=== PATIENT | male | born 1955 | race Caucasian/White ===

== ENCOUNTER 2017-03-28 14:58 | Emergency (ER) | payer MEDICARE, MEDICAID ==
[~2017-03-28] VITALS: Ht 195.6 cm; Wt 106.6 kg
[~2017-03-28 14:58] MED LIST: AMLODIPINE BESYL5 MG ORAL; COGENTIN1 MG ORAL; DEPAKOTE500 MG PO; HALOPERIDOL1 MG ORAL; KLONOPIN0.5 MG ORAL
--- NOTE | 2017-03-28 15:24 | Emergency Room Report ---
History of Present Illness General Chief Complaint: Constipation Source: Patient, Medical Record, EMS Present Illness HPI This patient presents from a snf facility. He states that he is constipated. He states he has been constipated for the past 2 weeks. He states he's only had a few small hard bowel movements. He denies pain. He denies nausea or vomiting. He states that his abdomen does feel distended. He denies dysuria or hematuria. He denies fever or chills. He denies rectal pain. He has no other complaints. Allergies: Coded Allergies: No Known Allergies (Unverified , 10/15/15) Patient History Past Medical History: see triage record, HTN, psych hx Social History: Denies: smoking, alcohol use, drug use Reviewed Nursing Documentation: PMH: Agreed, PSxH: Agreed Review of Systems All Other Systems: negative except mentioned in HPI Physical Exam Vital Signs Date Time Temp Pulse Resp B/P (MAP) Pulse Ox O2 Delivery O2 Flow Rate FiO2 03/28/17 15:05 98.1 71 19 157/89 95 Room Air Sp02 EP Interpretation: reviewed, normal General Appearance: no apparent distress, alert, GCS 15, non-toxic Head: normocephalic, atraumatic Eyes: bilateral eye normal inspection, bilateral eye PERRL ENT: hearing grossly normal, normal pharynx, no angioedema, normal voice Neck: full range of motion, supple/symm/no masses Respiratory: chest non-tender, lungs clear, normal breath sounds, speaking full sentences Cardiovascular #1: regular rate, rhythm, no edema Gastrointestinal: normal bowel sounds, non tender, soft, non-distended, no guarding, no rebound Rectal: deferred Musculoskeletal: back normal, gait/station normal, normal range of motion, non- tender Neurologic: alert, oriented x3, responsive, motor strength/tone normal, sensory intact, speech normal Psychiatric: judgement/insight normal, memory normal, mood/affect normal, no suicidal/homicidal ideation Skin: normal color, no rash, warm/dry, well hydrated Medical Decision Making Diagnostic Impression: Primary Impression: Constipation ER Course This patient presents with constipation. Patient's abdomen exam is benign. The patient has no concerning symptoms such as nausea or vomiting that would make me concerned for a bowel obstruction. He has no urinary symptoms. He has no pain. He was given a Fleet enema with a successful bowel movement. I will place the patient on a bowel regimen and return him to the snf facility. I did not feel this patient needed imaging or laboratory workup. The patient will followup with his primary care physician at the snf facility. Last Vital Signs Date Time Temp Pulse Resp B/P (MAP) Pulse Ox O2 Delivery O2 Flow Rate FiO2 03/28/17 15:05 98.1 71 19 157/89 95 Room Air Status: improved Disposition: HOME, SELF-CARE Condition: Improved Patient Instructions: Constipation, Adult TOMMIE ALMONTE D.O. Mar 28, 2017 15:24
[2017-03-28] MEDS ORDERED: ZYPREXA10 MG ORAL (15:28)
[2017-03-28] MEDS ORDERED: PANTOPRAZOLE SO40 MG ORAL (15:28)
[2017-03-28] MEDS ORDERED: CATAPRES0.1 MG ORAL (15:28)
[2017-03-28] MEDS ORDERED: HYDRALAZINE HCL10 MG ORAL (15:28)
[2017-03-28] MEDS ORDERED: MILK OF MA400 MG/51 ORAL (15:28)
[2017-03-28] MEDS ORDERED: DEPAKOTE250 MG PO (15:28)
[2017-03-28] MEDS ORDERED: Fleet's Enema 133ml RECTAL ONE (15:30)
[2017-03-28 15:50] VITALS: BP 157/89
[2017-03-28] MEDS ORDERED: MIRALAX17 G2 ORAL (16:07)
[2017-03-28] MEDS ORDERED: COLACE100 MG ORAL (16:07)
[2017-03-28 18:59] VITALS: BP 159/91
[2017-03-28 19:02] VITALS: BP 159/91
== END 2017-03-28 19:03 | disposition home or self-care (01) ==
LOC: EDBD 14:58 → EMR 16:00
DX: K59.00 Constipation, unspecified (principal); I10 Essential (primary) hypertension
CPT/HCPCS: 99284

== ENCOUNTER 2019-11-14 15:50 | Inpatient (IN) | payer MEDICARE, MEDICAID ==
[~2019-11-14] VITALS: Ht 193 cm; Wt 81.2 kg
[~2019-11-14 15:50] MED LIST changes: +CATAPRES0.1 MG ORAL; +COLACE100 MG ORAL; +DEPAKOTE250 MG PO; +HYDRALAZINE HCL10 MG ORAL; +MILK OF MA400 MG/51 ORAL; +MIRALAX17 G2 ORAL; +PANTOPRAZOLE SO40 MG ORAL; +ZYPREXA10 MG ORAL
--- NOTE | 2019-11-14 15:59 | Emergency Room Report ---
History of Present Illness General Chief Complaint: Pain Source: Patient, EMS Present Illness HPI 64-year-old male from [facility] presents with right hip pain sharp in nature aggravated with movement alleviated with rest severity is severe, patient reports having a mechanical fall yesterday, patient denies any his head no chest pain or shortness of breath he states he was running too fast patient presents for evaluation no cough no congestion Allergies: Coded Allergies: No Known Allergies (Unverified , 10/15/15) COVID-19 Screening Contact w/high risk pt: No Recent Travel to affected area: No Experienced COVID-19 symptoms?: No Patient History Past Medical History: see triage record Reviewed Nursing Documentation: PMH: Agreed; PSxH: Agreed Nursing Documentation-PMH Hx Hypertension: Yes Hx Diabetes: Yes Review of Systems All Other Systems: negative except mentioned in HPI Physical Exam Sp02 EP Interpretation: reviewed, normal General Appearance: well appearing, no apparent distress, alert Head: normocephalic, atraumatic Eyes: bilateral eye PERRL, bilateral eye EOMI ENT: uvula midline, moist mucus membranes Neck: supple, thyroid normal, supple/symm/no masses Respiratory: lungs clear, no respiratory distress, no retraction, no accessory muscle use Cardiovascular #1: normal peripheral pulses, regular rate, rhythm, no edema, no gallop, no murmur Gastrointestinal: non tender, soft, no guarding, no rebound Musculoskeletal: other - Right hip: Tender to palpation, ecchymosis noted 2+ PT DP Neurologic: alert, oriented x3 Psychiatric: mood/affect normal Skin: no rash, warm/dry Medical Decision Making Diagnostic Impression: Primary Impression: Hip fracture, right Qualified Codes: S72.001A - Fracture of unspecified part of neck of right femur, initial encounter for closed fracture Additional Impression: Fall Qualified Codes: W19.XXXA - Unspecified fall, initial encounter ER Course 64-year-old male presents with mechanical fall, history of CKD. CT scan of the head is negative, patient with a right hip fracture, confirmed by x-ray Preop labs are ordered, pain control with morphine patient admitted to Dr. Coronel Laboratory Tests Test 11/14/19 16:20 White Blood Count 7.5 K/UL (4.8-10.8) Red Blood Count 3.38 M/UL (4.70-6.10) L Hemoglobin 10.6 G/DL (14.2-18.0) L Hematocrit 32.6 % (42.0-52.0) L Mean Corpuscular Volume 97 FL (80-99) Mean Corpuscular Hemoglobin 31.3 PG (27.0-31.0) H Mean Corpuscular Hemoglobin Concent 32.4 G/DL (32.0-36.0) Red Cell Distribution Width 16.7 % (11.6-14.8) H Platelet Count 241 K/UL (150-450) Mean Platelet Volume 5.5 FL (6.5-10.1) L Neutrophils (%) (Auto) 65.7 % (45.0-75.0) Lymphocytes (%) (Auto) 22.0 % (20.0-45.0) Monocytes (%) (Auto) 11.1 % (1.0-10.0) H Eosinophils (%) (Auto) 0.4 % (0.0-3.0) Basophils (%) (Auto) 0.8 % (0.0-2.0) Prothrombin Time 10.0 SEC (9.30-11.50) Prothrombin Time INR 0.9 (0.9-1.1) Activated Partial Thromboplast Time 31 SEC (23-33) Sodium Level 142 MMOL/L (136-145) Potassium Level 4.3 MMOL/L (3.5-5.1) Chloride Level 109 MMOL/L (98-107) H Carbon Dioxide Level 25 MMOL/L (21-32) Anion Gap 8 mmol/L (5-15) Blood Urea Nitrogen 73 mg/dL (7-18) H Creatinine 3.5 MG/DL (0.55-1.30) H Estimated Glomerular Filtration Rate 17.7 mL/min (>60) Glucose Level 102 MG/DL (74-106) Calcium Level 9.1 MG/DL (8.5-10.1) Total Bilirubin 0.4 MG/DL (0.2-1.0) Aspartate Amino Transferase (AST) 24 U/L (15-37) Alanine Aminotransferase (ALT) 11 U/L (12-78) L Alkaline Phosphatase 48 U/L (46-116) Troponin I 0.000 ng/mL (0.000-0.056) Total Protein 7.1 G/DL (6.4-8.2) Albumin 1.9 G/DL (3.4-5.0) L Globulin 5.2 g/dL Albumin/Globulin Ratio 0.4 (1.0-2.7) L Lipase 181 U/L (73-393) EKG Diagnostic Results EKG Time: 16:15 EP Interpretation: NSR, left bundle branch block, rate 67 QTc 502, no acute ST elevations Rhythm Strip Diag. Results Rhythm Strip Time: 16:25 EP Interpretation: yes Rate: 70 Rhythm: NSR, no PVC's, no ectopy Chest X-Ray Diagnostic Results Chest X-Ray Diagnostic Results : Chest X-Ray Ordered: Yes # of Views/Limited/Complete: 1 View Indication: Other - PREOP EP Interpretation: Yes Interpretation: no consolidation, no effusion, no pneumothorax, no acute cardiopulmonary disease Impression: No acute disease Electronically Signed by: Luis A Barreto MD CT/MRI/US Diagnostic Results CT/MRI/US Diagnostic Results : Impression Procedure: CT Pelvis no Contrast Indication: Right hip pain status post traumatic fall Technique: Noncontrast spiral acquisitions obtained through the pelvis. Multiplanar reconstructions generated. Total dose length product 269 mGycm. CTDIvol(s) 6 mGy. Dose reduction achieved using automated exposure control Comparison: none Findings: There is a fracture of the right distal femoral neck bordering on the intertrochanteric region. There is an unusual large bony defect with sclerosis involving the inferior femoral neck, into which protrudes a bony protuberance above the lesser trochanter. There is also a concomitant defect in the superior aspect of the distal fragment into which protrudes the proximal fragment. This is largely a 2 part fracture with only one or 2 additional smaller fragments. There is abnormal soft tissue posterior medial to the femoral shaft which is isoattenuating to the surrounding muscles. Within this are areas of what appear to be heterotopic ossification. There is overall generalized of the muscles on the right as compared to the left. There is some edema of the subcutaneous fat of the proximal thigh and right hip and buttock region. There is a left hip hemiarthroplasty prosthesis. The hardware appears to be intact. No acute fracture demonstrated on the left. No definite pelvic fracture is demonstrated. Included pelvic viscera demonstrate marked distention of the bladder. The appendix is normal. There is considerable retained colonic stool. There is mild distention of the rectum by feces. Rectal diameter 8 cm. There is mild rectal wall thickening. Impression: Unusual right distal femoral neck fracture as described above. Given the extent of remodeling of the fracture fragments, this is presumably old and ununited rather than acute. Asymmetric hypertrophy of the right thigh musculature and subcutaneous soft tissues, as compared to the left. Unusual thickening of the posterior medial thigh musculature with central calcifications. Suspect that this is just a manifestation of the generalized hypertrophy on the right. Central calcifications presumably represent heterotopic ossification likely indicating old injury. However, the possibility of an acute hematoma should also be considered Edema of the subcutaneous fat on the right. Distended stool-filled rectum, could indicate rectal fecal impaction Overall generalized moderate fecal retention Left hip hemiarthroplasty prosthesis noted. The CT scanner at [facility] is accredited by the [employer] and the scans are performed using protocols designed to limit radiation exposure to as low as reasonably achievable to attain images of sufficient resolution adequate for diagnostic evaluation. Dictated By: Mukul Guy MD Electronically Signed By: Mukul Guy MD Signed Date/Time 11/14/19 7672 CC: Luis A Barreto MD; Lisa Coronel MD Procedure: CT Head no Contrast Indications: Head trauma,, status post fall yesterday Technique: Spiral acquisitions obtained through the brain. Angled axial and coronal 5 x 5 mm slices were reconstructed. Total dose length product 1179 mGycm. CTDI vol(s) 53 mGy. Dose reduction achieved using automated exposure control Comparison: None. Findings: There is age-related enlargement of the ventricles and extra axial CSF spaces. No acute intracranial hemorrhage or edema. No mass effect nor midline shift. Normal walker-white differentiation. There is minimal right mastoid opacification Impression: Negative for acute intracranial bleed or mass effect Age-related volume loss Minimal mastoid disease The CT scanner at [facility] is accredited by the [employer] and the scans are performed using protocols designed to limit radiation exposure to as low as reasonably achievable to attain images of sufficient resolution adequate for diagnostic evaluation. Dictated By: Mukul Guy MD Electronically Signed By: Mukul Guy MD Signed Date/Time 11/14/19 1710 CC: Luis A Barreto MD Disposition: ADMITTED INPATIENT Condition: Stable Luis A Barreto MD Nov 14, 2019 15:59
[2019-11-14] MEDS ORDERED: Hydromorphone 0.5mg/0.5ml inj IVP ONE (16:00)
[2019-11-14] MEDS ORDERED: FLOMAX0.4 MG ORAL (16:07)
[2019-11-14] MEDS ORDERED: NORMODYNE100 MG ORAL (16:07)
--- NOTE | 2019-11-14 16:48 | NUR ---
ED Nurse Note: Pt from [facility] brought in by [facility] due to right hip fracture. Per EMS, nursing staff noticed bruising on pt's right hip. Fracture confirmed by X-ray today. PCR and labs sent to lab. Pt taken to CT.
[2019-11-14 16:57] LABS: ANION GAP 8 mmol/L (5-15); BLOOD UREA NITROGEN 73 mg/dL (7-18); CALCIUM 9.1 MG/DL (8.5-10.1); CARBON DIOXIDE 25 MMOL/L (21-32); CHLORIDE 109 MMOL/L (98-107); CREATININE 3.5 MG/DL (0.55-1.30); POTASSIUM 4.3 MMOL/L (3.5-5.1); SODIUM 142 MMOL/L (136-145)
[2019-11-14 16:59] LABS: INR 0.9 (0.9-1.1)
[2019-11-14 17:03] LABS: ALANINE AMINOTRANSFERASE 11 U/L (12-78); ALBUMIN 1.9 G/DL (3.4-5.0); ALBUMIN/GLOBULIN RATIO 0.4 (1.0-2.7); ALKALINE PHOSPHATASE 48 U/L (46-116); ASPARTATE AMINO TRANSFERASE 24 U/L (15-37); BILIRUBIN,TOTAL 0.4 MG/DL (0.2-1.0)
[2019-11-14 17:05] VITALS: BP 113/72
[2019-11-14 17:06] LABS: BASOPHILS % (AUTO) 0.8 % (0.0-2.0); EOSINOPHILS % (AUTO) 0.4 % (0.0-3.0); HEMATOCRIT 32.6 % (42.0-52.0); HEMOGLOBIN 10.6 G/DL (14.2-18.0); MEAN CORPUSCULAR VOLUME 97 FL (80-99); MONOCYTES % (AUTO) 11.1 % (1.0-10.0); NEUTROPHILS % (AUTO) 65.7 % (45.0-75.0); PLATELET COUNT 241 K/UL (150-450); RED BLOOD COUNT 3.38 M/UL (4.70-6.10); RED CELL DISTRIBUTION WIDTH 16.7 % (11.6-14.8); WHITE BLOOD COUNT 7.5 K/UL (4.8-10.8)
--- NOTE | 2019-11-14 17:15 | Diagnostic Imaging Report ---
Indications: Head trauma,, status post fall yesterday Technique: Spiral acquisitions obtained through the brain. Angled axial and coronal 5 x 5 mm slices were reconstructed. Total dose length product 1179 mGycm. CTDI vol(s) 53 mGy. Dose reduction achieved using automated exposure control Comparison: None. Findings: There is age-related enlargement of the ventricles and extra axial CSF spaces. No acute intracranial hemorrhage or edema. No mass effect nor midline shift. Normal walker-white differentiation. There is minimal right mastoid opacification Impression: Negative for acute intracranial bleed or mass effect Age-related volume loss Minimal mastoid disease The CT scanner at [facility] is accredited by the [employer] and the scans are performed using protocols designed to limit radiation exposure to as low as reasonably achievable to attain images of sufficient resolution adequate for diagnostic evaluation.
--- NOTE | 2019-11-14 17:27 | Diagnostic Imaging Report ---
Indication: Right hip pain status post traumatic fall Technique: Noncontrast spiral acquisitions obtained through the pelvis. Multiplanar reconstructions generated. Total dose length product 269 mGycm. CTDIvol(s) 6 mGy. Dose reduction achieved using automated exposure control Comparison: none Findings: There is a fracture of the right distal femoral neck bordering on the intertrochanteric region. There is an unusual large bony defect with sclerosis involving the inferior femoral neck, into which protrudes a bony protuberance above the lesser trochanter. There is also a concomitant defect in the superior aspect of the distal fragment into which protrudes the proximal fragment. This is largely a 2 part fracture with only one or 2 additional smaller fragments. There is abnormal soft tissue posterior medial to the femoral shaft which is isoattenuating to the surrounding muscles. Within this are areas of what appear to be heterotopic ossification. There is overall generalized of the muscles on the right as compared to the left. There is some edema of the subcutaneous fat of the proximal thigh and right hip and buttock region. There is a left hip hemiarthroplasty prosthesis. The hardware appears to be intact. No acute fracture demonstrated on the left. No definite pelvic fracture is demonstrated. Included pelvic viscera demonstrate marked distention of the bladder. The appendix is normal. There is considerable retained colonic stool. There is mild distention of the rectum by feces. Rectal diameter 8 cm. There is mild rectal wall thickening. Impression: Unusual right distal femoral neck fracture as described above. Given the extent of remodeling of the fracture fragments, this is presumably old and ununited rather than acute. Asymmetric hypertrophy of the right thigh musculature and subcutaneous soft tissues, as compared to the left. Unusual thickening of the posterior medial thigh musculature with central calcifications. Suspect that this is just a manifestation of the generalized hypertrophy on the right. Central calcifications presumably represent heterotopic ossification likely indicating old injury. However, the possibility of an acute hematoma should also be considered Edema of the subcutaneous fat on the right. Distended stool-filled rectum, could indicate rectal fecal impaction Overall generalized moderate fecal retention Left hip hemiarthroplasty prosthesis noted. The CT scanner at [facility] is accredited by the [employer] and the scans are performed using protocols designed to limit radiation exposure to as low as reasonably achievable to attain images of sufficient resolution adequate for diagnostic evaluation.
--- NOTE | 2019-11-14 17:40 | NUR ---
ED Nurse Note: Report given to Greg RN at 4E, #[id number].
--- NOTE | 2019-11-14 17:50 | NUR ---
NURSE NOTES: Admitted pt from the ed. pt is alert and awake x2-3, respiration is even and unlabored. pt is admitted due to right hip fracture and to rule out covid-19. verbalized pain 6/10 at this time. awaiting MD to order pain medications. made comfortable in bed. engaged in conversation to distract pain. pt has right hand 20 g IV line. no acute distress noted. bed in lock position. call light is placed within reach, will continue to monitor.
[2019-11-14 18:00] VITALS: BP 117/62
--- NOTE | 2019-11-14 18:00 | NUR ---
ED Nurse Note: Pt transffered to 4E. Report given to ANDRY Garza. Addendum: 11/14/19 at 1802 by [email or web address] ER DISCHARGE NOTE: Pt transffered to 4E. Report given to ANDRY Garza.
--- NOTE | 2019-11-14 18:45 | NUR ---
Per Dr. boudreaux no order for DVT prophylaxis due to pt has hip fracture.
--- NOTE | 2019-11-14 19:44 | NUR ---
HAND-OFF: Report given to
--- NOTE | 2019-11-14 19:45 | NUR ---
NURSE NOTES: Received patient in no apparent distress. A&OX1, confusion. IV site patent and intact. Bruise noted on right hip due to fell from SNF. Bed in lowest position. Call light within reach. Will continue to monitor.
[2019-11-14 20:00] VITALS: BP 124/52
--- NOTE | 2019-11-14 20:29 | Diagnostic Imaging Report ---
Indication: Right hip pain, status post fall Technique: One view the pelvis, 2 views of the right hip Comparison: none Findings: There is a fracture of the distal femoral neck. This appears ununited. There is a projection of the distal fracture superior to the lesser trochanter which projects inside a groove in the femoral head neck junction. This is also appreciated on earlier CT scan. There is left hip hardware noted. There is considerable colonic stool Impression: Right hip fracture, as described. Although margins of the fracture appear sharp, presence of a groove within the femoral head neck junction apparently created by a protuberance off the distal fragment suggests that this is not acute. Correlate with clinical history and findings Other findings as noted
--- NOTE | 2019-11-14 20:30 | Diagnostic Imaging Report ---
Indication: Pain, status post fall Technique: One view of the chest Comparison: none Findings: Patient's chin obscures the upper mediastinum and left lung apex. Lungs and pleural spaces are clear. Density at the left lung base may reflect some pleural calcification. The heart size is normal. Impression: Findings as noted. No acute process
[2019-11-15] VITALS (7 sets, daily range): BP systolic 91–150; BP diastolic 54–95
--- NOTE | 2019-11-15 06:31 | NUR ---
NURSE NOTES: Patient pulled out IV. Patient yelling and singing all night long. Patient strongly refused insert new IV. Notified Dr. Eneida Murcia in person and left message to Dr. Coronel.
--- NOTE | 2019-11-15 07:30 | NUR ---
NURSE NOTES: Received patient in bed,awake, confused no sign of distress ,no IV access noted,. on NPO STATUS Bed in lowest position. Call light within reach. Will continue to monitor Addendum: 11/15/19 at 1524 by MARIZA HANNA RN RN NURSE NOTES: Received patient in bed,awake, confused no sign of distress ,no IV access noted,. on NPO status, on fall , Bed in lowest position. Call light within reach. Will continue to monitor [facility]
--- NOTE | 2019-11-15 07:30 | NUR ---
HAND-OFF: Report given to Mine WILDE.
[2019-11-15 08:49] LABS: BASOPHILS % (AUTO) 0.5 % (0.0-2.0); EOSINOPHILS % (AUTO) 0.6 % (0.0-3.0); HEMATOCRIT 29.7 % (42.0-52.0); HEMOGLOBIN 9.9 G/DL (14.2-18.0); LYMPHOCYTES % (AUTO) 21.2 % (20.0-45.0); MEAN CORPUSCULAR VOLUME 91 FL (80-99); MONOCYTES % (AUTO) 9.1 % (1.0-10.0); NEUTROPHILS % (AUTO) 68.5 % (45.0-75.0); PLATELET COUNT 278 K/UL (150-450); RED BLOOD COUNT 3.25 M/UL (4.70-6.10); RED CELL DISTRIBUTION WIDTH 15.1 % (11.6-14.8); WHITE BLOOD COUNT 6.6 K/UL (4.8-10.8)
--- NOTE | 2019-11-15 09:21 | Consultation ---
Consult Note Consult Note I was asked to evaluate the patient at the request of Dr. Coronel for renal failure Patient seen in room 421 He is somewhat agitated and poor historian Emergency room note: Chief Complaint: Pain 64-year-old male from [facility] presents with right hip pain sharp in nature aggravated with movement alleviated with rest severity is severe, patient reports having a mechanical fall yesterday, patient denies any his head no chest pain or shortness of breath he states he was running too fast patient presents for evaluation no cough no congestion No Known Allergies (Unverified , 10/15/15) COVID-19 Screening Contact w/high risk pt: No Recent Travel to affected area: No Experienced COVID-19 symptoms?: No Past history Hx Hypertension: Yes Hx Diabetes: Yes Patient uncooperative for examination Does not move the right lower extremities because of pain The data in the record reviewed . Assessment/Plan Acute renal failure Possibly underlying chronic kidney failure Dehydration Status post fall and fracture of the right hip History of hypertension History of diabetes mellitus History of psych disease Anemia Suggestions N.p.o. until cleared for surgery Meanwhile IV fluids Anemia work-up Protonix, Colace Pain medication Monitor renal parameters Urine studies Per consultants Armen Levine MD November 15, 2019 09:21
[2019-11-15] MEDS ORDERED: Hydromorphone 0.5mg/0.5ml inj IVP PRN (09:30)
--- NOTE | 2019-11-15 09:40 | NUR ---
NURSE NOTES Inserted a new HL , to resumed IVF , but when i came back, HL was already pulled out, will notify Dr Dickens if ok to place bilateral soft wrist restraint, waiting for new order [facility]
[2019-11-15 09:48] LABS: CHOLESTEROL 98 MG/DL (< 200); CREATINE KINASE 83 U/L (26-308); HDL CHOLESTEROL 23 MG/DL (40-60); TRIGLYCERIDES 123 MG/DL (30-150)
[2019-11-15 09:55] LABS: % IRON SATURATION 20 % (15-50); IRON 34 ug/dL (50-175); TOTAL IRON BINDING CAPACITY 172 ug/dL (250-450)
[2019-11-15 10:15] LABS: FERRITIN 216 NG/ML (8-388)
[2019-11-15 10:44] LABS: ANION GAP 13 mmol/L (5-15); BLOOD UREA NITROGEN 67 mg/dL (7-18); CALCIUM 8.5 MG/DL (8.5-10.1); CARBON DIOXIDE 22 MMOL/L (21-32); CHLORIDE 114 MMOL/L (98-107); CREATININE 3.2 MG/DL (0.55-1.30); POTASSIUM 4.8 MMOL/L (3.5-5.1); SODIUM 149 MMOL/L (136-145)
[2019-11-15] MEDS: D5 1/2NS 1,000 ML IV SCH ×2 (10:47→21:07)
[2019-11-15 10:49] LABS: ALANINE AMINOTRANSFERASE 17 U/L (12-78); ALBUMIN 1.7 G/DL (3.4-5.0); ALBUMIN/GLOBULIN RATIO 0.3 (1.0-2.7); ALKALINE PHOSPHATASE 50 U/L (46-116); ASPARTATE AMINO TRANSFERASE 25 U/L (15-37); BILIRUBIN,TOTAL 0.4 MG/DL (0.2-1.0); PHOSPHORUS 3.7 MG/DL (2.5-4.9)
[2019-11-15] MEDS ORDERED: Albumin Human 5% 500ml IV ONE (11:00)
--- NOTE | 2019-11-15 11:24 | Consultation ---
History of Present Illness General Chief Complaint: Pain Present Illness Allergies: Coded Allergies: No Known Allergies (Unverified , 10/15/15) Medication History Scheduled Amlodipine Besylate* (Amlodipine Besylate*), 10 MG ORAL DAILY, (Reported) Benztropine Mesylate (Cogentin 1mg*), 1 MG ORAL EVERY 12 HOURS, (Reported) Clonazepam* (Klonopin*), 0.5 MG ORAL Q6H, (Reported) Clonidine Hcl* (Catapres*), 0.1 MG ORAL EVERY 8 HOURS, (Reported) Divalproex Sodium (Depakote), 500 MG PO BID, (Reported) Divalproex Sodium* (Depakote*), 500 MG PO Q12HR, (Reported) Docusate Sodium* (Colace*), 100 MG ORAL TWICE A DAY Haloperidol* (Haldol*), 20 MG ORAL BEDTIME, (Reported) Hydralazine Hcl* (Hydralazine Hcl*), 10 MG ORAL EVERY 8 HOURS, (Reported) Labetalol HCl (Labetalol HCl), 100 MG ORAL EVERY 12 HOURS, (Reported) Olanzapine* (Zyprexa*), 10 MG ORAL BID, (Reported) Pantoprazole* (Pantoprazole*), 40 MG ORAL DAILY, (Reported) Polyethylene Glycol 3350* (Miralax*), 17 GM ORAL DAILY Tamsulosin HCl (Flomax), 0.4 MG ORAL DAILY, (Reported) Scheduled PRN Magnesium Hydroxide* (Milk Of Magnesia*), 30 ML ORAL DAILY PRN for Constipation, (Reported) Patient History Healthcare decision maker Resuscitation status Full Code Advanced Directive on File Physical Exam Last 24 Hour Vital Signs Date Time Temp Pulse Resp B/P (MAP) Pulse Ox O2 Delivery O2 Flow Rate FiO2 11/15/19 10:04 97.9 70 19 105/63 (77) 93 11/15/19 09:20 Room Air 11/15/19 08:00 97.2 70 19 108/63 (78) 94 11/15/19 04:00 97.0 74 18 104/58 (73) 93 11/15/19 00:00 97.8 71 20 91/54 (66) 100 11/14/19 21:00 Room Air 11/14/19 21:00 Room Air 11/14/19 20:00 97.6 103 20 124/52 (76) 92 11/14/19 18:00 98.6 117/62 (80) 11/14/19 17:56 97.5 18 113/72 98 Room Air 11/14/19 17:56 Room Air 11/14/19 17:05 97.5 18 113/72 98 Room Air 11/14/19 15:51 71 18 113/72 (86) 98 Room Air Intake and Output 11/14/19 11/15/19 19:00 07:00 Intake Total 150 ml 360 ml Output Total 0 ml Balance 150 ml 360 ml Intake Oral 150 ml Other 360 ml Output Urine Total 0 ml # Voids 2 Laboratory Tests Test 11/14/19 16:20 11/15/19 08:15 White Blood Count 7.5 K/UL (4.8-10.8) 6.6 K/UL (4.8-10.8) Red Blood Count 3.38 M/UL (4.70-6.10) L 3.25 M/UL (4.70-6.10) L Hemoglobin 10.6 G/DL (14.2-18.0) L 9.9 G/DL (14.2-18.0) L Hematocrit 32.6 % (42.0-52.0) L 29.7 % (42.0-52.0) L Mean Corpuscular Volume 97 FL (80-99) 91 FL (80-99) Mean Corpuscular Hemoglobin 31.3 PG (27.0-31.0) H 30.5 PG (27.0-31.0) Mean Corpuscular Hemoglobin Concent 32.4 G/DL (32.0-36.0) 33.4 G/DL (32.0-36.0) Red Cell Distribution Width 16.7 % (11.6-14.8) H 15.1 % (11.6-14.8) H Platelet Count 241 K/UL (150-450) 278 K/UL (150-450) Mean Platelet Volume 5.5 FL (6.5-10.1) L 4.6 FL (6.5-10.1) L Neutrophils (%) (Auto) 65.7 % (45.0-75.0) 68.5 % (45.0-75.0) Lymphocytes (%) (Auto) 22.0 % (20.0-45.0) 21.2 % (20.0-45.0) Monocytes (%) (Auto) 11.1 % (1.0-10.0) H 9.1 % (1.0-10.0) Eosinophils (%) (Auto) 0.4 % (0.0-3.0) 0.6 % (0.0-3.0) Basophils (%) (Auto) 0.8 % (0.0-2.0) 0.5 % (0.0-2.0) Prothrombin Time 10.0 SEC (9.30-11.50) Prothromb Time International Ratio 0.9 (0.9-1.1) Activated Partial Thromboplast Time 31 SEC (23-33) Sodium Level 142 MMOL/L (136-145) 149 MMOL/L (136-145) H Potassium Level 4.3 MMOL/L (3.5-5.1) 4.8 MMOL/L (3.5-5.1) Chloride Level 109 MMOL/L (98-107) H 114 MMOL/L (98-107) H Carbon Dioxide Level 25 MMOL/L (21-32) 22 MMOL/L (21-32) Anion Gap 8 mmol/L (5-15) 13 mmol/L (5-15) Blood Urea Nitrogen 73 mg/dL (7-18) H 67 mg/dL (7-18) H Creatinine 3.5 MG/DL (0.55-1.30) H 3.2 MG/DL (0.55-1.30) H Estimat Glomerular Filtration Rate 17.7 mL/min (>60) 19.7 mL/min (>60) Glucose Level 102 MG/DL (74-106) 67 MG/DL (74-106) L Calcium Level 9.1 MG/DL (8.5-10.1) 8.5 MG/DL (8.5-10.1) Total Bilirubin 0.4 MG/DL (0.2-1.0) 0.4 MG/DL (0.2-1.0) Aspartate Amino Transf (AST/SGOT) 24 U/L (15-37) 25 U/L (15-37) Alanine Aminotransferase (ALT/SGPT) 11 U/L (12-78) L 17 U/L (12-78) Alkaline Phosphatase 48 U/L (46-116) 50 U/L (46-116) Troponin I 0.000 ng/mL (0.000-0.056) 0.000 ng/mL (0.000-0.056) Total Protein 7.1 G/DL (6.4-8.2) 6.6 G/DL (6.4-8.2) Albumin 1.9 G/DL (3.4-5.0) L 1.7 G/DL (3.4-5.0) L Globulin 5.2 g/dL 4.9 g/dL Albumin/Globulin Ratio 0.4 (1.0-2.7) L 0.3 (1.0-2.7) L Lipase 181 U/L (73-393) Hemoglobin A1c 4.9 % (4.3-6.0) Uric Acid 11.9 MG/DL (2.6-7.2) H Phosphorus Level 3.7 MG/DL (2.5-4.9) Magnesium Level 2.0 MG/DL (1.8-2.4) Iron Level 34 ug/dL (50-175) L Total Iron Binding Capacity 172 ug/dL (250-450) L Percent Iron Saturation 20 % (15-50) Unsaturated Iron Binding 138 ug/dL (112-346) Ferritin 216 NG/ML (8-388) Total Creatine Kinase 83 U/L (26-308) C-Reactive Protein, Quantitative 16.7 mg/dL (0.00-0.90) H Triglycerides Level 123 MG/DL (30-150) Cholesterol Level 98 MG/DL (< 200) LDL Cholesterol 46 mg/dL (<100) HDL Cholesterol 23 MG/DL (40-60) L Cholesterol/HDL Ratio 4.3 (3.3-4.4) Vitamin B12 Level 738 PG/ML (193-986) Folate 10.8 NG/ML (8.6-58.9) Height (Feet): 6 Height (Inches): 5.00 Weight (Pounds): 180 Medications Current Medications Medications (Trade) Dose Ordered Sig/Juan Route PRN Reason Start Time Stop Time Status Last Admin Dose Admin Acetaminophen (Tylenol) 650 mg Q4H PRN ORAL Mild Pain (Pain Scale 1-3) 11/14/19 19:15 12/14/19 19:14 Dextrose/Sodium Chloride 1,000 ml @ 100 mls/hr Q10H IV 11/15/19 10:00 12/15/19 09:59 11/15/19 10:47 Docusate Sodium (Colace) 100 mg TID ORAL 11/15/19 13:00 12/15/19 12:59 Hydromorphone HCl (Dilaudid) 0.5 mg Q4H PRN IVP For Pain 11/15/19 09:30 11/22/19 09:29 Lorazepam (Ativan 2mg/ml 1ml) 1 mg Q4H PRN IM For Anxiety 11/15/19 10:15 11/22/19 10:14 Pantoprazole (Protonix) 40 mg BID ORAL 11/15/19 10:00 12/15/19 09:59 11/15/19 10:46 Tamsulosin HCl (Flomax) 0.4 mg QHS ORAL 11/15/19 21:00 12/15/19 20:59 Assessment/Plan Assessment/Plan: Hematology Consultation REQ MD: Lisa Silva RFC: Anemia evaluation DOS: 11/15/2019 HPI 64-year-old male from [facility] presents with right hip pain sharp in nature aggravated with movement alleviated with rest severity is severe, patient reports having a mechanical fall yesterday, patient denies any his head no chest pain or shortness of breath he states he was running too fast patient presents for evaluation no cough no congestion Labs have been reviewed, no bleeding, smear is noted, hemolysis has been reviewed, no major changes, here for a right hip fracture, Dr. Levine consulted, Dr. Maninder fan as well --> he has been yelling all night and extremely aggressive when I evaluated him Allergies: No Known Allergies (Unverified , 10/15/15) COVID-19 Screening Contact w/high risk pt: No Recent Travel to affected area: No Experienced COVID-19 symptoms?: No Patient History Past Medical History: see triage record Reviewed Nursing Documentation: PMH: Agreed; PSxH: Agreed Nursing Documentation-PMH Hx Hypertension: Yes Hx Diabetes: Yes Review of Systems All Other Systems: negative except mentioned in HPI PE: Vitals: reviewed, stable General Appearance: NAD HEENT: normocephalic, atraumatic Neck: non-tender, normal alignment Respiratory/Chest: normal breath sounds bilaterally Cardiovascular/Chest: normal peripheral pulses, normal rate Abdomen: normal bowel sounds, soft, nontender Extremities: normal range of motion Neuro: altered, encephalopathic Labs: reviewed Imaging: noted with fracture hip Assessment and Recs # Anemia of chronic disease due to underlying chronic medical issues, multifactorial v Gi bleed --> Anemia workup has been ordered, rule out gi bleed --> No evidence of hemolysis is noted, peripheral smear has been reviewed. --> Hgb goal >7. Transfuse prn. --> Epogen or iron at this time is not particularly indicated --> Medications have been reviewed --> low threshold for gi evaluation in case has occult + --> hgb trend 9.9 # Hip fracture, right --> Fracture of unspecified part of neck of right femur, initial encounter for closed fracture --> as per ortho eval # Fall may require surger per ortho --> neuro and ortho # JAIDA on CKD --> per Dr. Levine # Psych disorder --> per Dr. Dickens The timing of this note does not necessarily reflect the time of the patient was seen. Greatly appreciate consultation. Juan Luis Monique MD November 15, 2019 11:24
--- NOTE | 2019-11-15 12:05 | Cardiac Electrophysiology PN ---
Subjective Subjective [id number] Objective Last 24 Hour Vital Signs Date Time Temp Pulse Resp B/P (MAP) Pulse Ox O2 Delivery O2 Flow Rate FiO2 11/15/19 10:04 97.9 70 19 105/63 (77) 93 11/15/19 09:20 Room Air 11/15/19 08:00 97.2 70 19 108/63 (78) 94 11/15/19 04:00 97.0 74 18 104/58 (73) 93 11/15/19 00:00 97.8 71 20 91/54 (66) 100 11/14/19 21:00 Room Air 11/14/19 21:00 Room Air 11/14/19 20:00 97.6 103 20 124/52 (76) 92 11/14/19 18:00 98.6 117/62 (80) 11/14/19 17:56 97.5 18 113/72 98 Room Air 11/14/19 17:56 Room Air 11/14/19 17:05 97.5 18 113/72 98 Room Air 11/14/19 15:51 71 18 113/72 (86) 98 Room Air Intake and Output 11/14/19 11/15/19 19:00 07:00 Intake Total 150 ml 360 ml Output Total 0 ml Balance 150 ml 360 ml Intake Oral 150 ml Other 360 ml Output Urine Total 0 ml # Voids 2 Laboratory Tests Test 11/14/19 16:20 11/15/19 08:15 White Blood Count 7.5 K/UL (4.8-10.8) 6.6 K/UL (4.8-10.8) Red Blood Count 3.38 M/UL (4.70-6.10) L 3.25 M/UL (4.70-6.10) L Hemoglobin 10.6 G/DL (14.2-18.0) L 9.9 G/DL (14.2-18.0) L Hematocrit 32.6 % (42.0-52.0) L 29.7 % (42.0-52.0) L Mean Corpuscular Volume 97 FL (80-99) 91 FL (80-99) Mean Corpuscular Hemoglobin 31.3 PG (27.0-31.0) H 30.5 PG (27.0-31.0) Mean Corpuscular Hemoglobin Concent 32.4 G/DL (32.0-36.0) 33.4 G/DL (32.0-36.0) Red Cell Distribution Width 16.7 % (11.6-14.8) H 15.1 % (11.6-14.8) H Platelet Count 241 K/UL (150-450) 278 K/UL (150-450) Mean Platelet Volume 5.5 FL (6.5-10.1) L 4.6 FL (6.5-10.1) L Neutrophils (%) (Auto) 65.7 % (45.0-75.0) 68.5 % (45.0-75.0) Lymphocytes (%) (Auto) 22.0 % (20.0-45.0) 21.2 % (20.0-45.0) Monocytes (%) (Auto) 11.1 % (1.0-10.0) H 9.1 % (1.0-10.0) Eosinophils (%) (Auto) 0.4 % (0.0-3.0) 0.6 % (0.0-3.0) Basophils (%) (Auto) 0.8 % (0.0-2.0) 0.5 % (0.0-2.0) Prothrombin Time 10.0 SEC (9.30-11.50) Prothromb Time International Ratio 0.9 (0.9-1.1) Activated Partial Thromboplast Time 31 SEC (23-33) Sodium Level 142 MMOL/L (136-145) 149 MMOL/L (136-145) H Potassium Level 4.3 MMOL/L (3.5-5.1) 4.8 MMOL/L (3.5-5.1) Chloride Level 109 MMOL/L (98-107) H 114 MMOL/L (98-107) H Carbon Dioxide Level 25 MMOL/L (21-32) 22 MMOL/L (21-32) Anion Gap 8 mmol/L (5-15) 13 mmol/L (5-15) Blood Urea Nitrogen 73 mg/dL (7-18) H 67 mg/dL (7-18) H Creatinine 3.5 MG/DL (0.55-1.30) H 3.2 MG/DL (0.55-1.30) H Estimat Glomerular Filtration Rate 17.7 mL/min (>60) 19.7 mL/min (>60) Glucose Level 102 MG/DL (74-106) 67 MG/DL (74-106) L Calcium Level 9.1 MG/DL (8.5-10.1) 8.5 MG/DL (8.5-10.1) Total Bilirubin 0.4 MG/DL (0.2-1.0) 0.4 MG/DL (0.2-1.0) Aspartate Amino Transf (AST/SGOT) 24 U/L (15-37) 25 U/L (15-37) Alanine Aminotransferase (ALT/SGPT) 11 U/L (12-78) L 17 U/L (12-78) Alkaline Phosphatase 48 U/L (46-116) 50 U/L (46-116) Troponin I 0.000 ng/mL (0.000-0.056) 0.000 ng/mL (0.000-0.056) Total Protein 7.1 G/DL (6.4-8.2) 6.6 G/DL (6.4-8.2) Albumin 1.9 G/DL (3.4-5.0) L 1.7 G/DL (3.4-5.0) L Globulin 5.2 g/dL 4.9 g/dL Albumin/Globulin Ratio 0.4 (1.0-2.7) L 0.3 (1.0-2.7) L Lipase 181 U/L (73-393) Hemoglobin A1c 4.9 % (4.3-6.0) Uric Acid 11.9 MG/DL (2.6-7.2) H Phosphorus Level 3.7 MG/DL (2.5-4.9) Magnesium Level 2.0 MG/DL (1.8-2.4) Iron Level 34 ug/dL (50-175) L Total Iron Binding Capacity 172 ug/dL (250-450) L Percent Iron Saturation 20 % (15-50) Unsaturated Iron Binding 138 ug/dL (112-346) Ferritin 216 NG/ML (8-388) Total Creatine Kinase 83 U/L (26-308) C-Reactive Protein, Quantitative 16.7 mg/dL (0.00-0.90) H Triglycerides Level 123 MG/DL (30-150) Cholesterol Level 98 MG/DL (< 200) LDL Cholesterol 46 mg/dL (<100) HDL Cholesterol 23 MG/DL (40-60) L Cholesterol/HDL Ratio 4.3 (3.3-4.4) Vitamin B12 Level 738 PG/ML (193-986) Folate 10.8 NG/ML (8.6-58.9) Neno Ennis MD November 15, 2019 12:05
[2019-11-15] MEDS: Docusate 100mg cap ORAL SCH ×2 (12:23→17:12)
[2019-11-15] MEDS: LORazepam Inj 2mg/ml 1ml IM PRN (12:24)
--- NOTE | 2019-11-15 16:42 | NUR ---
CASE MANAGEMENT:INITIAL REVIEW 64 YR OLD MALE BIBA FROM [facility] CC;PAIN SI;RIGHT HIP FRACTURE. COVID-19 RULE OUT. 98.6 103 20 104/58 93% ON RA CL 109 BUN 73 CR 3.[address] ~ Unusual right distal femoral neck fracture. Given the extent of remodeling of the fracture fragments, this is presumably old ununited rather than acute. HIP XRAY ~ Right hip fracture HEAD CT ~ Negative for acute intracranial bleed or mass effect CXR ~ Patient's chin obscures the upper mediastinum and left lung apex. IS;ZOFRAN IV ONCE DILAUDID IV ONCE IVF NS BOLUS ADMITTED TO MED SURG MED SURG STATUS DCP;FROM [facility]
--- NOTE | 2019-11-15 16:44 | Consultation ---
DATE OF CONSULTATION: 11/15/2019 INFECTIOUS DISEASES CONSULTATION CONSULTING PHYSICIAN: Todd Paz MD. PRIMARY ATTENDING PHYSICIAN: Lisa Coronel MD. REASON FOR CONSULTATION: Clearance for hip surgery for COVID-19 infection. HISTORY OF PRESENT ILLNESS: The patient is a 64-year-old white male admitted yesterday complaining of right hip pain. The patient had a mechanical fall one day prior to day of admission, has psych history, and is not a source of history. PAST MEDICAL HISTORY: Positive for hypertension, anemia, schizophrenia, BPH. PAST SURGICAL HISTORY: Status left hip hemiarthroplasty. ALLERGIES: No known drug allergies. MEDICATIONS: Flomax, Colace, lorazepam, Protonix, hydromorphone, Tylenol. SOCIAL HISTORY: Single, assisted resident. REVIEW OF SYSTEMS: There was no fever and chills, no coughing mentioned by the nurse. PHYSICAL EXAMINATION: VITAL SIGNS: Temperature 97.9, pulse 70, blood pressure 105/63. GENERAL APPEARANCE: No acute distress, seems to be thin. HEART: Normal rate. LUNGS: Clear. ABDOMEN: Soft and nontender. EXTREMITIES: No edema. Has internal rotation of right leg. NEUROLOGIC: Awake, confused, on restraints. LABORATORY AND DIAGNOSTIC DATA: Sodium 149, potassium 4.8, chloride 114, bicarb 22, BUN 67, creatinine 3.2, glucose 67. WBC 6.6, hemoglobin 9.9, hematocrit 29.7, platelets is 278. Uric acid is 11.9. CT scan of the head, no intracranial bleeding or mass effect. Chest x-ray was negative. Right hip x-ray showed right hip fracture. CT scan of the pelvis showed left hip hemiarthroplasty, fecal filled rectum, unusual right distal femoral neck fracture, likely old and ununited. IMPRESSION: Rule out COVID-19 disease as the patient has risk factor for COVID-19 residents in the assisted. Otherwise have no symptoms, has right hip fracture, schizophrenia, BPH, acute renal failure, anemia, fecal impaction. RECOMMENDATION: Observe off antibiotic. We will follow up COVID-19 tests. At the end of my exam, I thank Dr. Coronel, for involving me in the care of this patient. Todd Paz M.D. DR: Maureen JOB#: [id number] CC: ONUR
--- NOTE | 2019-11-15 19:14 | Consultation ---
DATE OF CONSULTATION: 11/15/2019 CARDIOLOGY CONSULTATION CONSULTING PHYSICIAN: Neno Ennis MD REFERRING PHYSICIAN: Lisa Coronel MD. REASON FOR CONSULTATION: Preoperative clearance prior to hip surgery. HISTORY OF PRESENT ILLNESS: The patient is a 64-year-old gentleman from [facility], was brought to the hospital for right hip pain. The patient apparently had a mechanical fall yesterday. He was found to have a right hip fracture and a Cardiology consultation was obtained for further management. The patient also has history of hypertension and diabetes. At the time of my evaluation, the patient is agitated and the nurses are having hard time restraining. REVIEW OF SYSTEMS: Cannot be obtained as the patient is very agitated and moving and uncooperative. PHYSICAL EXAMINATION: VITAL SIGNS: Blood pressure 105/63, pulse 70, respirations 18, and temperature 97.9. HEAD AND NECK: No JVD. LUNGS: Clear. CARDIOVASCULAR: Regular S1 and S2 with no gallop. ABDOMEN: Soft. EXTREMITIES: Cannot move his right lower extremity because of the pain and fracture. LABORATORY AND DIAGNOSTIC DATA: His labs show white count of 6.0, hemoglobin 9.9, hematocrit 29.7, and platelet count 278. Sodium 149, potassium 4.8, BUN of 67, creatinine 3.2, glucose 65. Troponin negative x2. ASSESSMENT AND PLAN: 1. Hypertension. Blood pressure currently is stable, off any blood pressure medication. 2. Status post fall and right hip fracture. We will get EKG and echocardiogram for further risk assessment prior to surgery. The patient has no history of myocardial infarction or congestive heart failure per records. Actually report of the echocardiogram showed normal left ventricular systolic size and function. 3. COVID-19 screening is also pending. 4. Agitation and psychosis. Further evaluation by Psychiatry. 5. Diabetes. 6. Probably chronic kidney disease with a creatinine of 3.2, BUN of 67, as well as hypernatremia with a sodium of 149. Further evaluation by Dr. Levine. Thank you very much for allowing me to participate in the care of this patient. Please do not hesitate to contact me for any questions regarding my evaluation. Neno Ennis M.D. DR: REENA JOB#: [id number] CC:
--- NOTE | 2019-11-15 19:25 | NUR ---
HAND-OFF: Report given to ANDRY CLEANING Patient resting comfortably in bed, IVF patent and infusing well, on bilateral soft wrist restraint , patient free from injury calm and quiet at this time andry xavier
--- NOTE | 2019-11-15 20:00 | NUR ---
NURSE NOTES: Received patient awake, impulsive, on bilateral soft wrist restraints.
[2019-11-15] MEDS ORDERED: Tamsulosin 0.4mg cap ORAL SCH (21:00)
--- NOTE | 2019-11-15 23:40 | Initial Psychiatric Evaluation ---
Psychiatry Consultation Psychiatry Consultation Chief Complaint: Pain History of Present Illness: 64-year-old man from [facility], was brought to the hospital for right hip pain. the pt gets agitated and is difficult to redirect. the pt has poor memory and is unable to provide hx. No si/hi Allergies: Coded Allergies: No Known Allergies (Unverified , 10/15/15) Medication History Scheduled Amlodipine Besylate* (Amlodipine Besylate*), 10 MG ORAL DAILY, (Reported) Benztropine Mesylate (Cogentin 1mg*), 1 MG ORAL EVERY 12 HOURS, (Reported) Clonazepam* (Klonopin*), 0.5 MG ORAL Q6H, (Reported) Clonidine Hcl* (Catapres*), 0.1 MG ORAL EVERY 8 HOURS, (Reported) Divalproex Sodium (Depakote), 500 MG PO BID, (Reported) Divalproex Sodium* (Depakote*), 500 MG PO Q12HR, (Reported) Docusate Sodium* (Colace*), 100 MG ORAL TWICE A DAY Haloperidol* (Haldol*), 20 MG ORAL BEDTIME, (Reported) Hydralazine Hcl* (Hydralazine Hcl*), 10 MG ORAL EVERY 8 HOURS, (Reported) Labetalol HCl (Labetalol HCl), 100 MG ORAL EVERY 12 HOURS, (Reported) Olanzapine* (Zyprexa*), 10 MG ORAL BID, (Reported) Pantoprazole* (Pantoprazole*), 40 MG ORAL DAILY, (Reported) Polyethylene Glycol 3350* (Miralax*), 17 GM ORAL DAILY Tamsulosin HCl (Flomax), 0.4 MG ORAL DAILY, (Reported) Scheduled PRN Magnesium Hydroxide* (Milk Of Magnesia*), 30 ML ORAL DAILY PRN for Constipation, (Reported) Patient History Limited by: medical condition History Provided By: Patient, Medical Record Objective Data Height (Feet): 6 Height (Inches): 5.00 Weight (Pounds): 180 Appearance: disheveled Behavior Mannerisms: poor eye contact Affect: blunted Mood: agitated Thought Process: illogical, tangential, disorganized Perceptual Disturbances: auditory Suicidal Ideation: not present Assessment/Plan Diagnosis Aston I: Acute encephalopathy dementia - Ativan Im -soft restraints. Sukhwinder Dickens MD November 15, 2019 23:40
[2019-11-16 00:10] VITALS: BP 137/73
--- NOTE | 2019-11-16 02:59 | History and Physical Report ---
DATE OF ADMISSION: 11/14/2019 HISTORY OF PRESENT ILLNESS: The patient is a very poor historian, agitated, cannot get a reliable history, was complaining of hip pain on the right and found to have the right hip fracture, comes from an assisted living. The patient also had a mechanical fall at the facility. The patient denies any chest pain. Denies any shortness of breath. Denies cough or congestion. PAST MEDICAL HISTORY: Significant for dementia, hypertension, diabetes as well as mood disorder, psychosis, hypertension, constipation, GERD, and BPH. PAST SURGICAL HISTORY: Denies. ALLERGIES: No known allergies. MEDICATIONS: Norvasc, Cogentin, clonidine, Depakote, Haldol, labetalol, Protonix, and Flomax. FAMILY HISTORY: Noncontributory. SOCIAL HISTORY: Denies smoking. Denies alcohol or illicit drugs. Comes from assisted living. REVIEW OF SYSTEMS: HEENT: Denies headaches. RESPIRATORY: Denies shortness of breath. Denies cough. CARDIOVASCULAR: Denies chest pain. GASTROINTESTINAL: Denies nausea, vomiting or diarrhea. EXTREMITIES: Reports right hip pain. CENTRAL NERVOUS SYSTEM: No change in speech pattern. Poor historian however. PHYSICAL EXAMINATION: VITAL SIGNS: Temperature is 97.9, pulse is 70, blood pressure 105/63. HEENT: PERRLA. NECK: Supple. No lymphadenopathy. CHEST: Clear to auscultation. CARDIOVASCULAR: Regular rate and rhythm. No murmurs or extra sounds. GASTROINTESTINAL: Soft, nontender, nondistended. No organomegaly. EXTREMITIES: No edema. Decreased range of motion bilaterally due to pain. Oriented to times, which is his baseline. LABORATORY DATA: WBC of 7.5, hemoglobin 10.6, platelets of 241. Sodium 149, potassium 4.8, BUN of 67, creatinine 3.2, glucose of 67. Troponin 0. ASSESSMENT AND PLAN: Right hip fracture, elevated, acute renal failure, rule out COVID. Dr. Todd Paz and Dr. Ennis are in charge of clearing this patient for ORIF of the hip, so will be up to Dr. Paz and Dr. Ennis to clear the patient for surgery. Antibiotics if any per Dr. Todd Paz. We will monitor the patient closely. Ali Oscar Coronel DR: Chris JOB#: [id number] CC:
[2019-11-16 04:00] VITALS: BP 140/75
[2019-11-16] MEDS: D5 1/2NS 1,000 ML IV SCH ×2 (07:21→16:00)
--- NOTE | 2019-11-16 07:24 | NUR ---
HAND-OFF: Report given to Qing Nova RN.
--- NOTE | 2019-11-16 07:42 | NUR ---
NURSE NOTES: Patient awake and alert to name, confused.reoriented patient,respirations unlabored.IV fluids infusing as ordered.noted bilateral wrist restraints on,will provide skin care and ROM.Bed alarm is on,call light within reach.
[2019-11-16 08:00] VITALS: BP 138/75
[2019-11-16 09:18] LABS: BASOPHILS % (AUTO) 0.6 % (0.0-2.0); EOSINOPHILS % (AUTO) 0.5 % (0.0-3.0); HEMOGLOBIN 9.8 G/DL (14.2-18.0); LYMPHOCYTES % (AUTO) 20.9 % (20.0-45.0); MEAN CORPUSCULAR VOLUME 93 FL (80-99); MONOCYTES % (AUTO) 11.1 % (1.0-10.0); PLATELET COUNT 272 K/UL (150-450); RED BLOOD COUNT 3.24 M/UL (4.70-6.10); RED CELL DISTRIBUTION WIDTH 15.3 % (11.6-14.8); WHITE BLOOD COUNT 5.5 K/UL (4.8-10.8)
[2019-11-16] MEDS: Docusate 100mg cap ORAL SCH ×3 (10:14→18:58)
[2019-11-16 12:00] VITALS: BP 140/52
--- NOTE | 2019-11-16 13:54 | Nephrology Progress Note ---
Assessment/Plan Problem List: (1) JAIDA (acute kidney injury) (2) Anemia (3) Dehydration Assessment Acute renal failure Possibly underlying chronic kidney failure Dehydration Status post fall and fracture of the right hip History of hypertension History of diabetes mellitus History of psych disease Anemia Plan On soft diet now Adjust blood pressure medications IV fluids Anemia work-up Protonix, Colace Pain medication Monitor renal parameters Urine studies Per consultants Subjective ROS Limited/Unobtainable: No Constitutional: Reports: other - Awake easily agitated Objective Objective Last 24 Hour Vital Signs Date Time Temp Pulse Resp B/P (MAP) Pulse Ox O2 Delivery O2 Flow Rate FiO2 11/16/19 12:00 98.0 92 22 140/52 (81) 98 11/16/19 10:42 Room Air 11/16/19 08:00 97.6 94 23 138/75 (96) 97 11/16/19 04:00 97.2 96 24 140/75 (96) 98 11/16/19 00:10 97.7 91 22 137/73 (94) 98 11/15/19 21:52 Room Air 11/15/19 20:00 96.9 94 20 110/70 (83) 96 11/15/19 16:10 97.7 84 20 142/90 (107) 95 Intake and Output 11/15/19 11/16/19 19:00 07:00 Intake Total 1100 ml 1200 ml Balance 1100 ml 1200 ml Intake Oral 300 ml IV Total 800 ml 1200 ml # Voids 3 2 Laboratory Tests 11/16/19 06:25: White Blood Count 5.5, Red Blood Count 3.24L, Hemoglobin 9.8L, Hematocrit 30.0L , Mean Corpuscular Volume 93, Mean Corpuscular Hemoglobin 30.4, Mean Corpuscular Hemoglobin Concent 32.8, Red Cell Distribution Width 15.3H, Platelet Count 272, Mean Platelet Volume 4.5L, Neutrophils (%) (Auto) 67.0, Lymphocytes (%) (Auto) 20.9, Monocytes (%) (Auto) 11.1H, Eosinophils (%) (Auto) 0.5, Basophils (%) (Auto) 0.6 No chemistry panel drawn today Height (Feet): 6 Height (Inches): 5.00 Weight (Pounds): 180 Armen Levine MD November 16, 2019 13:54
--- NOTE | 2019-11-16 14:36 | Cardiac Electrophysiology PN ---
Assessment/Plan Assessment/Plan 1. Hypertension. On Norvasc 2.5 daily 2. Status post fall and right hip fracture. EKG showed NSR with LBBB and echocardiogram showed Nl EF. The patient has no history of myocardial infarction or congestive heart failure per records. No further cardiac testing needed prior to hip surgery 3. COVID-19 screening is pending. 4. Agitation and psychosis. Further evaluation by Psychiatry. 5. Diabetes. 6. Probably chronic kidney disease with a creatinine of 3.2, BUN of 67, as well as hypernatremia with a sodium of 149. Further evaluation by Dr. Levine. Subjective Subjective Calmer today. RN at bedside.Echo Nl EF. ECG SR with LBBB Objective Last 24 Hour Vital Signs Date Time Temp Pulse Resp B/P (MAP) Pulse Ox O2 Delivery O2 Flow Rate FiO2 11/16/19 12:00 98.0 92 22 140/52 (81) 98 11/16/19 10:42 Room Air 11/16/19 08:00 97.6 94 23 138/75 (96) 97 11/16/19 04:00 97.2 96 24 140/75 (96) 98 11/16/19 00:10 97.7 91 22 137/73 (94) 98 11/15/19 21:52 Room Air 11/15/19 20:00 96.9 94 20 110/70 (83) 96 11/15/19 16:10 97.7 84 20 142/90 (107) 95 Intake and Output 11/15/19 11/16/19 19:00 07:00 Intake Total 1100 ml 1200 ml Balance 1100 ml 1200 ml Intake Oral 300 ml IV Total 800 ml 1200 ml # Voids 3 2 Laboratory Tests Test 11/16/19 06:25 White Blood Count 5.5 K/UL (4.8-10.8) Red Blood Count 3.24 M/UL (4.70-6.10) L Hemoglobin 9.8 G/DL (14.2-18.0) L Hematocrit 30.0 % (42.0-52.0) L Mean Corpuscular Volume 93 FL (80-99) Mean Corpuscular Hemoglobin 30.4 PG (27.0-31.0) Mean Corpuscular Hemoglobin Concent 32.8 G/DL (32.0-36.0) Red Cell Distribution Width 15.3 % (11.6-14.8) H Platelet Count 272 K/UL (150-450) Mean Platelet Volume 4.5 FL (6.5-10.1) L Neutrophils (%) (Auto) 67.0 % (45.0-75.0) Lymphocytes (%) (Auto) 20.9 % (20.0-45.0) Monocytes (%) (Auto) 11.1 % (1.0-10.0) H Eosinophils (%) (Auto) 0.5 % (0.0-3.0) Basophils (%) (Auto) 0.6 % (0.0-2.0) Objective HEAD AND NECK: No JVD. LUNGS: Clear. CARDIOVASCULAR: Regular S1 and S2 with no gallop. ABDOMEN: Soft. EXTREMITIES: Cannot move his right lower extremity because of the pain and fracture. Neno Ennis MD November 16, 2019 14:36
[2019-11-16 16:00] VITALS: BP 125/76
[2019-11-16] MEDS: Tamsulosin 0.4mg cap ORAL SCH (18:58)
--- NOTE | 2019-11-16 19:00 | NUR ---
NURSE NOTES: Assist with meals,skin are given.Bed alarm on,call light within reach.
--- NOTE | 2019-11-16 19:10 | NUR ---
NURSE NOTES: Spoke to regarding patient. Per : consent for right hip hemiarthroplasty and NPO after breakfast on Monday. Order noted and carried out.
--- NOTE | 2019-11-16 19:35 | NUR ---
HAND-OFF: Report given to Eladiou RN.
--- NOTE | 2019-11-16 19:35 | NUR ---
NURSE NOTES: On coming Nurse aware of fall risk.
--- NOTE | 2019-11-16 19:40 | NUR ---
NURSE NOTES: Patient awake and verbally responsive with hard of hearing. Confused but able to verbalize his needs. Breathing unlabored on room air without distress. Expresses pain when turning due to right hip injury. Also, expresses pain on the contracted right elbow when moving. Applied fracture precaution when turning. Otherwise, denies pain or discomfort at rest. Condom cath placed to prevent skin breakdown from incontinence. IV noted on left hand intact and patent. Patient on bilateral soft wrist restraint due to removal of medical devices and patient safety. Pulses present on bilateral wrist, warm to touch, and skin intact. Bed placed at the lowest with HOB elevated, alarm on, brake on, and siderails up for patient safety. Call light placed within reach. Will continue to monitor and provide care as ordered.
[2019-11-16 20:00] VITALS: BP 118/72
--- NOTE | 2019-11-16 20:22 | General Progress Note ---
Assessment/Plan Problem List: (1) Hip fracture, right ICD Codes: S72.001A - Fracture of unspecified part of neck of right femur, initial encounter for closed fracture SNOMED: 080427623 Qualifiers: Qualified Codes: S72.001A - Fracture of unspecified part of neck of right femur, initial encounter for closed fracture (2) Fall ICD Codes: W19.XXXA - Unspecified fall, initial encounter SNOMED: 1155922, 523608695 Qualifiers: Qualified Codes: W19.XXXA - Unspecified fall, initial encounter (3) Dehydration ICD Codes: E86.0 - Dehydration SNOMED: 75210876 (4) Anemia ICD Codes: D64.9 - Anemia, unspecified SNOMED: 773175040 (5) JAIDA (acute kidney injury) ICD Codes: N17.9 - Acute kidney failure, unspecified SNOMED: 0979353, 85535749 Status: progressing Assessment/Plan: afebrile arf dehydration right hip fracture needs clearance from cardiology and id before doing orif Subjective ROS Limited/Unobtainable: Yes Allergies: Coded Allergies: No Known Allergies (Unverified , 10/15/15) Objective Last 24 Hour Vital Signs Date Time Temp Pulse Resp B/P (MAP) Pulse Ox O2 Delivery O2 Flow Rate FiO2 11/16/19 12:00 98.0 92 22 140/52 (81) 98 11/16/19 10:42 Room Air 11/16/19 08:00 97.6 94 23 138/75 (96) 97 11/16/19 04:00 97.2 96 24 140/75 (96) 98 11/16/19 00:10 97.7 91 22 137/73 (94) 98 11/15/19 21:52 Room Air Intake and Output 11/15/19 11/16/19 19:00 07:00 Intake Total 1100 ml 1200 ml Balance 1100 ml 1200 ml Intake Oral 300 ml IV Total 800 ml 1200 ml # Voids 3 2 Laboratory Tests 11/16/19 06:25: White Blood Count 5.5, Red Blood Count 3.24L, Hemoglobin 9.8L, Hematocrit 30.0L , Mean Corpuscular Volume 93, Mean Corpuscular Hemoglobin 30.4, Mean Corpuscular Hemoglobin Concent 32.8, Red Cell Distribution Width 15.3H, Platelet Count 272, Mean Platelet Volume 4.5L, Neutrophils (%) (Auto) 67.0, Lymphocytes (%) (Auto) 20.9, Monocytes (%) (Auto) 11.1H, Eosinophils (%) (Auto) 0.5, Basophils (%) (Auto) 0.6 Height (Feet): 6 Height (Inches): 5.00 Weight (Pounds): 180 Lisa Coronel MD November 16, 2019 20:22
--- NOTE | 2019-11-16 21:40 | NUR ---
NURSE NOTES: Patient removed IV. Placed new 24g IV site on left hand intact and patent. Secured and covered with kerlix to prevent removal of medical devices. Attempted to reorientate and education the patient regarding the need of the IV access. Patient tolerated the procedure well. Will continue to monitor frequently.
--- NOTE | 2019-11-16 21:55 | NUR ---
NURSE NOTES: Patient unable to sign own consent at this time. Called next of kin, Nneka Vázquez to receive verbal consent for right hip hemiarthroplasty. Was not able to reach at this time, left a message with contact number to reach back.
[2019-11-17] VITALS: BP 107/83
--- NOTE | 2019-11-17 03:26 | NUR ---
NURSE NOTES: No return calls received from the next of kin to sign the consent. Will endorse it to dayshift. Patient currently asleep in stable condition.
[2019-11-17 04:00] VITALS: BP 127/81
[2019-11-17 07:05] LABS: BASOPHILS % (AUTO) 0.4 % (0.0-2.0); EOSINOPHILS % (AUTO) 0.6 % (0.0-3.0); HEMATOCRIT 27.9 % (42.0-52.0); HEMOGLOBIN 9.3 G/DL (14.2-18.0); LYMPHOCYTES % (AUTO) 30.1 % (20.0-45.0); MEAN CORPUSCULAR VOLUME 91 FL (80-99); MONOCYTES % (AUTO) 13.1 % (1.0-10.0); NEUTROPHILS % (AUTO) 55.9 % (45.0-75.0); PLATELET COUNT 287 K/UL (150-450); RED BLOOD COUNT 3.06 M/UL (4.70-6.10); RED CELL DISTRIBUTION WIDTH 14.7 % (11.6-14.8); WHITE BLOOD COUNT 6.6 K/UL (4.8-10.8)
--- NOTE | 2019-11-17 07:41 | NUR ---
HAND-OFF: Report given to ANDRY Gudino. Plan of care endorsed.
--- NOTE | 2019-11-17 07:43 | NUR ---
NURSE NOTES: Received report from Chinyere, ANDRY. Patient in bed, sleeping. On room air, no signs of distress or labored breathing. IV intact, patent, and infusing IV fluids. Bilateral soft wrist restraints on. Condom catheter dry, intact, and draining urine. Side rails up x3. Bed in lowest position with HOB at least 30 degrees. Will continue with plan of care.
[2019-11-17 08:00] VITALS: BP 110/75
[2019-11-17 08:00] LABS: ALANINE AMINOTRANSFERASE 18 U/L (12-78); ALBUMIN 1.8 G/DL (3.4-5.0); ALBUMIN/GLOBULIN RATIO 0.4 (1.0-2.7); ALKALINE PHOSPHATASE 48 U/L (46-116); ANION GAP 11 mmol/L (5-15); ASPARTATE AMINO TRANSFERASE 21 U/L (15-37); BILIRUBIN,TOTAL 0.3 MG/DL (0.2-1.0); BLOOD UREA NITROGEN 50 mg/dL (7-18); CALCIUM 8.2 MG/DL (8.5-10.1); CARBON DIOXIDE 23 MMOL/L (21-32); CHLORIDE 114 MMOL/L (98-107); CREATININE 2.8 MG/DL (0.55-1.30); SODIUM 148 MMOL/L (136-145)
[2019-11-17] MEDS: Docusate 100mg cap ORAL SCH ×3 (09:15→18:33)
[2019-11-17] MEDS: Tamsulosin 0.4mg cap ORAL SCH ×2 (09:15→18:33)
--- NOTE | 2019-11-17 11:10 | Nephrology Progress Note ---
Assessment/Plan Problem List: (1) JAIDA (acute kidney injury) Assessment: Serum creatinine lower (2) Anemia (3) Dehydration (4) Hip fracture, right (5) Fall Assessment Acute renal failure Possibly underlying chronic kidney failure Dehydration Status post fall and fracture of the right hip History of hypertension History of diabetes mellitus History of psych disease Anemia Plan Today's labs reviewed Serum creatinine lower On soft diet now Adjust blood pressure medications IV fluids Anemia work-up Protonix, Colace Pain medication Monitor renal parameters Urine studies Per consultants Subjective ROS Limited/Unobtainable: No Constitutional: Reports: other - Less agitated today Objective Objective Last 24 Hour Vital Signs Date Time Temp Pulse Resp B/P (MAP) Pulse Ox O2 Delivery O2 Flow Rate FiO2 11/17/19 09:16 113 110/75 11/17/19 08:00 98.8 113 21 110/75 (87) 97 11/17/19 04:00 97.5 99 20 127/81 (96) 97 11/17/19 00:00 96.9 108 22 107/83 (91) 93 11/16/19 21:00 Room Air 11/16/19 20:00 97.3 92 20 118/72 (87) 98 11/16/19 16:00 97.2 82 19 125/76 (92) 97 11/16/19 12:00 98.0 92 22 140/52 (81) 98 Intake and Output 11/16/19 11/17/19 19:00 07:00 Intake Total 1900 ml 1160 ml Output Total 800 ml Balance 1100 ml 1160 ml Intake Oral 1000 ml IV Total 900 ml 800 ml Other 360 ml Output Urine Total 800 ml Laboratory Tests 11/17/19 05:45: White Blood Count 6.6, Red Blood Count 3.06L, Hemoglobin 9.3L, Hematocrit 27.9L , Mean Corpuscular Volume 91, Mean Corpuscular Hemoglobin 30.3, Mean Corpuscular Hemoglobin Concent 33.3, Red Cell Distribution Width 14.7, Platelet Count 287, Mean Platelet Volume 4.3L, Neutrophils (%) (Auto) 55.9, Lymphocytes ( %) (Auto) 30.1, Monocytes (%) (Auto) 13.1H, Eosinophils (%) (Auto) 0.6, Basophils (%) (Auto) 0.4, Sodium Level 148H, Potassium Level 4.0, Chloride Level 114H, Carbon Dioxide Level 23, Anion Gap 11, Blood Urea Nitrogen 50H, Creatinine 2.8H, Estimat Glomerular Filtration Rate 22.9, Glucose Level 117H, Uric Acid 11.6H, Calcium Level 8.2L, Phosphorus Level 3.0, Magnesium Level 1.7L , Total Bilirubin 0.3, Aspartate Amino Transf (AST/SGOT) 21, Alanine Aminotransferase (ALT/SGPT) 18, Alkaline Phosphatase 48, Troponin I 0.000, C- Reactive Protein, Quantitative 12.6H, Pro-B-Type Natriuretic Peptide 6265H, Total Protein 6.2L, Albumin 1.8L, Globulin 4.4, Albumin/Globulin Ratio 0.4L Height (Feet): 6 Height (Inches): 5.00 Weight (Pounds): 180 General Appearance: no apparent distress Cardiovascular: tachycardia Respiratory/Chest: decreased breath sounds Abdomen: soft Armen Levine MD November 17, 2019 11:10
[2019-11-17 12:00] VITALS: BP 123/82
[2019-11-17] MEDS: D5 1/2NS 1,000 ML IV SCH ×3 (12:04→21:53)
--- NOTE | 2019-11-17 14:31 | Infectious Diseases Prog Note ---
Assessment/Plan Assessment/Plan IMPRESSION: Rule out of COVID-19 disease Right hip fracture, schizophrenia, BPH, aAute renal failure, Anemia, Fecal impaction. RECOMMENDATION: Observe off antibiotic. We will follow up COVID-19 test. Subjective ROS Limited/Unobtainable: Yes Constitutional: Denies: fever Neurologic: Reports: confusion, other - on restraint Allergies: Coded Allergies: No Known Allergies (Unverified , 10/15/15) Objective Vital Signs Last 24 Hour Vital Signs Date Time Temp Pulse Resp B/P (MAP) Pulse Ox O2 Delivery O2 Flow Rate FiO2 11/17/19 12:00 98.8 93 18 123/82 (96) 98 11/17/19 09:16 113 110/75 11/17/19 09:00 Room Air 11/17/19 08:00 98.8 113 21 110/75 (87) 97 11/17/19 04:00 97.5 99 20 127/81 (96) 97 11/17/19 00:00 96.9 108 22 107/83 (91) 93 11/16/19 21:00 Room Air 11/16/19 20:00 97.3 92 20 118/72 (87) 98 11/16/19 16:00 97.2 82 19 125/76 (92) 97 Height (Feet): 6 Height (Inches): 5.00 Weight (Pounds): 180 General Appearance: no acute distress HEENT: mucous membranes moist Cardiovascular: normal rate Abdomen: soft, non tender Extremities: no edema Neurologic/Psychiatric: disoriented Laboratory Tests Test 11/17/19 05:45 White Blood Count 6.6 K/UL (4.8-10.8) Red Blood Count 3.06 M/UL (4.70-6.10) L Hemoglobin 9.3 G/DL (14.2-18.0) L Hematocrit 27.9 % (42.0-52.0) L Mean Corpuscular Volume 91 FL (80-99) Mean Corpuscular Hemoglobin 30.3 PG (27.0-31.0) Mean Corpuscular Hemoglobin Concent 33.3 G/DL (32.0-36.0) Red Cell Distribution Width 14.7 % (11.6-14.8) Platelet Count 287 K/UL (150-450) Mean Platelet Volume 4.3 FL (6.5-10.1) L Neutrophils (%) (Auto) 55.9 % (45.0-75.0) Lymphocytes (%) (Auto) 30.1 % (20.0-45.0) Monocytes (%) (Auto) 13.1 % (1.0-10.0) H Eosinophils (%) (Auto) 0.6 % (0.0-3.0) Basophils (%) (Auto) 0.4 % (0.0-2.0) Sodium Level 148 MMOL/L (136-145) H Potassium Level 4.0 MMOL/L (3.5-5.1) Chloride Level 114 MMOL/L (98-107) H Carbon Dioxide Level 23 MMOL/L (21-32) Anion Gap 11 mmol/L (5-15) Blood Urea Nitrogen 50 mg/dL (7-18) H Creatinine 2.8 MG/DL (0.55-1.30) H Estimat Glomerular Filtration Rate 22.9 mL/min (>60) Glucose Level 117 MG/DL (74-106) H Uric Acid 11.6 MG/DL (2.6-7.2) H Calcium Level 8.2 MG/DL (8.5-10.1) L Phosphorus Level 3.0 MG/DL (2.5-4.9) Magnesium Level 1.7 MG/DL (1.8-2.4) L Total Bilirubin 0.3 MG/DL (0.2-1.0) Aspartate Amino Transf (AST/SGOT) 21 U/L (15-37) Alanine Aminotransferase (ALT/SGPT) 18 U/L (12-78) Alkaline Phosphatase 48 U/L (46-116) Troponin I 0.000 ng/mL (0.000-0.056) C-Reactive Protein, Quantitative 12.6 mg/dL (0.00-0.90) H Pro-B-Type Natriuretic Peptide 6265 pg/mL (0-125) H Total Protein 6.2 G/DL (6.4-8.2) L Albumin 1.8 G/DL (3.4-5.0) L Globulin 4.4 g/dL Albumin/Globulin Ratio 0.4 (1.0-2.7) L Current Medications Medications (Trade) Dose Ordered Sig/Juan Route PRN Reason Start Time Stop Time Status Last Admin Dose Admin Acetaminophen (Tylenol) 650 mg Q4H PRN ORAL Mild Pain (Pain Scale 1-3) 11/14/19 19:15 12/14/19 19:14 Amlodipine Besylate (Norvasc) 2.5 mg DAILY ORAL 11/17/19 09:00 12/17/19 08:59 11/17/19 09:16 Dextrose/Sodium Chloride 1,000 ml @ 100 mls/hr Q10H IV 11/15/19 10:00 12/15/19 09:59 11/17/19 12:04 Docusate Sodium (Colace) 100 mg TID ORAL 11/15/19 13:00 12/15/19 12:59 11/17/19 12:04 Hydromorphone HCl (Dilaudid) 0.5 mg Q4H PRN IVP For Pain 11/15/19 09:30 11/22/19 09:29 11/15/19 17:19 Lorazepam (Ativan 2mg/ml 1ml) 1 mg Q4H PRN IM For Anxiety 11/15/19 10:15 11/22/19 10:14 11/15/19 12:24 Pantoprazole (Protonix) 40 mg BID ORAL 11/15/19 10:00 12/15/19 09:59 11/17/19 09:16 Tamsulosin HCl (Flomax) 0.4 mg BID ORAL 11/16/19 18:00 12/15/19 20:59 11/17/19 09:15 Todd Paz MD November 17, 2019 14:31
[2019-11-17 16:00] VITALS: BP 118/79
--- NOTE | 2019-11-17 16:47 | NUR ---
NURSE NOTES: Contacted Caitlin Vázquez, patient's sister, to obtain consent. Patient's sister can be reached at . Contact info updated in paper chart. Charge nurse aware.
--- NOTE | 2019-11-17 18:05 | Hematology/Onc Progress Note ---
Assessment/Plan Assessment/Plan Assessment and Recs # Anemia of chronic disease due to underlying chronic medical issues, multifactorial v Gi bleed --> Anemia workup has been ordered, rule out gi bleed --> No evidence of hemolysis is noted, peripheral smear has been reviewed. --> Hgb goal >7. Transfuse prn. --> Epogen or iron at this time is not particularly indicated --> Medications have been reviewed --> low threshold for gi evaluation in case has occult + --> hgb trend 9.9-->9.3 # Hip fracture, right --> Fracture of unspecified part of neck of right femur, initial encounter for closed fracture --> as per ortho eval --> pending consent for right hip hemiarthroplasty # Fall may require surger per ortho --> neuro and ortho # JAIDA on CKD --> per Dr. Levine # Psych disorder --> per Dr. Dickens The timing of this note does not necessarily reflect the time of the patient was seen. Greatly appreciate consultation. Subjective Allergies: Coded Allergies: No Known Allergies (Unverified , 10/15/15) Subjective / confused, pending right hip hemiarthroplasty, bilat restraints Objective Objective Current Medications Medications (Trade) Dose Ordered Sig/Juan Route PRN Reason Start Time Stop Time Status Last Admin Dose Admin Acetaminophen (Tylenol) 650 mg Q4H PRN ORAL Mild Pain (Pain Scale 1-3) 11/14/19 19:15 12/14/19 19:14 Amlodipine Besylate (Norvasc) 2.5 mg DAILY ORAL 11/17/19 09:00 12/17/19 08:59 11/17/19 09:16 Dextrose/Sodium Chloride 1,000 ml @ 100 mls/hr Q10H IV 11/15/19 10:00 12/15/19 09:59 11/17/19 12:04 Docusate Sodium (Colace) 100 mg TID ORAL 11/15/19 13:00 12/15/19 12:59 11/17/19 12:04 Hydromorphone HCl (Dilaudid) 0.5 mg Q4H PRN IVP For Pain 11/15/19 09:30 11/22/19 09:29 11/15/19 17:19 Lorazepam (Ativan 2mg/ml 1ml) 1 mg Q4H PRN IM For Anxiety 11/15/19 10:15 11/22/19 10:14 11/15/19 12:24 Pantoprazole (Protonix) 40 mg BID ORAL 11/15/19 10:00 12/15/19 09:59 11/17/19 09:16 Tamsulosin HCl (Flomax) 0.4 mg BID ORAL 11/16/19 18:00 12/15/19 20:59 11/17/19 09:15 Last 24 Hour Vital Signs Date Time Temp Pulse Resp B/P (MAP) Pulse Ox O2 Delivery O2 Flow Rate FiO2 11/17/19 16:00 97.9 87 19 118/79 (92) 98 11/17/19 12:00 98.8 93 18 123/82 (96) 98 11/17/19 09:16 113 110/75 11/17/19 09:00 Room Air 11/17/19 08:00 98.8 113 21 110/75 (87) 97 11/17/19 04:00 97.5 99 20 127/81 (96) 97 11/17/19 00:00 96.9 108 22 107/83 (91) 93 11/16/19 21:00 Room Air 11/16/19 20:00 97.3 92 20 118/72 (87) 98 11/16/19 16:00 97.2 82 19 125/76 (92) 97 11/16/19 12:00 98.0 92 22 140/52 (81) 98 11/16/19 10:42 Room Air 11/16/19 08:00 97.6 94 23 138/75 (96) 97 11/16/19 04:00 97.2 96 24 140/75 (96) 98 11/16/19 00:10 97.7 91 22 137/73 (94) 98 11/15/19 21:52 Room Air 11/15/19 20:00 96.9 94 20 110/70 (83) 96 Intake and Output 11/16/19 11/17/19 19:00 07:00 Intake Total 1900 ml 1160 ml Output Total 800 ml Balance 1100 ml 1160 ml Intake Oral 1000 ml IV Total 900 ml 800 ml Other 360 ml Output Urine Total 800 ml Labs Test 11/15/19 08:15 11/16/19 06:11/17/19 05:45 White Blood Count 6.6 K/UL (4.8-10.8) 5.5 K/UL (4.8-10.8) 6.6 K/UL (4.8-10.8) Red Blood Count 3.25 M/UL (4.70-6.10) 3.24 M/UL (4.70-6.10) 3.06 M/UL (4.70-6.10) Hemoglobin 9.9 G/DL (14.2-18.0) 9.8 G/DL (14.2-18.0) 9.3 G/DL (14.2-18.0) Hematocrit 29.7 % (42.0-52.0) 30.0 % (42.0-52.0) 27.9 % (42.0-52.0) Mean Corpuscular Volume 91 FL (80-99) 93 FL (80-99) 91 FL (80-99) Mean Corpuscular Hemoglobin 30.5 PG (27.0-31.0) 30.4 PG (27.0-31.0) 30.3 PG (27.0-31.0) Mean Corpuscular Hemoglobin Concent 33.4 G/DL (32.0-36.0) 32.8 G/DL (32.0-36.0) 33.3 G/DL (32.0-36.0) Red Cell Distribution Width 15.1 % (11.6-14.8) 15.3 % (11.6-14.8) 14.7 % (11.6-14.8) Platelet Count 278 K/UL (150-450) 272 K/UL (150-450) 287 K/UL (150-450) Mean Platelet Volume 4.6 FL (6.5-10.1) 4.5 FL (6.5-10.1) 4.3 FL (6.5-10.1) Neutrophils (%) (Auto) 68.5 % (45.0-75.0) 67.0 % (45.0-75.0) 55.9 % (45.0-75.0) Lymphocytes (%) (Auto) 21.2 % (20.0-45.0) 20.9 % (20.0-45.0) 30.1 % (20.0-45.0) Monocytes (%) (Auto) 9.1 % (1.0-10.0) 11.1 % (1.0-10.0) 13.1 % (1.0-10.0) Eosinophils (%) (Auto) 0.6 % (0.0-3.0) 0.5 % (0.0-3.0) 0.6 % (0.0-3.0) Basophils (%) (Auto) 0.5 % (0.0-2.0) 0.6 % (0.0-2.0) 0.4 % (0.0-2.0) Sodium Level 149 MMOL/L (136-145) 148 MMOL/L (136-145) Potassium Level 4.8 MMOL/L (3.5-5.1) 4.0 MMOL/L (3.5-5.1) Chloride Level 114 MMOL/L (98-107) 114 MMOL/L (98-107) Carbon Dioxide Level 22 MMOL/L (21-32) 23 MMOL/L (21-32) Anion Gap 13 mmol/L (5-15) 11 mmol/L (5-15) Blood Urea Nitrogen 67 mg/dL (7-18) 50 mg/dL (7-18) Creatinine 3.2 MG/DL (0.55-1.30) 2.8 MG/DL (0.55-1.30) Estimat Glomerular Filtration Rate 19.7 mL/min (>60) 22.9 mL/min (>60) Glucose Level 67 MG/DL (74-106) 117 MG/DL (74-106) Hemoglobin A1c 4.9 % (4.3-6.0) Uric Acid 11.9 MG/DL (2.6-7.2) 11.6 MG/DL (2.6-7.2) Calcium Level 8.5 MG/DL (8.5-10.1) 8.2 MG/DL (8.5-10.1) Phosphorus Level 3.7 MG/DL (2.5-4.9) 3.0 MG/DL (2.5-4.9) Magnesium Level 2.0 MG/DL (1.8-2.4) 1.7 MG/DL (1.8-2.4) Iron Level 34 ug/dL (50-175) Total Iron Binding Capacity 172 ug/dL (250-450) Percent Iron Saturation 20 % (15-50) Unsaturated Iron Binding 138 ug/dL (112-346) Ferritin 216 NG/ML (8-388) Total Bilirubin 0.4 MG/DL (0.2-1.0) 0.3 MG/DL (0.2-1.0) Aspartate Amino Transf (AST/SGOT) 25 U/L (15-37) 21 U/L (15-37) Alanine Aminotransferase (ALT/SGPT) 17 U/L (12-78) 18 U/L (12-78) Alkaline Phosphatase 50 U/L (46-116) 48 U/L (46-116) Total Creatine Kinase 83 U/L (26-308) Troponin I 0.000 ng/mL (0.000-0.056) 0.000 ng/mL (0.000-0.056) C-Reactive Protein, Quantitative 16.7 mg/dL (0.00-0.90) 12.6 mg/dL (0.00-0.90) Total Protein 6.6 G/DL (6.4-8.2) 6.2 G/DL (6.4-8.2) Albumin 1.7 G/DL (3.4-5.0) 1.8 G/DL (3.4-5.0) Globulin 4.9 g/dL 4.4 g/dL Albumin/Globulin Ratio 0.3 (1.0-2.7) 0.4 (1.0-2.7) Triglycerides Level 123 MG/DL (30-150) Cholesterol Level 98 MG/DL (< 200) LDL Cholesterol 46 mg/dL (<100) HDL Cholesterol 23 MG/DL (40-60) Cholesterol/HDL Ratio 4.3 (3.3-4.4) Vitamin B12 Level 738 PG/ML (193-986) Folate 10.8 NG/ML (8.6-58.9) Pro-B-Type Natriuretic Peptide 6265 pg/mL (0-125) Height (Feet): 6 Height (Inches): 5.00 Weight (Pounds): 180 Objective PE: Vitals: reviewed, stable General Appearance: NAD HEENT: normocephalic, atraumatic Neck: non-tender, normal alignment Respiratory/Chest: normal breath sounds bilaterally Cardiovascular/Chest: normal peripheral pulses, normal rate Abdomen: normal bowel sounds, soft, nontender Extremities: normal range of motion Neuro: altered, encephalopathic Juan Luis Monique MD November 17, 2019 18:05
--- NOTE | 2019-11-17 19:52 | NUR ---
HAND-OFF: Report given to ANDRY Ponce.
--- NOTE | 2019-11-17 19:55 | NUR ---
NURSE NOTES: Pt. received from ANDRY Gudino. PT. AAO x2, on room air, no complaints of pain, breathing is even and unlabored. IV access left hand 24g, intact and patent; running D5 1/2 NS at 100cc/hr. Bilateral wrist restraints noted, movement and sensation intact, pulses palpable. Condom catheter intact, draining yellow urine well. Right hip externally rotated, sensation right foot intact, pedal pulses palpable, and patient denying pain. Bed is low and locked, side rails x3 up, bed alarm active, and call light is in reach. Will continue to monitor.
[2019-11-17 20:00] VITALS: BP 131/79
--- NOTE | 2019-11-17 22:22 | General Progress Note ---
Assessment/Plan Problem List: (1) Hip fracture, right ICD Codes: S72.001A - Fracture of unspecified part of neck of right femur, initial encounter for closed fracture SNOMED: 612938223 Qualifiers: Qualified Codes: S72.001A - Fracture of unspecified part of neck of right femur, initial encounter for closed fracture (2) Fall ICD Codes: W19.XXXA - Unspecified fall, initial encounter SNOMED: 5367133, 036212559 Qualifiers: Qualified Codes: W19.XXXA - Unspecified fall, initial encounter (3) Dehydration ICD Codes: E86.0 - Dehydration SNOMED: 80284484 (4) Anemia ICD Codes: D64.9 - Anemia, unspecified SNOMED: 960384142 (5) JAIDA (acute kidney injury) ICD Codes: N17.9 - Acute kidney failure, unspecified SNOMED: 1092202, 45447348 Status: progressing Assessment/Plan: hip pain not hypoxic arf is improving dehydration right hip fracture needs clearance from cardiology and id before doing orif Subjective ROS Limited/Unobtainable: Yes Allergies: Coded Allergies: No Known Allergies (Unverified , 10/15/15) Objective Last 24 Hour Vital Signs Date Time Temp Pulse Resp B/P (MAP) Pulse Ox O2 Delivery O2 Flow Rate FiO2 11/17/19 16:00 97.9 87 19 118/79 (92) 98 11/17/19 12:00 98.8 93 18 123/82 (96) 98 11/17/19 09:16 113 110/75 11/17/19 09:00 Room Air 11/17/19 08:00 98.8 113 21 110/75 (87) 97 11/17/19 04:00 97.5 99 20 127/81 (96) 97 11/17/19 00:00 96.9 108 22 107/83 (91) 93 Intake and Output 11/16/19 11/17/19 19:00 07:00 Intake Total 1900 ml 1160 ml Output Total 800 ml Balance 1100 ml 1160 ml Intake Oral 1000 ml IV Total 900 ml 800 ml Other 360 ml Output Urine Total 800 ml Laboratory Tests 11/17/19 05:45: White Blood Count 6.6, Red Blood Count 3.06L, Hemoglobin 9.3L, Hematocrit 27.9L , Mean Corpuscular Volume 91, Mean Corpuscular Hemoglobin 30.3, Mean Corpuscular Hemoglobin Concent 33.3, Red Cell Distribution Width 14.7, Platelet Count 287, Mean Platelet Volume 4.3L, Neutrophils (%) (Auto) 55.9, Lymphocytes ( %) (Auto) 30.1, Monocytes (%) (Auto) 13.1H, Eosinophils (%) (Auto) 0.6, Basophils (%) (Auto) 0.4, Sodium Level 148H, Potassium Level 4.0, Chloride Level 114H, Carbon Dioxide Level 23, Anion Gap 11, Blood Urea Nitrogen 50H, Creatinine 2.8H, Estimat Glomerular Filtration Rate 22.9, Glucose Level 117H, Uric Acid 11.6H, Calcium Level 8.2L, Phosphorus Level 3.0, Magnesium Level 1.7L , Total Bilirubin 0.3, Aspartate Amino Transf (AST/SGOT) 21, Alanine Aminotransferase (ALT/SGPT) 18, Alkaline Phosphatase 48, Troponin I 0.000, C- Reactive Protein, Quantitative 12.6H, Pro-B-Type Natriuretic Peptide 6265H, Total Protein 6.2L, Albumin 1.8L, Globulin 4.4, Albumin/Globulin Ratio 0.4L Height (Feet): 6 Height (Inches): 5.00 Weight (Pounds): 180 Lisa Coronel MD November 17, 2019 22:22
[2019-11-18] VITALS (12 sets, daily range): BP systolic 64–143; BP diastolic 47–128
--- NOTE | 2019-11-18 02:30 | Progress Note ---
DATE: 11/17/2019 SUBJECTIVE: The patient is on bilateral self restrain. Episodes of agitation, more manageable. Still requires psychotropic medication. MENTAL STATUS EXAMINATION: Oriented to time, self, place. Mood is agitated. Affect is flat. Thought process, there is a paucity of thought content. Thought content, no suicidal or homicidal ideation. Cognition is impaired. Insight and judgment is impaired. ASSESSMENT: Dementia with behavioral disturbance. PLAN: 1. Ativan IM as needed as he is refusing by mouth medications. 2. Self restraints. Sukhwinder Dickens M.D. DR: ZEESHAN JOB#: [id number] CC:
[2019-11-18 07:29] LABS: BASOPHILS % (AUTO) 0.8 % (0.0-2.0); EOSINOPHILS % (AUTO) 0.5 % (0.0-3.0); HEMATOCRIT 28.1 % (42.0-52.0); HEMOGLOBIN 9.5 G/DL (14.2-18.0); LYMPHOCYTES % (AUTO) 22.3 % (20.0-45.0); MEAN CORPUSCULAR VOLUME 91 FL (80-99); MONOCYTES % (AUTO) 13.8 % (1.0-10.0); NEUTROPHILS % (AUTO) 62.6 % (45.0-75.0); PLATELET COUNT 300 K/UL (150-450); RED BLOOD COUNT 3.08 M/UL (4.70-6.10); RED CELL DISTRIBUTION WIDTH 14.8 % (11.6-14.8); WHITE BLOOD COUNT 8.1 K/UL (4.8-10.8)
--- NOTE | 2019-11-18 07:30 | NUR ---
NURSE NOTES: Message left for Dr. Paz to notify that patient is COVID negative. Awaiting return call. Endorsed to next shift.
--- NOTE | 2019-11-18 08:01 | NUR ---
HAND-OFF: Report given to ANDRY Chavarria.
[2019-11-18 08:20] LABS: ALANINE AMINOTRANSFERASE 9 U/L (12-78); ALBUMIN 1.7 G/DL (3.4-5.0); ALBUMIN/GLOBULIN RATIO 0.4 (1.0-2.7); ALKALINE PHOSPHATASE 48 U/L (46-116); ANION GAP 8 mmol/L (5-15); ASPARTATE AMINO TRANSFERASE 16 U/L (15-37); BILIRUBIN,TOTAL 0.2 MG/DL (0.2-1.0); BLOOD UREA NITROGEN 42 mg/dL (7-18); CALCIUM 8.6 MG/DL (8.5-10.1); CARBON DIOXIDE 24 MMOL/L (21-32); CHLORIDE 108 MMOL/L (98-107); CREATININE 2.7 MG/DL (0.55-1.30); PHOSPHORUS 3.3 MG/DL (2.5-4.9); SODIUM 140 MMOL/L (136-145)
--- NOTE | 2019-11-18 08:22 | NUR ---
NURSE NOTES: Patient alert x2; on room air, no sing of distress and shortness of breath; IV Left-Hand D51/2NS 100cc running; Bilateral soft wrist-rains in place, good circulation at the site; patient schedule for R-Hip Hemiarthroplasty, Consent on file; side rials up x2, breaks engaged, bed at lowest position, bed alarm on; call light within reach; will keep monitoring.
[2019-11-18] MEDS: Tamsulosin 0.4mg cap ORAL SCH ×2 (09:50→18:22)
[2019-11-18] MEDS: Docusate 100mg cap ORAL SCH ×3 (09:51→18:23)
[2019-11-18] MEDS: D5 1/2NS 1,000 ML IV SCH (09:53)
--- NOTE | 2019-11-18 10:20 | Nephrology Progress Note ---
Assessment/Plan Problem List: (1) JAIDA (acute kidney injury) Assessment: Serum creatinine lower (2) Anemia (3) Dehydration (4) Hip fracture, right (5) Fall Assessment Acute renal failure Possibly underlying chronic kidney failure Dehydration Status post fall and fracture of the right hip History of hypertension History of diabetes mellitus History of psych disease Anemia Plan Today's labs reviewed, serum creatinine down to 2.7 On soft diet now Adjust blood pressure medications IV fluids Anemia work-up Protonix, Colace Pain medication Monitor renal parameters Urine studies Per consultants Subjective ROS Limited/Unobtainable: No Constitutional: Reports: malaise Objective Objective Last 24 Hour Vital Signs Date Time Temp Pulse Resp B/P (MAP) Pulse Ox O2 Delivery O2 Flow Rate FiO2 11/18/19 09:51 114 120/76 11/18/19 08:00 98.2 114 17 120/76 (91) 97 11/18/19 04:00 97.9 82 18 130/73 (92) 98 11/18/19 00:00 97.1 106 18 129/81 (97) 98 11/17/19 21:00 Room Air 11/17/19 20:00 97.7 95 16 131/79 (96) 97 11/17/19 16:00 97.9 87 19 118/79 (92) 98 11/17/19 12:00 98.8 93 18 123/82 (96) 98 Intake and Output 11/17/19 11/18/19 19:00 07:00 Intake Total 1800 ml 1600 ml Output Total 1250 ml 2000 ml Balance 550 ml -400 ml Intake Oral 700 ml IV Total 900 ml Other 1800 ml Output Urine Total 1250 ml 2000 ml # Voids 1 Laboratory Tests 11/18/19 07:15: White Blood Count 8.1, Red Blood Count 3.08L, Hemoglobin 9.5L, Hematocrit 28.1L , Mean Corpuscular Volume 91, Mean Corpuscular Hemoglobin 30.8, Mean Corpuscular Hemoglobin Concent 33.8, Red Cell Distribution Width 14.8, Platelet Count 300, Mean Platelet Volume 4.3L, Neutrophils (%) (Auto) 62.6, Lymphocytes ( %) (Auto) 22.3, Monocytes (%) (Auto) 13.8H, Eosinophils (%) (Auto) 0.5, Basophils (%) (Auto) 0.8, Sodium Level 140, Potassium Level 4.0, Chloride Level 108H, Carbon Dioxide Level 24, Anion Gap 8, Blood Urea Nitrogen 42H, Creatinine 2.7H, Estimat Glomerular Filtration Rate 23.9, Glucose Level 133H, Uric Acid 9.7H, Calcium Level 8.6, Phosphorus Level 3.3, Magnesium Level 1.9, Total Bilirubin 0.2, Aspartate Amino Transf (AST/SGOT) 16, Alanine Aminotransferase ( ALT/SGPT) 9L, Alkaline Phosphatase 48, C-Reactive Protein, Quantitative 8.1H, Pro-B-Type Natriuretic Peptide 3488H, Total Protein 6.4, Albumin 1.7L, Globulin 4.7, Albumin/Globulin Ratio 0.4L Height (Feet): 6 Height (Inches): 5.00 Weight (Pounds): 180 General Appearance: no apparent distress Cardiovascular: tachycardia Respiratory/Chest: decreased breath sounds Abdomen: soft Armen Levine MD November 18, 2019 10:20
--- NOTE | 2019-11-18 11:07 | Hematology/Onc Progress Note ---
Assessment/Plan Assessment/Plan Assessment and Recs # Anemia of chronic disease due to underlying chronic medical issues, multifactorial v Gi bleed --> Anemia workup has been ordered, rule out gi bleed --> No evidence of hemolysis is noted, peripheral smear has been reviewed. --> Hgb goal >7. Transfuse prn. --> Epogen or iron at this time is not particularly indicated --> Medications have been reviewed --> low threshold for gi evaluation in case has occult + --> hgb trend 9.9-->9.3 ->9.5 # Hip fracture, right --> Fracture of unspecified part of neck of right femur, initial encounter for closed fracture --> as per ortho eval --> pending consent for right hip hemiarthroplasty # Fall may require surger per ortho --> neuro and ortho # JAIDA on CKD --> per Dr. Levine # Psych disorder --> per Dr. Dickens The timing of this note does not necessarily reflect the time of the patient was seen. Greatly appreciate consultation. Subjective HEENT: Denies: no symptoms, eye pain, blurred vision, tearing, double vision, ear pain, ear discharge, nose pain, nose congestion, throat pain, throat swelling, mouth pain, mouth swelling, other Cardiovascular: Denies: no symptoms, chest pain, edema, irregular heart rate, lightheadedness, palpitations, syncope, other Respiratory: Denies: no symptoms, cough, shortness of breath, SOB with excertion, SOB at rest, sputum, wheezing, other Gastrointestinal/Abdominal: Denies: no symptoms, abdomen distended, abdominal pain, black stools, tarry stools, blood in stool, constipated, diarrhea, difficulty swallowing, nausea, poor appetite, poor fluid intake, rectal bleeding , vomiting, other Neurologic/Psychiatric: Denies: no symptoms, anxiety, depressed, emotional problems, headache, numbness, paresthesia, pre-existing deficit, seizure, tingling, tremors, weakness, other Hematologic/Lymphatic: Denies: no symptoms, anemia, easy bleeding, easy bruising, adenopathy, other Allergies: Coded Allergies: No Known Allergies (Unverified , 10/15/15) Subjective 5/3 confused, pending right hip hemiarthroplasty, bilat restraints 5/4 confused, hgb 9.5, no bleeding, reviewed renal recs Objective Objective Current Medications Medications (Trade) Dose Ordered Sig/Juan Route PRN Reason Start Time Stop Time Status Last Admin Dose Admin Acetaminophen (Tylenol) 650 mg Q4H PRN ORAL Mild Pain (Pain Scale 1-3) 11/14/19 19:15 12/14/19 19:14 Amlodipine Besylate (Norvasc) 2.5 mg DAILY ORAL 11/17/19 09:00 12/17/19 08:59 11/18/19 09:51 Dextrose/Sodium Chloride 1,000 ml @ 100 mls/hr Q10H IV 11/15/19 10:00 12/15/19 09:59 11/18/19 09:53 Docusate Sodium (Colace) 100 mg TID ORAL 11/15/19 13:00 12/15/19 12:59 11/18/19 09:51 Hydromorphone HCl (Dilaudid) 0.5 mg Q4H PRN IVP For Pain 11/15/19 09:30 11/22/19 09:29 11/15/19 17:19 Lorazepam (Ativan 2mg/ml 1ml) 1 mg Q4H PRN IM For Anxiety 11/15/19 10:15 11/22/19 10:14 11/15/19 12:24 Pantoprazole (Protonix) 40 mg BID ORAL 11/15/19 10:00 12/15/19 09:59 11/18/19 09:51 Tamsulosin HCl (Flomax) 0.4 mg BID ORAL 11/16/19 18:00 12/15/19 20:59 11/18/19 09:50 Last 24 Hour Vital Signs Date Time Temp Pulse Resp B/P (MAP) Pulse Ox O2 Delivery O2 Flow Rate FiO2 11/18/19 09:51 114 120/76 11/18/19 09:00 Room Air 11/18/19 08:00 98.2 114 17 120/76 (91) 97 11/18/19 04:00 97.9 82 18 130/73 (92) 98 11/18/19 00:00 97.1 106 18 129/81 (97) 98 11/17/19 21:00 Room Air 11/17/19 20:00 97.7 95 16 131/79 (96) 97 11/17/19 16:00 97.9 87 19 118/79 (92) 98 11/17/19 12:00 98.8 93 18 123/82 (96) 98 11/17/19 09:16 113 110/75 11/17/19 09:00 Room Air 11/17/19 08:00 98.8 113 21 110/75 (87) 97 11/17/19 04:00 97.5 99 20 127/81 (96) 97 11/17/19 00:00 96.9 108 22 107/83 (91) 93 11/16/19 21:00 Room Air 11/16/19 20:00 97.3 92 20 118/72 (87) 98 11/16/19 16:00 97.2 82 19 125/76 (92) 97 11/16/19 12:00 98.0 92 22 140/52 (81) 98 Intake and Output 11/17/19 11/18/19 19:00 07:00 Intake Total 1800 ml 1600 ml Output Total 1250 ml 2000 ml Balance 550 ml -400 ml Intake Oral 700 ml IV Total 900 ml Other 1800 ml Output Urine Total 1250 ml 2000 ml # Voids 1 Labs Test 11/16/19 06:25 11/17/19 05:45 11/18/19 07:15 White Blood Count 5.5 K/UL (4.8-10.8) 6.6 K/UL (4.8-10.8) 8.1 K/UL (4.8-10.8) Red Blood Count 3.24 M/UL (4.70-6.10) 3.06 M/UL (4.70-6.10) 3.08 M/UL (4.70-6.10) Hemoglobin 9.8 G/DL (14.2-18.0) 9.3 G/DL (14.2-18.0) 9.5 G/DL (14.2-18.0) Hematocrit 30.0 % (42.0-52.0) 27.9 % (42.0-52.0) 28.1 % (42.0-52.0) Mean Corpuscular Volume 93 FL (80-99) 91 FL (80-99) 91 FL (80-99) Mean Corpuscular Hemoglobin 30.4 PG (27.0-31.0) 30.3 PG (27.0-31.0) 30.8 PG (27.0-31.0) Mean Corpuscular Hemoglobin Concent 32.8 G/DL (32.0-36.0) 33.3 G/DL (32.0-36.0) 33.8 G/DL (32.0-36.0) Red Cell Distribution Width 15.3 % (11.6-14.8) 14.7 % (11.6-14.8) 14.8 % (11.6-14.8) Platelet Count 272 K/UL (150-450) 287 K/UL (150-450) 300 K/UL (150-450) Mean Platelet Volume 4.5 FL (6.5-10.1) 4.3 FL (6.5-10.1) 4.3 FL (6.5-10.1) Neutrophils (%) (Auto) 67.0 % (45.0-75.0) 55.9 % (45.0-75.0) 62.6 % (45.0-75.0) Lymphocytes (%) (Auto) 20.9 % (20.0-45.0) 30.1 % (20.0-45.0) 22.3 % (20.0-45.0) Monocytes (%) (Auto) 11.1 % (1.0-10.0) 13.1 % (1.0-10.0) 13.8 % (1.0-10.0) Eosinophils (%) (Auto) 0.5 % (0.0-3.0) 0.6 % (0.0-3.0) 0.5 % (0.0-3.0) Basophils (%) (Auto) 0.6 % (0.0-2.0) 0.4 % (0.0-2.0) 0.8 % (0.0-2.0) Sodium Level 148 MMOL/L (136-145) 140 MMOL/L (136-145) Potassium Level 4.0 MMOL/L (3.5-5.1) 4.0 MMOL/L (3.5-5.1) Chloride Level 114 MMOL/L (98-107) 108 MMOL/L (98-107) Carbon Dioxide Level 23 MMOL/L (21-32) 24 MMOL/L (21-32) Anion Gap 11 mmol/L (5-15) 8 mmol/L (5-15) Blood Urea Nitrogen 50 mg/dL (7-18) 42 mg/dL (7-18) Creatinine 2.8 MG/DL (0.55-1.30) 2.7 MG/DL (0.55-1.30) Estimat Glomerular Filtration Rate 22.9 mL/min (>60) 23.9 mL/min (>60) Glucose Level 117 MG/DL (74-106) 133 MG/DL (74-106) Uric Acid 11.6 MG/DL (2.6-7.2) 9.7 MG/DL (2.6-7.2) Calcium Level 8.2 MG/DL (8.5-10.1) 8.6 MG/DL (8.5-10.1) Phosphorus Level 3.0 MG/DL (2.5-4.9) 3.3 MG/DL (2.5-4.9) Magnesium Level 1.7 MG/DL (1.8-2.4) 1.9 MG/DL (1.8-2.4) Total Bilirubin 0.3 MG/DL (0.2-1.0) 0.2 MG/DL (0.2-1.0) Aspartate Amino Transf (AST/SGOT) 21 U/L (15-37) 16 U/L (15-37) Alanine Aminotransferase (ALT/SGPT) 18 U/L (12-78) 9 U/L (12-78) Alkaline Phosphatase 48 U/L (46-116) 48 U/L (46-116) Troponin I 0.000 ng/mL (0.000-0.056) C-Reactive Protein, Quantitative 12.6 mg/dL (0.00-0.90) 8.1 mg/dL (0.00-0.90) Pro-B-Type Natriuretic Peptide 6265 pg/mL (0-125) 3488 pg/mL (0-125) Total Protein 6.2 G/DL (6.4-8.2) 6.4 G/DL (6.4-8.2) Albumin 1.8 G/DL (3.4-5.0) 1.7 G/DL (3.4-5.0) Globulin 4.4 g/dL 4.7 g/dL Albumin/Globulin Ratio 0.4 (1.0-2.7) 0.4 (1.0-2.7) Height (Feet): 6 Height (Inches): 5.00 Weight (Pounds): 180 Objective PE: Vitals: reviewed, stable General Appearance: NAD HEENT: normocephalic, atraumatic Neck: non-tender, normal alignment Respiratory/Chest: normal breath sounds bilaterally Cardiovascular/Chest: normal peripheral pulses, normal rate Abdomen: normal bowel sounds, soft, nontender Extremities: normal range of motion Neuro: altered, encephalopathic Juan Luis Monique MD November 18, 2019 11:07
--- NOTE | 2019-11-18 12:47 | NUR ---
NURSE NOTES: Patient's swap for COVID-19 result is negative; I called and left a message to MD Beti Paz regarding the swap result; waiting for order.
--- NOTE | 2019-11-18 13:28 | Infectious Diseases Prog Note ---
Assessment/Plan Assessment/Plan IMPRESSION: Right hip fracture, schizophrenia, BPH, Acute renal failure, Anemia, Fecal impaction. RECOMMENDATION: Observe off antibiotic. Negative COVID-19 test. Patient is clear for orthopedic surgery Subjective ROS Limited/Unobtainable: Yes Neurologic: Reports: confusion, other - on restraint Allergies: Coded Allergies: No Known Allergies (Unverified , 10/15/15) Objective Vital Signs Last 24 Hour Vital Signs Date Time Temp Pulse Resp B/P (MAP) Pulse Ox O2 Delivery O2 Flow Rate FiO2 11/18/19 12:00 98.3 112 18 119/80 (93) 98 11/18/19 09:51 114 120/76 11/18/19 09:00 Room Air 11/18/19 08:00 98.2 114 17 120/76 (91) 97 11/18/19 04:00 97.9 82 18 130/73 (92) 98 11/18/19 00:00 97.1 106 18 129/81 (97) 98 11/17/19 21:00 Room Air 11/17/19 20:00 97.7 95 16 131/79 (96) 97 11/17/19 16:00 97.9 87 19 118/79 (92) 98 Height (Feet): 6 Height (Inches): 4.00 Weight (Pounds): 180 General Appearance: no acute distress HEENT: mucous membranes moist Respiratory/Chest: lungs clear Cardiovascular: normal rate Abdomen: soft, non tender Extremities: no edema Laboratory Tests Test 11/18/19 07:15 White Blood Count 8.1 K/UL (4.8-10.8) Red Blood Count 3.08 M/UL (4.70-6.10) L Hemoglobin 9.5 G/DL (14.2-18.0) L Hematocrit 28.1 % (42.0-52.0) L Mean Corpuscular Volume 91 FL (80-99) Mean Corpuscular Hemoglobin 30.8 PG (27.0-31.0) Mean Corpuscular Hemoglobin Concent 33.8 G/DL (32.0-36.0) Red Cell Distribution Width 14.8 % (11.6-14.8) Platelet Count 300 K/UL (150-450) Mean Platelet Volume 4.3 FL (6.5-10.1) L Neutrophils (%) (Auto) 62.6 % (45.0-75.0) Lymphocytes (%) (Auto) 22.3 % (20.0-45.0) Monocytes (%) (Auto) 13.8 % (1.0-10.0) H Eosinophils (%) (Auto) 0.5 % (0.0-3.0) Basophils (%) (Auto) 0.8 % (0.0-2.0) Sodium Level 140 MMOL/L (136-145) Potassium Level 4.0 MMOL/L (3.5-5.1) Chloride Level 108 MMOL/L (98-107) H Carbon Dioxide Level 24 MMOL/L (21-32) Anion Gap 8 mmol/L (5-15) Blood Urea Nitrogen 42 mg/dL (7-18) H Creatinine 2.7 MG/DL (0.55-1.30) H Estimat Glomerular Filtration Rate 23.9 mL/min (>60) Glucose Level 133 MG/DL (74-106) H Uric Acid 9.7 MG/DL (2.6-7.2) H Calcium Level 8.6 MG/DL (8.5-10.1) Phosphorus Level 3.3 MG/DL (2.5-4.9) Magnesium Level 1.9 MG/DL (1.8-2.4) Total Bilirubin 0.2 MG/DL (0.2-1.0) Aspartate Amino Transf (AST/SGOT) 16 U/L (15-37) Alanine Aminotransferase (ALT/SGPT) 9 U/L (12-78) L Alkaline Phosphatase 48 U/L (46-116) C-Reactive Protein, Quantitative 8.1 mg/dL (0.00-0.90) H Pro-B-Type Natriuretic Peptide 3488 pg/mL (0-125) H Total Protein 6.4 G/DL (6.4-8.2) Albumin 1.7 G/DL (3.4-5.0) L Globulin 4.7 g/dL Albumin/Globulin Ratio 0.4 (1.0-2.7) L Current Medications Medications (Trade) Dose Ordered Sig/Juan Route PRN Reason Start Time Stop Time Status Last Admin Dose Admin Acetaminophen (Tylenol) 650 mg Q4H PRN ORAL Mild Pain (Pain Scale 1-3) 11/14/19 19:15 12/14/19 19:14 Amlodipine Besylate (Norvasc) 2.5 mg DAILY ORAL 11/17/19 09:00 12/17/19 08:59 11/18/19 09:51 Dextrose/Sodium Chloride 1,000 ml @ 100 mls/hr Q10H IV 11/15/19 10:00 12/15/19 09:59 11/18/19 09:53 Docusate Sodium (Colace) 100 mg TID ORAL 11/15/19 13:00 12/15/19 12:59 11/18/19 09:51 Hydromorphone HCl (Dilaudid) 0.5 mg Q4H PRN IVP For Pain 11/15/19 09:30 11/22/19 09:29 11/15/19 17:19 Lorazepam (Ativan 2mg/ml 1ml) 1 mg Q4H PRN IM For Anxiety 11/15/19 10:15 11/22/19 10:14 11/15/19 12:24 Pantoprazole (Protonix) 40 mg BID ORAL 11/15/19 10:00 12/15/19 09:59 11/18/19 09:51 Tamsulosin HCl (Flomax) 0.4 mg BID ORAL 11/16/19 18:00 12/15/19 20:59 11/18/19 09:50 Todd Paz MD November 18, 2019 13:28
[2019-11-18] MEDS ORDERED: NeoSporin Gu Irrig 1ml Amp IRRIG ONE (13:48)
[2019-11-18] MEDS ORDERED: Bacitracin 50000 Units Vial ONE (13:48)
--- NOTE | 2019-11-18 13:54 | Cardiac Electrophysiology PN ---
Assessment/Plan Assessment/Plan 1. Hypertension. On Norvasc 2.5 daily 2. Status post fall and right hip fracture. EKG showed NSR with LBBB and echocardiogram showed Nl EF. The patient has no history of myocardial infarction or CHF per records. No further cardiac testing needed prior to hip surgery 3. COVID-19 screening is pending. 4. Agitation and psychosis. Further evaluation by Psychiatry. 5. Diabetes. 6. Probably chronic kidney disease with a creatinine of 3.2, BUN of 67, as well as hypernatremia with a sodium of 149. Fu by Dr. Levine. Subjective Subjective RN at bedside.Echo Nl EF. ECG SR with LBBB Objective Last 24 Hour Vital Signs Date Time Temp Pulse Resp B/P (MAP) Pulse Ox O2 Delivery O2 Flow Rate FiO2 11/18/19 12:00 98.3 112 18 119/80 (93) 98 11/18/19 09:51 114 120/76 11/18/19 09:00 Room Air 11/18/19 08:00 98.2 114 17 120/76 (91) 97 11/18/19 04:00 97.9 82 18 130/73 (92) 98 11/18/19 00:00 97.1 106 18 129/81 (97) 98 11/17/19 21:00 Room Air 11/17/19 20:00 97.7 95 16 131/79 (96) 97 11/17/19 16:00 97.9 87 19 118/79 (92) 98 Intake and Output 11/17/19 11/18/19 19:00 07:00 Intake Total 1800 ml 1700 ml Output Total 1250 ml 2000 ml Balance 550 ml -300 ml Intake Oral 700 ml IV Total 1000 ml Other 1800 ml Output Urine Total 1250 ml 2000 ml # Voids 1 Laboratory Tests Test 11/18/19 07:15 White Blood Count 8.1 K/UL (4.8-10.8) Red Blood Count 3.08 M/UL (4.70-6.10) L Hemoglobin 9.5 G/DL (14.2-18.0) L Hematocrit 28.1 % (42.0-52.0) L Mean Corpuscular Volume 91 FL (80-99) Mean Corpuscular Hemoglobin 30.8 PG (27.0-31.0) Mean Corpuscular Hemoglobin Concent 33.8 G/DL (32.0-36.0) Red Cell Distribution Width 14.8 % (11.6-14.8) Platelet Count 300 K/UL (150-450) Mean Platelet Volume 4.3 FL (6.5-10.1) L Neutrophils (%) (Auto) 62.6 % (45.0-75.0) Lymphocytes (%) (Auto) 22.3 % (20.0-45.0) Monocytes (%) (Auto) 13.8 % (1.0-10.0) H Eosinophils (%) (Auto) 0.5 % (0.0-3.0) Basophils (%) (Auto) 0.8 % (0.0-2.0) Sodium Level 140 MMOL/L (136-145) Potassium Level 4.0 MMOL/L (3.5-5.1) Chloride Level 108 MMOL/L (98-107) H Carbon Dioxide Level 24 MMOL/L (21-32) Anion Gap 8 mmol/L (5-15) Blood Urea Nitrogen 42 mg/dL (7-18) H Creatinine 2.7 MG/DL (0.55-1.30) H Estimat Glomerular Filtration Rate 23.9 mL/min (>60) Glucose Level 133 MG/DL (74-106) H Uric Acid 9.7 MG/DL (2.6-7.2) H Calcium Level 8.6 MG/DL (8.5-10.1) Phosphorus Level 3.3 MG/DL (2.5-4.9) Magnesium Level 1.9 MG/DL (1.8-2.4) Total Bilirubin 0.2 MG/DL (0.2-1.0) Aspartate Amino Transf (AST/SGOT) 16 U/L (15-37) Alanine Aminotransferase (ALT/SGPT) 9 U/L (12-78) L Alkaline Phosphatase 48 U/L (46-116) C-Reactive Protein, Quantitative 8.1 mg/dL (0.00-0.90) H Pro-B-Type Natriuretic Peptide 3488 pg/mL (0-125) H Total Protein 6.4 G/DL (6.4-8.2) Albumin 1.7 G/DL (3.4-5.0) L Globulin 4.7 g/dL Albumin/Globulin Ratio 0.4 (1.0-2.7) L Objective HEAD AND NECK: No JVD. LUNGS: Clear. CARDIOVASCULAR: Regular S1 and S2 with no gallop. ABDOMEN: Soft. EXTREMITIES: Cannot move his right lower extremity because of the pain and fracture. Neno Ennis MD November 18, 2019 13:54
[2019-11-18] MEDS ORDERED: LR 1000ml ONE (14:30)
[2019-11-18] MEDS ORDERED: Sterile Water Irrig 1000ml IRRIG ONE (14:30)
[2019-11-18] MEDS ORDERED: NS Irrig 1000ml ONE (14:30)
[2019-11-18] MEDS ORDERED: NS Irrig 2000ml IRRIG ONE (14:30)
[2019-11-18] MEDS ORDERED: LR 1000ml 1,000 ML IVLG SCH (14:35)
--- NOTE | 2019-11-18 14:37 | Anethesia Preoperative Eval ---
Anesthesia Pre-op PMH/ROS General Date of Evaluation: November 18, 2019 Time of Evaluation: 14:34 Anesthesiologist: Malena ASA Score: ASA 3 Mallampati Score Class I : Soft palate, uvula, fauces, pillars visible Class II: Soft palate, uvula, fauces visible Class III: Soft palate, base of uvula visible Class IV: Only hard plate visible Mallampati Classification: Class II Surgeon: Barrett Diagnosis: R Hip Fx Surgical Procedure: R Hip Hemiartroplasty Anesthesia History: none Family History: no anesthesia problems Allergies: Coded Allergies: No Known Allergies (Unverified , 10/15/15) Medications: see eMAR Patient NPO?: Yes NPO Date: November 18, 2019 NPO Time: 0800 Past Medical History Cardiovascular: Reports: HTN Gastrointestinal/Genitourinary: Reports: CRI Neurologic/Psychiatric: Reports: dementia Endocrine: Reports: DM Anesthesia Pre-op Phys. Exam Physician Exam Last Vital Signs Date Time Temp Pulse Resp B/P (MAP) Pulse Ox O2 Delivery O2 Flow Rate FiO2 11/18/19 12:00 98.3 112 18 119/80 (93) 98 11/18/19 09:00 Room Air Constitutional: NAD Neurologic: CN 2-12 intact Cardiovascular: RRR Respiratory: CTA Gastrointestinal: S/NT/ND Airway Exam Mallampati Score: Class II MO: limited ROM: limited Teeth: missing, intact Anesthesia Pre-op A/P Labs Hematology Test 11/18/19 07:15 White Blood Count 8.1 K/UL (4.8-10.8) Red Blood Count 3.08 M/UL (4.70-6.10) L Hemoglobin 9.5 G/DL (14.2-18.0) L Hematocrit 28.1 % (42.0-52.0) L Mean Corpuscular Volume 91 FL (80-99) Mean Corpuscular Hemoglobin 30.8 PG (27.0-31.0) Mean Corpuscular Hemoglobin Concent 33.8 G/DL (32.0-36.0) Red Cell Distribution Width 14.8 % (11.6-14.8) Platelet Count 300 K/UL (150-450) Mean Platelet Volume 4.3 FL (6.5-10.1) L Neutrophils (%) (Auto) 62.6 % (45.0-75.0) Lymphocytes (%) (Auto) 22.3 % (20.0-45.0) Monocytes (%) (Auto) 13.8 % (1.0-10.0) H Eosinophils (%) (Auto) 0.5 % (0.0-3.0) Basophils (%) (Auto) 0.8 % (0.0-2.0) Chemistry Test 11/18/19 07:15 Sodium Level 140 MMOL/L (136-145) Potassium Level 4.0 MMOL/L (3.5-5.1) Chloride Level 108 MMOL/L (98-107) H Carbon Dioxide Level 24 MMOL/L (21-32) Anion Gap 8 mmol/L (5-15) Blood Urea Nitrogen 42 mg/dL (7-18) H Creatinine 2.7 MG/DL (0.55-1.30) H Estimat Glomerular Filtration Rate 23.9 mL/min (>60) Glucose Level 133 MG/DL (74-106) H Uric Acid 9.7 MG/DL (2.6-7.2) H Calcium Level 8.6 MG/DL (8.5-10.1) Phosphorus Level 3.3 MG/DL (2.5-4.9) Magnesium Level 1.9 MG/DL (1.8-2.4) Total Bilirubin 0.2 MG/DL (0.2-1.0) Aspartate Amino Transf (AST/SGOT) 16 U/L (15-37) Alanine Aminotransferase (ALT/SGPT) 9 U/L (12-78) L Alkaline Phosphatase 48 U/L (46-116) C-Reactive Protein, Quantitative 8.1 mg/dL (0.00-0.90) H Pro-B-Type Natriuretic Peptide 3488 pg/mL (0-125) H Total Protein 6.4 G/DL (6.4-8.2) Albumin 1.7 G/DL (3.4-5.0) L Globulin 4.7 g/dL Albumin/Globulin Ratio 0.4 (1.0-2.7) L Risk Assessment & Plan Assessment: ASA 3 Plan: Spinal with GA Status Change Before Surgery: No Pre-Antibiotics Dru Gram Ancef IV Given Within 1 Hr of Incision: Yes Time Given: 14:52 Randy Guy MD November 18, 2019 14:37
[2019-11-18] MEDS ORDERED: HYDROcodone/Acetamin 5/325 tab ORAL PRN ×2 (14:45→18:00)
[2019-11-18] MEDS ORDERED: Metoclopramide 10mg/2ml Inj IVP PRN ×2 (14:45→18:30)
[2019-11-18] MEDS ORDERED: oxyCODONE HCL/Acetaminophen 5/325mg ORAL PRN (14:45)
[2019-11-18] MEDS ORDERED: Meperidine 25mg/0.5ml Inj (FOR RIGORS ONLY) IV PRN (14:45)
[2019-11-18] MEDS ORDERED: LORazepam Inj 2mg/ml 1ml IV PRN (14:45)
[2019-11-18] MEDS ORDERED: Ketorolac 30mg Inj IV PRN ×2 (14:45)
[2019-11-18] MEDS ORDERED: DiphenhydrAMINE 50mg/ml Inj IVP PRN (14:45)
[2019-11-18] MEDS ORDERED: HYDROcodone/Acetamin 7.5/325 tab ORAL PRN ×2 (14:45→18:00)
[2019-11-18] MEDS ORDERED: Atropine Sulfate 0.4mg/ml inj IVP PRN (14:45)
[2019-11-18] MEDS ORDERED: Hydromorphone 0.5mg/0.5ml inj IVP PRN ×3 (14:45→18:15)
[2019-11-18] MEDS ORDERED: Labetalol 5mg/ml 20ml vial IV PRN (14:45)
[2019-11-18] MEDS ORDERED: Midazolam 2mg/2ml Inj IVP PRN (14:45)
[2019-11-18] MEDS ORDERED: fentaNYL 100 mcg/2 mL IV PRN (14:45)
--- NOTE | 2019-11-18 14:45 | NUR ---
NURSE NOTES: Patient left the floor for surgery;
[2019-11-18] MEDS ORDERED: EPINEPHrine 1mg/1ml Amp ONE ×2 (14:46→15:19)
[2019-11-18] MEDS ORDERED: cloNIDine 1000mcg/10ml inj ONE (14:46)
[2019-11-18] MEDS ORDERED: Bupivacaine 0.5% Inj 30 ml vial INJ ONE ×2 (14:46→15:14)
[2019-11-18] MEDS ORDERED: Lidocaine 1% Plain 30 ml INJ ONE (14:50)
[2019-11-18] MEDS ORDERED: Sodium Chloride 10ml vial INJ ONE (14:51)
--- NOTE | 2019-11-18 14:54 | Pre-Procedure Note/Attestation ---
Pre-Procedure Note/Attestation Complete Prior to Procedure Planned Procedure: right Procedure Narrative: hip hemiarthroplasty Indications for Procedure Pre-Operative Diagnosis: right femral neck fracture Attestation I attest that I discussed the nature of the procedure; its benefits; risks and complications; and alternatives (and the risks and benefits of such alternatives ), prior to the procedure, with the patient (or the patient's legal commissary representative). I attest that, if there was a reasonable possibility of needing a blood transfusion, the patient (or the patient's legal commissary representative) was given the [facility] standardized written summary, pursuant to the [employer] Blood Safety Act ([place] Health and Safety Code # 1645, as amended). I attest that I re-evaluated the patient just prior to the surgery and that there has been no change in the patient's H&P, except as documented below: You Hyde MD November 18, 2019 14:54
--- NOTE | 2019-11-18 14:55 | Operative Note - PDOC ---
Operative Note Operative Note Pre-op Diagnosis: right femral neck fracture Procedure: see op report Post-op Diagnosis: same as pre-op plus Operative Findings: consistent w/pre-op dx studies Anesthesia: regional Specimen: none Complications: none Condition: stable Estimated Blood Loss: none Implant(s) used?: Yes You Hyde MD November 18, 2019 14:55
[2019-11-18] MEDS ORDERED: Ropivacaine 5mg/ml Vial 20ml INJ ONE (15:12)
--- NOTE | 2019-11-18 15:30 | NUR ---
*-*DISCHARGE PLANNING*-* PATIENT HAS BEEN REFERRED TO: ANEESH NGUYEN P: [phone] F: [phone] ~~~~~~~~~~~~~~~~~~CLINICALS FAXED~~~~~~~~~~~~~~~
--- NOTE | 2019-11-18 15:40 | NUR ---
Social Work This SW received a consult for a home safety evaluation (standard order). Patient is from [facility] and had a recent fall there. Currently in surgery due to hip fracture. This SW left a message with family contact: Nneka Vázquez (awaiting call back at this time regarding any concerns). Plans to return to SNF when ready for discharge.
--- NOTE | 2019-11-18 15:41 | NUR ---
CASE MANAGEMENT:REVIEW SI;RIGHT HIP FRACTURE ~ORIF TODAY. 98.3 114 18 130/73 97% ON RA BUN 42 CR 2.7 UR ACID 9.7 CRP 8.1 ALB 1.7 IS;PROTONIX PO QD CEFAZOLIN IV Q8 HRS ASA PO BID TORADOL IV MED SURG STATUS DCP;FROM [facility]
--- NOTE | 2019-11-18 15:48 | Immediate Post-Op Evaluation ---
Immediate Post-Op Evalulation Immediate Post-Op Evalulation Procedure: R Hip Hemiarthroplasty Date of Evaluation: November 18, 2019 Time of Evaluation: 16:59 IV Fluids: 500 LR Blood Products: 0 Estimated Blood Loss: 40 Urinary Output: 600 Blood Pressure Systolic: 128 Blood Pressure Diastolic: 73 Pulse Rate: 103 Respiratory Rate: 16 O2 Sat by Pulse Oximetry: 100 Temperature (Fahrenheit): 100.4 Pain Score (1-10): 1 Nausea: No Vomiting: No Complications 0 Patient Status: awake, reacts, patent, none Hydration Status: adequate Dru Gram Ancef IV Given Within 1 Hr of Incision: Yes Time Given: 14:52 Randy Guy MD November 18, 2019 15:48
--- NOTE | 2019-11-18 15:49 | 48 Hour Post Anesthesia Eval ---
Post Anesthesia Evaluation Procedure: R Hip Hemiarthroplasty Date of Evaluation: November 18, 2019 Time of Evaluation: 19:08 Blood Pressure Systolic: 101 0: 67 Pulse Rate: 102 Respiratory Rate: 18 Temperature (Fahrenheit): 100.4 O2 Sat by Pulse Oximetry: 100 Airway: patent Nausea: No Vomiting: No Pain Intensity: 1 Hydration Status: adequate Cardiopulmonary Status: Stable Mental Status/LOC: patient returned to baseline Follow-up Care/Observations: 0 Post-Anesthesia Complications: 0 Follow-up care needed: N/A Randy Guy MD November 18, 2019 15:49
[2019-11-18] MEDS ORDERED: Tranexamic Acid 100 ML IVPB ONE (16:00)
--- NOTE | 2019-11-18 17:23 | General Progress Note ---
Assessment/Plan Problem List: (1) Hip fracture, right ICD Codes: S72.001A - Fracture of unspecified part of neck of right femur, initial encounter for closed fracture SNOMED: 157207461 Qualifiers: Qualified Codes: S72.001A - Fracture of unspecified part of neck of right femur, initial encounter for closed fracture (2) Fall ICD Codes: W19.XXXA - Unspecified fall, initial encounter SNOMED: 7410275, 612402399 Qualifiers: Qualified Codes: W19.XXXA - Unspecified fall, initial encounter (3) Dehydration ICD Codes: E86.0 - Dehydration SNOMED: 55446286 (4) Anemia ICD Codes: D64.9 - Anemia, unspecified SNOMED: 085139099 (5) JAIDA (acute kidney injury) ICD Codes: N17.9 - Acute kidney failure, unspecified SNOMED: 8369305, 34119993 Status: progressing Assessment/Plan: hip pain not hypoxic arf is improving s/p orif no cp no sob afebrile Subjective ROS Limited/Unobtainable: Yes Allergies: Coded Allergies: No Known Allergies (Unverified , 10/15/15) Objective Last 24 Hour Vital Signs Date Time Temp Pulse Resp B/P (MAP) Pulse Ox O2 Delivery O2 Flow Rate FiO2 11/18/19 17:00 107 15 99/71 100 Simple Mask 6 11/18/19 16:50 104 20 90/64 100 Simple Mask 6 11/18/19 16:45 104 20 64/47 100 Simple Mask 6 11/18/19 16:44 102 18 100 11/18/19 16:42 103 16 100 11/18/19 16:40 100.8 103 24 143/128 100 Simple Mask 6 11/18/19 12:00 98.3 112 18 119/80 (93) 98 11/18/19 09:51 114 120/76 11/18/19 09:00 Room Air 11/18/19 08:00 98.2 114 17 120/76 (91) 97 11/18/19 04:00 97.9 82 18 130/73 (92) 98 11/18/19 00:00 97.1 106 18 129/81 (97) 98 11/17/19 21:00 Room Air 11/17/19 20:00 97.7 95 16 131/79 (96) 97 Intake and Output 11/17/19 11/18/19 19:00 07:00 Intake Total 1800 ml 1700 ml Output Total 1250 ml 2000 ml Balance 550 ml -300 ml Intake Oral 700 ml IV Total 1000 ml Other 1800 ml Output Urine Total 1250 ml 2000 ml # Voids 1 Laboratory Tests 11/18/19 07:15: White Blood Count 8.1, Red Blood Count 3.08L, Hemoglobin 9.5L, Hematocrit 28.1L , Mean Corpuscular Volume 91, Mean Corpuscular Hemoglobin 30.8, Mean Corpuscular Hemoglobin Concent 33.8, Red Cell Distribution Width 14.8, Platelet Count 300, Mean Platelet Volume 4.3L, Neutrophils (%) (Auto) 62.6, Lymphocytes ( %) (Auto) 22.3, Monocytes (%) (Auto) 13.8H, Eosinophils (%) (Auto) 0.5, Basophils (%) (Auto) 0.8, Sodium Level 140, Potassium Level 4.0, Chloride Level 108H, Carbon Dioxide Level 24, Anion Gap 8, Blood Urea Nitrogen 42H, Creatinine 2.7H, Estimat Glomerular Filtration Rate 23.9, Glucose Level 133H, Uric Acid 9.7H, Calcium Level 8.6, Phosphorus Level 3.3, Magnesium Level 1.9, Total Bilirubin 0.2, Aspartate Amino Transf (AST/SGOT) 16, Alanine Aminotransferase ( ALT/SGPT) 9L, Alkaline Phosphatase 48, C-Reactive Protein, Quantitative 8.1H, Pro-B-Type Natriuretic Peptide 3488H, Total Protein 6.4, Albumin 1.7L, Globulin 4.7, Albumin/Globulin Ratio 0.4L Height (Feet): 6 Height (Inches): 4.00 Weight (Pounds): 180 Lisa Coronel MD November 18, 2019 17:23
--- NOTE | 2019-11-18 17:52 | NUR ---
NURSE NOTES: Patient arrived the unit after surgery; patient awake, alert x3; on Nasal cannula 3 liters, no sing of distress and shortness of breath; dressing on the right hip, dry and intact, no bleeding; No abduction pillow, per Kaycee Pineda RN patient doesn't need abduction pillow; [place] in place, drains urine; side rails up x2, breaks engaged, bed at lowest position, call light within reach; will keep monitoring.
--- NOTE | 2019-11-18 17:55 | NUR ---
NURSE NOTES: Patient had good circulation on lower extremities.
[2019-11-18] MEDS ORDERED: Morphine Sulfate 2mg/ml Inj(IV/IM USE ONLY) IVP PRN ×4 (18:00→18:15)
--- NOTE | 2019-11-18 18:36 | NUR ---
NURSE NOTES: Called RT to get Incentive Spirometer. Waiting IS.
--- NOTE | 2019-11-18 19:30 | NUR ---
HAND-OFF: Report given to ANDRY Kern.
--- NOTE | 2019-11-18 19:35 | NUR ---
NURSE NOTES: Patient received from ANDRY Chavarria. Pt. AAOx2, with 3L NC, breathing even and unlabored, no complaints of pain at this time. Right hip dressing clean dry and intact pedal pulses palpable. SCD's in place and active as ordered. Bilateral soft wrist restraints, movement and sensation intact, pulses palpable. [place] intact, draining yellow urine well. IV left hand 24 g, intact and patent, running D5 1/2 NS 100cc/hr. Bed is low and locked, side rails x3 up, bed alarm active and call light in reach. Will continue to monitor.
--- NOTE | 2019-11-18 20:00 | NUR ---
NURSE NOTES: Sensation and circulation assessment performed on pt's right lower extremity. Sensation intact, right pedal pulses palpable. Will continue to monitor.
--- NOTE | 2019-11-18 20:31 | Diagnostic Imaging Report ---
Indication: Pelvic pain, status surgery for right hip fracture Technique: One view of the pelvis Comparison: 11/14/2019 Findings: Interim surgical repair of previously demonstrated right femoral neck fracture with hemiarthroplasty prosthesis. Prosthesis appears well aligned. There is a Cleveland catheter in place. Left hip arthroplasty prosthesis is again demonstrated. Impression: Postoperative right hip. No unusual features
[2019-11-18] MEDS: Aspirin Baby 81mg ORAL SCH (20:58)
[2019-11-18] MEDS: D5 1/2NS w/KCl 20mEq 1,000 ML IV SCH (20:59)
--- NOTE | 2019-11-18 21:15 | Consultation ---
DATE OF CONSULTATION: 11/14/2019 CHIEF COMPLAINT: Right hip pain. HISTORY OF PRESENT ILLNESS: The patient is a pleasant 64-year-old gentleman who has significant pain after mechanical fall. The patient was brought to the emergency room where he was diagnosed with right femoral neck fracture. Orthopedic consultation obtained for further care and recommendation. PAST MEDICAL HISTORY: Hypertension, diabetes. PAST SURGICAL HISTORY: Reviewed from intake chart. ALLERGIES: None. SOCIAL HISTORY: The patient resides in a long term. FAMILY HISTORY: Noncontributory. DIAGNOSTIC DATA: Two-view of the right hip reviewed showed displaced femoral neck fracture. ASSESSMENT: Right displaced femoral neck fracture. DISCUSSION: At this point, the patient is indicated for operative fixation, right hip hemiarthroplasty. At this point, he has to undergo COVID-19 screening process as well as further workup of his renal function given the BUN is somewhat elevated. We are going to admit into the hospital for appropriate pain medication following the course of the weekend to see when he is optimized to undergo surgery. You Hyde M.D. DR: Gurmeet JOB#: [id number] CC:
--- NOTE | 2019-11-18 21:15 | Progress Note ---
DATE: 11/15/2019 SUBJECTIVE: The patient has been diagnosed with right femoral neck fracture. He had some issues overnight with significant agitation. He still has not been medically cleared by the medical specialists include Cardiology. PHYSICAL EXAMINATION: The patient is confused. He is in restraint. Right hip is shortened and internally rotated. ASSESSMENT: Right displaced femoral neck fracture. DISCUSSION: At this point, I still have not obtained clearance to proceed with surgery. We will go ahead and continue the COVID-19 screen, will do the cardiac workup, and we will continue to monitor his BUN. He is instructed on strict bed rest. Because that he pulled out his [place] overnight, I think restraints would be reasonable. We will obtain a psychiatric consult to see if we can improve his agitation as well. You Hyde M.D. DR: Libia JOB#: [id number] CC:
[2019-11-18] MEDS: ceFAZolin 2gm/50ml Premix 50 ML IV SCH (21:54)
--- NOTE | 2019-11-18 22:15 | Progress Note ---
DATE: 11/16/2019 SUBJECTIVE: The patient is diagnosed with right femoral neck fracture as well as some agitation and confusion overnight. PHYSICAL EXAMINATION: The patient is resting comfortably on bed. He is agitated. Right leg is short and internally rotated. ASSESSMENT: Right displaced femoral neck fracture. DISCUSSION: At this point, he was seen by Cardiology. COVID-19 screening is still pending. His BUN and creatinine is still pending. Further workup by for the right displaced femoral neck fracture. At this point, he is not medically stable to proceed with surgery. We will continue to monitor strict bed rest. He is on SCDs for DVT prophylaxis. Hopefully, the anticipation is to proceed with surgery Monday if he is medically optimized. You Hyde M.D. DR: Libia JOB#: [id number] CC:
[2019-11-18] MEDS ORDERED: ceFAZolin sod 2 GM in D5W 110 ML IV SCH (22:30)
[2019-11-19] VITALS: BP 116/65
--- NOTE | 2019-11-19 00:15 | NUR ---
NURSE NOTES: Circulation assessment performed, right pedal pulses palpable, sensation present, cap. refil <3 seconds. Will continue to monitor.
--- NOTE | 2019-11-19 01:00 | Progress Note ---
DATE: 11/18/2019 SUBJECTIVE: The patient is still getting agitated and attempting to come out of the bed. He is going to have surgery today. The patient had little agitation. MENTAL STATUS EXAMINATION: Alert and oriented x3. Mood is agitated. Affect is flat. Thought process is concrete. Thought content, no suicidal or homicidal ideation. Cognition is impaired. Insight and judgment, impaired. ASSESSMENT: 1. Dementia. 2. Anxiety disorder. PLAN: 1. Continue the lorazepam p.r.n. 2. Depakote and Klonopin from outside of the hospital was discontinued. Sukhwinder Dickens M.D. DR: Raul JOB#: [id number] CC:
[2019-11-19 04:00] VITALS: BP 114/59
[2019-11-19] MEDS: ceFAZolin 2gm/50ml Premix 50 ML IV SCH (06:18)
--- NOTE | 2019-11-19 07:13 | Hematology/Onc Progress Note ---
Assessment/Plan Assessment/Plan Assessment and Recs # Anemia of chronic disease due to underlying chronic medical issues, multifactorial v Gi bleed --> Anemia workup has been ordered, rule out gi bleed --> No evidence of hemolysis is noted, peripheral smear has been reviewed. --> Hgb goal >7. Transfuse prn. --> Epogen or iron at this time is not particularly indicated --> Medications have been reviewed --> low threshold for gi evaluation in case has occult + --> hgb trend 9.9-->9.3 ->9.5 # Hip fracture, right --> Fracture of unspecified part of neck of right femur, initial encounter for closed fracture --> as per ortho eval --> pending consent for right hip hemiarthroplasty --> psych clearance # Fall may require surger per ortho --> neuro and ortho # JAIDA on CKD --> per Dr. Levine # Psych disorder --> per Dr. Dickens The timing of this note does not necessarily reflect the time of the patient was seen. Greatly appreciate consultation. Subjective Constitutional: Denies: no symptoms, chills, fever, malaise, weakness, other HEENT: Denies: no symptoms, eye pain, blurred vision, tearing, double vision, ear pain, ear discharge, nose pain, nose congestion, throat pain, throat swelling, mouth pain, mouth swelling, other Cardiovascular: Denies: no symptoms, chest pain, edema, irregular heart rate, lightheadedness, palpitations, syncope, other Gastrointestinal/Abdominal: Denies: no symptoms, abdomen distended, abdominal pain, black stools, tarry stools, blood in stool, constipated, diarrhea, difficulty swallowing, nausea, poor appetite, poor fluid intake, rectal bleeding , vomiting, other Genitourinary: Denies: no symptoms, burning, discharge, frequency, flank pain, hematuria, incontinence, pain, urgency, other Neurologic/Psychiatric: Denies: no symptoms, anxiety, depressed, emotional problems, headache, numbness, paresthesia, pre-existing deficit, seizure, tingling, tremors, weakness, other Endocrine: Denies: no symptoms, excessive sweating, flushing, intolerance to cold, intolerance to heat, increased hunger, increased thirst, increased urine, unexplained weight gain, unexplained weight loss, other Hematologic/Lymphatic: Denies: no symptoms, anemia, easy bleeding, easy bruising, adenopathy, other Allergies: Coded Allergies: No Known Allergies (Unverified , 10/15/15) Subjective 5/3 confused, pending right hip hemiarthroplasty, bilat restraints 5/4 confused, hgb 9.5, no bleeding, reviewed renal recs 11/18 still requiring clearance by psych, cards for clearance to surgery Objective Objective Current Medications Medications (Trade) Dose Ordered Sig/Juan Route PRN Reason Start Time Stop Time Status Last Admin Dose Admin Acetaminophen (Tylenol) 650 mg Q4H PRN ORAL Mild Pain (Pain Scale 1-3) 11/14/19 19:15 12/14/19 19:14 Acetaminophen (Tylenol) 650 mg Q4H PRN ORAL Temp >100.5 11/18/19 15:00 12/18/19 14:59 Acetaminophen/ Hydrocodone Bitart ([place] 5/325) 2 tab Q6H PRN ORAL Severe Pain (Pain Scale 7-10) 11/18/19 18:00 11/25/19 17:59 Acetaminophen/ Hydrocodone Bitart ([place] 7.5/325) 1 tab Q4H PRN ORAL Moderate Pain (Pain Scale 4-6) 11/18/19 18:00 11/25/19 17:59 Amlodipine Besylate (Norvasc) 2.5 mg DAILY ORAL 11/17/19 09:00 12/17/19 08:59 11/18/19 09:51 Aspirin (ASA) 81 mg Q12HR ORAL 11/18/19 21:00 01/02/20 20:59 11/18/19 20:58 Dextrose/ Electrolytes 1,000 ml @ 75 mls/hr [id number] IV 11/18/19 19:00 12/18/19 18:59 11/18/19 20:59 Docusate Sodium (Colace) 100 mg THREE TIMES A DAY ORAL 11/18/19 18:30 12/18/19 18:29 11/18/19 18:23 Hydromorphone HCl (Dilaudid) 0.5 mg Q4H PRN IVP Severe Pain (Pain Scale 7-10) 11/18/19 18:15 11/25/19 18:14 Lorazepam (Ativan 2mg/ml 1ml) 1 mg Q4H PRN IM For Anxiety 11/15/19 10:15 11/22/19 10:14 11/15/19 12:24 Metoclopramide HCl (Reglan) 10 mg Q6H PRN IVP Nausea & Vomiting 11/18/19 18:30 12/18/19 18:29 Morphine Sulfate (Morphine Sulfate) 1 mg Q3H PRN IVP Pain scale 1-3 11/18/19 18:15 11/25/19 17:59 Morphine Sulfate (Morphine Sulfate) 2 mg Q3H PRN IVP Moderate Pain (Pain Scale 4-6) 11/18/19 18:15 11/25/19 17:59 Pantoprazole (Protonix) 40 mg BID ORAL 11/15/19 10:00 12/15/19 09:59 11/18/19 18:22 Tamsulosin HCl (Flomax) 0.4 mg BID ORAL 11/16/19 18:00 12/15/19 20:59 11/18/19 18:22 Temazepam (RestoriL) 7.5 mg HSPRN PRN ORAL Insomnia 11/18/19 21:00 11/25/19 20:59 Last 24 Hour Vital Signs Date Time Temp Pulse Resp B/P (MAP) Pulse Ox O2 Delivery O2 Flow Rate FiO2 11/19/19 04:00 98.4 101 22 114/59 (77) 99 11/19/19 00:00 98.2 102 18 116/65 (82) 99 11/18/19 21:00 Nasal Cannula 3.0 11/18/19 20:00 99.3 121 20 112/77 (89) 99 11/18/19 17:45 99.9 120 19 120/81 (94) 98 11/18/19 17:30 98.6 103 20 118/80 100 Nasal Cannula 3 11/18/19 17:15 101 15 109/77 100 Nasal Cannula 3 11/18/19 17:00 107 15 99/71 100 Simple Mask 6 11/18/19 16:50 104 20 90/64 100 Simple Mask 6 11/18/19 16:45 104 20 64/47 100 Simple Mask 6 11/18/19 16:44 102 18 100 11/18/19 16:42 103 16 100 11/18/19 16:40 100.8 103 24 143/128 100 Simple Mask 6 11/18/19 12:00 98.3 112 18 119/80 (93) 98 11/18/19 09:51 114 120/76 11/18/19 09:00 Room Air 11/18/19 08:00 98.2 114 17 120/76 (91) 97 11/18/19 04:00 97.9 82 18 130/73 (92) 98 11/18/19 00:00 97.1 106 18 129/81 (97) 98 11/17/19 21:00 Room Air 11/17/19 20:00 97.7 95 16 131/79 (96) 97 11/17/19 16:00 97.9 87 19 118/79 (92) 98 11/17/19 12:00 98.8 93 18 123/82 (96) 98 11/17/19 09:16 113 110/75 11/17/19 09:00 Room Air 11/17/19 08:00 98.8 113 21 110/75 (87) 97 Intake and Output 11/18/19 11/19/19 19:00 07:00 Intake Total 1300 ml 822.5 ml Output Total 640 ml 1700 ml Balance 660 ml -877.5 ml IV Total 1300 ml 462.5 ml Other 360 ml Output Urine Total 600 ml 1700 ml Estimated Blood Loss 40 ml Labs Test 11/17/19 05:45 11/18/19 07:15 White Blood Count 6.6 K/UL (4.8-10.8) 8.1 K/UL (4.8-10.8) Red Blood Count 3.06 M/UL (4.70-6.10) 3.08 M/UL (4.70-6.10) Hemoglobin 9.3 G/DL (14.2-18.0) 9.5 G/DL (14.2-18.0) Hematocrit 27.9 % (42.0-52.0) 28.1 % (42.0-52.0) Mean Corpuscular Volume 91 FL (80-99) 91 FL (80-99) Mean Corpuscular Hemoglobin 30.3 PG (27.0-31.0) 30.8 PG (27.0-31.0) Mean Corpuscular Hemoglobin Concent 33.3 G/DL (32.0-36.0) 33.8 G/DL (32.0-36.0) Red Cell Distribution Width 14.7 % (11.6-14.8) 14.8 % (11.6-14.8) Platelet Count 287 K/UL (150-450) 300 K/UL (150-450) Mean Platelet Volume 4.3 FL (6.5-10.1) 4.3 FL (6.5-10.1) Neutrophils (%) (Auto) 55.9 % (45.0-75.0) 62.6 % (45.0-75.0) Lymphocytes (%) (Auto) 30.1 % (20.0-45.0) 22.3 % (20.0-45.0) Monocytes (%) (Auto) 13.1 % (1.0-10.0) 13.8 % (1.0-10.0) Eosinophils (%) (Auto) 0.6 % (0.0-3.0) 0.5 % (0.0-3.0) Basophils (%) (Auto) 0.4 % (0.0-2.0) 0.8 % (0.0-2.0) Sodium Level 148 MMOL/L (136-145) 140 MMOL/L (136-145) Potassium Level 4.0 MMOL/L (3.5-5.1) 4.0 MMOL/L (3.5-5.1) Chloride Level 114 MMOL/L (98-107) 108 MMOL/L (98-107) Carbon Dioxide Level 23 MMOL/L (21-32) 24 MMOL/L (21-32) Anion Gap 11 mmol/L (5-15) 8 mmol/L (5-15) Blood Urea Nitrogen 50 mg/dL (7-18) 42 mg/dL (7-18) Creatinine 2.8 MG/DL (0.55-1.30) 2.7 MG/DL (0.55-1.30) Estimat Glomerular Filtration Rate 22.9 mL/min (>60) 23.9 mL/min (>60) Glucose Level 117 MG/DL (74-106) 133 MG/DL (74-106) Uric Acid 11.6 MG/DL (2.6-7.2) 9.7 MG/DL (2.6-7.2) Calcium Level 8.2 MG/DL (8.5-10.1) 8.6 MG/DL (8.5-10.1) Phosphorus Level 3.0 MG/DL (2.5-4.9) 3.3 MG/DL (2.5-4.9) Magnesium Level 1.7 MG/DL (1.8-2.4) 1.9 MG/DL (1.8-2.4) Total Bilirubin 0.3 MG/DL (0.2-1.0) 0.2 MG/DL (0.2-1.0) Aspartate Amino Transf (AST/SGOT) 21 U/L (15-37) 16 U/L (15-37) Alanine Aminotransferase (ALT/SGPT) 18 U/L (12-78) 9 U/L (12-78) Alkaline Phosphatase 48 U/L (46-116) 48 U/L (46-116) Troponin I 0.000 ng/mL (0.000-0.056) C-Reactive Protein, Quantitative 12.6 mg/dL (0.00-0.90) 8.1 mg/dL (0.00-0.90) Pro-B-Type Natriuretic Peptide 6265 pg/mL (0-125) 3488 pg/mL (0-125) Total Protein 6.2 G/DL (6.4-8.2) 6.4 G/DL (6.4-8.2) Albumin 1.8 G/DL (3.4-5.0) 1.7 G/DL (3.4-5.0) Globulin 4.4 g/dL 4.7 g/dL Albumin/Globulin Ratio 0.4 (1.0-2.7) 0.4 (1.0-2.7) Height (Feet): 6 Height (Inches): 4.00 Weight (Pounds): 180 Objective PE: Vitals: reviewed, stable General Appearance: NAD HEENT: normocephalic, atraumatic Neck: non-tender, normal alignment Respiratory/Chest: normal breath sounds bilaterally Cardiovascular/Chest: normal peripheral pulses, normal rate Abdomen: normal bowel sounds, soft, nontender Extremities: normal range of motion Neuro: altered, encephalopathic Juan Luis Monique MD November 19, 2019 07:13
--- NOTE | 2019-11-19 07:50 | NUR ---
HAND-OFF: Report given to ANDRY Chavarria.
--- NOTE | 2019-11-19 07:54 | NUR ---
NURSE NOTES: Patient awake, confused; Hard of Hearing; on room Nasal cannula 3 Liters, no sing of distress and shortness of breath; [place] in place, drains yellow urine; surgical site on the Right Hip dry and intact; side rails up x2, breaks engaged, bed at lowest position, bed alarm; call light within reach; will keep monitoring.
[2019-11-19 08:00] VITALS: BP_SYST 116; BP_SYST 96; BP_DIAS 72; BP_DIAS 75
--- NOTE | 2019-11-19 08:00 | NUR ---
NURSE NOTES: Circulation assessment done on the Right foot; patient had good circulation; will keep on assessing;
--- NOTE | 2019-11-19 08:00 | Operative Note - Dictated ---
DATE OF OPERATION: 11/18/2019 PREOPERATIVE DIAGNOSIS: Right femoral neck fracture. POSTOPERATIVE DIAGNOSIS: Right femoral neck fracture. PROCEDURE: Right hip hemiarthroplasty. SURGEON: You Hyde MD ANESTHESIA: Spinal. INDICATION FOR PROCEDURE: Patient is a pleasant 64-year-old gentleman who sustained a mechanical fall, diagnosed with right displaced femoral neck fracture, indicative of operative fixation. Risks, limitations, expectations, and complication of the procedure were discussed in detail. All questions addressed. DESCRIPTION OF PROCEDURE: After informed consent was obtained, patient was brought to the operating room. Patient was placed under spinal anesthesia. Right leg was prepped and draped in a sterile manner. Care was taken to pad all the extremities. Of note, patient had decubitus ulcer in the posterior buttock, heel as well as a serous blister on the posterior right thigh. After time-out was performed, Ancef was administered. 1 g of tranexamic acid was administered. Posterolateral skin incision was then made. Fascia sohail was incised. Piriformis and short external rotators were T'd. Capsule was T'd with #2 FiberWire. Suture neck cut below the fracture was performed. Femoral head was removed, measured 58 mm. Sequential reaming up to a size 7 was performed. The 7-0 58 was selected. Soft tissue was somewhat tight. It was felt that the implant was by approximately 2 to 3 mm 01:39 was selected. Implants were impacted into place. Hip was reduced. Hip flexed to 120 degrees, 90 degrees flexion, internal rotation to 60 extension and external rotation was stable. Leg lengths were clinically were equal. At this point, the capsule was reapproximated using two drill holes through greater trochanter. Fascia sohail was approximated with 1 Vicryl suture, 2-0 Vicryl suture, and 3-0 Monocryl suture. Steri-Strips and a sterile dressing were applied. ESTIMATED BLOOD LOSS: Minimal. COMPLICATIONS: None. SPECIMENS: . IMPLANTS: Include a size 7 high-offset Accolade stem, 58 bipolar head with a -4 head and neck combo. You Hyde M.D. DR: ELLYN JOB#: [id number] CC:
--- NOTE | 2019-11-19 08:00 | Progress Note ---
DATE: 11/17/2019 SUBJECTIVE: The patient was diagnosed with right femoral neck fracture. Pending clearance to proceed with a right hip hemiarthroplasty. No issues overnight. The patient still has some underlying agitation. PHYSICAL EXAMINATION: Examination shows right leg is short and internally rotated. Posterior calf is soft. No evidence of decubitus ulcer of the heel or posterior buttock. ASSESSMENT: Right displaced femoral neck fracture. DISCUSSION: At this point, the patient was medically optimized as relates to Cardiology. His BUN and creatinine have improved. At this point, the patient has been medically optimized to proceed with surgery. Therefore, what we will do is make him NPO after midnight in anticipation of surgery tomorrow. His COVID-19 workup I believe is still pending results by tomorrow. Risks, limitations, expectations, complications of procedure were discussed with the family member including . All questions were addressed. We will proceed with surgery which is scheduled tomorrow. You Hyde M.D. DR: Libia JOB#: [id number] CC:
[2019-11-19 09:16] LABS: BASOPHILS % (AUTO) 0.6 % (0.0-2.0); EOSINOPHILS % (AUTO) 0.4 % (0.0-3.0); HEMATOCRIT 26.7 % (42.0-52.0); LYMPHOCYTES % (AUTO) 14.4 % (20.0-45.0); MEAN CORPUSCULAR VOLUME 91 FL (80-99); MONOCYTES % (AUTO) 9.3 % (1.0-10.0); NEUTROPHILS % (AUTO) 75.3 % (45.0-75.0); PLATELET COUNT 293 K/UL (150-450); RED BLOOD COUNT 2.94 M/UL (4.70-6.10); RED CELL DISTRIBUTION WIDTH 13.8 % (11.6-14.8); WHITE BLOOD COUNT 12.9 K/UL (4.8-10.8)
[2019-11-19 09:19] LABS: ANION GAP 10 mmol/L (5-15); BLOOD UREA NITROGEN 37 mg/dL (7-18); CALCIUM 8.5 MG/DL (8.5-10.1); CARBON DIOXIDE 22 MMOL/L (21-32); CHLORIDE 110 MMOL/L (98-107); CREATININE 2.5 MG/DL (0.55-1.30); POTASSIUM 4.1 MMOL/L (3.5-5.1); SODIUM 142 MMOL/L (136-145)
[2019-11-19 09:21] LABS: ALANINE AMINOTRANSFERASE 7 U/L (12-78); ALBUMIN 1.5 G/DL (3.4-5.0); ALBUMIN/GLOBULIN RATIO 0.3 (1.0-2.7); ALKALINE PHOSPHATASE 48 U/L (46-116); ASPARTATE AMINO TRANSFERASE 21 U/L (15-37); BILIRUBIN,TOTAL 0.3 MG/DL (0.2-1.0); PHOSPHORUS 4.3 MG/DL (2.5-4.9)
[2019-11-19] MEDS: Aspirin Baby 81mg ORAL SCH ×2 (09:30→20:44)
[2019-11-19] MEDS: Docusate 100mg cap ORAL SCH ×3 (09:30→17:36)
[2019-11-19] MEDS: Tamsulosin 0.4mg cap ORAL SCH ×2 (09:30→17:36)
[2019-11-19] MEDS: D5 1/2NS w/KCl 20mEq 1,000 ML IV SCH ×2 (09:31→22:10)
--- NOTE | 2019-11-19 10:36 | NUR ---
NURSE NOTES: MD Ennis wants me to communicate MD Coronel regarding the swollen Right hand of the patient, if MD Coronel wanna do X-Ray on the hand incase patient had fracture; waiting MD Coronel for order.
--- NOTE | 2019-11-19 11:31 | Cardiac Electrophysiology PN ---
Assessment/Plan Assessment/Plan 1. Hypertension. On Norvasc 2.5 daily 2. Status post fall and right hip fracture. EKG showed NSR with LBBB and echocardiogram showed Nl EF. The patient has no history of myocardial infarction or CHF per records. Tolerated hip surgery 3. COVID-19 screening is negative 4. Agitation and psychosis. Further evaluation by Psychiatry. 5. Diabetes. 6. Probably chronic kidney disease with a creatinine of 3.2, BUN of 67, as well as hypernatremia with a sodium of 149. Improving Fu by Dr. Levine. Subjective Subjective Tolerated surgery well. Confused in restraints. Echo Nl EF. ECG SR with LBBB Objective Last 24 Hour Vital Signs Date Time Temp Pulse Resp B/P (MAP) Pulse Ox O2 Delivery O2 Flow Rate FiO2 11/19/19 09:30 76 96/72 11/19/19 09:00 Nasal Cannula 3.0 11/19/19 08:00 97.6 76 19 116/75 (89) 97 11/19/19 04:00 98.4 101 22 114/59 (77) 99 11/19/19 00:00 98.2 102 18 116/65 (82) 99 11/18/19 21:00 Nasal Cannula 3.0 11/18/19 20:00 99.3 121 20 112/77 (89) 99 11/18/19 17:45 99.9 120 19 120/81 (94) 98 11/18/19 17:30 98.6 103 20 118/80 100 Nasal Cannula 3 11/18/19 17:15 101 15 109/77 100 Nasal Cannula 3 11/18/19 17:00 107 15 99/71 100 Simple Mask 6 11/18/19 16:50 104 20 90/64 100 Simple Mask 6 11/18/19 16:45 104 20 64/47 100 Simple Mask 6 11/18/19 16:44 102 18 100 11/18/19 16:42 103 16 100 11/18/19 16:40 100.8 103 24 143/128 100 Simple Mask 6 11/18/19 12:00 98.3 112 18 119/80 (93) 98 Intake and Output 11/18/19 11/19/19 19:00 07:00 Intake Total 1300 ml 897.5 ml Output Total 640 ml 1700 ml Balance 660 ml -802.5 ml IV Total 1300 ml 537.5 ml Other 360 ml Output Urine Total 600 ml 1700 ml Estimated Blood Loss 40 ml Laboratory Tests Test 11/19/19 08:05 White Blood Count 12.9 K/UL (4.8-10.8) #H Red Blood Count 2.94 M/UL (4.70-6.10) L Hemoglobin 9.0 G/DL (14.2-18.0) L Hematocrit 26.7 % (42.0-52.0) L Mean Corpuscular Volume 91 FL (80-99) Mean Corpuscular Hemoglobin 30.7 PG (27.0-31.0) Mean Corpuscular Hemoglobin Concent 33.9 G/DL (32.0-36.0) Red Cell Distribution Width 13.8 % (11.6-14.8) Platelet Count 293 K/UL (150-450) Mean Platelet Volume 4.0 FL (6.5-10.1) L Neutrophils (%) (Auto) 75.3 % (45.0-75.0) H Lymphocytes (%) (Auto) 14.4 % (20.0-45.0) L Monocytes (%) (Auto) 9.3 % (1.0-10.0) Eosinophils (%) (Auto) 0.4 % (0.0-3.0) Basophils (%) (Auto) 0.6 % (0.0-2.0) Sodium Level 142 MMOL/L (136-145) Potassium Level 4.1 MMOL/L (3.5-5.1) Chloride Level 110 MMOL/L (98-107) H Carbon Dioxide Level 22 MMOL/L (21-32) Anion Gap 10 mmol/L (5-15) Blood Urea Nitrogen 37 mg/dL (7-18) H Creatinine 2.5 MG/DL (0.55-1.30) H Estimat Glomerular Filtration Rate 26.1 mL/min (>60) Glucose Level 106 MG/DL (74-106) Calcium Level 8.5 MG/DL (8.5-10.1) Phosphorus Level 4.3 MG/DL (2.5-4.9) Magnesium Level 1.6 MG/DL (1.8-2.4) L Total Bilirubin 0.3 MG/DL (0.2-1.0) Aspartate Amino Transf (AST/SGOT) 21 U/L (15-37) Alanine Aminotransferase (ALT/SGPT) 7 U/L (12-78) L Alkaline Phosphatase 48 U/L (46-116) Total Protein 5.9 G/DL (6.4-8.2) L Albumin 1.5 G/DL (3.4-5.0) L Globulin 4.4 g/dL Albumin/Globulin Ratio 0.3 (1.0-2.7) L Objective HEAD AND NECK: No JVD. LUNGS: Clear. CARDIOVASCULAR: Regular S1 and S2 with no gallop. ABDOMEN: Soft. EXTREMITIES: S/P right hip ORIF Neno Ennis MD November 19, 2019 11:31
[2019-11-19 12:00] VITALS: BP 106/56
--- NOTE | 2019-11-19 12:00 | NUR ---
NURSE NOTES: Patient's right foot circulation checked; patient had a good pedal pulse; capillary refill <3 seconds.
--- NOTE | 2019-11-19 13:10 | NUR ---
NURSE NOTES: Wound care provided; patient tolerated well;
--- NOTE | 2019-11-19 13:22 | NUR ---
NURSE NOTES: I received an order from MD Coronel, to DC bilateral soft restrain; stat S-ray for Right Elbow and bilateral UE venous Doppler to rule out DVT; order carried out as order given by MD Coronel.
--- NOTE | 2019-11-19 13:30 | NUR ---
RD ASSESSMENT & RECOMMENDATIONS SEE CARE ACTIVITY FOR COMPLETE ASSESSMENT DAILY ESTIMATED NEEDS: Needs based on Surgical 81.8kg 25-35 kcals/kg 9137-8403 total kcals 1-2 g protein/kg 82-164 g total protein 25-30 mL/kg 1068-4705 total fluid mLs NUTRITION DIAGNOSIS: Altered nutrition related lab values r/t clinical status, h/o CKD as evidenced by elev BUN (37), elev Creat (2.5). CURRENT DIET:Now CLD PO DIET RECOMMENDATIONS: As able, Low Na diet/ texture as tolerated ADDITIONAL RECOMMENDATIONS: 1) Obtain an updated calibrated bed scale wt as able 2) REINIER BID for surgical wound healing 3) Monitor BG, need for ssi
--- NOTE | 2019-11-19 13:37 | Nephrology Progress Note ---
Assessment/Plan Problem List: (1) JAIDA (acute kidney injury) Assessment: Serum creatinine lower (2) Anemia (3) Dehydration (4) Hip fracture, right (5) Fall Assessment Acute renal failure Possibly underlying chronic kidney failure Dehydration Status post fall and fracture of the right hip History of hypertension History of diabetes mellitus History of psych disease Anemia Plan Patient underwent hip surgery November 17 today's labs reviewed, serum creatinine down to 2.5 Since serum creatinine is declining will continue hydration and aim to discontinue [place] tomorrow On soft diet now Adjust blood pressure medications IV fluids Anemia work-up Protonix, Colace Pain medication Monitor renal parameters Urine studies Per consultants Subjective ROS Limited/Unobtainable: No Constitutional: Reports: malaise Objective Objective Last 24 Hour Vital Signs Date Time Temp Pulse Resp B/P (MAP) Pulse Ox O2 Delivery O2 Flow Rate FiO2 11/19/19 09:30 76 96/72 11/19/19 09:00 Nasal Cannula 3.0 11/19/19 08:00 97.6 76 19 116/75 (89) 97 11/19/19 04:00 98.4 101 22 114/59 (77) 99 11/19/19 00:00 98.2 102 18 116/65 (82) 99 11/18/19 21:00 Nasal Cannula 3.0 11/18/19 20:00 99.3 121 20 112/77 (89) 99 11/18/19 17:45 99.9 120 19 120/81 (94) 98 11/18/19 17:30 98.6 103 20 118/80 100 Nasal Cannula 3 11/18/19 17:15 101 15 109/77 100 Nasal Cannula 3 11/18/19 17:00 107 15 99/71 100 Simple Mask 6 11/18/19 16:50 104 20 90/64 100 Simple Mask 6 11/18/19 16:45 104 20 64/47 100 Simple Mask 6 11/18/19 16:44 102 18 100 11/18/19 16:42 103 16 100 11/18/19 16:40 100.8 103 24 143/128 100 Simple Mask 6 Intake and Output 11/18/19 11/19/19 19:00 07:00 Intake Total 1300 ml 897.5 ml Output Total 640 ml 1700 ml Balance 660 ml -802.5 ml IV Total 1300 ml 537.5 ml Other 360 ml Output Urine Total 600 ml 1700 ml Estimated Blood Loss 40 ml Laboratory Tests 11/19/19 08:05: White Blood Count 12.9#H, Red Blood Count 2.94L, Hemoglobin 9.0L, Hematocrit 26.7L, Mean Corpuscular Volume 91, Mean Corpuscular Hemoglobin 30.7, Mean Corpuscular Hemoglobin Concent 33.9, Red Cell Distribution Width 13.8, Platelet Count 293, Mean Platelet Volume 4.0L, Neutrophils (%) (Auto) 75.3H, Lymphocytes (%) (Auto) 14.4L, Monocytes (%) (Auto) 9.3, Eosinophils (%) (Auto) 0.4, Basophils (%) (Auto) 0.6, Sodium Level 142, Potassium Level 4.1, Chloride Level 110H, Carbon Dioxide Level 22, Anion Gap 10, Blood Urea Nitrogen 37H, Creatinine 2.5H, Estimat Glomerular Filtration Rate 26.1, Glucose Level 106, Calcium Level 8.5, Phosphorus Level 4.3, Magnesium Level 1.6L, Total Bilirubin 0.3, Aspartate Amino Transf (AST/SGOT) 21, Alanine Aminotransferase (ALT/SGPT) 7L, Alkaline Phosphatase 48, Total Protein 5.9L, Albumin 1.5L, Globulin 4.4, Albumin/Globulin Ratio 0.3L Height (Feet): 6 Height (Inches): 4.00 Weight (Pounds): 180 General Appearance: no apparent distress Cardiovascular: other - Variable rate Abdomen: soft Genitourinary/Rectal: other - Continues to have Armen Kasper MD November 19, 2019 13:37
--- NOTE | 2019-11-19 14:08 | NUR ---
NURSE NOTES: Patient refusing all attempts at physical therapy. Risks versus benefits explained.
--- NOTE | 2019-11-19 14:44 | Infectious Diseases Prog Note ---
Assessment/Plan Assessment/Plan IMPRESSION: Cellultis of R arm Right hip fracture, s/p ORIF schizophrenia, BPH, Acute renal failure, Anemia, Fecal impaction. RECOMMENDATION: Start on PO Keflex & Doxycycline Will f/u R elbow X-ray & venous duplex Negative COVID-19 test. Subjective ROS Limited/Unobtainable: Yes Musculoskeletal: Reports: pain, other - in R elbow Allergies: Coded Allergies: No Known Allergies (Unverified , 10/15/15) Objective Vital Signs Last 24 Hour Vital Signs Date Time Temp Pulse Resp B/P (MAP) Pulse Ox O2 Delivery O2 Flow Rate FiO2 11/19/19 13:34 97.6 11/19/19 12:00 97.2 102 18 106/56 (73) 97 11/19/19 09:30 76 96/72 11/19/19 09:00 Nasal Cannula 3.0 11/19/19 08:00 97.6 76 19 116/75 (89) 97 11/19/19 04:00 98.4 101 22 114/59 (77) 99 11/19/19 00:00 98.2 102 18 116/65 (82) 99 11/18/19 21:00 Nasal Cannula 3.0 11/18/19 20:00 99.3 121 20 112/77 (89) 99 11/18/19 17:45 99.9 120 19 120/81 (94) 98 11/18/19 17:30 98.6 103 20 118/80 100 Nasal Cannula 3 11/18/19 17:15 101 15 109/77 100 Nasal Cannula 3 11/18/19 17:00 107 15 99/71 100 Simple Mask 6 11/18/19 16:50 104 20 90/64 100 Simple Mask 6 11/18/19 16:45 104 20 64/47 100 Simple Mask 6 11/18/19 16:44 102 18 100 11/18/19 16:42 103 16 100 11/18/19 16:40 100.8 103 24 143/128 100 Simple Mask 6 Height (Feet): 6 Height (Inches): 4.00 Weight (Pounds): 180 General Appearance: no acute distress HEENT: mucous membranes moist Respiratory/Chest: lungs clear Cardiovascular: normal rate Abdomen: soft, non tender Extremities: other - edema of R arm Skin: other - erythema & scab in right elbow Neurologic/Psychiatric: alert, responsive Laboratory Tests Test 11/19/19 08:05 White Blood Count 12.9 K/UL (4.8-10.8) #H Red Blood Count 2.94 M/UL (4.70-6.10) L Hemoglobin 9.0 G/DL (14.2-18.0) L Hematocrit 26.7 % (42.0-52.0) L Mean Corpuscular Volume 91 FL (80-99) Mean Corpuscular Hemoglobin 30.7 PG (27.0-31.0) Mean Corpuscular Hemoglobin Concent 33.9 G/DL (32.0-36.0) Red Cell Distribution Width 13.8 % (11.6-14.8) Platelet Count 293 K/UL (150-450) Mean Platelet Volume 4.0 FL (6.5-10.1) L Neutrophils (%) (Auto) 75.3 % (45.0-75.0) H Lymphocytes (%) (Auto) 14.4 % (20.0-45.0) L Monocytes (%) (Auto) 9.3 % (1.0-10.0) Eosinophils (%) (Auto) 0.4 % (0.0-3.0) Basophils (%) (Auto) 0.6 % (0.0-2.0) Sodium Level 142 MMOL/L (136-145) Potassium Level 4.1 MMOL/L (3.5-5.1) Chloride Level 110 MMOL/L (98-107) H Carbon Dioxide Level 22 MMOL/L (21-32) Anion Gap 10 mmol/L (5-15) Blood Urea Nitrogen 37 mg/dL (7-18) H Creatinine 2.5 MG/DL (0.55-1.30) H Estimat Glomerular Filtration Rate 26.1 mL/min (>60) Glucose Level 106 MG/DL (74-106) Calcium Level 8.5 MG/DL (8.5-10.1) Phosphorus Level 4.3 MG/DL (2.5-4.9) Magnesium Level 1.6 MG/DL (1.8-2.4) L Total Bilirubin 0.3 MG/DL (0.2-1.0) Aspartate Amino Transf (AST/SGOT) 21 U/L (15-37) Alanine Aminotransferase (ALT/SGPT) 7 U/L (12-78) L Alkaline Phosphatase 48 U/L (46-116) Total Protein 5.9 G/DL (6.4-8.2) L Albumin 1.5 G/DL (3.4-5.0) L Globulin 4.4 g/dL Albumin/Globulin Ratio 0.3 (1.0-2.7) L Current Medications Medications (Trade) Dose Ordered Sig/Juan Route PRN Reason Start Time Stop Time Status Last Admin Dose Admin Acetaminophen (Tylenol) 650 mg Q4H PRN ORAL Mild Pain (Pain Scale 1-3) 11/14/19 19:15 12/14/19 19:14 Acetaminophen (Tylenol) 650 mg Q4H PRN ORAL Temp >100.5 11/18/19 15:00 12/18/19 14:59 Acetaminophen/ Hydrocodone Bitart ([place] 5/325) 2 tab Q6H PRN ORAL Severe Pain (Pain Scale 7-10) 11/18/19 18:00 11/25/19 17:59 Acetaminophen/ Hydrocodone Bitart ([place] 7.5/325) 1 tab Q4H PRN ORAL Moderate Pain (Pain Scale 4-6) 11/18/19 18:00 11/25/19 17:59 Amlodipine Besylate (Norvasc) 2.5 mg DAILY ORAL 11/17/19 09:00 12/17/19 08:59 11/19/19 09:30 Aspirin (ASA) 81 mg Q12HR ORAL 11/18/19 21:00 01/02/20 20:59 11/19/19 09:30 Dextrose/ Electrolytes 1,000 ml @ 75 mls/hr [id number] IV 11/18/19 19:00 12/18/19 18:59 11/19/19 09:31 Docusate Sodium (Colace) 100 mg THREE TIMES A DAY ORAL 11/19/19 18:00 12/19/19 17:59 Hydromorphone HCl (Dilaudid) 0.5 mg Q4H PRN IVP Severe Pain (Pain Scale 7-10) 11/18/19 18:15 11/25/19 18:14 11/19/19 13:04 Lorazepam (Ativan 2mg/ml 1ml) 1 mg Q4H PRN IM For Anxiety 11/15/19 10:15 11/22/19 10:14 11/15/19 12:24 Metoclopramide HCl (Reglan) 10 mg Q6H PRN IVP Nausea & Vomiting 11/18/19 18:30 12/18/19 18:29 Morphine Sulfate (Morphine Sulfate) 1 mg Q3H PRN IVP Pain scale 1-3 11/18/19 18:15 11/25/19 17:59 Morphine Sulfate (Morphine Sulfate) 2 mg Q3H PRN IVP Moderate Pain (Pain Scale 4-6) 11/18/19 18:15 11/25/19 17:59 Pantoprazole (Protonix) 40 mg BID ORAL 11/15/19 10:00 12/15/19 09:59 11/19/19 09:30 Tamsulosin HCl (Flomax) 0.4 mg BID ORAL 11/16/19 18:00 12/15/19 20:59 11/19/19 09:30 Temazepam (RestoriL) 7.5 mg HSPRN PRN ORAL Insomnia 11/18/19 21:00 11/25/19 20:59 Todd Paz MD November 19, 2019 14:44
[2019-11-19] MEDS ORDERED: Doxycycline Monohydrate 100mg ORAL SCH (14:45)
[2019-11-19] MEDS ORDERED: Cephalexin 500mg cap ORAL SCH (14:46)
--- NOTE | 2019-11-19 15:14 | Consultation ---
History of Present Illness General Date patient seen: November 19, 2019 Present Illness Allergies: Coded Allergies: No Known Allergies (Unverified , 10/15/15) Medication History Scheduled Amlodipine Besylate* (Amlodipine Besylate*), 10 MG ORAL DAILY, (Reported) Benztropine Mesylate (Cogentin 1mg*), 1 MG ORAL EVERY 12 HOURS, (Reported) Clonazepam* (Klonopin*), 0.5 MG ORAL Q6H, (Reported) Clonidine Hcl* (Catapres*), 0.1 MG ORAL EVERY 8 HOURS, (Reported) Divalproex Sodium (Depakote), 500 MG PO BID, (Reported) Divalproex Sodium* (Depakote*), 500 MG PO Q12HR, (Reported) Docusate Sodium* (Colace*), 100 MG ORAL TWICE A DAY Haloperidol* (Haldol*), 20 MG ORAL BEDTIME, (Reported) Hydralazine Hcl* (Hydralazine Hcl*), 10 MG ORAL EVERY 8 HOURS, (Reported) Labetalol HCl (Labetalol HCl), 100 MG ORAL EVERY 12 HOURS, (Reported) Olanzapine* (Zyprexa*), 10 MG ORAL BID, (Reported) Pantoprazole* (Pantoprazole*), 40 MG ORAL DAILY, (Reported) Polyethylene Glycol 3350* (Miralax*), 17 GM ORAL DAILY Tamsulosin HCl (Flomax), 0.4 MG ORAL DAILY, (Reported) Scheduled PRN Magnesium Hydroxide* (Milk Of Magnesia*), 30 ML ORAL DAILY PRN for Constipation, (Reported) Patient History Healthcare decision maker Resuscitation status Full Code Advanced Directive on File Physical Exam Last 24 Hour Vital Signs Date Time Temp Pulse Resp B/P (MAP) Pulse Ox O2 Delivery O2 Flow Rate FiO2 11/19/19 13:34 97.6 11/19/19 12:00 97.2 102 18 106/56 (73) 97 11/19/19 09:30 76 96/72 11/19/19 09:00 Nasal Cannula 3.0 11/19/19 08:00 97.6 76 19 116/75 (89) 97 11/19/19 04:00 98.4 101 22 114/59 (77) 99 11/19/19 00:00 98.2 102 18 116/65 (82) 99 11/18/19 21:00 Nasal Cannula 3.0 11/18/19 20:00 99.3 121 20 112/77 (89) 99 11/18/19 17:45 99.9 120 19 120/81 (94) 98 11/18/19 17:30 98.6 103 20 118/80 100 Nasal Cannula 3 11/18/19 17:15 101 15 109/77 100 Nasal Cannula 3 11/18/19 17:00 107 15 99/71 100 Simple Mask 6 11/18/19 16:50 104 20 90/64 100 Simple Mask 6 11/18/19 16:45 104 20 64/47 100 Simple Mask 6 11/18/19 16:44 102 18 100 11/18/19 16:42 103 16 100 11/18/19 16:40 100.8 103 24 143/128 100 Simple Mask 6 Intake and Output 11/18/19 11/19/19 19:00 07:00 Intake Total 1300 ml 897.5 ml Output Total 640 ml 1700 ml Balance 660 ml -802.5 ml IV Total 1300 ml 537.5 ml Other 360 ml Output Urine Total 600 ml 1700 ml Estimated Blood Loss 40 ml Laboratory Tests Test 11/19/19 08:05 White Blood Count 12.9 K/UL (4.8-10.8) #H Red Blood Count 2.94 M/UL (4.70-6.10) L Hemoglobin 9.0 G/DL (14.2-18.0) L Hematocrit 26.7 % (42.0-52.0) L Mean Corpuscular Volume 91 FL (80-99) Mean Corpuscular Hemoglobin 30.7 PG (27.0-31.0) Mean Corpuscular Hemoglobin Concent 33.9 G/DL (32.0-36.0) Red Cell Distribution Width 13.8 % (11.6-14.8) Platelet Count 293 K/UL (150-450) Mean Platelet Volume 4.0 FL (6.5-10.1) L Neutrophils (%) (Auto) 75.3 % (45.0-75.0) H Lymphocytes (%) (Auto) 14.4 % (20.0-45.0) L Monocytes (%) (Auto) 9.3 % (1.0-10.0) Eosinophils (%) (Auto) 0.4 % (0.0-3.0) Basophils (%) (Auto) 0.6 % (0.0-2.0) Sodium Level 142 MMOL/L (136-145) Potassium Level 4.1 MMOL/L (3.5-5.1) Chloride Level 110 MMOL/L (98-107) H Carbon Dioxide Level 22 MMOL/L (21-32) Anion Gap 10 mmol/L (5-15) Blood Urea Nitrogen 37 mg/dL (7-18) H Creatinine 2.5 MG/DL (0.55-1.30) H Estimat Glomerular Filtration Rate 26.1 mL/min (>60) Glucose Level 106 MG/DL (74-106) Calcium Level 8.5 MG/DL (8.5-10.1) Phosphorus Level 4.3 MG/DL (2.5-4.9) Magnesium Level 1.6 MG/DL (1.8-2.4) L Total Bilirubin 0.3 MG/DL (0.2-1.0) Aspartate Amino Transf (AST/SGOT) 21 U/L (15-37) Alanine Aminotransferase (ALT/SGPT) 7 U/L (12-78) L Alkaline Phosphatase 48 U/L (46-116) Total Protein 5.9 G/DL (6.4-8.2) L Albumin 1.5 G/DL (3.4-5.0) L Globulin 4.4 g/dL Albumin/Globulin Ratio 0.3 (1.0-2.7) L Height (Feet): 6 Height (Inches): 4.00 Weight (Pounds): 180 Medications Current Medications Medications (Trade) Dose Ordered Sig/Juan Route PRN Reason Start Time Stop Time Status Last Admin Dose Admin Acetaminophen (Tylenol) 650 mg Q4H PRN ORAL Mild Pain (Pain Scale 1-3) 11/14/19 19:15 12/14/19 19:14 Acetaminophen (Tylenol) 650 mg Q4H PRN ORAL Temp >100.5 11/18/19 15:00 12/18/19 14:59 Acetaminophen/ Hydrocodone Bitart ([place] 5/325) 2 tab Q6H PRN ORAL Severe Pain (Pain Scale 7-10) 11/18/19 18:00 11/25/19 17:59 Acetaminophen/ Hydrocodone Bitart ([place] 7.5/325) 1 tab Q4H PRN ORAL Moderate Pain (Pain Scale 4-6) 11/18/19 18:00 11/25/19 17:59 Amlodipine Besylate (Norvasc) 2.5 mg DAILY ORAL 11/17/19 09:00 12/17/19 08:59 11/19/19 09:30 Aspirin (ASA) 81 mg Q12HR ORAL 11/18/19 21:00 01/02/20 20:59 11/19/19 09:30 Cephalexin (Keflex) 500 mg Q6HR ORAL 11/19/19 14:46 11/26/19 14:45 Dextrose/ Electrolytes 1,000 ml @ 75 mls/hr [id number] IV 11/18/19 19:00 12/18/19 18:59 11/19/19 09:31 Docusate Sodium (Colace) 100 mg THREE TIMES A DAY ORAL 11/19/19 18:00 12/19/19 17:59 Doxycycline Monohydrate (Doxycycline Monohydrate) 100 mg EVERY 12 HOURS ORAL 11/19/19 14:45 11/26/19 14:44 Hydromorphone HCl (Dilaudid) 0.5 mg Q4H PRN IVP Severe Pain (Pain Scale 7-10) 11/18/19 18:15 11/25/19 18:14 11/19/19 13:04 Lorazepam (Ativan 2mg/ml 1ml) 1 mg Q4H PRN IM For Anxiety 11/15/19 10:15 11/22/19 10:14 11/15/19 12:24 Metoclopramide HCl (Reglan) 10 mg Q6H PRN IVP Nausea & Vomiting 11/18/19 18:30 12/18/19 18:29 Morphine Sulfate (Morphine Sulfate) 1 mg Q3H PRN IVP Pain scale 1-3 11/18/19 18:15 11/25/19 17:59 Morphine Sulfate (Morphine Sulfate) 2 mg Q3H PRN IVP Moderate Pain (Pain Scale 4-6) 11/18/19 18:15 11/25/19 17:59 Pantoprazole (Protonix) 40 mg BID ORAL 11/15/19 10:00 12/15/19 09:59 11/19/19 09:30 Tamsulosin HCl (Flomax) 0.4 mg BID ORAL 11/16/19 18:00 12/15/19 20:59 11/19/19 09:30 Temazepam (RestoriL) 7.5 mg HSPRN PRN ORAL Insomnia 11/18/19 21:00 11/25/19 20:59 Assessment/Plan Assessment/Plan: (1) Right hip pain (2) Right hip fracture (3) S/P Right hip hemiarthroplasty (4) Right UE pain seen dictated David Hi November 19, 2019 15:14
[2019-11-19] MEDS ORDERED: HYDROcodone/Acetamin 7.5/325 tab ORAL PRN (15:15)
--- NOTE | 2019-11-19 15:54 | NUR ---
NURSE NOTES:WOUND CARE NOTES:Pt presented on admission with Full Thickness pressure injury thoracic Spine. Base of wound has 50% slough ,50% beefy red(L)1cm x (W)1cm x (D)0.2cm. Small amt seropurulent exudate noted. No odor noted.Periwound erythematous and indurated.Non-viable tissue removed with gentle friction,25% slough remains at base of wound. Non-blanching erythema with an area at sacrococcygeal area that is maroon in colour. Pt denied tenderness when palpated. Drsg to R hip surgical site clean,dry and intact Large partial thickness wound posterior/upper R thigh(L)11cm x (W)3.9cm. Base of wound is moist and viable. Edges are macerated. Marginal erythema periwound. R and L heels are firm and easily blanchable.Multiple dry scabbed abrasions noted to dorsal aspects of L 1st -5th metatarsals. Pt R elbow noted to be swollen with several dry scabbed abrasions.Pt expressed pain when R arm minimally touched or moved.Primary nurse and and Charge Nurse made aware. Tx.Plan: Cleanse wound Thoracic Spine with Saline. Apply Therahoney. Appy Cavilon SKin Barrier Periwound. Cover with Optifoam drsg. Change every 3 days and prn. Cleanse wound Posterior R thigh with Saline. Apply Therahoney. Apply Cavilon Skin Barrier periwound. Cover with Optifoam drsg. Change every 3 days and prn. Apply Moisture Barrier Paste to Sacrum. Cover with Optifoam drsg. Change every 3 days and prn. Apply Cavilon Skin Barrier to both heels. Cover each heel with Optifoam drsg. Change every 7 days and prn. Reposition at least every 2 hours or as tolerated. Off-load heels with Pillow. APM/MADELIN Mattress overlay.
--- NOTE | 2019-11-19 15:56 | Diagnostic Imaging Report ---
Indication: Bilateral upper extremity swelling and pain Technique: Grayscale and duplex images of the bilateral upper extremity veins Comparison: none Findings: Bilaterally, grayscale and duplex images demonstrate no evidence of intraluminal thrombus. Normal phasic Doppler waveforms. Normal compressibility. Patent peripheral subclavian and internal jugular veins. Incidentally noted is edema of the subcutaneous fat of the left forearm Impression: Negative for evidence of upper extremity venous thrombosis bilaterally
[2019-11-19 16:00] VITALS: BP 112/56
--- NOTE | 2019-11-19 16:00 | NUR ---
NURSE NOTES: Patient had good circulation on the Right pedal pulse; capillary refill < 3 seconds; will keep monitoring.
--- NOTE | 2019-11-19 16:36 | NUR ---
P.T Note: 1330 Pt refused to participate in P.T evaluation/tx upon multiple attempts in and PM due to c/o not feeling well and pain on the R hip despite receiving pain medication prior to P.T. Pt requested to be seen tomorrow. RN notified/aware.
--- NOTE | 2019-11-19 16:49 | General Progress Note ---
Assessment/Plan Problem List: (1) Hip fracture, right ICD Codes: S72.001A - Fracture of unspecified part of neck of right femur, initial encounter for closed fracture SNOMED: 539541897 Qualifiers: Qualified Codes: S72.001A - Fracture of unspecified part of neck of right femur, initial encounter for closed fracture (2) Fall ICD Codes: W19.XXXA - Unspecified fall, initial encounter SNOMED: 4379128, 890119809 Qualifiers: Qualified Codes: W19.XXXA - Unspecified fall, initial encounter (3) Dehydration ICD Codes: E86.0 - Dehydration SNOMED: 92136824 (4) Anemia ICD Codes: D64.9 - Anemia, unspecified SNOMED: 259182248 (5) JAIDA (acute kidney injury) ICD Codes: N17.9 - Acute kidney failure, unspecified SNOMED: 1029206, 36515544 Status: progressing Assessment/Plan: ue edema and pain ordered xray poor historian r/o celluitis ue arf is improvin s/p orif no cp no sob afebrile Subjective ROS Limited/Unobtainable: Yes Allergies: Coded Allergies: No Known Allergies (Unverified , 10/15/15) Objective Last 24 Hour Vital Signs Date Time Temp Pulse Resp B/P (MAP) Pulse Ox O2 Delivery O2 Flow Rate FiO2 11/19/19 16:00 97.6 86 19 112/56 (74) 97 11/19/19 13:34 97.6 11/19/19 12:00 97.2 102 18 106/56 (73) 97 11/19/19 09:30 76 96/72 11/19/19 09:00 Nasal Cannula 3.0 11/19/19 08:00 97.6 76 19 116/75 (89) 97 11/19/19 04:00 98.4 101 22 114/59 (77) 99 11/19/19 00:00 98.2 102 18 116/65 (82) 99 11/18/19 21:00 Nasal Cannula 3.0 11/18/19 20:00 99.3 121 20 112/77 (89) 99 11/18/19 17:45 99.9 120 19 120/81 (94) 98 11/18/19 17:30 98.6 103 20 118/80 100 Nasal Cannula 3 11/18/19 17:15 101 15 109/77 100 Nasal Cannula 3 11/18/19 17:00 107 15 99/71 100 Simple Mask 6 11/18/19 16:50 104 20 90/64 100 Simple Mask 6 Intake and Output 11/18/19 11/19/19 19:00 07:00 Intake Total 1300 ml 897.5 ml Output Total 640 ml 1700 ml Balance 660 ml -802.5 ml IV Total 1300 ml 537.5 ml Other 360 ml Output Urine Total 600 ml 1700 ml Estimated Blood Loss 40 ml Laboratory Tests 11/19/19 08:05: White Blood Count 12.9#H, Red Blood Count 2.94L, Hemoglobin 9.0L, Hematocrit 26.7L, Mean Corpuscular Volume 91, Mean Corpuscular Hemoglobin 30.7, Mean Corpuscular Hemoglobin Concent 33.9, Red Cell Distribution Width 13.8, Platelet Count 293, Mean Platelet Volume 4.0L, Neutrophils (%) (Auto) 75.3H, Lymphocytes (%) (Auto) 14.4L, Monocytes (%) (Auto) 9.3, Eosinophils (%) (Auto) 0.4, Basophils (%) (Auto) 0.6, Sodium Level 142, Potassium Level 4.1, Chloride Level 110H, Carbon Dioxide Level 22, Anion Gap 10, Blood Urea Nitrogen 37H, Creatinine 2.5H, Estimat Glomerular Filtration Rate 26.1, Glucose Level 106, Calcium Level 8.5, Phosphorus Level 4.3, Magnesium Level 1.6L, Total Bilirubin 0.3, Aspartate Amino Transf (AST/SGOT) 21, Alanine Aminotransferase (ALT/SGPT) 7L, Alkaline Phosphatase 48, Total Protein 5.9L, Albumin 1.5L, Globulin 4.4, Albumin/Globulin Ratio 0.3L Height (Feet): 6 Height (Inches): 4.00 Weight (Pounds): 180 Lisa Coronel MD November 19, 2019 16:49
--- NOTE | 2019-11-19 17:16 | Diagnostic Imaging Report ---
Clinical Indication:Pain and swelling Technique: For views of the right wrist Comparison: None Findings: There is slight widening of the scapholunate distance. There also appears to be slight medial subluxation of the proximal carpal row. There are degenerative changes of the radiocarpal joint as well as considerable degenerative remodeling of the lunate. No definite acute fractures, although the disordered alignment makes this difficult to exclude. There is questionable posterior subluxation of the ulna on the lateral projection. There is ulnar minus variance. Impression: Abnormal alignment. Slight widening of scapholunate distance could indicate scapholunate dissociation. There is possible posterior subluxation of the distal radial ulnar joint. Suspect findings are chronic as there are fairly extensive degenerative changes, although acute ligamentous injury also possible. No definite acute bony trauma
--- NOTE | 2019-11-19 17:17 | Diagnostic Imaging Report ---
Indications:Pain in swallow Technique: Three or 4 views of the right elbow Comparison: None Findings: Exam is somewhat limited, due to suboptimal positioning on the AP and oblique projections. There is marked cortical irregularity of the posterior olecranon with evidence of fairly extensive erosive change. No acute fractures. No dislocations. Impression: Erosive changes of the posterior olecranon. This raises concern for osteomyelitis. Correlate with clinical findings No acute bony trauma. Dr. Silva notified of findings at the time of interpretation
[2019-11-19] MEDS ORDERED: Vancomycin 1.5gm/NS Premix IVPB ONE (19:30)
--- NOTE | 2019-11-19 19:34 | NUR ---
HAND-OFF: Report given to ANDRY Franco.
--- NOTE | 2019-11-19 19:36 | NUR ---
NURSE NOTES: Receive Patient awake in a stable condition. no sing of distress and shortness of breath; [place] in place, drains yellow urine; surgical site on the Right Hip dry and intact. Bed in the lower position, alarm on and locked. call light within reach; will keep monitoring.
[2019-11-19 20:00] VITALS: BP 107/68
--- NOTE | 2019-11-19 22:29 | Consultation ---
DATE OF CONSULTATION: 11/19/2019 CONSULTING PHYSICIAN: Mayte Sanders MD REFERRING PHYSICIAN: Lisa Coronel MD PHYSICIAN TUFTING MACHINE FIXER: PATRICE Flowers CHIEF COMPLAINT: Right-sided body pain. HISTORY OF PRESENT ILLNESS: This is a 64-year-old male, who is seen on the med/surg floor of [facility] for initial pain management consultation. The patient was admitted under the care of Dr. Coronel status post fall at nursing facility where he was found to have right hip fracture and is status post right hip hemiarthroplasty which was performed yesterday by Dr. Hyde. Has also been complaining of right upper extremity pain. The x-ray was done of the right wrist and elbow. Has been started on morphine 2 mg IV every 3 hours as needed for moderate pain, morphine 1 mg IV every 3 hours as needed for mild pain and Dilaudid 0.5 mg IV every 4 hours as needed for severe pain as well as Pride 5/325 mg two tablets every 6 hours as needed for severe pain and Pride 7.5/325 one tablet every 4 hours as needed for moderate pain. Has received 1 dose of Dilaudid this morning, so having issues with getting out of bed. Physical therapy due to severe weakness, caused by neurological deficits and we were consulted so the patient would have adequate pain control while here in the hospital. PAST MEDICAL HISTORY: Dementia, hypertension, diabetes, psychosis, constipation, GERD, and BPH. SOCIAL HISTORY: Denies smoking tobacco, drinking alcohol, and IV drug abuse. ALLERGIES: No known drug allergies. MEDICATIONS: Amlodipine, Cogentin, Klonopin, Catapres, Depakote, Colace, Haldol, hydralazine, labetalol, Zyprexa, pantoprazole, MiraLAX, Flomax, and milk of magnesia. REVIEW OF SYSTEMS: Denies rash, fever, chills, sweating, dizziness, drowsiness, blurred vision, sore throat, shortness of breath or chest pain. No nausea, vomiting, diarrhea, blood in the stool or dysuria. PHYSICAL EXAMINATION: GENERAL: Alert, awake, and oriented. VITAL SIGNS: Blood pressure 106/86, heart rate is 89, oxygen saturation 98%, respiratory rate 18, and temperature 98.2 degrees Fahrenheit. LUNGS: Decreased breath sounds bilaterally. HEART: S1 and S2 regular. ABDOMEN: Soft, nontender. EXTREMITIES: Upper and lower extremity range of motion is decreased due to the patient's condition with tenderness to palpation of the right upper extremity. Surgical bandages applied on the right lower extremity, tenderness to palpation. ASSESSMENT AND PLAN: This is a 64-year-old male with right hip pain and right hip fracture, status post right hip hemiarthroplasty, right upper extremity pain. The patient will be discontinued off the Dilaudid, morphine, and Pride will be continued at 7.5/325 mg tablet every 4 hours as needed for severe pain. The patient was discussed with Dr. Sanders. Dr. Sanders concurred. We will follow the patient. Thank you very much for the courtesy of this consultation. Mayte Sanders M.D. PATRICE Flowers DR: Heath JOB#: [id number] CC: ONUR
--- NOTE | 2019-11-19 22:49 | Psych Consult Progress Note ---
Psychiatry Progress Note Psychiatry Progress Note Subjective episodes of confusion. the pt was groggy today. poor memory Medications Current Medications Medications (Trade) Dose Ordered Sig/Juan Route PRN Reason Start Time Stop Time Status Last Admin Dose Admin Acetaminophen (Tylenol) 650 mg Q4H PRN ORAL Mild Pain (Pain Scale 1-3) 11/14/19 19:15 12/14/19 19:14 Acetaminophen (Tylenol) 650 mg Q4H PRN ORAL Temp >100.5 11/18/19 15:00 12/18/19 14:59 Acetaminophen/ Hydrocodone Bitart ([place] 7.5/325) 1 tab Q4H PRN ORAL severe pain 11/19/19 15:15 11/26/19 15:14 Amlodipine Besylate (Norvasc) 2.5 mg DAILY ORAL 11/17/19 09:00 12/17/19 08:59 11/19/19 09:30 Aspirin (ASA) 81 mg Q12HR ORAL 11/18/19 21:00 01/02/20 20:59 11/19/19 20:44 Dextrose/ Electrolytes 1,000 ml @ 75 mls/hr [id number] IV 11/18/19 19:00 12/18/19 18:59 11/19/19 22:10 Docusate Sodium (Colace) 100 mg THREE TIMES A DAY ORAL 11/19/19 18:00 12/19/19 17:59 11/19/19 17:36 Lorazepam (Ativan 2mg/ml 1ml) 1 mg Q4H PRN IM For Anxiety 11/15/19 10:15 11/22/19 10:14 11/15/19 12:24 Metoclopramide HCl (Reglan) 10 mg Q6H PRN IVP Nausea & Vomiting 11/18/19 18:30 12/18/19 18:29 Pantoprazole (Protonix) 40 mg BID ORAL 11/15/19 10:00 12/15/19 09:59 11/19/19 17:36 Tamsulosin HCl (Flomax) 0.4 mg BID ORAL 11/16/19 18:00 12/15/19 20:59 11/19/19 17:36 Temazepam (RestoriL) 7.5 mg HSPRN PRN ORAL Insomnia 11/18/19 21:00 5/11/20 20:59 Vancomycin HCl (Vanco rx to dose) 1 ea DAILY PRN MISC Per rx protocol 11/19/19 18:15 12/19/19 18:14 Allergies: Coded Allergies: No Known Allergies (Unverified , 10/15/15) Objective Data Height (Feet): 6 Height (Inches): 4.00 Weight (Pounds): 180 Additional Comments: oriented x2 Mood is agitated. Affect is flat. Thought process is concrete. Thought content, no suicidal or homicidal ideation. Cognition is impaired. Insight and judgment, impaired. Assessment/Plan [place]: ASSESSMENT: 1. Dementia. 2. Anxiety disorder. Status: progressing Assessment/Plan: PLAN: 1. Continue the lorazepam p.r.n. 2. Depakote and Klonopin from outside of the hospital was discontinued. Sukhwinder Dickens MD November 19, 2019 22:49
[2019-11-20] VITALS: BP 111/63
[2019-11-20 04:00] VITALS: BP 95/51
--- NOTE | 2019-11-20 07:10 | NUR ---
HAND-OFF: Report given to ANDRY Segura.
--- NOTE | 2019-11-20 07:18 | NUR ---
NURSE NOTES: Patient awake, alert x3; on room air, no sing of distress and shortness of breath; [place] in place, drains yellow urine; IV Left-Hand fluid running; surgical site on the Right-Hip dry and intact; wound dressing dry and intact; upper extremities had ecchymosis; side rails up x2, breaks engaged, bed alarm on, bed at lowest position; call light within reach; will keep monitoring.
[2019-11-20 08:00] VITALS: BP 107/65
[2019-11-20] MEDS: Aspirin Baby 81mg ORAL SCH ×2 (08:22→20:21)
[2019-11-20] MEDS: Docusate 100mg cap ORAL SCH ×3 (08:22→17:18)
[2019-11-20] MEDS: Tamsulosin 0.4mg cap ORAL SCH ×2 (08:22→17:17)
--- NOTE | 2019-11-20 08:28 | Hematology/Onc Progress Note ---
Assessment/Plan Assessment/Plan Assessment and Recs # Anemia of chronic disease due to underlying chronic medical issues, multifactorial v Gi bleed --> Anemia workup has been reviewed --> No evidence of hemolysis is noted, peripheral smear has been reviewed. --> Hgb goal >7. Transfuse prn. --> Epogen or iron at this time is not particularly indicated --> Medications have been reviewed --> low threshold for gi evaluation in case has occult + --> hgb trend 9.9-->9.3 -->9.5 # Hip fracture, right --> Fracture of unspecified part of neck of right femur, initial encounter for closed fracture --> as per ortho eval --> pending consent for right hip hemiarthroplasty --> psych clearance # Fall may require surger per ortho --> neuro and ortho # JAIDA on CKD --> per Dr. Levine # Psych disorder --> per Dr. Dickens The timing of this note does not necessarily reflect the time of the patient was seen. Greatly appreciate consultation. Subjective Allergies: Coded Allergies: No Known Allergies (Unverified , 10/15/15) Subjective 5/3 confused, pending right hip hemiarthroplasty, bilat restraints / confused, hgb 9.5, no bleeding, reviewed renal recs 11/18 still requiring clearance by psych, cards for clearance to surgery 11/19 awake and alert, dressing dry and intact, on room air Objective Objective Current Medications Medications (Trade) Dose Ordered Sig/Juan Route PRN Reason Start Time Stop Time Status Last Admin Dose Admin Acetaminophen (Tylenol) 650 mg Q4H PRN ORAL Mild Pain (Pain Scale 1-3) 11/14/19 19:15 12/14/19 19:14 Acetaminophen (Tylenol) 650 mg Q4H PRN ORAL Temp >100.5 11/18/19 15:00 12/18/19 14:59 Acetaminophen/ Hydrocodone Bitart ([place] 7.5/325) 1 tab Q4H PRN ORAL severe pain 11/19/19 15:15 11/26/19 15:14 Amlodipine Besylate (Norvasc) 2.5 mg DAILY ORAL 11/17/19 09:00 12/17/19 08:59 11/20/19 08:22 Aspirin (ASA) 81 mg Q12HR ORAL 11/18/19 21:00 01/02/20 20:59 11/20/19 08:22 Dextrose/ Electrolytes 1,000 ml @ 75 mls/hr [id number] IV 11/18/19 19:00 12/18/19 18:59 11/19/19 22:10 Docusate Sodium (Colace) 100 mg THREE TIMES A DAY ORAL 11/19/19 18:00 12/19/19 17:59 11/20/19 08:22 Lorazepam (Ativan 2mg/ml 1ml) 1 mg Q4H PRN IM For Anxiety 11/15/19 10:15 11/22/19 10:14 11/15/19 12:24 Metoclopramide HCl (Reglan) 10 mg Q6H PRN IVP Nausea & Vomiting 11/18/19 18:30 12/18/19 18:29 Pantoprazole (Protonix) 40 mg BID ORAL 11/15/19 10:00 12/15/19 09:59 11/20/19 08:22 Tamsulosin HCl (Flomax) 0.4 mg BID ORAL 11/16/19 18:00 12/15/19 20:59 11/20/19 08:22 Temazepam (RestoriL) 7.5 mg HSPRN PRN ORAL Insomnia 11/18/19 21:00 11/25/19 20:59 Vancomycin HCl (Vanco rx to dose) 1 ea DAILY PRN MISC Per rx protocol 11/19/19 18:15 12/19/19 18:14 Last 24 Hour Vital Signs Date Time Temp Pulse Resp B/P (MAP) Pulse Ox O2 Delivery O2 Flow Rate FiO2 11/20/19 08:22 97 107/65 11/20/19 08:00 98.1 97 18 107/65 (79) 98 11/20/19 04:00 97.8 83 18 95/51 (66) 99 11/20/19 00:00 97.9 89 17 111/63 (79) 100 11/19/19 21:00 Nasal Cannula 3.0 11/19/19 20:00 97.7 92 18 107/68 (81) 100 11/19/19 16:00 97.6 86 19 112/56 (74) 97 11/19/19 13:34 97.6 11/19/19 12:00 97.2 102 18 106/56 (73) 97 11/19/19 09:30 76 96/72 11/19/19 09:00 Nasal Cannula 3.0 11/19/19 08:00 97.6 76 19 116/75 (89) 97 11/19/19 04:00 98.4 101 22 114/59 (77) 99 11/19/19 00:00 98.2 102 18 116/65 (82) 99 11/18/19 21:00 Nasal Cannula 3.0 11/18/19 20:00 99.3 121 20 112/77 (89) 99 11/18/19 17:45 99.9 120 19 120/81 (94) 98 11/18/19 17:30 98.6 103 20 118/80 100 Nasal Cannula 3 11/18/19 17:15 101 15 109/77 100 Nasal Cannula 3 11/18/19 17:00 107 15 99/71 100 Simple Mask 6 11/18/19 16:50 104 20 90/64 100 Simple Mask 6 11/18/19 16:45 104 20 64/47 100 Simple Mask 6 11/18/19 16:44 102 18 100 11/18/19 16:42 103 16 100 11/18/19 16:40 100.8 103 24 143/128 100 Simple Mask 6 11/18/19 12:00 98.3 112 18 119/80 (93) 98 11/18/19 09:51 114 120/76 11/18/19 09:00 Room Air Intake and Output 11/19/19 11/20/19 19:00 07:00 Intake Total 1179 ml 825 ml Output Total 1250 ml 1200 ml Balance -71 ml -375 ml Intake Oral 354 ml IV Total 825 ml 825 ml Output Urine Total 1250 ml 1200 ml # Voids 1 Labs Test 11/18/19 07:15 11/19/19 08:05 White Blood Count 8.1 K/UL (4.8-10.8) 12.9 K/UL (4.8-10.8) Red Blood Count 3.08 M/UL (4.70-6.10) 2.94 M/UL (4.70-6.10) Hemoglobin 9.5 G/DL (14.2-18.0) 9.0 G/DL (14.2-18.0) Hematocrit 28.1 % (42.0-52.0) 26.7 % (42.0-52.0) Mean Corpuscular Volume 91 FL (80-99) 91 FL (80-99) Mean Corpuscular Hemoglobin 30.8 PG (27.0-31.0) 30.7 PG (27.0-31.0) Mean Corpuscular Hemoglobin Concent 33.8 G/DL (32.0-36.0) 33.9 G/DL (32.0-36.0) Red Cell Distribution Width 14.8 % (11.6-14.8) 13.8 % (11.6-14.8) Platelet Count 300 K/UL (150-450) 293 K/UL (150-450) Mean Platelet Volume 4.3 FL (6.5-10.1) 4.0 FL (6.5-10.1) Neutrophils (%) (Auto) 62.6 % (45.0-75.0) 75.3 % (45.0-75.0) Lymphocytes (%) (Auto) 22.3 % (20.0-45.0) 14.4 % (20.0-45.0) Monocytes (%) (Auto) 13.8 % (1.0-10.0) 9.3 % (1.0-10.0) Eosinophils (%) (Auto) 0.5 % (0.0-3.0) 0.4 % (0.0-3.0) Basophils (%) (Auto) 0.8 % (0.0-2.0) 0.6 % (0.0-2.0) Sodium Level 140 MMOL/L (136-145) 142 MMOL/L (136-145) Potassium Level 4.0 MMOL/L (3.5-5.1) 4.1 MMOL/L (3.5-5.1) Chloride Level 108 MMOL/L (98-107) 110 MMOL/L (98-107) Carbon Dioxide Level 24 MMOL/L (21-32) 22 MMOL/L (21-32) Anion Gap 8 mmol/L (5-15) 10 mmol/L (5-15) Blood Urea Nitrogen 42 mg/dL (7-18) 37 mg/dL (7-18) Creatinine 2.7 MG/DL (0.55-1.30) 2.5 MG/DL (0.55-1.30) Estimat Glomerular Filtration Rate 23.9 mL/min (>60) 26.1 mL/min (>60) Glucose Level 133 MG/DL (74-106) 106 MG/DL (74-106) Uric Acid 9.7 MG/DL (2.6-7.2) Calcium Level 8.6 MG/DL (8.5-10.1) 8.5 MG/DL (8.5-10.1) Phosphorus Level 3.3 MG/DL (2.5-4.9) 4.3 MG/DL (2.5-4.9) Magnesium Level 1.9 MG/DL (1.8-2.4) 1.6 MG/DL (1.8-2.4) Total Bilirubin 0.2 MG/DL (0.2-1.0) 0.3 MG/DL (0.2-1.0) Aspartate Amino Transf (AST/SGOT) 16 U/L (15-37) 21 U/L (15-37) Alanine Aminotransferase (ALT/SGPT) 9 U/L (12-78) 7 U/L (12-78) Alkaline Phosphatase 48 U/L (46-116) 48 U/L (46-116) C-Reactive Protein, Quantitative 8.1 mg/dL (0.00-0.90) Pro-B-Type Natriuretic Peptide 3488 pg/mL (0-125) Total Protein 6.4 G/DL (6.4-8.2) 5.9 G/DL (6.4-8.2) Albumin 1.7 G/DL (3.4-5.0) 1.5 G/DL (3.4-5.0) Globulin 4.7 g/dL 4.4 g/dL Albumin/Globulin Ratio 0.4 (1.0-2.7) 0.3 (1.0-2.7) Height (Feet): 6 Height (Inches): 4.00 Weight (Pounds): 180 Objective PE: Vitals: reviewed, stable General Appearance: NAD HEENT: normocephalic, atraumatic Neck: non-tender, normal alignment Respiratory/Chest: normal breath sounds bilaterally Cardiovascular/Chest: normal peripheral pulses, normal rate Abdomen: normal bowel sounds, soft, nontender Extremities: normal range of motion Neuro: altered, encephalopathic : bonita+ Juan Luis Monique MD November 20, 2019 08:28
[2019-11-20 09:00] LABS: BASOPHILS % (AUTO) 0.4 % (0.0-2.0); EOSINOPHILS % (AUTO) 2.2 % (0.0-3.0); HEMOGLOBIN 8.3 G/DL (14.2-18.0); LYMPHOCYTES % (AUTO) 19.1 % (20.0-45.0); MEAN CORPUSCULAR VOLUME 92 FL (80-99); MONOCYTES % (AUTO) 7.6 % (1.0-10.0); NEUTROPHILS % (AUTO) 70.7 % (45.0-75.0); PLATELET COUNT 332 K/UL (150-450); RED BLOOD COUNT 2.72 M/UL (4.70-6.10); WHITE BLOOD COUNT 10.8 K/UL (4.8-10.8)
[2019-11-20 09:31] LABS: ALANINE AMINOTRANSFERASE 9 U/L (12-78); ALBUMIN 1.3 G/DL (3.4-5.0); ALBUMIN/GLOBULIN RATIO 0.3 (1.0-2.7); ALKALINE PHOSPHATASE 47 U/L (46-116); ANION GAP 8 mmol/L (5-15); ASPARTATE AMINO TRANSFERASE 18 U/L (15-37); BILIRUBIN,TOTAL 0.3 MG/DL (0.2-1.0); BLOOD UREA NITROGEN 36 mg/dL (7-18); CALCIUM 8.2 MG/DL (8.5-10.1); CARBON DIOXIDE 23 MMOL/L (21-32); CHLORIDE 108 MMOL/L (98-107); CREATININE 2.5 MG/DL (0.55-1.30); PHOSPHORUS 4.3 MG/DL (2.5-4.9); POTASSIUM 4.1 MMOL/L (3.5-5.1); SODIUM 139 MMOL/L (136-145)
--- NOTE | 2019-11-20 11:28 | NUR ---
P.T Note: P.T evaluation completed and tx initiated. Per Nurse, pt refused to take pain medication prior to P.T evaluation however pt was agreeable to participate. Pt is alert, oriented to self/person, place and current situation but not time. Pt has limited participation to ADL/functional mobilities. Pt needed MAX/total A , manual cues for hand placement and sequencing to utilize bed rails to turn and complete supine to/from sitting position. Pt was able to sit at EOB with bilateral UE holding on to bed rails side by side. Pt unable to stand despite multiple attempts as patient is non receptive to instructions and resistive even to movement initiation due to pain and fear of mobility. Will progress with activities as tolerated. Recommend SNF for further rehab intervention at [place].
[2019-11-20 12:00] VITALS: BP 123/63
[2019-11-20] MEDS: D5 1/2NS w/KCl 20mEq 1,000 ML IV SCH (12:11)
--- NOTE | 2019-11-20 12:52 | Infectious Diseases Prog Note ---
Assessment/Plan Assessment/Plan IMPRESSION: Osteomyelitis of right olecranon Cellulitis of R arm Right hip fracture, s/p ORIF schizophrenia, BPH, Acute renal failure, Anemia, Fecal impaction. RECOMMENDATION: Change PO Keflex & Doxycycline to IV Vancomycin CT scan of right arm Negative COVID-19 test. Subjective ROS Limited/Unobtainable: Yes Allergies: Coded Allergies: No Known Allergies (Unverified , 10/15/15) Objective Vital Signs Last 24 Hour Vital Signs Date Time Temp Pulse Resp B/P (MAP) Pulse Ox O2 Delivery O2 Flow Rate FiO2 11/20/19 09:00 Nasal Cannula 3.0 11/20/19 08:22 97 107/65 11/20/19 08:00 98.1 97 18 107/65 (79) 98 11/20/19 04:00 97.8 83 18 95/51 (66) 99 11/20/19 00:00 97.9 89 17 111/63 (79) 100 11/19/19 21:00 Nasal Cannula 3.0 11/19/19 20:00 97.7 92 18 107/68 (81) 100 11/19/19 16:00 97.6 86 19 112/56 (74) 97 11/19/19 13:34 97.6 Height (Feet): 6 Height (Inches): 4.00 Weight (Pounds): 180 General Appearance: no acute distress HEENT: mucous membranes moist Respiratory/Chest: lungs clear Cardiovascular: normal rate Abdomen: soft, non tender Extremities: other - edema of right elbow & hand Skin: other - scab in right elbow Neurologic/Psychiatric: other - awake, not very communicative today Laboratory Tests Test 11/20/19 08:11 White Blood Count 10.8 K/UL (4.8-10.8) Red Blood Count 2.72 M/UL (4.70-6.10) L Hemoglobin 8.3 G/DL (14.2-18.0) L Hematocrit 25.0 % (42.0-52.0) L Mean Corpuscular Volume 92 FL (80-99) Mean Corpuscular Hemoglobin 30.7 PG (27.0-31.0) Mean Corpuscular Hemoglobin Concent 33.4 G/DL (32.0-36.0) Red Cell Distribution Width 14.0 % (11.6-14.8) Platelet Count 332 K/UL (150-450) Mean Platelet Volume 4.5 FL (6.5-10.1) L Neutrophils (%) (Auto) 70.7 % (45.0-75.0) Lymphocytes (%) (Auto) 19.1 % (20.0-45.0) L Monocytes (%) (Auto) 7.6 % (1.0-10.0) Eosinophils (%) (Auto) 2.2 % (0.0-3.0) Basophils (%) (Auto) 0.4 % (0.0-2.0) Sodium Level 139 MMOL/L (136-145) Potassium Level 4.1 MMOL/L (3.5-5.1) Chloride Level 108 MMOL/L (98-107) H Carbon Dioxide Level 23 MMOL/L (21-32) Anion Gap 8 mmol/L (5-15) Blood Urea Nitrogen 36 mg/dL (7-18) H Creatinine 2.5 MG/DL (0.55-1.30) H Estimat Glomerular Filtration Rate 26.1 mL/min (>60) Glucose Level 117 MG/DL (74-106) H Uric Acid 7.8 MG/DL (2.6-7.2) H Calcium Level 8.2 MG/DL (8.5-10.1) L Phosphorus Level 4.3 MG/DL (2.5-4.9) Magnesium Level 1.6 MG/DL (1.8-2.4) L Total Bilirubin 0.3 MG/DL (0.2-1.0) Aspartate Amino Transf (AST/SGOT) 18 U/L (15-37) Alanine Aminotransferase (ALT/SGPT) 9 U/L (12-78) L Alkaline Phosphatase 47 U/L (46-116) C-Reactive Protein, Quantitative 25.5 mg/dL (0.00-0.90) H Pro-B-Type Natriuretic Peptide 1650 pg/mL (0-125) H Total Protein 5.7 G/DL (6.4-8.2) L Albumin 1.3 G/DL (3.4-5.0) L Globulin 4.4 g/dL Albumin/Globulin Ratio 0.3 (1.0-2.7) L Current Medications Medications (Trade) Dose Ordered Sig/Juan Route PRN Reason Start Time Stop Time Status Last Admin Dose Admin Acetaminophen (Tylenol) 650 mg Q4H PRN ORAL Mild Pain (Pain Scale 1-3) 11/14/19 19:15 12/14/19 19:14 Acetaminophen (Tylenol) 650 mg Q4H PRN ORAL Temp >100.5 11/18/19 15:00 12/18/19 14:59 Acetaminophen/ Hydrocodone Bitart ([place] 7.5/325) 1 tab Q4H PRN ORAL severe pain 11/19/19 15:15 11/26/19 15:14 Amlodipine Besylate (Norvasc) 2.5 mg DAILY ORAL 11/17/19 09:00 12/17/19 08:59 11/20/19 08:22 Aspirin (ASA) 81 mg Q12HR ORAL 11/18/19 21:00 01/02/20 20:59 11/20/19 08:22 Dextrose/ Electrolytes 1,000 ml @ 75 mls/hr [id number] IV 11/18/19 19:00 12/18/19 18:59 11/20/19 12:11 Docusate Sodium (Colace) 100 mg THREE TIMES A DAY ORAL 11/19/19 18:00 12/19/19 17:59 11/20/19 12:10 Lorazepam (Ativan 2mg/ml 1ml) 1 mg Q4H PRN IM For Anxiety 11/15/19 10:15 11/22/19 10:14 11/15/19 12:24 Metoclopramide HCl (Reglan) 10 mg Q6H PRN IVP Nausea & Vomiting 11/18/19 18:30 12/18/19 18:29 Pantoprazole (Protonix) 40 mg BID ORAL 11/15/19 10:00 12/15/19 09:59 11/20/19 08:22 Tamsulosin HCl (Flomax) 0.4 mg BID ORAL 11/16/19 18:00 12/15/19 20:59 11/20/19 08:22 Temazepam (RestoriL) 7.5 mg HSPRN PRN ORAL Insomnia 11/18/19 21:00 11/25/19 20:59 Vancomycin HCl (Vanco rx to dose) 1 ea DAILY PRN MISC Per rx protocol 11/19/19 18:15 12/19/19 18:14 Todd Paz MD November 20, 2019 12:52
--- NOTE | 2019-11-20 13:21 | Nephrology Progress Note ---
Assessment/Plan Problem List: (1) JAIDA (acute kidney injury) Assessment: Serum creatinine lower (2) Anemia (3) Dehydration (4) Hip fracture, right (5) Fall Assessment Acute renal failure Possibly underlying chronic kidney failure Dehydration Status post fall and fracture of the right hip History of hypertension History of diabetes mellitus History of psych disease Anemia Plan Patient underwent hip surgery November 17 today's labs reviewed, serum creatinine down to 2.5 Since serum creatinine is declining will continue hydration SHEMAR [place] today November 19 On soft diet now Adjust blood pressure medications IV fluids Anemia work-up Protonix, Colace Pain medication Monitor renal parameters Urine studies Per consultants Subjective ROS Limited/Unobtainable: No Constitutional: Reports: malaise, weakness Objective Objective Last 24 Hour Vital Signs Date Time Temp Pulse Resp B/P (MAP) Pulse Ox O2 Delivery O2 Flow Rate FiO2 11/20/19 12:00 97.9 75 18 123/63 (83) 97 11/20/19 09:00 Nasal Cannula 3.0 11/20/19 08:22 97 107/65 11/20/19 08:00 98.1 97 18 107/65 (79) 98 11/20/19 04:00 97.8 83 18 95/51 (66) 99 11/20/19 00:00 97.9 89 17 111/63 (79) 100 11/19/19 21:00 Nasal Cannula 3.0 11/19/19 20:00 97.7 92 18 107/68 (81) 100 11/19/19 16:00 97.6 86 19 112/56 (74) 97 11/19/19 13:34 97.6 Intake and Output 11/19/19 11/20/19 19:00 07:00 Intake Total 1179 ml 825 ml Output Total 1250 ml 1200 ml Balance -71 ml -375 ml Intake Oral 354 ml IV Total 825 ml 825 ml Output Urine Total 1250 ml 1200 ml # Voids 1 Laboratory Tests 11/20/19 08:11: White Blood Count 10.8, Red Blood Count 2.72L, Hemoglobin 8.3L, Hematocrit 25.0L , Mean Corpuscular Volume 92, Mean Corpuscular Hemoglobin 30.7, Mean Corpuscular Hemoglobin Concent 33.4, Red Cell Distribution Width 14.0, Platelet Count 332, Mean Platelet Volume 4.5L, Neutrophils (%) (Auto) 70.7, Lymphocytes ( %) (Auto) 19.1L, Monocytes (%) (Auto) 7.6, Eosinophils (%) (Auto) 2.2, Basophils (%) (Auto) 0.4, Sodium Level 139, Potassium Level 4.1, Chloride Level 108H, Carbon Dioxide Level 23, Anion Gap 8, Blood Urea Nitrogen 36H, Creatinine 2.5H, Estimat Glomerular Filtration Rate 26.1, Glucose Level 117H, Uric Acid 7.8H, Calcium Level 8.2L, Phosphorus Level 4.3, Magnesium Level 1.6L, Total Bilirubin 0.3, Aspartate Amino Transf (AST/SGOT) 18, Alanine Aminotransferase ( ALT/SGPT) 9L, Alkaline Phosphatase 47, C-Reactive Protein, Quantitative 25.5H, Pro-B-Type Natriuretic Peptide 1650H, Total Protein 5.7L, Albumin 1.3L, Globulin 4.4, Albumin/Globulin Ratio 0.3L Height (Feet): 6 Height (Inches): 4.00 Weight (Pounds): 180 General Appearance: no apparent distress Cardiovascular: tachycardia Respiratory/Chest: decreased breath sounds Abdomen: soft - And Objective No change Armen Levine MD November 20, 2019 13:21
--- NOTE | 2019-11-20 13:43 | Cardiac Electrophysiology PN ---
Assessment/Plan Assessment/Plan 1. Hypertension. On Norvasc 2.5 daily 2. Status post fall and right hip fracture and ORIF. EKG showed NSR with LBBB and echocardiogram showed Nl EF. The patient has no history of myocardial infarction or CHF per records. 3. COVID-19 screening is negative 4. Agitation and psychosis. Further evaluation by Psychiatry. 5. Diabetes. 6. Chronic kidney disease with a creatinine of 3.2 and hypernatremia with a sodium of 149. Improving Fu by Dr. Levine. Subjective Subjective Tolerated surgery well. Echo Nl EF. ECG SR with LBBB. Not compliant with PT Objective Last 24 Hour Vital Signs Date Time Temp Pulse Resp B/P (MAP) Pulse Ox O2 Delivery O2 Flow Rate FiO2 11/20/19 12:00 97.9 75 18 123/63 (83) 97 11/20/19 09:00 Nasal Cannula 3.0 11/20/19 08:22 97 107/65 11/20/19 08:00 98.1 97 18 107/65 (79) 98 11/20/19 04:00 97.8 83 18 95/51 (66) 99 11/20/19 00:00 97.9 89 17 111/63 (79) 100 11/19/19 21:00 Nasal Cannula 3.0 11/19/19 20:00 97.7 92 18 107/68 (81) 100 11/19/19 16:00 97.6 86 19 112/56 (74) 97 Intake and Output 11/19/19 11/20/19 19:00 07:00 Intake Total 1179 ml 825 ml Output Total 1250 ml 1200 ml Balance -71 ml -375 ml Intake Oral 354 ml IV Total 825 ml 825 ml Output Urine Total 1250 ml 1200 ml # Voids 1 Laboratory Tests Test 11/20/19 08:11 White Blood Count 10.8 K/UL (4.8-10.8) Red Blood Count 2.72 M/UL (4.70-6.10) L Hemoglobin 8.3 G/DL (14.2-18.0) L Hematocrit 25.0 % (42.0-52.0) L Mean Corpuscular Volume 92 FL (80-99) Mean Corpuscular Hemoglobin 30.7 PG (27.0-31.0) Mean Corpuscular Hemoglobin Concent 33.4 G/DL (32.0-36.0) Red Cell Distribution Width 14.0 % (11.6-14.8) Platelet Count 332 K/UL (150-450) Mean Platelet Volume 4.5 FL (6.5-10.1) L Neutrophils (%) (Auto) 70.7 % (45.0-75.0) Lymphocytes (%) (Auto) 19.1 % (20.0-45.0) L Monocytes (%) (Auto) 7.6 % (1.0-10.0) Eosinophils (%) (Auto) 2.2 % (0.0-3.0) Basophils (%) (Auto) 0.4 % (0.0-2.0) Sodium Level 139 MMOL/L (136-145) Potassium Level 4.1 MMOL/L (3.5-5.1) Chloride Level 108 MMOL/L (98-107) H Carbon Dioxide Level 23 MMOL/L (21-32) Anion Gap 8 mmol/L (5-15) Blood Urea Nitrogen 36 mg/dL (7-18) H Creatinine 2.5 MG/DL (0.55-1.30) H Estimat Glomerular Filtration Rate 26.1 mL/min (>60) Glucose Level 117 MG/DL (74-106) H Uric Acid 7.8 MG/DL (2.6-7.2) H Calcium Level 8.2 MG/DL (8.5-10.1) L Phosphorus Level 4.3 MG/DL (2.5-4.9) Magnesium Level 1.6 MG/DL (1.8-2.4) L Total Bilirubin 0.3 MG/DL (0.2-1.0) Aspartate Amino Transf (AST/SGOT) 18 U/L (15-37) Alanine Aminotransferase (ALT/SGPT) 9 U/L (12-78) L Alkaline Phosphatase 47 U/L (46-116) C-Reactive Protein, Quantitative 25.5 mg/dL (0.00-0.90) H Pro-B-Type Natriuretic Peptide 1650 pg/mL (0-125) H Total Protein 5.7 G/DL (6.4-8.2) L Albumin 1.3 G/DL (3.4-5.0) L Globulin 4.4 g/dL Albumin/Globulin Ratio 0.3 (1.0-2.7) L Objective HEAD AND NECK: No JVD. LUNGS: Clear. CARDIOVASCULAR: Regular S1 and S2 with no gallop. ABDOMEN: Soft. EXTREMITIES: S/P right hip ORIF Neno Ennis MD November 20, 2019 13:43
--- NOTE | 2019-11-20 15:30 | NUR ---
NURSE NOTES: Per MD Sidhu order, Cristofer DC; patient tolerated well;
--- NOTE | 2019-11-20 15:58 | Diagnostic Imaging Report ---
Indication: Right elbow pain Technique: No IV contrast utilized, reason not stated. Spiral acquisitions obtained through the right elbow Multiplanar reconstructions were generated. Total dose length product 354 mGycm. CTDIvol(s) 11 mGy. Radiation dose was minimized using automated exposure control Comparison: Plain radiograph 11/19/2019 Findings: There is some irregularity of the posterior cortical surface of the olecranon. This is actually somewhat less striking than on the prior plain radiograph, although a defined cortex is not visible. No definite osteolytic lesions. There is a small olecranon spur. There are proliferative changes of the radial head and of the coronoid process. No acute fractures. No dislocations. There is mild narrowing of the radiohumeral and ulnohumeral joint spaces. No definite joint effusion is evident. There is diffuse edema of the subcutaneous fat. Impression: Irregularity of the posterior olecranon, confirming findings reported on recent plain radiograph. Appearance nonspecific, could represent erosive changes secondary to osteomyelitis but no underlying osteolysis is seen to suggest such. Findings could also represent degenerative changes. Note limited sensitivity of CT for osteomyelitis; MRI or bone scan should be considered for further evaluation Degenerative changes, as described Diffuse edema of the subcutaneous fat No acute bony trauma The CT scanner at [facility] is accredited by the [employer] and the scans are performed using protocols designed to limit radiation exposure to as low as reasonably achievable to attain images of sufficient resolution adequate for diagnostic evaluation.
[2019-11-20 16:00] VITALS: BP 106/64
--- NOTE | 2019-11-20 16:22 | NUR ---
CASE MANAGEMENT:REVIEW SI;RIGHT HIP FRACTURE ~ORIF POD# 1 98.1 97 18 95/51 97% 3L NC H/H 8.3/25.0 BUN 36 CR 2.5 UR ACID 7.8 ALB 1.3 IS;NORCO PO Q4 HRS PRN IVF D5 @ 75 ML/HR AMLODIPINE PO QD FLOMAX PO BID PROTONIX PO BID MED SURG STATUS DCP;FROM [facility]
--- NOTE | 2019-11-20 16:47 | NUR ---
MANUFACTURING TECHNOLOGY ANALYST NOTE PATIENT RESIDES AT [facility]. FACILITY WILL BE UNABLE TO ACCOMMODATE IF HE NEEDS REHAB PER BRUCE AT [facility]. DR HULL INFORMED. STATED HE WILL INFORM CM WHERE TO REFER PATIENT FOR POST OP REHAB. WILL AWAIT INFO FROM DR HULL.
--- NOTE | 2019-11-20 17:33 | General Progress Note ---
Assessment/Plan Problem List: (1) Hip fracture, right ICD Codes: S72.001A - Fracture of unspecified part of neck of right femur, initial encounter for closed fracture SNOMED: 745947289 Qualifiers: Qualified Codes: S72.001A - Fracture of unspecified part of neck of right femur, initial encounter for closed fracture (2) Fall ICD Codes: W19.XXXA - Unspecified fall, initial encounter SNOMED: 4907796, 161290173 Qualifiers: Qualified Codes: W19.XXXA - Unspecified fall, initial encounter (3) Dehydration ICD Codes: E86.0 - Dehydration SNOMED: 99894917 (4) Anemia ICD Codes: D64.9 - Anemia, unspecified SNOMED: 212177342 (5) JAIDA (acute kidney injury) ICD Codes: N17.9 - Acute kidney failure, unspecified SNOMED: 4272440, 10831603 Status: progressing Assessment/Plan: r/o osteomylitis of elbow.informed dr raquel cintron of radiologist concern abx per id dr r/o gaby ue arf is improvin s/p orif no Subjective ROS Limited/Unobtainable: Yes Allergies: Coded Allergies: No Known Allergies (Unverified , 10/15/15) Objective Last 24 Hour Vital Signs Date Time Temp Pulse Resp B/P (MAP) Pulse Ox O2 Delivery O2 Flow Rate FiO2 11/20/19 16:00 98.0 63 20 106/64 (78) 97 11/20/19 12:00 97.9 75 18 123/63 (83) 97 11/20/19 09:00 Nasal Cannula 3.0 11/20/19 08:22 97 107/65 11/20/19 08:00 98.1 97 18 107/65 (79) 98 11/20/19 04:00 97.8 83 18 95/51 (66) 99 11/20/19 00:00 97.9 89 17 111/63 (79) 100 11/19/19 21:00 Nasal Cannula 3.0 11/19/19 20:00 97.7 92 18 107/68 (81) 100 Intake and Output 11/19/19 11/20/19 19:00 07:00 Intake Total 1179 ml 825 ml Output Total 1250 ml 1200 ml Balance -71 ml -375 ml Intake Oral 354 ml IV Total 825 ml 825 ml Output Urine Total 1250 ml 1200 ml # Voids 1 Laboratory Tests 11/20/19 08:11: White Blood Count 10.8, Red Blood Count 2.72L, Hemoglobin 8.3L, Hematocrit 25.0L , Mean Corpuscular Volume 92, Mean Corpuscular Hemoglobin 30.7, Mean Corpuscular Hemoglobin Concent 33.4, Red Cell Distribution Width 14.0, Platelet Count 332, Mean Platelet Volume 4.5L, Neutrophils (%) (Auto) 70.7, Lymphocytes ( %) (Auto) 19.1L, Monocytes (%) (Auto) 7.6, Eosinophils (%) (Auto) 2.2, Basophils (%) (Auto) 0.4, Sodium Level 139, Potassium Level 4.1, Chloride Level 108H, Carbon Dioxide Level 23, Anion Gap 8, Blood Urea Nitrogen 36H, Creatinine 2.5H, Estimat Glomerular Filtration Rate 26.1, Glucose Level 117H, Uric Acid 7.8H, Calcium Level 8.2L, Phosphorus Level 4.3, Magnesium Level 1.6L, Total Bilirubin 0.3, Aspartate Amino Transf (AST/SGOT) 18, Alanine Aminotransferase ( ALT/SGPT) 9L, Alkaline Phosphatase 47, C-Reactive Protein, Quantitative 25.5H, Pro-B-Type Natriuretic Peptide 1650H, Total Protein 5.7L, Albumin 1.3L, Globulin 4.4, Albumin/Globulin Ratio 0.3L Height (Feet): 6 Height (Inches): 4.00 Weight (Pounds): 180 Lisa Coronel MD November 20, 2019 17:33
--- NOTE | 2019-11-20 17:49 | General Progress Note ---
Assessment/Plan Assessment/Plan: (1) Right hip pain (2) Right hip fracture (3) S/P Right hip hemiarthroplasty (4) Right UE pain (5) Right UE osteomyelitis Patient to be continued on [place] as needed. D/w Dr. Sanders and he concurred. Subjective Date patient seen: November 20, 2019 Time patient seen: 05:45 - pm Constitutional: Reports: weakness HEENT: Reports: no symptoms Cardiovascular: Reports: no symptoms Respiratory: Reports: no symptoms Gastrointestinal/Abdominal: Reports: no symptoms Genitourinary: Reports: no symptoms Neurologic/Psychiatric: Reports: weakness Endocrine: Reports: no symptoms Hematologic/Lymphatic: Reports: no symptoms Allergies: Coded Allergies: No Known Allergies (Unverified , 10/15/15) Subjective Patient is in bed and xray and CT scan reviewed. Denies pain at this time. Has not received the [place]. ID on case. Objective Last 24 Hour Vital Signs Date Time Temp Pulse Resp B/P (MAP) Pulse Ox O2 Delivery O2 Flow Rate FiO2 11/20/19 16:00 98.0 63 20 106/64 (78) 97 11/20/19 12:00 97.9 75 18 123/63 (83) 97 11/20/19 09:00 Nasal Cannula 3.0 11/20/19 08:22 97 107/65 11/20/19 08:00 98.1 97 18 107/65 (79) 98 11/20/19 04:00 97.8 83 18 95/51 (66) 99 11/20/19 00:00 97.9 89 17 111/63 (79) 100 11/19/19 21:00 Nasal Cannula 3.0 11/19/19 20:00 97.7 92 18 107/68 (81) 100 Intake and Output 11/19/19 11/20/19 19:00 07:00 Intake Total 1179 ml 825 ml Output Total 1250 ml 1200 ml Balance -71 ml -375 ml Intake Oral 354 ml IV Total 825 ml 825 ml Output Urine Total 1250 ml 1200 ml # Voids 1 Laboratory Tests 11/20/19 08:11: White Blood Count 10.8, Red Blood Count 2.72L, Hemoglobin 8.3L, Hematocrit 25.0L , Mean Corpuscular Volume 92, Mean Corpuscular Hemoglobin 30.7, Mean Corpuscular Hemoglobin Concent 33.4, Red Cell Distribution Width 14.0, Platelet Count 332, Mean Platelet Volume 4.5L, Neutrophils (%) (Auto) 70.7, Lymphocytes ( %) (Auto) 19.1L, Monocytes (%) (Auto) 7.6, Eosinophils (%) (Auto) 2.2, Basophils (%) (Auto) 0.4, Sodium Level 139, Potassium Level 4.1, Chloride Level 108H, Carbon Dioxide Level 23, Anion Gap 8, Blood Urea Nitrogen 36H, Creatinine 2.5H, Estimat Glomerular Filtration Rate 26.1, Glucose Level 117H, Uric Acid 7.8H, Calcium Level 8.2L, Phosphorus Level 4.3, Magnesium Level 1.6L, Total Bilirubin 0.3, Aspartate Amino Transf (AST/SGOT) 18, Alanine Aminotransferase ( ALT/SGPT) 9L, Alkaline Phosphatase 47, C-Reactive Protein, Quantitative 25.5H, Pro-B-Type Natriuretic Peptide 1650H, Total Protein 5.7L, Albumin 1.3L, Globulin 4.4, Albumin/Globulin Ratio 0.3L Height (Feet): 6 Height (Inches): 4.00 Weight (Pounds): 180 General Appearance: no apparent distress, alert EENT: PERRL/EOMI, normal ENT inspection Neck: non-tender, normal alignment Cardiovascular: normal rate, regular rhythm Respiratory/Chest: decreased breath sounds Abdomen: non tender, soft Extremities: other - tenderness to palpation of right UE and LE Neurologic: alert, responsive Skin: normal pigmentation Objective Procedure: CT UPPER EXTREMITY WO CONT RT Indication: Right elbow pain Technique: No IV contrast utilized, reason not stated. Spiral acquisitions obtained through the right elbow Multiplanar reconstructions were generated. Total dose length product 354 mGycm. CTDIvol(s) 11 mGy. Radiation dose was minimized using automated exposure control Comparison: Plain radiograph 11/19/2019 Findings: There is some irregularity of the posterior cortical surface of the olecranon. This is actually somewhat less striking than on the prior plain radiograph, although a defined cortex is not visible. No definite osteolytic lesions. There is a small olecranon spur. There are proliferative changes of the radial head and of the coronoid process. No acute fractures. No dislocations. There is mild narrowing of the radiohumeral and ulnohumeral joint spaces. No definite joint effusion is evident. There is diffuse edema of the subcutaneous fat. Impression: Irregularity of the posterior olecranon, confirming findings reported on recent plain radiograph. Appearance nonspecific, could represent erosive changes secondary to osteomyelitis but no underlying osteolysis is seen to suggest such. Findings could also represent degenerative changes. Note limited sensitivity of CT for osteomyelitis; MRI or bone scan should be considered for further evaluation Degenerative changes, as described Diffuse edema of the subcutaneous fat No acute bony trauma David Hi November 20, 2019 17:49
--- NOTE | 2019-11-20 18:01 | NUR ---
NURSE NOTES: The result for CT Upper Extremity is out; I called and left a message to Beti Paz; waiting for order;
--- NOTE | 2019-11-20 19:29 | NUR ---
HAND-OFF: Report given to ANDRY Blackmon.
--- NOTE | 2019-11-20 19:35 | NUR ---
NURSE NOTES: Pt. received from ANDRY Chavarria. Pt. AAOx2, on room air, no complaints of pain, no indications of SOB. IV left hand 24g intact and patent, running D5 1/2 NS 20 mEq KCL at 75cc/hr. Pedal pulses right foot palpable. Bed is low and locked, side rails x3 up, bed alarm active, and call light in reach. Will continue with plan of care.
[2019-11-20 20:00] VITALS: BP 97/58
--- NOTE | 2019-11-20 20:13 | Psych Consult Progress Note ---
Psychiatry Progress Note Psychiatry Progress Note Medications Current Medications Medications (Trade) Dose Ordered Sig/Juan Route PRN Reason Start Time Stop Time Status Last Admin Dose Admin Acetaminophen (Tylenol) 650 mg Q4H PRN ORAL Mild Pain (Pain Scale 1-3) 11/14/19 19:15 12/14/19 19:14 Acetaminophen (Tylenol) 650 mg Q4H PRN ORAL Temp >100.5 11/18/19 15:00 12/18/19 14:59 Acetaminophen/ Hydrocodone Bitart ([place] 7.5/325) 1 tab Q4H PRN ORAL severe pain 11/19/19 15:15 11/26/19 15:14 Amlodipine Besylate (Norvasc) 2.5 mg DAILY ORAL 11/17/19 09:00 12/17/19 08:59 11/20/19 08:22 Aspirin (ASA) 81 mg Q12HR ORAL 11/18/19 21:00 01/02/20 20:59 11/20/19 08:22 Dextrose/ Electrolytes 1,000 ml @ 75 mls/hr [id number] IV 11/18/19 19:00 12/18/19 18:59 11/20/19 12:11 Docusate Sodium (Colace) 100 mg THREE TIMES A DAY ORAL 11/19/19 18:00 12/19/19 17:59 11/20/19 17:18 Lorazepam (Ativan 2mg/ml 1ml) 1 mg Q4H PRN IM For Anxiety 11/15/19 10:15 11/22/19 10:14 11/15/19 12:24 Metoclopramide HCl (Reglan) 10 mg Q6H PRN IVP Nausea & Vomiting 11/18/19 18:30 12/18/19 18:29 Pantoprazole (Protonix) 40 mg BID ORAL 11/15/19 10:00 12/15/19 09:59 11/20/19 17:17 Tamsulosin HCl (Flomax) 0.4 mg BID ORAL 11/16/19 18:00 12/15/19 20:59 11/20/19 17:17 Temazepam (RestoriL) 7.5 mg HSPRN PRN ORAL Insomnia 11/18/19 21:00 11/25/19 20:59 Vancomycin HCl (Vanco rx to dose) 1 ea DAILY PRN MISC Per rx protocol 11/19/19 18:15 12/19/19 18:14 Vancomycin/Sodium Chloride 275 ml @ 137.5 mls/ hr ONCE ONCE IVPB 11/20/19 22:00 11/20/19 23:59 Neurological/Psychiatric: Reports: anxiety, depressed, emotional problems Allergies: Coded Allergies: No Known Allergies (Unverified , 10/15/15) Objective Data Height (Feet): 6 Height (Inches): 4.00 Weight (Pounds): 180 General Appearance: no apparent distress, alert, alert oriented x3 Behavior Mannerisms: good eye contact Mental Status Exam - Affect: blunted Speech: clear Mental Status Exam - Thought P: illogical Mental Status Exam - Suicidal: not present Assessment/Plan Assessment/Plan: PLAN: 1. Continue the lorazepam p.r.n. provided alexsandra/Sukhwinder Avila MD November 20, 2019 20:13
[2019-11-20] MEDS ORDERED: Vancomycin 1.5gm/NS Premix IVPB ONE (22:00)
[2019-11-21] VITALS: BP 90/58
[2019-11-21] MEDS: D5 1/2NS w/KCl 20mEq 1,000 ML IV SCH ×2 (00:27→14:42)
[2019-11-21 04:00] VITALS: BP 95/92
--- NOTE | 2019-11-21 06:41 | NUR ---
NURSE NOTES: Message left for Dr. Coronel regarding lack of bowel movement for the patient. Awaiting return call, will continue to monitor.
[2019-11-21 07:19] LABS: ALANINE AMINOTRANSFERASE 9 U/L (12-78); ALBUMIN 1.2 G/DL (3.4-5.0); ALBUMIN/GLOBULIN RATIO 0.3 (1.0-2.7); ALKALINE PHOSPHATASE 63 U/L (46-116); ANION GAP 8 mmol/L (5-15); ASPARTATE AMINO TRANSFERASE 28 U/L (15-37); BILIRUBIN,TOTAL 0.3 MG/DL (0.2-1.0); BLOOD UREA NITROGEN 39 mg/dL (7-18); CALCIUM 8.1 MG/DL (8.5-10.1); CARBON DIOXIDE 23 MMOL/L (21-32); CHLORIDE 109 MMOL/L (98-107); CREATININE 2.4 MG/DL (0.55-1.30); POTASSIUM 4.1 MMOL/L (3.5-5.1); SODIUM 140 MMOL/L (136-145)
--- NOTE | 2019-11-21 07:47 | NUR ---
HAND-OFF: Report given to ANDRY Jenkins.
[2019-11-21 08:00] VITALS: BP 114/56
--- NOTE | 2019-11-21 08:09 | NUR ---
NURSE NOTES: Received report from Kris RN, pt laying in bed with no signs of distress or other issues at this time. IV on the left CELESTIN gauge #24 running D5 1/2 NS +20mEq @75ml/hr. Labs done this morning. call light within reach, bed in lowest position, side rales up x2. I will f/u as needed.
--- NOTE | 2019-11-21 09:29 | Hematology/Onc Progress Note ---
Assessment/Plan Assessment/Plan Assessment and Recs # Anemia of chronic disease due to underlying chronic medical issues, multifactorial v Gi bleed --> Anemia workup has been reviewed --> No evidence of hemolysis is noted, peripheral smear has been reviewed. --> Hgb goal >7. Transfuse prn. --> Epogen or iron at this time is not particularly indicated --> Medications have been reviewed --> low threshold for gi evaluation in case has occult + --> hgb trend 9.9-->9.3 -->9.5-->8.3 # Hip fracture, right --> Fracture of unspecified part of neck of right femur, initial encounter for closed fracture --> s/p orif # Fall may require surger per ortho --> neuro and ortho # JAIDA on CKD --> per Dr. Levine # Psych disorder --> per Dr. Dickens The timing of this note does not necessarily reflect the time of the patient was seen. Greatly appreciate consultation. Subjective Constitutional: Denies: no symptoms, chills, fever, malaise, weakness, other Cardiovascular: Denies: no symptoms, chest pain, edema, irregular heart rate, lightheadedness, palpitations, syncope, other Respiratory: Denies: no symptoms, cough, shortness of breath, SOB with excertion, SOB at rest, sputum, wheezing, other Genitourinary: Denies: no symptoms, burning, discharge, frequency, flank pain, hematuria, incontinence, pain, urgency, other Neurologic/Psychiatric: Denies: no symptoms, anxiety, depressed, emotional problems, headache, numbness, paresthesia, pre-existing deficit, seizure, tingling, tremors, weakness, other Endocrine: Denies: no symptoms, excessive sweating, flushing, intolerance to cold, intolerance to heat, increased hunger, increased thirst, increased urine, unexplained weight gain, unexplained weight loss, other Allergies: Coded Allergies: No Known Allergies (Unverified , 10/15/15) Subjective / confused, pending right hip hemiarthroplasty, bilat restraints 11/17 confused, hgb 9.5, no bleeding, reviewed renal recs 11/18 still requiring clearance by psych, cards for clearance to surgery 11/19 awake and alert, dressing dry and intact, on room air 11/20 still confused no bleeding, meds noted, no night sweats, dw rn Objective Objective Current Medications Medications (Trade) Dose Ordered Sig/Juan Route PRN Reason Start Time Stop Time Status Last Admin Dose Admin Acetaminophen (Tylenol) 650 mg Q4H PRN ORAL Mild Pain (Pain Scale 1-3) 11/14/19 19:15 12/14/19 19:14 Acetaminophen (Tylenol) 650 mg Q4H PRN ORAL Temp >100.5 11/18/19 15:00 12/18/19 14:59 Acetaminophen/ Hydrocodone Bitart ([place] 7.5/325) 1 tab Q4H PRN ORAL severe pain 11/19/19 15:15 11/26/19 15:14 Amlodipine Besylate (Norvasc) 2.5 mg DAILY ORAL 11/17/19 09:00 12/17/19 08:59 11/20/19 08:22 Aspirin (ASA) 81 mg Q12HR ORAL 11/18/19 21:00 01/02/20 20:59 11/20/19 20:21 Dextrose/ Electrolytes 1,000 ml @ 75 mls/hr [id number] IV 11/18/19 19:00 12/18/19 18:59 11/21/19 00:27 Docusate Sodium (Colace) 100 mg THREE TIMES A DAY ORAL 11/19/19 18:00 12/19/19 17:59 11/20/19 17:18 Lorazepam (Ativan 2mg/ml 1ml) 1 mg Q4H PRN IM For Anxiety 11/15/19 10:15 11/22/19 10:14 11/15/19 12:24 Metoclopramide HCl (Reglan) 10 mg Q6H PRN IVP Nausea & Vomiting 11/18/19 18:30 12/18/19 18:29 Pantoprazole (Protonix) 40 mg BID ORAL 11/15/19 10:00 12/15/19 09:59 11/20/19 17:17 Tamsulosin HCl (Flomax) 0.4 mg BID ORAL 11/16/19 18:00 12/15/19 20:59 11/20/19 17:17 Temazepam (RestoriL) 7.5 mg HSPRN PRN ORAL Insomnia 11/18/19 21:00 11/25/19 20:59 Vancomycin HCl (Vanco rx to dose) 1 ea DAILY PRN MISC Per rx protocol 11/19/19 18:15 12/19/19 18:14 Last 24 Hour Vital Signs Date Time Temp Pulse Resp B/P (MAP) Pulse Ox O2 Delivery O2 Flow Rate FiO2 11/21/19 04:00 98.1 93 17 95/92 (93) 100 11/21/19 00:00 98.0 91 16 90/58 (69) 99 11/20/19 21:00 Room Air 11/20/19 20:00 98.3 96 17 97/58 (71) 97 11/20/19 16:00 98.0 63 20 106/64 (78) 97 11/20/19 12:00 97.9 75 18 123/63 (83) 97 11/20/19 09:00 Nasal Cannula 3.0 11/20/19 08:22 97 107/65 11/20/19 08:00 98.1 97 18 107/65 (79) 98 11/20/19 04:00 97.8 83 18 95/51 (66) 99 11/20/19 00:00 97.9 89 17 111/63 (79) 100 11/19/19 21:00 Nasal Cannula 3.0 11/19/19 20:00 97.7 92 18 107/68 (81) 100 11/19/19 16:00 97.6 86 19 112/56 (74) 97 11/19/19 13:34 97.6 11/19/19 12:00 97.2 102 18 106/56 (73) 97 11/19/19 09:30 76 96/72 Intake and Output 11/20/19 11/21/19 19:00 07:00 Intake Total 1500 ml 360 ml Output Total 1200 ml 800 ml Balance 300 ml -440 ml Intake Oral 600 ml 360 ml IV Total 900 ml Output Urine Total 1200 ml 800 ml # Voids 1 Labs Test 11/19/19 08:05 11/20/19 08:11 11/20/19 18:30 11/21/19 06:05 White Blood Count 12.9 K/UL (4.8-10.8) 10.8 K/UL (4.8-10.8) Red Blood Count 2.94 M/UL (4.70-6.10) 2.72 M/UL (4.70-6.10) Hemoglobin 9.0 G/DL (14.2-18.0) 8.3 G/DL (14.2-18.0) Hematocrit 26.7 % (42.0-52.0) 25.0 % (42.0-52.0) Mean Corpuscular Volume 91 FL (80-99) 92 FL (80-99) Mean Corpuscular Hemoglobin 30.7 PG (27.0-31.0) 30.7 PG (27.0-31.0) Mean Corpuscular Hemoglobin Concent 33.9 G/DL (32.0-36.0) 33.4 G/DL (32.0-36.0) Red Cell Distribution Width 13.8 % (11.6-14.8) 14.0 % (11.6-14.8) Platelet Count 293 K/UL (150-450) 332 K/UL (150-450) Mean Platelet Volume 4.0 FL (6.5-10.1) 4.5 FL (6.5-10.1) Neutrophils (%) (Auto) 75.3 % (45.0-75.0) 70.7 % (45.0-75.0) Lymphocytes (%) (Auto) 14.4 % (20.0-45.0) 19.1 % (20.0-45.0) Monocytes (%) (Auto) 9.3 % (1.0-10.0) 7.6 % (1.0-10.0) Eosinophils (%) (Auto) 0.4 % (0.0-3.0) 2.2 % (0.0-3.0) Basophils (%) (Auto) 0.6 % (0.0-2.0) 0.4 % (0.0-2.0) Sodium Level 142 MMOL/L (136-145) 139 MMOL/L (136-145) 140 MMOL/L (136-145) Potassium Level 4.1 MMOL/L (3.5-5.1) 4.1 MMOL/L (3.5-5.1) 4.1 MMOL/L (3.5-5.1) Chloride Level 110 MMOL/L (98-107) 108 MMOL/L (98-107) 109 MMOL/L (98-107) Carbon Dioxide Level 22 MMOL/L (21-32) 23 MMOL/L (21-32) 23 MMOL/L (21-32) Anion Gap 10 mmol/L (5-15) 8 mmol/L (5-15) 8 mmol/L (5-15) Blood Urea Nitrogen 37 mg/dL (7-18) 36 mg/dL (7-18) 39 mg/dL (7-18) Creatinine 2.5 MG/DL (0.55-1.30) 2.5 MG/DL (0.55-1.30) 2.4 MG/DL (0.55-1.30) Estimat Glomerular Filtration Rate 26.1 mL/min (>60) 26.1 mL/min (>60) 27.4 mL/min (>60) Glucose Level 106 MG/DL (74-106) 117 MG/DL (74-106) 109 MG/DL (74-106) Calcium Level 8.5 MG/DL (8.5-10.1) 8.2 MG/DL (8.5-10.1) 8.1 MG/DL (8.5-10.1) Phosphorus Level 4.3 MG/DL (2.5-4.9) 4.3 MG/DL (2.5-4.9) 4.0 MG/DL (2.5-4.9) Magnesium Level 1.6 MG/DL (1.8-2.4) 1.6 MG/DL (1.8-2.4) 1.7 MG/DL (1.8-2.4) Total Bilirubin 0.3 MG/DL (0.2-1.0) 0.3 MG/DL (0.2-1.0) 0.3 MG/DL (0.2-1.0) Aspartate Amino Transf (AST/SGOT) 21 U/L (15-37) 18 U/L (15-37) 28 U/L (15-37) Alanine Aminotransferase (ALT/SGPT) 7 U/L (12-78) 9 U/L (12-78) 9 U/L (12-78) Alkaline Phosphatase 48 U/L (46-116) 47 U/L (46-116) 63 U/L (46-116) Total Protein 5.9 G/DL (6.4-8.2) 5.7 G/DL (6.4-8.2) 5.5 G/DL (6.4-8.2) Albumin 1.5 G/DL (3.4-5.0) 1.3 G/DL (3.4-5.0) 1.2 G/DL (3.4-5.0) Globulin 4.4 g/dL 4.4 g/dL 4.3 g/dL Albumin/Globulin Ratio 0.3 (1.0-2.7) 0.3 (1.0-2.7) 0.3 (1.0-2.7) Uric Acid 7.8 MG/DL (2.6-7.2) C-Reactive Protein, Quantitative 25.5 mg/dL (0.00-0.90) Pro-B-Type Natriuretic Peptide 1650 pg/mL (0-125) Random Vancomycin Level 12.5 ug/mL Height (Feet): 6 Height (Inches): 4.00 Weight (Pounds): 180 Objective PE: Vitals: reviewed, stable General Appearance: NAD HEENT: normocephalic, atraumatic Neck: non-tender, normal alignment Respiratory/Chest: normal breath sounds bilaterally Cardiovascular/Chest: normal peripheral pulses, normal rate Abdomen: normal bowel sounds, soft, nontender Extremities: normal range of motion Neuro: altered, encephalopathic : bonita+ Juan Luis Monique MD November 21, 2019 09:29
--- NOTE | 2019-11-21 09:36 | General Progress Note ---
Assessment/Plan Assessment/Plan: (1) Right hip pain (2) Right hip fracture (3) S/P Right hip hemiarthroplasty (4) Right UE pain (5) Right UE osteomyelitis Patient to be continued on [place] as needed. D/w Dr. Sanders and he concurred. Subjective Date patient seen: November 21, 2019 Time patient seen: 08:45 - am Constitutional: Reports: weakness HEENT: Reports: no symptoms Cardiovascular: Reports: no symptoms Respiratory: Reports: no symptoms Gastrointestinal/Abdominal: Reports: no symptoms Genitourinary: Reports: no symptoms Neurologic/Psychiatric: Reports: weakness Endocrine: Reports: no symptoms Hematologic/Lymphatic: Reports: no symptoms Allergies: Coded Allergies: No Known Allergies (Unverified , 10/15/15) Subjective Patient shows no signs of pain or distress. Denies any pain at this time. In bed with no new complaints at this time. Has not requested the [place] in the last 24hrs. Objective Last 24 Hour Vital Signs Date Time Temp Pulse Resp B/P (MAP) Pulse Ox O2 Delivery O2 Flow Rate FiO2 11/21/19 04:00 98.1 93 17 95/92 (93) 100 11/21/19 00:00 98.0 91 16 90/58 (69) 99 11/20/19 21:00 Room Air 11/20/19 20:00 98.3 96 17 97/58 (71) 97 11/20/19 16:00 98.0 63 20 106/64 (78) 97 11/20/19 12:00 97.9 75 18 123/63 (83) 97 Intake and Output 11/20/19 11/21/19 19:00 07:00 Intake Total 1500 ml 360 ml Output Total 1200 ml 800 ml Balance 300 ml -440 ml Intake Oral 600 ml 360 ml IV Total 900 ml Output Urine Total 1200 ml 800 ml # Voids 1 Laboratory Tests 11/20/19 18:30: Random Vancomycin Level 12.5 11/21/19 06:05: Sodium Level 140, Potassium Level 4.1, Chloride Level 109H, Carbon Dioxide Level 23, Anion Gap 8, Blood Urea Nitrogen 39H, Creatinine 2.4H, Estimat Glomerular Filtration Rate 27.4, Glucose Level 109H, Calcium Level 8.1L, Phosphorus Level 4.0, Magnesium Level 1.7L, Total Bilirubin 0.3, Aspartate Amino Transf (AST/SGOT) 28, Alanine Aminotransferase (ALT/SGPT) 9L, Alkaline Phosphatase 63, Total Protein 5.5L, Albumin 1.2L, Globulin 4.3, Albumin/ Globulin Ratio 0.3L Height (Feet): 6 Height (Inches): 4.00 Weight (Pounds): 180 Objective General Appearance: no apparent distress, alert EENT: PERRL/EOMI, normal ENT inspection Neck: non-tender, normal alignment Cardiovascular: normal rate, regular rhythm Respiratory/Chest: decreased breath sounds Abdomen: non tender, soft Extremities: other - tenderness to palpation of right UE and LE Neurologic: alert, responsive Skin: normal pigmentation David Hi November 21, 2019 09:36
[2019-11-21] MEDS: Aspirin Baby 81mg ORAL SCH ×2 (10:17→20:08)
[2019-11-21] MEDS: Docusate 100mg cap ORAL SCH ×3 (10:17→17:55)
[2019-11-21] MEDS: Tamsulosin 0.4mg cap ORAL SCH ×2 (10:17→17:55)
[2019-11-21] MEDS: LORazepam Inj 2mg/ml 1ml IM PRN (10:25)
[2019-11-21 12:00] VITALS: BP 109/62
--- NOTE | 2019-11-21 12:34 | Nephrology Progress Note ---
Assessment/Plan Problem List: (1) JAIDA (acute kidney injury) Assessment: Serum creatinine lower (2) Anemia (3) Dehydration (4) Hip fracture, right (5) Fall Assessment Acute renal failure Possibly underlying chronic kidney failure Dehydration Status post fall and fracture of the right hip History of hypertension History of diabetes mellitus History of psych disease Anemia Plan Patient underwent hip surgery November 17 today's labs reviewed, serum creatinine down to 2.5 Since serum creatinine is declining will continue hydration SHEMAR [place] today November 19 On soft diet now Adjust blood pressure medications IV fluids Anemia work-up Protonix, Colace Pain medication Monitor renal parameters Urine studies Per consultants Subjective ROS Limited/Unobtainable: No Constitutional: Reports: malaise Objective Objective Last 24 Hour Vital Signs Date Time Temp Pulse Resp B/P (MAP) Pulse Ox O2 Delivery O2 Flow Rate FiO2 11/21/19 10:17 92 114/56 11/21/19 08:00 98.6 92 17 114/56 (75) 97 11/21/19 04:00 98.1 93 17 95/92 (93) 100 11/21/19 00:00 98.0 91 16 90/58 (69) 99 11/20/19 21:00 Room Air 11/20/19 20:00 98.3 96 17 97/58 (71) 97 11/20/19 16:00 98.0 63 20 106/64 (78) 97 Intake and Output 11/20/19 11/21/19 19:00 07:00 Intake Total 1500 ml 360 ml Output Total 1200 ml 800 ml Balance 300 ml -440 ml Intake Oral 600 ml 360 ml IV Total 900 ml Output Urine Total 1200 ml 800 ml # Voids 1 Laboratory Tests 11/20/19 18:30: Random Vancomycin Level 12.5 11/21/19 06:05: Sodium Level 140, Potassium Level 4.1, Chloride Level 109H, Carbon Dioxide Level 23, Anion Gap 8, Blood Urea Nitrogen 39H, Creatinine 2.4H, Estimat Glomerular Filtration Rate 27.4, Glucose Level 109H, Calcium Level 8.1L, Phosphorus Level 4.0, Magnesium Level 1.7L, Total Bilirubin 0.3, Aspartate Amino Transf (AST/SGOT) 28, Alanine Aminotransferase (ALT/SGPT) 9L, Alkaline Phosphatase 63, Total Protein 5.5L, Albumin 1.2L, Globulin 4.3, Albumin/ Globulin Ratio 0.3L Height (Feet): 6 Height (Inches): 4.00 Weight (Pounds): 180 General Appearance: no apparent distress Cardiovascular: tachycardia Respiratory/Chest: decreased breath sounds Abdomen: soft Objective No change Armen Levine MD November 21, 2019 12:34
--- NOTE | 2019-11-21 12:57 | Infectious Diseases Prog Note ---
Assessment/Plan Assessment/Plan IMPRESSION: ?Osteomyelitis of right olecranon, CT inconclusive Cellulitis of R arm Right hip fracture, s/p ORIF schizophrenia, BPH, Acute renal failure, Anemia, Fecal impaction. RECOMMENDATION: Continue IV Vancomycin MRI of right arm Negative COVID-19 test. Subjective ROS Limited/Unobtainable: Yes Gastrointestinal/Abdominal: Reports: constipation Allergies: Coded Allergies: No Known Allergies (Unverified , 10/15/15) Objective Vital Signs Last 24 Hour Vital Signs Date Time Temp Pulse Resp B/P (MAP) Pulse Ox O2 Delivery O2 Flow Rate FiO2 11/21/19 10:17 92 114/56 11/21/19 08:00 98.6 92 17 114/56 (75) 97 11/21/19 04:00 98.1 93 17 95/92 (93) 100 11/21/19 00:00 98.0 91 16 90/58 (69) 99 11/20/19 21:00 Room Air 11/20/19 20:00 98.3 96 17 97/58 (71) 97 11/20/19 16:00 98.0 63 20 106/64 (78) 97 Height (Feet): 6 Height (Inches): 4.00 Weight (Pounds): 180 General Appearance: no acute distress HEENT: mucous membranes moist Respiratory/Chest: lungs clear Cardiovascular: normal rate Abdomen: soft, non tender Extremities: other - edema Neurologic/Psychiatric: other - sleeping Laboratory Tests Test 11/20/19 18:30 11/21/19 06:05 Random Vancomycin Level 12.5 ug/mL Sodium Level 140 MMOL/L (136-145) Potassium Level 4.1 MMOL/L (3.5-5.1) Chloride Level 109 MMOL/L (98-107) H Carbon Dioxide Level 23 MMOL/L (21-32) Anion Gap 8 mmol/L (5-15) Blood Urea Nitrogen 39 mg/dL (7-18) H Creatinine 2.4 MG/DL (0.55-1.30) H Estimat Glomerular Filtration Rate 27.4 mL/min (>60) Glucose Level 109 MG/DL (74-106) H Calcium Level 8.1 MG/DL (8.5-10.1) L Phosphorus Level 4.0 MG/DL (2.5-4.9) Magnesium Level 1.7 MG/DL (1.8-2.4) L Total Bilirubin 0.3 MG/DL (0.2-1.0) Aspartate Amino Transf (AST/SGOT) 28 U/L (15-37) Alanine Aminotransferase (ALT/SGPT) 9 U/L (12-78) L Alkaline Phosphatase 63 U/L (46-116) Total Protein 5.5 G/DL (6.4-8.2) L Albumin 1.2 G/DL (3.4-5.0) L Globulin 4.3 g/dL Albumin/Globulin Ratio 0.3 (1.0-2.7) L Current Medications Medications (Trade) Dose Ordered Sig/Juan Route PRN Reason Start Time Stop Time Status Last Admin Dose Admin Acetaminophen (Tylenol) 650 mg Q4H PRN ORAL Mild Pain (Pain Scale 1-3) 11/14/19 19:15 12/14/19 19:14 Acetaminophen (Tylenol) 650 mg Q4H PRN ORAL Temp >100.5 11/18/19 15:00 12/18/19 14:59 Acetaminophen/ Hydrocodone Bitart ([place] 7.5/325) 1 tab Q4H PRN ORAL severe pain 11/19/19 15:15 11/26/19 15:14 Amlodipine Besylate (Norvasc) 2.5 mg DAILY ORAL 11/17/19 09:00 12/17/19 08:59 11/21/19 10:17 Aspirin (ASA) 81 mg Q12HR ORAL 11/18/19 21:00 01/02/20 20:59 11/21/19 10:17 Dextrose/ Electrolytes 1,000 ml @ 75 mls/hr [id number] IV 11/18/19 19:00 12/18/19 18:59 11/21/19 00:27 Docusate Sodium (Colace) 100 mg THREE TIMES A DAY ORAL 11/19/19 18:00 12/19/19 17:59 11/21/19 10:17 Lorazepam (Ativan 2mg/ml 1ml) 1 mg Q4H PRN IM For Anxiety 11/15/19 10:15 11/22/19 10:14 11/21/19 10:25 Metoclopramide HCl (Reglan) 10 mg Q6H PRN IVP Nausea & Vomiting 11/18/19 18:30 12/18/19 18:29 Pantoprazole (Protonix) 40 mg BID ORAL 11/15/19 10:00 12/15/19 09:59 11/21/19 10:17 Tamsulosin HCl (Flomax) 0.4 mg BID ORAL 11/16/19 18:00 12/15/19 20:59 11/21/19 10:17 Temazepam (RestoriL) 7.5 mg HSPRN PRN ORAL Insomnia 11/18/19 21:00 11/25/19 20:59 Vancomycin HCl (Vanco rx to dose) 1 ea DAILY PRN MISC Per rx protocol 11/19/19 18:15 12/19/19 18:14 Todd Paz MD November 21, 2019 12:57
[2019-11-21] MEDS ORDERED: Milk of Magnesia 30ml Ud ORAL SCH (13:00)
--- NOTE | 2019-11-21 13:32 | Cardiac Electrophysiology PN ---
Assessment/Plan Assessment/Plan 1. Hypertension. On Norvasc 2.5 daily 2. Status post fall and right hip fracture and ORIF. EKG showed NSR with LBBB and echo Nl EF. No history of myocardial infarction or CHF per records. 3. COVID-19 is negative 4. Agitation and psychosis. Further evaluation by Psychiatry. 5. Diabetes. 6. Chronic kidney disease with a creatinine of 3.2 improved to 2.4 7. Hypernatremia with a sodium of 149. Resolved DW Dr Levine Subjective Subjective Tolerated surgery well. Echo Nl EF. ECG SR with LBBB. Objective Last 24 Hour Vital Signs Date Time Temp Pulse Resp B/P (MAP) Pulse Ox O2 Delivery O2 Flow Rate FiO2 11/21/19 10:17 92 114/56 11/21/19 08:00 98.6 92 17 114/56 (75) 97 11/21/19 04:00 98.1 93 17 95/92 (93) 100 11/21/19 00:00 98.0 91 16 90/58 (69) 99 11/20/19 21:00 Room Air 11/20/19 20:00 98.3 96 17 97/58 (71) 97 11/20/19 16:00 98.0 63 20 106/64 (78) 97 Intake and Output 11/20/19 11/21/19 19:00 07:00 Intake Total 1500 ml 360 ml Output Total 1200 ml 800 ml Balance 300 ml -440 ml Intake Oral 600 ml 360 ml IV Total 900 ml Output Urine Total 1200 ml 800 ml # Voids 1 Laboratory Tests Test 11/20/19 18:30 11/21/19 06:05 Random Vancomycin Level 12.5 ug/mL Sodium Level 140 MMOL/L (136-145) Potassium Level 4.1 MMOL/L (3.5-5.1) Chloride Level 109 MMOL/L (98-107) H Carbon Dioxide Level 23 MMOL/L (21-32) Anion Gap 8 mmol/L (5-15) Blood Urea Nitrogen 39 mg/dL (7-18) H Creatinine 2.4 MG/DL (0.55-1.30) H Estimat Glomerular Filtration Rate 27.4 mL/min (>60) Glucose Level 109 MG/DL (74-106) H Calcium Level 8.1 MG/DL (8.5-10.1) L Phosphorus Level 4.0 MG/DL (2.5-4.9) Magnesium Level 1.7 MG/DL (1.8-2.4) L Total Bilirubin 0.3 MG/DL (0.2-1.0) Aspartate Amino Transf (AST/SGOT) 28 U/L (15-37) Alanine Aminotransferase (ALT/SGPT) 9 U/L (12-78) L Alkaline Phosphatase 63 U/L (46-116) Total Protein 5.5 G/DL (6.4-8.2) L Albumin 1.2 G/DL (3.4-5.0) L Globulin 4.3 g/dL Albumin/Globulin Ratio 0.3 (1.0-2.7) L Objective HEAD AND NECK: No JVD. LUNGS: Clear. CARDIOVASCULAR: Regular S1 and S2 with no gallop. ABDOMEN: Soft. EXTREMITIES: S/P right hip ORIF Neno Ennis MD November 21, 2019 13:32
--- NOTE | 2019-11-21 14:37 | NUR ---
MRI RIGHT ELBOW COMPLETED.
--- NOTE | 2019-11-21 15:29 | Diagnostic Imaging Report ---
Indication: Elbow infection, abnormal recent imaging studies, pain Technique: Sagittal, coronal, and axial T1 and STIR images obtained of the right elbow Comparison: CT scan dated 11/20/2019, radiograph dated 11/19/2019 Findings: There is some image degradation due to motion artifact. There is extensive edema of the subcutaneous fat. There is also some edema of the forearm musculature and the bicipital musculature. There is an irregular collection immediately anterior to the distal ulna. Uncertain as to whether this is within the joint or immediately superficial to it. Suspect that this is within the joint. This collection measures 2.3 x 1.8. Only a normal amount of joint fluid is seen elsewhere within the joint, however. No other discrete fluid collections to suggest abscess are evident. On the axial images, there is some increased STIR and decreased T1 signal in the lateral condyle and epicondyle. This is seen only on the axial images. On the coronal images, the increased STIR signal is visualized, without T1 signal abnormality, and increased STIR signal appears to extend outside the bone. No definite signal abnormality is seen within the olecranon, the remainder of the visualized ulna, or the radius. Impression: No signal abnormality to correspond to the suspected abnormality described on recent abdominal radiograph and therefore no evidence of osteomyelitis within the olecranon. That finding probably reflects degenerative changes. Very questionable signal abnormality of the lateral humeral condyle and epicondyle. Suspect artifactual but could represent early osteomyelitis changes. 2.3 x 1.8 cm somewhat irregular collection anterior to the distal ulna. Probably represents focal effusion within the anterior joint, but the shape is somewhat unusual and extra synovial collection or abscess is also possible Extensive signal abnormality of the subcutaneous fat and musculature, most likely representing cellulitis/myositis given stated clinical history
[2019-11-21 16:00] VITALS: BP 106/55
--- NOTE | 2019-11-21 16:39 | General Progress Note ---
Assessment/Plan Problem List: (1) Hip fracture, right ICD Codes: S72.001A - Fracture of unspecified part of neck of right femur, initial encounter for closed fracture SNOMED: 798735208 Qualifiers: Qualified Codes: S72.001A - Fracture of unspecified part of neck of right femur, initial encounter for closed fracture (2) Fall ICD Codes: W19.XXXA - Unspecified fall, initial encounter SNOMED: 1547129, 244254191 Qualifiers: Qualified Codes: W19.XXXA - Unspecified fall, initial encounter (3) Dehydration ICD Codes: E86.0 - Dehydration SNOMED: 74499660 (4) Anemia ICD Codes: D64.9 - Anemia, unspecified SNOMED: 938003935 (5) JAIDA (acute kidney injury) ICD Codes: N17.9 - Acute kidney failure, unspecified SNOMED: 8219354, 75971292 Status: progressing Assessment/Plan: r/o osteomylitis of elbow. get pt/ot arf is improving s/p orif of hip fx Subjective ROS Limited/Unobtainable: Yes Allergies: Coded Allergies: No Known Allergies (Unverified , 10/15/15) Objective Last 24 Hour Vital Signs Date Time Temp Pulse Resp B/P (MAP) Pulse Ox O2 Delivery O2 Flow Rate FiO2 11/21/19 12:00 99.7 101 18 109/62 (78) 98 11/21/19 10:17 92 114/56 11/21/19 09:00 Room Air 11/21/19 08:00 98.6 92 17 114/56 (75) 97 11/21/19 04:00 98.1 93 17 95/92 (93) 100 11/21/19 00:00 98.0 91 16 90/58 (69) 99 11/20/19 21:00 Room Air 11/20/19 20:00 98.3 96 17 97/58 (71) 97 Intake and Output 11/20/19 11/21/19 19:00 07:00 Intake Total 1500 ml 360 ml Output Total 1200 ml 800 ml Balance 300 ml -440 ml Intake Oral 600 ml 360 ml IV Total 900 ml Output Urine Total 1200 ml 800 ml # Voids 1 Laboratory Tests 11/20/19 18:30: Random Vancomycin Level 12.5 11/21/19 06:05: Sodium Level 140, Potassium Level 4.1, Chloride Level 109H, Carbon Dioxide Level 23, Anion Gap 8, Blood Urea Nitrogen 39H, Creatinine 2.4H, Estimat Glomerular Filtration Rate 27.4, Glucose Level 109H, Calcium Level 8.1L, Phosphorus Level 4.0, Magnesium Level 1.7L, Total Bilirubin 0.3, Aspartate Amino Transf (AST/SGOT) 28, Alanine Aminotransferase (ALT/SGPT) 9L, Alkaline Phosphatase 63, Total Protein 5.5L, Albumin 1.2L, Globulin 4.3, Albumin/ Globulin Ratio 0.3L Height (Feet): 6 Height (Inches): 4.00 Weight (Pounds): 180 Lisa Coronel MD November 21, 2019 16:39
--- NOTE | 2019-11-21 19:26 | NUR ---
HAND-OFF: Report given to Gabriel RN, pt in stable condition. -MRI elbow done during my shift.
[2019-11-21 20:00] VITALS: BP 94/58
--- NOTE | 2019-11-21 21:00 | NUR ---
NURSE NOTES: Patient received in bed, aox3, no signs of acute distress; but warm to touch, noted with 101.4 temperature. Tylenol and cooling measures given. Notified Dr. Lalito Paz, received new orders. Will continue plan of care.
--- NOTE | 2019-11-21 22:14 | Progress Note ---
DATE: 11/21/2019 SUBJECTIVE: The patient is now on fourth floor. He is able to interact appropriately. He is less anxious. Compliant with medication. No behavior issues noted. He stated that he wants to be just alone and has episodes of forgetfulness. MENTAL STATUS EXAMINATION: The patient is alert and oriented to times, self, and place. Mood is neutral. Affect is flat. Thought process is concrete. Thought content, no suicidal or homicidal ideation. Cognition is impaired. Insight and judgment, impaired. ASSESSMENT: 1. Acute encephalopathy. 2. Dementia. PLAN: 1. Continue to monitor the patient's condition. 2. Provide the patient with reality orientation and supportive therapy. Sukhwinder Dickens M.D. DR: Raul JOB#: [id number] CC:
[2019-11-21] MEDS: cefTRIAXone 2 GM in D5W 55 ML IVPB SCH (23:09)
[2019-11-22] VITALS: BP 96/57
[2019-11-22 02:10] LABS: APPEARANCE,URINE CLEAR; BILIRUBIN, URINE NEGATIVE (NEGATIVE); GLUCOSE, URINE (UA) NEGATIVE (NEGATIVE); KETONES,URINE NEGATIVE (NEGATIVE); LEUKOCYTE ESTERASE ,URINE 1+ (NEGATIVE); NITRITE,URINE NEGATIVE (NEGATIVE); PH,URINE 5 (4.5-8.0); PROTEIN,URINE 2+ (NEGATIVE); UROBILINOGEN,URINE NORMAL MG/DL (0.0-1.0)
[2019-11-22 02:20] LABS: COLOR,URINE YELLOW
[2019-11-22 04:00] VITALS: BP 93/60
--- NOTE | 2019-11-22 07:29 | NUR ---
HAND-OFF: Report given to Joselito WILDE. Patient had just recently vomited black emesis. HOB is elevated and patient is still alert and awake. Endorsed to next shift to notify MD.
--- NOTE | 2019-11-22 07:57 | NUR ---
NURSE NOTES: received report from ANDRY Pearl. Patient in bed. alert. confused. verbally responsive. no respiratory distress on room air. no pain at this time. Patient had large amount of black emesis this morning. notified Dr. Coronel and waiting for further order. IV on LH saline lock intact. P200 mattress for skin management. negative covid9. fall risk. s/p right hip ORIF. on 11/18/19. fall risk. bed in the lowest position and locked. call light within reach. will continue to provide plan of care.
[2019-11-22 08:00] VITALS: BP 94/57
--- NOTE | 2019-11-22 08:54 | NUR ---
NURSE NOTES: received order from . GI consult with . Notified Dr. Bains the patient has GI consult. order noted and carried out.
[2019-11-22] MEDS: Aspirin Baby 81mg ORAL SCH ×3 (09:00→20:15)
[2019-11-22] MEDS: Docusate 100mg cap ORAL SCH ×3 (09:21→18:06)
[2019-11-22] MEDS: Tamsulosin 0.4mg cap ORAL SCH ×2 (09:21→18:06)
--- NOTE | 2019-11-22 09:23 | NUR ---
NURSE NOTES: held Aspirin. patient had a black emesis this morning.
--- NOTE | 2019-11-22 09:49 | General Progress Note ---
Assessment/Plan Assessment/Plan: (1) Right hip pain (2) Right hip fracture (3) S/P Right hip hemiarthroplasty (4) Right UE pain (5) Right UE osteomyelitis Patient to be continued on [place] as needed. D/w Dr. Sanders and he concurred. Subjective Date patient seen: November 22, 2019 Time patient seen: 09:15 - am Allergies: Coded Allergies: No Known Allergies (Unverified , 10/15/15) Subjective Constitutional: Reports: weakness HEENT: Reports: no symptoms Cardiovascular: Reports: no symptoms Respiratory: Reports: no symptoms Gastrointestinal/Abdominal: Reports: no symptoms Genitourinary: Reports: no symptoms Neurologic/Psychiatric: Reports: weakness Endocrine: Reports: no symptoms Hematologic/Lymphatic: Reports: no symptoms Subjective Patient denies pain at this time. He has no new complaints at this time MRI of Elbow was performed. Objective Last 24 Hour Vital Signs Date Time Temp Pulse Resp B/P (MAP) Pulse Ox O2 Delivery O2 Flow Rate FiO2 11/22/19 09:00 116 94/57 11/22/19 08:00 98.4 116 20 94/57 (69) 97 11/22/19 04:47 99.7 11/22/19 04:00 101.0 117 28 93/60 (71) 97 11/22/19 00:00 99.7 110 24 96/57 (70) 93 11/21/19 21:00 Room Air 11/21/19 20:00 101.4 108 24 94/58 (70) 96 11/21/19 16:00 99.7 105 18 106/55 (72) 97 11/21/19 12:00 99.7 101 18 109/62 (78) 98 11/21/19 10:17 92 114/56 Intake and Output 11/21/19 11/22/19 19:00 07:00 Intake Total 720 ml 55 ml Output Total 600 ml 500 ml Balance 120 ml -445 ml Intake Oral 720 ml IV Total 55 ml Output Urine Total 600 ml 500 ml # Bowel Movements 1 Laboratory Tests 11/22/19 02:00: Urine Color Yellow, Urine Appearance Clear, Urine pH 5, Urine Specific [place] 1.010, Urine Protein 2+H, Urine Glucose (UA) Negative, Urine Ketones Negative, Urine Blood Negative, Urine Nitrite Negative, Urine Bilirubin Negative, Urine Urobilinogen Normal, Urine Leukocyte Esterase 1+H, Urine RBC 0, Urine WBC 0-2, Urine Squamous Epithelial Cells Few, Urine Bacteria None 11/22/19 09:30: Random Vancomycin Level [Pending] Height (Feet): 6 Height (Inches): 4.00 Weight (Pounds): 180 Objective General Appearance: no apparent distress, alert EENT: PERRL/EOMI, normal ENT inspection Neck: non-tender, normal alignment Cardiovascular: normal rate, regular rhythm Respiratory/Chest: decreased breath sounds Abdomen: non tender, soft Extremities: other - tenderness to palpation of right UE and LE Neurologic: alert, responsive Skin: normal pigmentation Procedure: MRI Elbow no Contrast R Indication: Elbow infection, abnormal recent imaging studies, pain Technique: Sagittal, coronal, and axial T1 and STIR images obtained of the right elbow Comparison: CT scan dated 11/20/2019, radiograph dated 11/19/2019 Findings: There is some image degradation due to motion artifact. There is extensive edema of the subcutaneous fat. There is also some edema of the forearm musculature and the bicipital musculature. There is an irregular collection immediately anterior to the distal ulna. Uncertain as to whether this is within the joint or immediately superficial to it. Suspect that this is within the joint. This collection measures 2.3 x 1.8. Only a normal amount of joint fluid is seen elsewhere within the joint, however. No other discrete fluid collections to suggest abscess are evident. On the axial images, there is some increased STIR and decreased T1 signal in the lateral condyle and epicondyle. This is seen only on the axial images. On the coronal images, the increased STIR signal is visualized, without T1 signal abnormality, and increased STIR signal appears to extend outside the bone. No definite signal abnormality is seen within the olecranon, the remainder of the visualized ulna, or the radius. Impression: No signal abnormality to correspond to the suspected abnormality described on recent abdominal radiograph and therefore no evidence of osteomyelitis within the olecranon. That finding probably reflects degenerative changes. Very questionable signal abnormality of the lateral humeral condyle and epicondyle. Suspect artifactual but could represent early osteomyelitis changes. 2.3 x 1.8 cm somewhat irregular collection anterior to the distal ulna. Probably represents focal effusion within the anterior joint, but the shape is somewhat unusual and extra synovial collection or abscess is also possible Extensive signal abnormality of the subcutaneous fat and musculature, most likely representing cellulitis/myositis given stated clinical history David Hi November 22, 2019 09:49
[2019-11-22] MEDS ORDERED: Miralax 17gm pkt ORAL PRN (11:00)
--- NOTE | 2019-11-22 11:49 | Nephrology Progress Note ---
Assessment/Plan Problem List: (1) JAIDA (acute kidney injury) Assessment: Serum creatinine lower (2) Anemia (3) Dehydration (4) Hip fracture, right (5) Fall Assessment Acute renal failure Possibly underlying chronic kidney failure Dehydration Status post fall and fracture of the right hip History of hypertension History of diabetes mellitus History of psych disease Anemia Plan Stop Norvasc as blood pressure is low Check serum cortisol level in a.m. Continue to monitor renal parameters Continue per consultants Previously: Patient underwent hip surgery November 17 today's labs reviewed, serum creatinine down to 2.5 Since serum creatinine is declining will continue hydration DC [place] today November 19 On soft diet now Adjust blood pressure medications IV fluids Anemia work-up Protonix, Colace Pain medication Monitor renal parameters Urine studies Per consultants Subjective ROS Limited/Unobtainable: No Constitutional: Reports: malaise Objective Objective Last 24 Hour Vital Signs Date Time Temp Pulse Resp B/P (MAP) Pulse Ox O2 Delivery O2 Flow Rate FiO2 11/22/19 09:00 Room Air 11/22/19 09:00 116 94/57 11/22/19 08:00 98.4 116 20 94/57 (69) 97 11/22/19 04:47 99.7 11/22/19 04:00 101.0 117 28 93/60 (71) 97 11/22/19 00:00 99.7 110 24 96/57 (70) 93 11/21/19 21:00 Room Air 11/21/19 20:00 101.4 108 24 94/58 (70) 96 11/21/19 16:00 99.7 105 18 106/55 (72) 97 11/21/19 12:00 99.7 101 18 109/62 (78) 98 Intake and Output 11/21/19 11/22/19 19:00 07:00 Intake Total 720 ml 55 ml Output Total 600 ml 500 ml Balance 120 ml -445 ml Intake Oral 720 ml IV Total 55 ml Output Urine Total 600 ml 500 ml # Bowel Movements 1 Laboratory Tests 11/22/19 02:00: Urine Color Yellow, Urine Appearance Clear, Urine pH 5, Urine Specific [place] 1.010, Urine Protein 2+H, Urine Glucose (UA) Negative, Urine Ketones Negative, Urine Blood Negative, Urine Nitrite Negative, Urine Bilirubin Negative, Urine Urobilinogen Normal, Urine Leukocyte Esterase 1+H, Urine RBC 0, Urine WBC 0-2, Urine Squamous Epithelial Cells Few, Urine Bacteria None 11/22/19 09:30: Random Vancomycin Level 17.4 Height (Feet): 6 Height (Inches): 4.00 Weight (Pounds): 180 General Appearance: no apparent distress Cardiovascular: tachycardia Respiratory/Chest: decreased breath sounds Abdomen: soft Objective No change Armen Levine MD November 22, 2019 11:49
--- NOTE | 2019-11-22 11:56 | Hematology/Onc Progress Note ---
Assessment/Plan Assessment/Plan Assessment and Recs # Anemia of chronic disease due to underlying chronic medical issues, multifactorial v Gi bleed --> Anemia workup has been reviewed --> No evidence of hemolysis is noted, peripheral smear has been reviewed. --> Hgb goal >7. Transfuse prn. --> Epogen or iron at this time is not particularly indicated --> Medications have been reviewed --> low threshold for gi evaluation in case has occult + --> hgb trend 9.9-->9.3 -->9.5-->8.3 # Hip fracture, right --> Fracture of unspecified part of neck of right femur, initial encounter for closed fracture --> s/p orif # Fall may require surger per ortho --> neuro and ortho # JAIDA on CKD --> per Dr. Levine # Psych disorder --> per Dr. Dickens The timing of this note does not necessarily reflect the time of the patient was seen. Greatly appreciate consultation. Subjective Constitutional: Denies: no symptoms, chills, fever, malaise, weakness, other HEENT: Denies: no symptoms, eye pain, blurred vision, tearing, double vision, ear pain, ear discharge, nose pain, nose congestion, throat pain, throat swelling, mouth pain, mouth swelling, other Cardiovascular: Denies: no symptoms, chest pain, edema, irregular heart rate, lightheadedness, palpitations, syncope, other Respiratory: Denies: no symptoms, cough, shortness of breath, SOB with excertion, SOB at rest, sputum, wheezing, other Genitourinary: Denies: no symptoms, burning, discharge, frequency, flank pain, hematuria, incontinence, pain, urgency, other Neurologic/Psychiatric: Denies: no symptoms, anxiety, depressed, emotional problems, headache, numbness, paresthesia, pre-existing deficit, seizure, tingling, tremors, weakness, other Endocrine: Denies: no symptoms, excessive sweating, flushing, intolerance to cold, intolerance to heat, increased hunger, increased thirst, increased urine, unexplained weight gain, unexplained weight loss, other Allergies: Coded Allergies: No Known Allergies (Unverified , 10/15/15) Subjective 5/3 confused, pending right hip hemiarthroplasty, bilat restraints 5/4 confused, hgb 9.5, no bleeding, reviewed renal recs 11/18 still requiring clearance by psych, cards for clearance to surgery 11/19 awake and alert, dressing dry and intact, on room air 11/20 still confused no bleeding, meds noted, no night sweats, dw rn 11/21 asa discontinued, with black emesis, gi care norco prn Objective Objective Current Medications Medications (Trade) Dose Ordered Sig/Juan Route PRN Reason Start Time Stop Time Status Last Admin Dose Admin Acetaminophen (Tylenol) 650 mg Q4H PRN ORAL Mild Pain (Pain Scale 1-3) 11/14/19 19:15 12/14/19 19:14 Acetaminophen (Tylenol) 650 mg Q4H PRN ORAL Temp >100.5 11/18/19 15:00 12/18/19 14:59 11/22/19 04:17 Acetaminophen/ Hydrocodone Bitart ([place] 7.5/325) 1 tab Q4H PRN ORAL severe pain 11/19/19 15:15 11/26/19 15:14 Aspirin (ASA) 81 mg Q12HR ORAL 11/18/19 21:00 01/02/20 20:59 11/21/19 20:08 Ceftriaxone Sodium 2 gm/ Dextrose 55 ml @ 110 mls/hr Q24H IVPB 11/21/19 23:00 11/28/19 22:59 11/21/19 23:09 Docusate Sodium (Colace) 100 mg THREE TIMES A DAY ORAL 11/19/19 18:00 12/19/19 17:59 11/22/19 09:21 Metoclopramide HCl (Reglan) 10 mg Q6H PRN IVP Nausea & Vomiting 11/18/19 18:30 12/18/19 18:29 Pantoprazole (Protonix) 40 mg DAILY ORAL 11/23/19 09:00 12/23/19 08:59 Polyethylene Glycol (Miralax) 17 gm DAILY PRN ORAL Constipation 11/22/19 11:00 12/22/19 10:59 Tamsulosin HCl (Flomax) 0.4 mg BID ORAL 11/16/19 18:00 12/15/19 20:59 11/22/19 09:21 Temazepam (RestoriL) 7.5 mg HSPRN PRN ORAL Insomnia 11/18/19 21:00 11/25/19 20:59 Vancomycin HCl (Vanco rx to dose) 1 ea DAILY PRN MISC Per rx protocol 11/19/19 18:15 12/19/19 18:14 Vancomycin HCl 1 gm/Dextrose 275 ml @ 183.708 mls/hr ONCE IVPB 11/22/19 21:00 11/22/19 23:00 Last 24 Hour Vital Signs Date Time Temp Pulse Resp B/P (MAP) Pulse Ox O2 Delivery O2 Flow Rate FiO2 11/22/19 09:00 Room Air 11/22/19 09:00 116 94/57 11/22/19 08:00 98.4 116 20 94/57 (69) 97 11/22/19 04:47 99.7 11/22/19 04:00 101.0 117 28 93/60 (71) 97 11/22/19 00:00 99.7 110 24 96/57 (70) 93 11/21/19 21:00 Room Air 11/21/19 20:00 101.4 108 24 94/58 (70) 96 11/21/19 16:00 99.7 105 18 106/55 (72) 97 11/21/19 12:00 99.7 101 18 109/62 (78) 98 11/21/19 10:17 92 114/56 11/21/19 09:00 Room Air 11/21/19 08:00 98.6 92 17 114/56 (75) 97 11/21/19 04:00 98.1 93 17 95/92 (93) 100 11/21/19 00:00 98.0 91 16 90/58 (69) 99 11/20/19 21:00 Room Air 11/20/19 20:00 98.3 96 17 97/58 (71) 97 11/20/19 16:00 98.0 63 20 106/64 (78) 97 11/20/19 12:00 97.9 75 18 123/63 (83) 97 Intake and Output 11/21/19 11/22/19 19:00 07:00 Intake Total 720 ml 55 ml Output Total 600 ml 500 ml Balance 120 ml -445 ml Intake Oral 720 ml IV Total 55 ml Output Urine Total 600 ml 500 ml # Bowel Movements 1 Labs Test 11/20/19 08:11 11/20/19 18:30 11/21/19 06:05 11/22/19 02:00 White Blood Count 10.8 K/UL (4.8-10.8) Red Blood Count 2.72 M/UL (4.70-6.10) Hemoglobin 8.3 G/DL (14.2-18.0) Hematocrit 25.0 % (42.0-52.0) Mean Corpuscular Volume 92 FL (80-99) Mean Corpuscular Hemoglobin 30.7 PG (27.0-31.0) Mean Corpuscular Hemoglobin Concent 33.4 G/DL (32.0-36.0) Red Cell Distribution Width 14.0 % (11.6-14.8) Platelet Count 332 K/UL (150-450) Mean Platelet Volume 4.5 FL (6.5-10.1) Neutrophils (%) (Auto) 70.7 % (45.0-75.0) Lymphocytes (%) (Auto) 19.1 % (20.0-45.0) Monocytes (%) (Auto) 7.6 % (1.0-10.0) Eosinophils (%) (Auto) 2.2 % (0.0-3.0) Basophils (%) (Auto) 0.4 % (0.0-2.0) Sodium Level 139 MMOL/L (136-145) 140 MMOL/L (136-145) Potassium Level 4.1 MMOL/L (3.5-5.1) 4.1 MMOL/L (3.5-5.1) Chloride Level 108 MMOL/L (98-107) 109 MMOL/L (98-107) Carbon Dioxide Level 23 MMOL/L (21-32) 23 MMOL/L (21-32) Anion Gap 8 mmol/L (5-15) 8 mmol/L (5-15) Blood Urea Nitrogen 36 mg/dL (7-18) 39 mg/dL (7-18) Creatinine 2.5 MG/DL (0.55-1.30) 2.4 MG/DL (0.55-1.30) Estimat Glomerular Filtration Rate 26.1 mL/min (>60) 27.4 mL/min (>60) Glucose Level 117 MG/DL (74-106) 109 MG/DL (74-106) Uric Acid 7.8 MG/DL (2.6-7.2) Calcium Level 8.2 MG/DL (8.5-10.1) 8.1 MG/DL (8.5-10.1) Phosphorus Level 4.3 MG/DL (2.5-4.9) 4.0 MG/DL (2.5-4.9) Magnesium Level 1.6 MG/DL (1.8-2.4) 1.7 MG/DL (1.8-2.4) Total Bilirubin 0.3 MG/DL (0.2-1.0) 0.3 MG/DL (0.2-1.0) Aspartate Amino Transf (AST/SGOT) 18 U/L (15-37) 28 U/L (15-37) Alanine Aminotransferase (ALT/SGPT) 9 U/L (12-78) 9 U/L (12-78) Alkaline Phosphatase 47 U/L (46-116) 63 U/L (46-116) C-Reactive Protein, Quantitative 25.5 mg/dL (0.00-0.90) Pro-B-Type Natriuretic Peptide 1650 pg/mL (0-125) Total Protein 5.7 G/DL (6.4-8.2) 5.5 G/DL (6.4-8.2) Albumin 1.3 G/DL (3.4-5.0) 1.2 G/DL (3.4-5.0) Globulin 4.4 g/dL 4.3 g/dL Albumin/Globulin Ratio 0.3 (1.0-2.7) 0.3 (1.0-2.7) Random Vancomycin Level 12.5 ug/mL Urine Color Yellow Urine Appearance Clear Urine pH 5 (4.5-8.0) Urine Specific [place] 1.010 (1.005-1.035) Urine Protein 2+ (NEGATIVE) Urine Glucose (UA) Negative (NEGATIVE) Urine Ketones Negative (NEGATIVE) Urine Blood Negative (NEGATIVE) Urine Nitrite Negative (NEGATIVE) Urine Bilirubin Negative (NEGATIVE) Urine Urobilinogen Normal MG/DL (0.0-1.0) Urine Leukocyte Esterase 1+ (NEGATIVE) Urine RBC 0 /HPF (0 - 0) Urine WBC 0-2 /HPF (0 - 0) Urine Squamous Epithelial Cells Few /LPF (NONE/OCC) Urine Bacteria None /HPF (NONE) Test 11/22/19 09:30 Random Vancomycin Level 17.4 ug/mL Height (Feet): 6 Height (Inches): 4.00 Weight (Pounds): 180 Objective PE: Vitals: reviewed, stable General Appearance: NAD HEENT: normocephalic, atraumatic Neck: non-tender, normal alignment Respiratory/Chest: normal breath sounds bilaterally Cardiovascular/Chest: normal peripheral pulses, normal rate Abdomen: normal bowel sounds, soft, nontender Extremities: normal range of motion Neuro: altered, encephalopathic : bonita+ Juan Luis Monique MD November 22, 2019 11:56
[2019-11-22 12:00] VITALS: BP 92/70
[2019-11-22 12:05] LABS: HEMATOCRIT 21.4 % (42.0-52.0); HEMOGLOBIN 7.1 G/DL (14.2-18.0); MEAN CORPUSCULAR VOLUME 91 FL (80-99); PLATELET COUNT 325 K/UL (150-450); RED BLOOD COUNT 2.35 M/UL (4.70-6.10); WHITE BLOOD COUNT 8.6 K/UL (4.8-10.8)
--- NOTE | 2019-11-22 12:37 | NUR ---
RADIOLOGY DEPT., CHEST X-RAY DONE.-P.DYE
--- NOTE | 2019-11-22 13:08 | Diagnostic Imaging Report ---
Indication: Shortness of breath Technique: One view of the chest Comparison: November 14, 2019 Findings: Presumed pleural calcification is seen in the left lung base. There is slight blunting of the right costophrenic sulcus. The lungs and pleural spaces are otherwise clear. The heart size is normal. Impression: Possible small right pleural effusion, versus pleural scarring, unchanged since 11/14/2019
--- NOTE | 2019-11-22 13:34 | Infectious Diseases Prog Note ---
Assessment/Plan Assessment/Plan IMPRESSION: Pos operative fever ? collection of R elbow Cellulitis of R arm Right hip fracture, s/p ORIF schizophrenia, BPH, Acute renal failure, Anemia, Fecal impaction. RECOMMENDATION: Continue IV Vancomycin & Rocephin Will f/u cultures Case was D/W primary MD Negative COVID-19 test. Subjective ROS Limited/Unobtainable: Yes Constitutional: Reports: fever, other - sonce last night Allergies: Coded Allergies: No Known Allergies (Unverified , 10/15/15) Objective Vital Signs Last 24 Hour Vital Signs Date Time Temp Pulse Resp B/P (MAP) Pulse Ox O2 Delivery O2 Flow Rate FiO2 11/22/19 09:00 Room Air 11/22/19 09:00 116 94/57 11/22/19 08:00 98.4 116 20 94/57 (69) 97 11/22/19 04:47 99.7 11/22/19 04:00 101.0 117 28 93/60 (71) 97 11/22/19 00:00 99.7 110 24 96/57 (70) 93 11/21/19 21:00 Room Air 11/21/19 20:00 101.4 108 24 94/58 (70) 96 11/21/19 16:00 99.7 105 18 106/55 (72) 97 Height (Feet): 6 Height (Inches): 4.00 Weight (Pounds): 180 General Appearance: no acute distress HEENT: mucous membranes moist Respiratory/Chest: lungs clear Cardiovascular: normal rate Abdomen: soft, non tender Extremities: other - localized swelling of right elbow Neurologic/Psychiatric: alert, responsive Laboratory Tests Test 11/22/19 02:00 11/22/19 09:30 11/22/19 09:35 11/22/19 11:50 Urine Color Yellow Urine Appearance Clear Urine pH 5 (4.5-8.0) Urine Specific [place] 1.010 (1.005-1.035) Urine Protein 2+ (NEGATIVE) H Urine Glucose (UA) Negative (NEGATIVE) Urine Ketones Negative (NEGATIVE) Urine Blood Negative (NEGATIVE) Urine Nitrite Negative (NEGATIVE) Urine Bilirubin Negative (NEGATIVE) Urine Urobilinogen Normal MG/DL (0.0-1.0) Urine Leukocyte Esterase 1+ (NEGATIVE) H Urine RBC 0 /HPF (0 - 0) Urine WBC 0-2 /HPF (0 - 0) Urine Squamous Epithelial Cells Few /LPF (NONE/OCC) Urine Bacteria None /HPF (NONE) Random Vancomycin Level 17.4 ug/mL White Blood Count 8.6 K/UL (4.8-10.8) Red Blood Count 2.35 M/UL (4.70-6.10) L Hemoglobin 7.1 G/DL (14.2-18.0) L Hematocrit 21.4 % (42.0-52.0) L Mean Corpuscular Volume 91 FL (80-99) Mean Corpuscular Hemoglobin 30.1 PG (27.0-31.0) Mean Corpuscular Hemoglobin Concent 33.1 G/DL (32.0-36.0) Red Cell Distribution Width 14.0 % (11.6-14.8) Platelet Count 325 K/UL (150-450) Mean Platelet Volume 4.0 FL (6.5-10.1) L Neutrophils (%) (Auto) % (45.0-75.0) Lymphocytes (%) (Auto) % (20.0-45.0) Monocytes (%) (Auto) % (1.0-10.0) Eosinophils (%) (Auto) % (0.0-3.0) Basophils (%) (Auto) % (0.0-2.0) Neutrophils % (Manual) Pending Lymphocytes % (Manual) Pending Platelet Estimate Pending Platelet Morphology Pending Stool Occult Blood Pending Current Medications Medications (Trade) Dose Ordered Sig/Juan Route PRN Reason Start Time Stop Time Status Last Admin Dose Admin Acetaminophen (Tylenol) 650 mg Q4H PRN ORAL Mild Pain (Pain Scale 1-3) 11/14/19 19:15 12/14/19 19:14 Acetaminophen (Tylenol) 650 mg Q4H PRN ORAL Temp >100.5 11/18/19 15:00 12/18/19 14:59 11/22/19 04:17 Acetaminophen/ Hydrocodone Bitart ([place] 7.5/325) 1 tab Q4H PRN ORAL severe pain 11/19/19 15:15 11/26/19 15:14 Aspirin (ASA) 81 mg Q12HR ORAL 11/18/19 21:00 01/02/20 20:59 11/21/19 20:08 Ceftriaxone Sodium 2 gm/ Dextrose 55 ml @ 110 mls/hr Q24H IVPB 11/21/19 23:00 11/28/19 22:59 11/21/19 23:09 Docusate Sodium (Colace) 100 mg THREE TIMES A DAY ORAL 11/19/19 18:00 12/19/19 17:59 11/22/19 09:21 Metoclopramide HCl (Reglan) 10 mg Q6H PRN IVP Nausea & Vomiting 11/18/19 18:30 12/18/19 18:29 Pantoprazole (Protonix) 40 mg DAILY ORAL 11/23/19 09:00 12/23/19 08:59 Polyethylene Glycol (Miralax) 17 gm DAILY PRN ORAL Constipation 11/22/19 11:00 12/22/19 10:59 Tamsulosin HCl (Flomax) 0.4 mg BID ORAL 11/16/19 18:00 12/15/19 20:59 11/22/19 09:21 Temazepam (RestoriL) 7.5 mg HSPRN PRN ORAL Insomnia 11/18/19 21:00 11/25/19 20:59 Vancomycin HCl (Vanco rx to dose) 1 ea DAILY PRN MISC Per rx protocol 11/19/19 18:15 12/19/19 18:14 Vancomycin HCl 1 gm/Dextrose 275 ml @ 183.708 mls/hr ONCE IVPB 11/22/19 21:00 11/22/19 23:00 Todd Paz MD November 22, 2019 13:34
--- NOTE | 2019-11-22 14:34 | Cardiac Electrophysiology PN ---
Assessment/Plan Assessment/Plan 1. Hypertension. On Norvasc 2.5 daily and prn Clonidine 2. Status post fall and right hip fracture and ORIF. EKG showed NSR with LBBB and echo Nl EF. No history of myocardial infarction or CHF per records. 3. COVID-19 is negative 4. Agitation and psychosis. Further evaluation by Psychiatry. 5. Diabetes. 6. Chronic kidney disease with a creatinine of 3.2 improved to 2.4 7. Hypernatremia with a sodium of 149. Resolved DW RN Subjective Subjective Tolerated surgery well. Echo Nl EF. ECG SR with LBBB. Objective Last 24 Hour Vital Signs Date Time Temp Pulse Resp B/P (MAP) Pulse Ox O2 Delivery O2 Flow Rate FiO2 11/22/19 12:00 98.1 108 20 92/70 (77) 97 11/22/19 09:00 Room Air 11/22/19 09:00 116 94/57 11/22/19 08:00 98.4 116 20 94/57 (69) 97 11/22/19 04:47 99.7 11/22/19 04:00 101.0 117 28 93/60 (71) 97 11/22/19 00:00 99.7 110 24 96/57 (70) 93 11/21/19 21:00 Room Air 11/21/19 20:00 101.4 108 24 94/58 (70) 96 11/21/19 16:00 99.7 105 18 106/55 (72) 97 Intake and Output 11/21/19 11/22/19 19:00 07:00 Intake Total 720 ml 55 ml Output Total 600 ml 500 ml Balance 120 ml -445 ml Intake Oral 720 ml IV Total 55 ml Output Urine Total 600 ml 500 ml # Bowel Movements 1 Laboratory Tests Test 11/22/19 02:00 11/22/19 09:30 11/22/19 09:35 11/22/19 11:50 Urine Color Yellow Urine Appearance Clear Urine pH 5 (4.5-8.0) Urine Specific [place] 1.010 (1.005-1.035) Urine Protein 2+ (NEGATIVE) H Urine Glucose (UA) Negative (NEGATIVE) Urine Ketones Negative (NEGATIVE) Urine Blood Negative (NEGATIVE) Urine Nitrite Negative (NEGATIVE) Urine Bilirubin Negative (NEGATIVE) Urine Urobilinogen Normal MG/DL (0.0-1.0) Urine Leukocyte Esterase 1+ (NEGATIVE) H Urine RBC 0 /HPF (0 - 0) Urine WBC 0-2 /HPF (0 - 0) Urine Squamous Epithelial Cells Few /LPF (NONE/OCC) Urine Bacteria None /HPF (NONE) Random Vancomycin Level 17.4 ug/mL White Blood Count 8.6 K/UL (4.8-10.8) Red Blood Count 2.35 M/UL (4.70-6.10) L Hemoglobin 7.1 G/DL (14.2-18.0) L Hematocrit 21.4 % (42.0-52.0) L Mean Corpuscular Volume 91 FL (80-99) Mean Corpuscular Hemoglobin 30.1 PG (27.0-31.0) Mean Corpuscular Hemoglobin Concent 33.1 G/DL (32.0-36.0) Red Cell Distribution Width 14.0 % (11.6-14.8) Platelet Count 325 K/UL (150-450) Mean Platelet Volume 4.0 FL (6.5-10.1) L Neutrophils (%) (Auto) % (45.0-75.0) Lymphocytes (%) (Auto) % (20.0-45.0) Monocytes (%) (Auto) % (1.0-10.0) Eosinophils (%) (Auto) % (0.0-3.0) Basophils (%) (Auto) % (0.0-2.0) Differential Total Cells Counted 100 Neutrophils % (Manual) 65 % (45-75) Lymphocytes % (Manual) 18 % (20-45) L Monocytes % (Manual) 12 % (1-10) H Eosinophils % (Manual) 0 % (0-3) Basophils % (Manual) 0 % (0-2) Band Neutrophils 5 % (0-8) Platelet Estimate Adequate Platelet Morphology Normal Hypochromasia 3+ Anisocytosis 1+ Stool Occult Blood Negative (NEGATIVE) Objective HEAD AND NECK: No JVD. LUNGS: Clear. CARDIOVASCULAR: Regular S1 and S2 with no gallop. ABDOMEN: Soft. EXTREMITIES: S/P right hip ORIF Neno Ennis MD November 22, 2019 14:34
--- NOTE | 2019-11-22 15:21 | Consultation ---
History of Present Illness General Date patient seen: November 22, 2019 Reason for Hospitalization: Pain Present Illness HPI 64-year-old male [place] resident multi-medical comorbidities who presents [facility] for pain identified to have a right femoral neck fracture displaced requiring ORIF by orthopedic surgery has been well since recovering but persistent leukocytosis and complaining of some arm pain. CT performed followed by MRI MRI identified abnormal collection around the ulnar and surgery was called to evaluate and assist with care. Considerations for possible abscess. Patient seen, [place], chart reviewed. Case discussed with PCP infectious disease. Patient with prior leukocytosis now resolving. ESR and CRP significantly elevated. Complaining of pain in arm and hip Allergies: Coded Allergies: No Known Allergies (Unverified , 10/15/15) COVID-19 Screening Contact w/high risk pt: No Recent Travel to affected area: No Experienced COVID-19 symptoms?: No Medication History Scheduled Amlodipine Besylate* (Amlodipine Besylate*), 10 MG ORAL DAILY, (Reported) Benztropine Mesylate (Cogentin 1mg*), 1 MG ORAL EVERY 12 HOURS, (Reported) Clonazepam* (Klonopin*), 0.5 MG ORAL Q6H, (Reported) Clonidine Hcl* (Catapres*), 0.1 MG ORAL EVERY 8 HOURS, (Reported) Divalproex Sodium (Depakote), 500 MG PO BID, (Reported) Divalproex Sodium* (Depakote*), 500 MG PO Q12HR, (Reported) Docusate Sodium* (Colace*), 100 MG ORAL TWICE A DAY Haloperidol* (Haldol*), 20 MG ORAL BEDTIME, (Reported) Hydralazine Hcl* (Hydralazine Hcl*), 10 MG ORAL EVERY 8 HOURS, (Reported) Labetalol HCl (Labetalol HCl), 100 MG ORAL EVERY 12 HOURS, (Reported) Olanzapine* (Zyprexa*), 10 MG ORAL BID, (Reported) Pantoprazole* (Pantoprazole*), 40 MG ORAL DAILY, (Reported) Polyethylene Glycol 3350* (Miralax*), 17 GM ORAL DAILY Tamsulosin HCl (Flomax), 0.4 MG ORAL DAILY, (Reported) Scheduled PRN Magnesium Hydroxide* (Milk Of Magnesia*), 30 ML ORAL DAILY PRN for Constipation, (Reported) Patient History Limited by: medical condition History Provided By: Medical Record, PMD Healthcare decision maker Resuscitation status Full Code Advanced Directive on File Past Medical/Surgical History Past Medical/Surgical History: (1) Fluid collection (edema) in the arms, legs, hands and feet (2) Dehydration (3) Anemia (4) JAIDA (acute kidney injury) (5) Fall (6) Hip fracture, right Review of Systems Review of Symptoms General ROS: no weight loss or fever Psychological ROS: no depression or mood changes, no memory loss Ophthalmic ROS: no visual changes or eye irritation ENT ROS: no nasal congestion, hearing loss, dizziness Allergy and Immunology ROS: no allergic symptoms or urticaria Hematological and Lymphatic ROS: no swollen glands, unusual bleeding or bruising Endocrine ROS: no polyuria, polydipsia, weight changes, temperature intolerance Respiratory ROS: no cough, shortness of breath, or wheezing Cardiovascular ROS: no chest pain or dyspnea on exertion Gastrointestinal ROS: denies abdominal pain, bright red blood in stool. Musculoskeletal ROS: no myalgias or arthralgias Neurological ROS: no TIA or stroke symptoms Dermatological ROS: no new or changing skin lesions, rashes or pruritis Physical Exam Physical Exam General appearance: alert, cooperative, no distress, appears stated age Head: Normocephalic, without obvious abnormality, atraumatic Eyes: conjunctivae/corneas clear. PERRL, EOM's intact. Fundi benign Throat: Lips, mucosa, and tongue normal. Teeth and gums normal Neck: supple, symmetrical, trachea midline, no adenopathy, thyroid: not enlarged, symmetric, no tenderness/mass/nodules, no carotid bruit and no JVD Lungs: clear to auscultation bilaterally Heart: regular rate and rhythm, S1, S2 normal, no murmur, click, rub or gallop Abdomen: soft, non-tender. Bowel sounds normal. No masses, no organomegaly Extremities: extremities normal, atraumatic, no cyanosis or edema Pulses: 2+ and symmetric Skin: Skin color, texture, turgor normal. No rashes or lesions Neurologic: Grossly normal Last 24 Hour Vital Signs Date Time Temp Pulse Resp B/P (MAP) Pulse Ox O2 Delivery O2 Flow Rate FiO2 11/22/19 12:00 98.1 108 20 92/70 (77) 97 11/22/19 09:00 Room Air 11/22/19 09:00 116 94/57 11/22/19 08:00 98.4 116 20 94/57 (69) 97 11/22/19 04:47 99.7 11/22/19 04:00 101.0 117 28 93/60 (71) 97 11/22/19 00:00 99.7 110 24 96/57 (70) 93 11/21/19 21:00 Room Air 11/21/19 20:00 101.4 108 24 94/58 (70) 96 11/21/19 16:00 99.7 105 18 106/55 (72) 97 Intake and Output 11/21/19 11/22/19 19:00 07:00 Intake Total 720 ml 55 ml Output Total 600 ml 500 ml Balance 120 ml -445 ml Intake Oral 720 ml IV Total 55 ml Output Urine Total 600 ml 500 ml # Bowel Movements 1 Laboratory Tests Test 11/22/19 02:00 11/22/19 09:30 11/22/19 09:35 11/22/19 11:50 Urine Color Yellow Urine Appearance Clear Urine pH 5 (4.5-8.0) Urine Specific [place] 1.010 (1.005-1.035) Urine Protein 2+ (NEGATIVE) H Urine Glucose (UA) Negative (NEGATIVE) Urine Ketones Negative (NEGATIVE) Urine Blood Negative (NEGATIVE) Urine Nitrite Negative (NEGATIVE) Urine Bilirubin Negative (NEGATIVE) Urine Urobilinogen Normal MG/DL (0.0-1.0) Urine Leukocyte Esterase 1+ (NEGATIVE) H Urine RBC 0 /HPF (0 - 0) Urine WBC 0-2 /HPF (0 - 0) Urine Squamous Epithelial Cells Few /LPF (NONE/OCC) Urine Bacteria None /HPF (NONE) Random Vancomycin Level 17.4 ug/mL White Blood Count 8.6 K/UL (4.8-10.8) Red Blood Count 2.35 M/UL (4.70-6.10) L Hemoglobin 7.1 G/DL (14.2-18.0) L Hematocrit 21.4 % (42.0-52.0) L Mean Corpuscular Volume 91 FL (80-99) Mean Corpuscular Hemoglobin 30.1 PG (27.0-31.0) Mean Corpuscular Hemoglobin Concent 33.1 G/DL (32.0-36.0) Red Cell Distribution Width 14.0 % (11.6-14.8) Platelet Count 325 K/UL (150-450) Mean Platelet Volume 4.0 FL (6.5-10.1) L Neutrophils (%) (Auto) % (45.0-75.0) Lymphocytes (%) (Auto) % (20.0-45.0) Monocytes (%) (Auto) % (1.0-10.0) Eosinophils (%) (Auto) % (0.0-3.0) Basophils (%) (Auto) % (0.0-2.0) Differential Total Cells Counted 100 Neutrophils % (Manual) 65 % (45-75) Lymphocytes % (Manual) 18 % (20-45) L Monocytes % (Manual) 12 % (1-10) H Eosinophils % (Manual) 0 % (0-3) Basophils % (Manual) 0 % (0-2) Band Neutrophils 5 % (0-8) Platelet Estimate Adequate Platelet Morphology Normal Hypochromasia 3+ Anisocytosis 1+ Stool Occult Blood Negative (NEGATIVE) Height (Feet): 6 Height (Inches): 4.00 Weight (Pounds): 180 Medications Current Medications Medications (Trade) Dose Ordered Sig/Juan Route PRN Reason Start Time Stop Time Status Last Admin Dose Admin Acetaminophen (Tylenol) 650 mg Q4H PRN ORAL Mild Pain (Pain Scale 1-3) 11/14/19 19:15 12/14/19 19:14 Acetaminophen (Tylenol) 650 mg Q4H PRN ORAL Temp >100.5 11/18/19 15:00 12/18/19 14:59 11/22/19 04:17 Acetaminophen/ Hydrocodone Bitart ([place] 7.5/325) 1 tab Q4H PRN ORAL severe pain 11/19/19 15:15 11/26/19 15:14 Aspirin (ASA) 81 mg Q12HR ORAL 11/18/19 21:00 01/02/20 20:59 11/21/19 20:08 Ceftriaxone Sodium 2 gm/ Dextrose 55 ml @ 110 mls/hr Q24H IVPB 11/21/19 23:00 11/28/19 22:59 11/21/19 23:09 Docusate Sodium (Colace) 100 mg THREE TIMES A DAY ORAL 11/19/19 18:00 12/19/19 17:59 11/22/19 09:21 Metoclopramide HCl (Reglan) 10 mg Q6H PRN IVP Nausea & Vomiting 11/18/19 18:30 12/18/19 18:29 Pantoprazole (Protonix) 40 mg DAILY ORAL 11/23/19 09:00 12/23/19 08:59 Polyethylene Glycol (Miralax) 17 gm DAILY PRN ORAL Constipation 11/22/19 11:00 12/22/19 10:59 Tamsulosin HCl (Flomax) 0.4 mg BID ORAL 11/16/19 18:00 12/15/19 20:59 11/22/19 09:21 Temazepam (RestoriL) 7.5 mg HSPRN PRN ORAL Insomnia 11/18/19 21:00 11/25/19 20:59 Vancomycin HCl (Vanco rx to dose) 1 ea DAILY PRN MISC Per rx protocol 11/19/19 18:15 12/19/19 18:14 Vancomycin HCl 1 gm/Dextrose 275 ml @ 183.708 mls/hr ONCE IVPB 11/22/19 21:00 11/22/19 23:00 Assessment/Plan Problem List: (1) Dehydration ICD Codes: E86.0 - Dehydration SNOMED: 73004601 (2) Anemia ICD Codes: D64.9 - Anemia, unspecified SNOMED: 368335326 (3) JAIDA (acute kidney injury) ICD Codes: N17.9 - Acute kidney failure, unspecified SNOMED: 5798794, 25318894 (4) Fall ICD Codes: W19.XXXA - Unspecified fall, initial encounter SNOMED: 5100256, 661857152 Qualifiers: Qualified Codes: W19.XXXA - Unspecified fall, initial encounter (5) Hip fracture, right Assessment & Plan: Pt presented on admission with Full Thickness pressure injury thoracic Spine. Base of wound has 50% slough ,50% beefy red(L)1cm x (W) 1cm x (D)0.2cm. Small amt seropurulent exudate noted. No odor noted.Periwound erythematous and indurated.Non-viable tissue removed with gentle friction,25% slough remains at base of wound. Non-blanching erythema with an area at sacrococcygeal area that is maroon in colour. Pt denied tenderness when palpated. Drsg to R hip surgical site clean,dry and intact Large partial thickness wound posterior/upper R thigh(L)11cm x (W)3.9cm. Base of wound is moist and viable. Edges are macerated. Marginal erythema periwound. R and L heels are firm and easily blanchable.Multiple dry scabbed abrasions noted to dorsal aspects of L 1st -5th metatarsals. Pt R elbow noted to be swollen with several dry scabbed abrasions.Pt expressed pain when R arm minimally touched or moved.Primary nurse and and Charge Nurse made aware. Tx.Plan: Cleanse wound Thoracic Spine with Saline. Apply Therahoney. Appy Cavilon SKin Barrier Periwound. Cover with Optifoam drsg. Change every 3 days and prn. Cleanse wound Posterior R thigh with Saline. Apply Therahoney. Apply Cavilon Skin Barrier periwound. Cover with Optifoam drsg. Change every 3 days and prn. Apply Moisture Barrier Paste to Sacrum. Cover with Optifoam drsg. Change every 3 days and prn. Apply Cavilon Skin Barrier to both heels. Cover each heel with Optifoam drsg. Change every 7 days and prn. Reposition at least every 2 hours or as tolerated. Off-load heels with Pillow. APM/MADELIN Mattress overlay. ICD Codes: S72.001A - Fracture of unspecified part of neck of right femur, initial encounter for closed fracture SNOMED: 645318028 Qualifiers: Qualified Codes: S72.001A - Fracture of unspecified part of neck of right femur, initial encounter for closed fracture (6) Fluid collection (edema) in the arms, legs, hands and feet Assessment & Plan: There is some image degradation due to motion artifact. There is extensive edema of the subcutaneous fat. There is also some edema of the forearm musculature and the bicipital musculature. There is an irregular collection immediately anterior to the distal ulna. Uncertain as to whether this is within the joint or immediately superficial to it. Suspect that this is within the joint. This collection measures 2.3 x 1.8. Only a normal amount of joint fluid is seen elsewhere within the joint, however. No other discrete fluid collections to suggest abscess are evident. On the axial images, there is some increased STIR and decreased T1 signal in the lateral condyle and epicondyle. This is seen only on the axial images. On the coronal images, the increased STIR signal is visualized, without T1 signal abnormality, and increased STIR signal appears to extend outside the bone. No definite signal abnormality is seen within the olecranon, the remainder of the visualized ulna, or the radius. Impression: No signal abnormality to correspond to the suspected abnormality described on recent abdominal radiograph and therefore no evidence of osteomyelitis within the olecranon. That finding probably reflects degenerative changes. Very questionable signal abnormality of the lateral humeral condyle and epicondyle. Suspect artifactual but could represent early osteomyelitis changes. 2.3 x 1.8 cm somewhat irregular collection anterior to the distal ulna. Probably represents focal effusion within the anterior joint, but the shape is somewhat unusual and extra synovial collection or abscess is also possible Extensive signal abnormality of the subcutaneous fat and musculature, most likely representing cellulitis/myositis given stated clinical history ICD Codes: R60.0 - Localized edema SNOMED: 699213762, 864369637, 266143601 (7) Cellulitis of arm ICD Codes: L03.119 - Cellulitis of unspecified part of limb SNOMED: 712370946 Antwan Duncan November 22, 2019 15:21
--- NOTE | 2019-11-22 16:44 | General Progress Note ---
Assessment/Plan Problem List: (1) Hip fracture, right ICD Codes: S72.001A - Fracture of unspecified part of neck of right femur, initial encounter for closed fracture SNOMED: 678176489 Qualifiers: Qualified Codes: S72.001A - Fracture of unspecified part of neck of right femur, initial encounter for closed fracture (2) Fall ICD Codes: W19.XXXA - Unspecified fall, initial encounter SNOMED: 0102465, 714756380 Qualifiers: Qualified Codes: W19.XXXA - Unspecified fall, initial encounter (3) Dehydration ICD Codes: E86.0 - Dehydration SNOMED: 29512043 (4) Anemia ICD Codes: D64.9 - Anemia, unspecified SNOMED: 673384792 (5) JAIDA (acute kidney injury) ICD Codes: N17.9 - Acute kidney failure, unspecified SNOMED: 2011307, 29337621 Assessment/Plan: no abscess per dr dsouza worsening anemia.consulted heme/onc weak arf s/p orif of hip fx Subjective ROS Limited/Unobtainable: Yes Allergies: Coded Allergies: No Known Allergies (Unverified , 10/15/15) Objective Last 24 Hour Vital Signs Date Time Temp Pulse Resp B/P (MAP) Pulse Ox O2 Delivery O2 Flow Rate FiO2 11/22/19 12:00 98.1 108 20 92/70 (77) 97 11/22/19 09:00 Room Air 11/22/19 09:00 116 94/57 11/22/19 08:00 98.4 116 20 94/57 (69) 97 11/22/19 04:47 99.7 11/22/19 04:00 101.0 117 28 93/60 (71) 97 11/22/19 00:00 99.7 110 24 96/57 (70) 93 11/21/19 21:00 Room Air 11/21/19 20:00 101.4 108 24 94/58 (70) 96 Intake and Output 11/21/19 11/22/19 19:00 07:00 Intake Total 720 ml 55 ml Output Total 600 ml 500 ml Balance 120 ml -445 ml Intake Oral 720 ml IV Total 55 ml Output Urine Total 600 ml 500 ml # Bowel Movements 1 Laboratory Tests 11/22/19 02:00: Urine Color Yellow, Urine Appearance Clear, Urine pH 5, Urine Specific [place] 1.010, Urine Protein 2+H, Urine Glucose (UA) Negative, Urine Ketones Negative, Urine Blood Negative, Urine Nitrite Negative, Urine Bilirubin Negative, Urine Urobilinogen Normal, Urine Leukocyte Esterase 1+H, Urine RBC 0, Urine WBC 0-2, Urine Squamous Epithelial Cells Few, Urine Bacteria None 11/22/19 09:30: Random Vancomycin Level 17.4 11/22/19 09:35: White Blood Count 8.6, Red Blood Count 2.35L, Hemoglobin 7.1L, Hematocrit 21.4L , Mean Corpuscular Volume 91, Mean Corpuscular Hemoglobin 30.1, Mean Corpuscular Hemoglobin Concent 33.1, Red Cell Distribution Width 14.0, Platelet Count 325, Mean Platelet Volume 4.0L, Neutrophils (%) (Auto) , Lymphocytes (%) ( Auto) , Monocytes (%) (Auto) , Eosinophils (%) (Auto) , Basophils (%) (Auto) , Differential Total Cells Counted 100, Neutrophils % (Manual) 65, Lymphocytes % ( Manual) 18L, Monocytes % (Manual) 12H, Eosinophils % (Manual) 0, Basophils % ( Manual) 0, Band Neutrophils 5, Platelet Estimate Adequate, Platelet Morphology Normal, Hypochromasia 3+, Anisocytosis 1+ 11/22/19 11:50: Stool Occult Blood Negative Height (Feet): 6 Height (Inches): 4.00 Weight (Pounds): 180 Lisa Coronel MD November 22, 2019 16:44
--- NOTE | 2019-11-22 16:52 | NUR ---
CASE MANAGEMENT:REVIEW SI;RIGHT HIP FRACTURE ~ORIF POD# 3 101 117 28 93/60 93% ON RA H/H 7.1/21.4 IS;PROTONIX IV Q12 HRS VANCOMYCIN IN ONCE ROCEPHIN IV Q24 HRS NORCO PO Q4 HRS PRN PO Q12 HRS FLOMAX PO BID MED SURG STATUS DCP;FROM [facility] WILL NEED SNF PLACEMENT FOR POST OP REHAB
--- NOTE | 2019-11-22 16:59 | Consultation ---
DATE OF CONSULTATION: 11/22/2019 CONSULTING PHYSICIAN: Paul Bains M.D. REFERRING PHYSICIAN: Lisa Coronel MD. CHIEF COMPLAINT: Coffee-ground emesis. HISTORY OF PRESENT ILLNESS: This is a 64-year-old male, [place] [facility] patient, who was transferred to the hospital on November 13 for status post fall. The patient had one negative COVID test. There was concern for coffee-ground emesis and GI bleeding, so GI consultation was requested for further evaluation. PAST MEDICAL HISTORY: 1. History of hypertension. 2. Constipation. 3. Psychiatric disorder. 4. GERD. 5. BPH. 6. Diabetes. 7. Chronic kidney disease. 8. Anemia. ALLERGIES: No known drug allergy. MEDICATIONS: Please see medication reconciliation list. SOCIAL HISTORY: Currently lives in a [place] [facility]. No recent history of tobacco, alcohol, or IV drug abuse. FAMILY HISTORY: Noncontributory. REVIEW OF SYSTEMS: Limited. PAST SURGICAL HISTORY: No prior surgeries. PHYSICAL EXAMINATION: VITAL SIGNS: Temperature 98.4, pulse is 116, respirations 20, blood pressure is 94/57. HEENT: Normocephalic and atraumatic. Pale conjunctivae. NECK: Supple. No evidence of obvious lymphadenopathy. CARDIOVASCULAR: Tachycardic. Regular . Plus S1, S2. LUNGS: Decreased breath sounds bilaterally based on supine exam. ABDOMEN: Soft, nontender. No rebound. No guarding. No peritoneal sign. EXTREMITIES: No cyanosis. No clubbing. No edema. LABORATORY DATA: White count is 10, hemoglobin 8.3, hematocrit 25, and platelet count is 332,000; this hemoglobin was from 2 days ago. ASSESSMENT AND PLAN: This is a 64-year-old male with coffee-ground emesis. I discussed with the nurses. Apparently, there is no melena. It was basically 1 episode of coffee-colored material. Plan to change the Protonix from p.o. to IV twice a day. Monitor hemoglobin and hematocrit. Order CBC for today and one for tomorrow. We will do anemia workup. Continue on Reglan. Order a KUB. We will re-evaluate the patient tomorrow and make further recommendation. If there is evidence of significant drop in hemoglobin and hematocrit with GI bleeding, we will consider doing the GI procedures at that time. I want to thank, Dr. Lisa Coronel, for this kind referral. Paul Bains M.D. DR: Laine JOB#: [id number] CC: Lisa Coronel M.D.; Fax#: [phone]
--- NOTE | 2019-11-22 18:35 | NUR ---
NURSE NOTES: inserted IV 20 g. on left hand for transfusion. patient is not able to sign on consent. called sister Caitlin for telephone consent. left message to call back to nursing station.
--- NOTE | 2019-11-22 19:18 | NUR ---
HAND-OFF: Report given to ANDRY Pearl.
--- NOTE | 2019-11-22 19:40 | NUR ---
NURSE NOTES: Spoke with Caitlin (sister of patient) and received informed consent for blood transfusion via telephone, witnessed by swine nutritionist Norma. Called [facility] and stated that blood is still not ready. Will follow up.
[2019-11-22 20:00] VITALS: BP 102/54
--- NOTE | 2019-11-22 20:00 | NUR ---
NURSE NOTES: Patient received in bed, awake, no acute distress noted in room air. IV is intact and patent. Bed is locked in low position. call light in reach. Will continue to monitor.
[2019-11-22] MEDS ORDERED: Pantoprazole Inj IVP SCH (21:00)
[2019-11-22] MEDS ORDERED: Vancomycin 1gm in D5W 275ml IVPB SCH (21:00)
[2019-11-22] MEDS: cefTRIAXone 2 GM in D5W 55 ML IVPB SCH (23:00)
[2019-11-22 23:54] VITALS: BP 100/52
--- NOTE | 2019-11-23 00:45 | NUR ---
NURSE NOTES: First unit of PRBC transfused, no adverse reaction noted. VSS. Will transfuse 2nd unit.
[2019-11-23 04:00] VITALS: BP 94/53
--- NOTE | 2019-11-23 04:00 | Progress Note ---
DATE: 11/22/2019 SUBJECTIVE: Patient is presenting with episodes of anxiety. More alert. Has episodes of confusion. MENTAL STATUS EXAMINATION: Alert, oriented times self, place, disoriented to date and situation. Mood is neutral to irritable. Affect is flat. Thought process, there is a paucity of thought content. Thought content, no suicidal or homicidal ideation. Cognition is impaired. Insight and judgment is impaired. ASSESSMENT: Acute encephalopathy. PLAN: 1. Continue to monitor symptoms. 2. Discussed with the nurse. Sukhwinder Dickens M.D. DR: YURI JOB#: [id number] CC:
--- NOTE | 2019-11-23 04:30 | NUR ---
NURSE NOTES: 2nd unit of PRBC transfused without adverse effects.
[2019-11-23] MEDS: cefTRIAXone 2 GM in D5W 55 ML IVPB SCH (05:14)
[2019-11-23 07:32] LABS: HEMATOCRIT 21.6 % (42.0-52.0); HEMOGLOBIN 7.6 G/DL (14.2-18.0); MEAN CORPUSCULAR VOLUME 88 FL (80-99); PLATELET COUNT 276 K/UL (150-450); RED BLOOD COUNT 2.45 M/UL (4.70-6.10); RED CELL DISTRIBUTION WIDTH 13.1 % (11.6-14.8); WHITE BLOOD COUNT 7.2 K/UL (4.8-10.8)
[2019-11-23 07:35] LABS: ALANINE AMINOTRANSFERASE 8 U/L (12-78); ALBUMIN/GLOBULIN RATIO 0.2 (1.0-2.7); ALKALINE PHOSPHATASE 65 U/L (46-116); AMYLASE 69 U/L (25-115); ANION GAP 11 mmol/L (5-15); ASPARTATE AMINO TRANSFERASE 37 U/L (15-37); BILIRUBIN,TOTAL 0.3 MG/DL (0.2-1.0); BLOOD UREA NITROGEN 67 mg/dL (7-18); CALCIUM 7.9 MG/DL (8.5-10.1); CARBON DIOXIDE 19 MMOL/L (21-32); CHLORIDE 106 MMOL/L (98-107); CREATININE 2.7 MG/DL (0.55-1.30); POTASSIUM 3.6 MMOL/L (3.5-5.1); SODIUM 136 MMOL/L (136-145)
--- NOTE | 2019-11-23 07:38 | NUR ---
HAND-OFF: Report given to Jelena DURAN.
--- NOTE | 2019-11-23 07:48 | NUR ---
NURSE NOTES: TRANSFERRED PATIENT TO ANDRY SCHWARTZ. PERSONAL BELONGINGS NOTED. HAD BREAKFAST. SURGICAL DRSG DRY AND INTACT. NO ACUTE RESP DISTRESS NOTED. WILL CONT TO MONITOR.
[2019-11-23 08:00] VITALS: BP 95/50
[2019-11-23 08:09] LABS: % IRON SATURATION 47 % (15-50); IRON 44 ug/dL (50-175); TOTAL IRON BINDING CAPACITY 93 ug/dL (250-450)
[2019-11-23] MEDS: Tamsulosin 0.4mg cap ORAL SCH ×2 (08:36→18:41)
[2019-11-23] MEDS: Docusate 100mg cap ORAL SCH ×3 (08:37→18:41)
[2019-11-23] MEDS: Aspirin Baby 81mg ORAL SCH ×3 (08:37→21:30)
--- NOTE | 2019-11-23 09:00 | NUR ---
HAND-OFF: Report given to EFREN.
--- NOTE | 2019-11-23 09:30 | NUR ---
NURSE NOTES: Received patient from 421 to 311 via bed, on RA in stable condition at 0855 Patient AOx2, calm. Oriented patient to room and call light for safety, verbalized understanding. LH IV heplock intact, wrapped with kerlix. P200 mattress in place, on. Vitals obtained. Bed in lowest position, will continue to monitor.
[2019-11-23 09:36] VITALS: BP 97/52
[2019-11-23 10:11] LABS: PHOSPHORUS 4.2 MG/DL (2.5-4.9)
[2019-11-23 12:00] VITALS: BP 102/60
--- NOTE | 2019-11-23 12:31 | Nephrology Progress Note ---
Assessment/Plan Problem List: (1) JAIDA (acute kidney injury) Assessment: Serum creatinine lower (2) Anemia (3) Dehydration (4) Hip fracture, right (5) Fall Assessment Acute renal failure Possibly underlying chronic kidney failure Dehydration Status post fall and fracture of the right hip History of hypertension History of diabetes mellitus History of psych disease Anemia Plan Normal saline bolus Kidney ultrasound Check serum cortisol level pending Trial of IV iron and subcu Epogen for anemia Continue to monitor renal parameters Continue per consultants Previously: Patient underwent hip surgery November 17 today's labs reviewed, serum creatinine down to 2.5 Since serum creatinine is declining will continue hydration DC [place] today November 19 On soft diet now Adjust blood pressure medications IV fluids Anemia work-up Protonix, Colace Pain medication Monitor renal parameters Urine studies Per consultants Objective Objective Last 24 Hour Vital Signs Date Time Temp Pulse Resp B/P (MAP) Pulse Ox O2 Delivery O2 Flow Rate FiO2 11/23/19 12:00 97.8 70 19 102/60 (74) 97 70 11/23/19 09:36 97.9 66 18 97/52 (67) 97 11/23/19 08:00 97.7 66 18 95/50 (65) 99 11/23/19 04:00 97.6 65 21 94/53 (67) 96 11/22/19 23:54 98.0 90 21 100/52 (68) 95 11/22/19 21:00 Room Air 11/22/19 20:00 98.2 93 21 102/54 (70) 97 Intake and Output 11/22/19 11/23/19 19:00 07:00 Intake Total 480 ml 1230.000 ml Balance 480 ml 1230.000 ml Intake Oral 480 ml 400 ml IV Total 330.000 ml Blood Product 500 ml # Voids 3 3 # Bowel Movements 4 2 Laboratory Tests 11/23/19 06:05: White Blood Count 7.2, Red Blood Count 2.45L, Hemoglobin 7.6L, Hematocrit 21.6L , Mean Corpuscular Volume 88, Mean Corpuscular Hemoglobin 30.8, Mean Corpuscular Hemoglobin Concent 35.0, Red Cell Distribution Width 13.1, Platelet Count 276, Mean Platelet Volume 4.5L, Neutrophils (%) (Auto) , Lymphocytes (%) ( Auto) , Monocytes (%) (Auto) , Eosinophils (%) (Auto) , Basophils (%) (Auto) , Differential Total Cells Counted 100, Neutrophils % (Manual) 66, Lymphocytes % ( Manual) 24, Monocytes % (Manual) 7, Eosinophils % (Manual) 2, Basophils % ( Manual) 1, Band Neutrophils 0, Platelet Estimate Adequate, Platelet Morphology Normal, Hypochromasia 3+, Anisocytosis 1+, Spherocytes 2+, Sodium Level 136, Potassium Level 3.6, Chloride Level 106, Carbon Dioxide Level 19L, Anion Gap 11 , Blood Urea Nitrogen 67H, Creatinine 2.7H, Estimat Glomerular Filtration Rate 23.9, Glucose Level 88, Uric Acid 9.0H, Calcium Level 7.9L, Phosphorus Level 4.2 , Magnesium Level 1.9, Iron Level 44L, Total Iron Binding Capacity 93L, Percent Iron Saturation 47, Unsaturated Iron Binding 49L, Total Bilirubin 0.3, Aspartate Amino Transf (AST/SGOT) 37, Alanine Aminotransferase (ALT/SGPT) 8L, Alkaline Phosphatase 65, Total Protein 5.1L, Albumin 1.0L, Globulin 4.1, Albumin /Globulin Ratio 0.2L, Amylase Level 69, Lipase 446H, Vitamin B12 Level 314, Folate 7.4L, Cortisol AM Sample [Pending] Height (Feet): 6 Height (Inches): 4.00 Weight (Pounds): 180 Objective No change Armen Levine MD November 23, 2019 12:31
--- NOTE | 2019-11-23 13:06 | Diagnostic Imaging Report ---
ADDENDUM - Added by Tay Rob M.D. on 11/23/2019 1:28 PM (-07:00) Wrong exam report originally. Please see below for correct exam report. EXAM: US Retroperitoneal Complete, Renal CLINICAL HISTORY: None provided. TECHNIQUE: Real-time complete ultrasound of the retroperitoneum with image documentation. COMPARISON: No relevant prior studies available. FINDINGS: Right kidney: Right kidney measures 12.1 cm in length. Increased echogenicity of the right renal parenchyma is suggestive of medical renal disease. No stones. No hydronephrosis. Left kidney: Left kidney measures 12.0 cm in length. Increased echogenicity of the left renal suggestive of medical renal disease. Left renal cysts, the largest measuring up to 3.8 cm. No stones. Bladder: Bladder is distended with questionable mild prominence of the bladder wall. Further evaluation could be performed with urinalysis if there is concern for cystitis. IMPRESSION: 1. No hydronephrosis or stone. 2. Increased echogenicity of the kidneys is suggestive of medical renal disease. Left renal cysts. 3. Bladder is distended with questionable mild prominence of the bladder wall. Further evaluation could be performed with urinalysis if there is concern for cystitis. EXAM: US Abdomen Complete CLINICAL HISTORY: RENAL-A TECHNIQUE: Real-time ultrasound of the abdomen with image documentation. COMPARISON: None FINDINGS: Liver: Unremarkable. No mass. No intrahepatic bile duct dilation. Gallbladder: Unremarkable. No gallstones. Common bile duct: Unremarkable as visualized. No stones. No dilation. Pancreas: Unremarkable as visualized. Kidneys: Right kidney measures 12.1 cm in length. Increased echogenicity of the right renal parenchyma is suggestive of medical renal disease. Left kidney measures 12.0 cm in length. Increased echogenicity of the left renal suggestive of medical renal disease. Left renal cysts, the largest measuring up to 3.8 cm. No stones. Spleen: Unremarkable. No splenomegaly. Aorta: Unremarkable. No aneurysm. Inferior vena cava: Visualized portions of the IVC are unremarkable. Other findings: Bladder is distended with questionable mild prominence of the bladder wall. Further evaluation could be performed with urinalysis if there is concern for cystitis.
--- NOTE | 2019-11-23 15:47 | Cardiac Electrophysiology PN ---
Assessment/Plan Assessment/Plan 1. Hypertension. On Norvasc 2.5 daily and prn Clonidine 2. Status post fall and right hip fracture and ORIF. EKG showed NSR with LBBB and echo Nl EF. 3. COVID-19 is negative 4. Agitation and psychosis. Further evaluation by Psychiatry. 5. Diabetes. 6. Chronic kidney disease with a creatinine of 3.2 improved to 2.4 7. Hypernatremia with a sodium of 149. Resolved DW RN Subjective Subjective Tolerated surgery well. Just transferred to [facility]. Echo Nl EF. ECG SR with LBBB. Objective Last 24 Hour Vital Signs Date Time Temp Pulse Resp B/P (MAP) Pulse Ox O2 Delivery O2 Flow Rate FiO2 11/23/19 12:00 97.8 70 19 102/60 (74) 97 70 11/23/19 09:36 97.9 66 18 97/52 (67) 97 11/23/19 08:00 97.7 66 18 95/50 (65) 99 11/23/19 04:00 97.6 65 21 94/53 (67) 96 11/22/19 23:54 98.0 90 21 100/52 (68) 95 11/22/19 21:00 Room Air 11/22/19 20:00 98.2 93 21 102/54 (70) 97 Intake and Output 11/22/19 11/23/19 19:00 07:00 Intake Total 480 ml 1230.000 ml Balance 480 ml 1230.000 ml Intake Oral 480 ml 400 ml IV Total 330.000 ml Blood Product 500 ml # Voids 3 3 # Bowel Movements 4 2 Laboratory Tests Test 11/23/19 06:05 White Blood Count 7.2 K/UL (4.8-10.8) Red Blood Count 2.45 M/UL (4.70-6.10) L Hemoglobin 7.6 G/DL (14.2-18.0) L Hematocrit 21.6 % (42.0-52.0) L Mean Corpuscular Volume 88 FL (80-99) Mean Corpuscular Hemoglobin 30.8 PG (27.0-31.0) Mean Corpuscular Hemoglobin Concent 35.0 G/DL (32.0-36.0) Red Cell Distribution Width 13.1 % (11.6-14.8) Platelet Count 276 K/UL (150-450) Mean Platelet Volume 4.5 FL (6.5-10.1) L Neutrophils (%) (Auto) % (45.0-75.0) Lymphocytes (%) (Auto) % (20.0-45.0) Monocytes (%) (Auto) % (1.0-10.0) Eosinophils (%) (Auto) % (0.0-3.0) Basophils (%) (Auto) % (0.0-2.0) Differential Total Cells Counted 100 Neutrophils % (Manual) 66 % (45-75) Lymphocytes % (Manual) 24 % (20-45) Monocytes % (Manual) 7 % (1-10) Eosinophils % (Manual) 2 % (0-3) Basophils % (Manual) 1 % (0-2) Band Neutrophils 0 % (0-8) Platelet Estimate Adequate Platelet Morphology Normal Hypochromasia 3+ Anisocytosis 1+ Spherocytes 2+ Sodium Level 136 MMOL/L (136-145) Potassium Level 3.6 MMOL/L (3.5-5.1) Chloride Level 106 MMOL/L (98-107) Carbon Dioxide Level 19 MMOL/L (21-32) L Anion Gap 11 mmol/L (5-15) Blood Urea Nitrogen 67 mg/dL (7-18) H Creatinine 2.7 MG/DL (0.55-1.30) H Estimat Glomerular Filtration Rate 23.9 mL/min (>60) Glucose Level 88 MG/DL (74-106) Uric Acid 9.0 MG/DL (2.6-7.2) H Calcium Level 7.9 MG/DL (8.5-10.1) L Phosphorus Level 4.2 MG/DL (2.5-4.9) Magnesium Level 1.9 MG/DL (1.8-2.4) Iron Level 44 ug/dL (50-175) L Total Iron Binding Capacity 93 ug/dL (250-450) L Percent Iron Saturation 47 % (15-50) Unsaturated Iron Binding 49 ug/dL (112-346) L Total Bilirubin 0.3 MG/DL (0.2-1.0) Aspartate Amino Transf (AST/SGOT) 37 U/L (15-37) Alanine Aminotransferase (ALT/SGPT) 8 U/L (12-78) L Alkaline Phosphatase 65 U/L (46-116) Total Protein 5.1 G/DL (6.4-8.2) L Albumin 1.0 G/DL (3.4-5.0) L Globulin 4.1 g/dL Albumin/Globulin Ratio 0.2 (1.0-2.7) L Amylase Level 69 U/L (25-115) Lipase 446 U/L (73-393) H Vitamin B12 Level 314 PG/ML (193-986) Folate 7.4 NG/ML (8.6-58.9) L Cortisol AM Sample Pending Microbiology Date/Time Source Procedure Growth Status 11/21/19 22:55 Blood Blood Culture - Preliminary NO GROWTH AFTER 24 HOURS Resulted 11/21/19 22:40 Blood Blood Culture - Preliminary NO GROWTH AFTER 24 HOURS Resulted Objective HEAD AND NECK: No JVD. LUNGS: Clear. CARDIOVASCULAR: Regular S1 and S2 with no gallop. ABDOMEN: Soft. EXTREMITIES: S/P right hip ORIF Neno Ennis MD November 23, 2019 15:47
[2019-11-23 16:00] VITALS: BP 99/56
--- NOTE | 2019-11-23 16:40 | GI Progress Note ---
Assessment/Plan Problems: (1) Coffee ground emesis ICD Codes: K92.0 - Hematemesis SNOMED: 12828631 (2) Anemia ICD Codes: D64.9 - Anemia, unspecified SNOMED: 720290688 (3) Dehydration ICD Codes: E86.0 - Dehydration SNOMED: 72521438 Status: unchanged Status Narrative Discussed with Dr. Bains. Assessment/Plan #anemia r/o GI bleed. Patient had one episode of coffee ground emesis with no recurrent. S/P 2 units of pRBCs. First OB stool was negative. - Patient refused endoscopy at this time. - anemia work up reviewed; no noted iron or folate/thiamine deficiency - will increase PPI to BID. - monitor H&H, prn transfusions. - send for additional OB stool to evaluate for any GI bleed The patient was seen and examined at bedside and all new and available data was reviewed in the patients chart. I agree with the above findings, impression and plan. (Patient seen earlier today. Signature stamp does not reflect patient encounter time.). - Paul Bains MD Subjective Subjective had episode of coffee grounds Objective Last 24 Hour Vital Signs Date Time Temp Pulse Resp B/P (MAP) Pulse Ox O2 Delivery O2 Flow Rate FiO2 11/23/19 16:00 97.8 63 18 99/56 (70) 99 11/23/19 12:00 97.8 70 19 102/60 (74) 97 70 11/23/19 09:36 97.9 66 18 97/52 (67) 97 11/23/19 09:00 Room Air 11/23/19 08:00 97.7 66 18 95/50 (65) 99 11/23/19 04:00 97.6 65 21 94/53 (67) 96 11/22/19 23:54 98.0 90 21 100/52 (68) 95 11/22/19 21:00 Room Air 11/22/19 20:00 98.2 93 21 102/54 (70) 97 Intake and Output 11/22/19 11/23/19 19:00 07:00 Intake Total 480 ml 1230.000 ml Balance 480 ml 1230.000 ml Intake Oral 480 ml 400 ml IV Total 330.000 ml Blood Product 500 ml # Voids 3 3 # Bowel Movements 4 2 Laboratory Tests Test 5/9/20 06:05 White Blood Count 7.2 K/UL (4.8-10.8) Red Blood Count 2.45 M/UL (4.70-6.10) L Hemoglobin 7.6 G/DL (14.2-18.0) L Hematocrit 21.6 % (42.0-52.0) L Mean Corpuscular Volume 88 FL (80-99) Mean Corpuscular Hemoglobin 30.8 PG (27.0-31.0) Mean Corpuscular Hemoglobin Concent 35.0 G/DL (32.0-36.0) Red Cell Distribution Width 13.1 % (11.6-14.8) Platelet Count 276 K/UL (150-450) Mean Platelet Volume 4.5 FL (6.5-10.1) L Neutrophils (%) (Auto) % (45.0-75.0) Lymphocytes (%) (Auto) % (20.0-45.0) Monocytes (%) (Auto) % (1.0-10.0) Eosinophils (%) (Auto) % (0.0-3.0) Basophils (%) (Auto) % (0.0-2.0) Differential Total Cells Counted 100 Neutrophils % (Manual) 66 % (45-75) Lymphocytes % (Manual) 24 % (20-45) Monocytes % (Manual) 7 % (1-10) Eosinophils % (Manual) 2 % (0-3) Basophils % (Manual) 1 % (0-2) Band Neutrophils 0 % (0-8) Platelet Estimate Adequate Platelet Morphology Normal Hypochromasia 3+ Anisocytosis 1+ Spherocytes 2+ Sodium Level 136 MMOL/L (136-145) Potassium Level 3.6 MMOL/L (3.5-5.1) Chloride Level 106 MMOL/L (98-107) Carbon Dioxide Level 19 MMOL/L (21-32) L Anion Gap 11 mmol/L (5-15) Blood Urea Nitrogen 67 mg/dL (7-18) H Creatinine 2.7 MG/DL (0.55-1.30) H Estimat Glomerular Filtration Rate 23.9 mL/min (>60) Glucose Level 88 MG/DL (74-106) Uric Acid 9.0 MG/DL (2.6-7.2) H Calcium Level 7.9 MG/DL (8.5-10.1) L Phosphorus Level 4.2 MG/DL (2.5-4.9) Magnesium Level 1.9 MG/DL (1.8-2.4) Iron Level 44 ug/dL (50-175) L Total Iron Binding Capacity 93 ug/dL (250-450) L Percent Iron Saturation 47 % (15-50) Unsaturated Iron Binding 49 ug/dL (112-346) L Total Bilirubin 0.3 MG/DL (0.2-1.0) Aspartate Amino Transf (AST/SGOT) 37 U/L (15-37) Alanine Aminotransferase (ALT/SGPT) 8 U/L (12-78) L Alkaline Phosphatase 65 U/L (46-116) Total Protein 5.1 G/DL (6.4-8.2) L Albumin 1.0 G/DL (3.4-5.0) L Globulin 4.1 g/dL Albumin/Globulin Ratio 0.2 (1.0-2.7) L Amylase Level 69 U/L (25-115) Lipase 446 U/L (73-393) H Vitamin B12 Level 314 PG/ML (193-986) Folate 7.4 NG/ML (8.6-58.9) L Cortisol AM Sample Pending Height (Feet): 6 Height (Inches): 4.00 Weight (Pounds): 180 General Appearance: WD/WN, no apparent distress, alert Cardiovascular: normal rate Respiratory/Chest: normal breath sounds, no respiratory distress Abdominal Exam: normal bowel sounds, non tender, soft Extremities: normal range of motion, non-tender Emir Wyman NP November 23, 2019 16:40
--- NOTE | 2019-11-23 16:42 | General Progress Note ---
Assessment/Plan Problem List: (1) Hip fracture, right ICD Codes: S72.001A - Fracture of unspecified part of neck of right femur, initial encounter for closed fracture SNOMED: 050815749 Qualifiers: Qualified Codes: S72.001A - Fracture of unspecified part of neck of right femur, initial encounter for closed fracture (2) Fall ICD Codes: W19.XXXA - Unspecified fall, initial encounter SNOMED: 9374956, 258929802 Qualifiers: Qualified Codes: W19.XXXA - Unspecified fall, initial encounter (3) Dehydration ICD Codes: E86.0 - Dehydration SNOMED: 86222841 (4) Anemia ICD Codes: D64.9 - Anemia, unspecified SNOMED: 925356062 (5) JAIDA (acute kidney injury) ICD Codes: N17.9 - Acute kidney failure, unspecified SNOMED: 5904538, 87651516 Status: progressing Assessment/Plan: no abscess per dr dsouza anemia.consulted heme/onc worsening azotemia will discuss w renal re plan of rx needs hydration s/p orif of hip fx Subjective ROS Limited/Unobtainable: Yes Allergies: Coded Allergies: No Known Allergies (Unverified , 10/15/15) Objective Last 24 Hour Vital Signs Date Time Temp Pulse Resp B/P (MAP) Pulse Ox O2 Delivery O2 Flow Rate FiO2 11/23/19 16:00 97.8 63 18 99/56 (70) 99 11/23/19 12:00 97.8 70 19 102/60 (74) 97 70 11/23/19 09:36 97.9 66 18 97/52 (67) 97 11/23/19 09:00 Room Air 11/23/19 08:00 97.7 66 18 95/50 (65) 99 11/23/19 04:00 97.6 65 21 94/53 (67) 96 11/22/19 23:54 98.0 90 21 100/52 (68) 95 11/22/19 21:00 Room Air 11/22/19 20:00 98.2 93 21 102/54 (70) 97 Intake and Output 11/22/19 11/23/19 19:00 07:00 Intake Total 480 ml 1230.000 ml Balance 480 ml 1230.000 ml Intake Oral 480 ml 400 ml IV Total 330.000 ml Blood Product 500 ml # Voids 3 3 # Bowel Movements 4 2 Laboratory Tests 11/23/19 06:05: White Blood Count 7.2, Red Blood Count 2.45L, Hemoglobin 7.6L, Hematocrit 21.6L , Mean Corpuscular Volume 88, Mean Corpuscular Hemoglobin 30.8, Mean Corpuscular Hemoglobin Concent 35.0, Red Cell Distribution Width 13.1, Platelet Count 276, Mean Platelet Volume 4.5L, Neutrophils (%) (Auto) , Lymphocytes (%) ( Auto) , Monocytes (%) (Auto) , Eosinophils (%) (Auto) , Basophils (%) (Auto) , Differential Total Cells Counted 100, Neutrophils % (Manual) 66, Lymphocytes % ( Manual) 24, Monocytes % (Manual) 7, Eosinophils % (Manual) 2, Basophils % ( Manual) 1, Band Neutrophils 0, Platelet Estimate Adequate, Platelet Morphology Normal, Hypochromasia 3+, Anisocytosis 1+, Spherocytes 2+, Sodium Level 136, Potassium Level 3.6, Chloride Level 106, Carbon Dioxide Level 19L, Anion Gap 11 , Blood Urea Nitrogen 67H, Creatinine 2.7H, Estimat Glomerular Filtration Rate 23.9, Glucose Level 88, Uric Acid 9.0H, Calcium Level 7.9L, Phosphorus Level 4.2 , Magnesium Level 1.9, Iron Level 44L, Total Iron Binding Capacity 93L, Percent Iron Saturation 47, Unsaturated Iron Binding 49L, Total Bilirubin 0.3, Aspartate Amino Transf (AST/SGOT) 37, Alanine Aminotransferase (ALT/SGPT) 8L, Alkaline Phosphatase 65, Total Protein 5.1L, Albumin 1.0L, Globulin 4.1, Albumin /Globulin Ratio 0.2L, Amylase Level 69, Lipase 446H, Vitamin B12 Level 314, Folate 7.4L, Cortisol AM Sample [Pending] Height (Feet): 6 Height (Inches): 4.00 Weight (Pounds): 180 Lisa Coronel MD November 23, 2019 16:42
--- NOTE | 2019-11-23 18:19 | Surgery Progress Note ---
Surgery Progress Note Subjective Additional Comments no acute events comfortable stable Objective Last 24 Hour Vital Signs Date Time Temp Pulse Resp B/P (MAP) Pulse Ox O2 Delivery O2 Flow Rate FiO2 11/23/19 16:00 97.8 63 18 99/56 (70) 99 11/23/19 12:00 97.8 70 19 102/60 (74) 97 70 11/23/19 09:36 97.9 66 18 97/52 (67) 97 11/23/19 09:00 Room Air 11/23/19 08:00 97.7 66 18 95/50 (65) 99 11/23/19 04:00 97.6 65 21 94/53 (67) 96 11/22/19 23:54 98.0 90 21 100/52 (68) 95 11/22/19 21:00 Room Air 11/22/19 20:00 98.2 93 21 102/54 (70) 97 I&O Intake and Output 11/22/19 11/23/19 19:00 07:00 Intake Total 480 ml 1230.000 ml Balance 480 ml 1230.000 ml Intake Oral 480 ml 400 ml IV Total 330.000 ml Blood Product 500 ml # Voids 3 3 # Bowel Movements 4 2 Dressing: dry Wound: clean Cardiovascular: RSR Respiratory: decreased breath sounds Abdomen: soft, non-tender, present bowel sounds Extremities: edema, tenderness, no cyanosis Laboratory Tests Test 11/23/19 06:05 White Blood Count 7.2 K/UL (4.8-10.8) Red Blood Count 2.45 M/UL (4.70-6.10) L Hemoglobin 7.6 G/DL (14.2-18.0) L Hematocrit 21.6 % (42.0-52.0) L Mean Corpuscular Volume 88 FL (80-99) Mean Corpuscular Hemoglobin 30.8 PG (27.0-31.0) Mean Corpuscular Hemoglobin Concent 35.0 G/DL (32.0-36.0) Red Cell Distribution Width 13.1 % (11.6-14.8) Platelet Count 276 K/UL (150-450) Mean Platelet Volume 4.5 FL (6.5-10.1) L Neutrophils (%) (Auto) % (45.0-75.0) Lymphocytes (%) (Auto) % (20.0-45.0) Monocytes (%) (Auto) % (1.0-10.0) Eosinophils (%) (Auto) % (0.0-3.0) Basophils (%) (Auto) % (0.0-2.0) Differential Total Cells Counted 100 Neutrophils % (Manual) 66 % (45-75) Lymphocytes % (Manual) 24 % (20-45) Monocytes % (Manual) 7 % (1-10) Eosinophils % (Manual) 2 % (0-3) Basophils % (Manual) 1 % (0-2) Band Neutrophils 0 % (0-8) Platelet Estimate Adequate Platelet Morphology Normal Hypochromasia 3+ Anisocytosis 1+ Spherocytes 2+ Sodium Level 136 MMOL/L (136-145) Potassium Level 3.6 MMOL/L (3.5-5.1) Chloride Level 106 MMOL/L (98-107) Carbon Dioxide Level 19 MMOL/L (21-32) L Anion Gap 11 mmol/L (5-15) Blood Urea Nitrogen 67 mg/dL (7-18) H Creatinine 2.7 MG/DL (0.55-1.30) H Estimat Glomerular Filtration Rate 23.9 mL/min (>60) Glucose Level 88 MG/DL (74-106) Uric Acid 9.0 MG/DL (2.6-7.2) H Calcium Level 7.9 MG/DL (8.5-10.1) L Phosphorus Level 4.2 MG/DL (2.5-4.9) Magnesium Level 1.9 MG/DL (1.8-2.4) Iron Level 44 ug/dL (50-175) L Total Iron Binding Capacity 93 ug/dL (250-450) L Percent Iron Saturation 47 % (15-50) Unsaturated Iron Binding 49 ug/dL (112-346) L Total Bilirubin 0.3 MG/DL (0.2-1.0) Aspartate Amino Transf (AST/SGOT) 37 U/L (15-37) Alanine Aminotransferase (ALT/SGPT) 8 U/L (12-78) L Alkaline Phosphatase 65 U/L (46-116) Total Protein 5.1 G/DL (6.4-8.2) L Albumin 1.0 G/DL (3.4-5.0) L Globulin 4.1 g/dL Albumin/Globulin Ratio 0.2 (1.0-2.7) L Amylase Level 69 U/L (25-115) Lipase 446 U/L (73-393) H Vitamin B12 Level 314 PG/ML (193-986) Folate 7.4 NG/ML (8.6-58.9) L Cortisol AM Sample Pending Plan Problems: (1) Dehydration (2) Anemia (3) JAIDA (acute kidney injury) (4) Fall (5) Hip fracture, right Assessment & Plan: Pt presented on admission with Full Thickness pressure injury thoracic Spine. Base of wound has 50% slough ,50% beefy red(L)1cm x (W) 1cm x (D)0.2cm. Small amt seropurulent exudate noted. No odor noted.Periwound erythematous and indurated.Non-viable tissue removed with gentle friction,25% slough remains at base of wound. Non-blanching erythema with an area at sacrococcygeal area that is maroon in colour. Pt denied tenderness when palpated. Drsg to R hip surgical site clean,dry and intact Large partial thickness wound posterior/upper R thigh(L)11cm x (W)3.9cm. Base of wound is moist and viable. Edges are macerated. Marginal erythema periwound. R and L heels are firm and easily blanchable.Multiple dry scabbed abrasions noted to dorsal aspects of L 1st -5th metatarsals. Pt R elbow noted to be swollen with several dry scabbed abrasions.Pt expressed pain when R arm minimally touched or moved.Primary nurse and and Charge Nurse made aware. Tx.Plan: Cleanse wound Thoracic Spine with Saline. Apply Therahoney. Appy Cavilon SKin Barrier Periwound. Cover with Optifoam drsg. Change every 3 days and prn. Cleanse wound Posterior R thigh with Saline. Apply Therahoney. Apply Cavilon Skin Barrier periwound. Cover with Optifoam drsg. Change every 3 days and prn. Apply Moisture Barrier Paste to Sacrum. Cover with Optifoam drsg. Change every 3 days and prn. Apply Cavilon Skin Barrier to both heels. Cover each heel with Optifoam drsg. Change every 7 days and prn. Reposition at least every 2 hours or as tolerated. Off-load heels with Pillow. APM/MADELIN Mattress overlay. (6) Fluid collection (edema) in the arms, legs, hands and feet Assessment & Plan: There is some image degradation due to motion artifact. There is extensive edema of the subcutaneous fat. There is also some edema of the forearm musculature and the bicipital musculature. There is an irregular collection immediately anterior to the distal ulna. Uncertain as to whether this is within the joint or immediately superficial to it. Suspect that this is within the joint. This collection measures 2.3 x 1.8. Only a normal amount of joint fluid is seen elsewhere within the joint, however. No other discrete fluid collections to suggest abscess are evident. On the axial images, there is some increased STIR and decreased T1 signal in the lateral condyle and epicondyle. This is seen only on the axial images. On the coronal images, the increased STIR signal is visualized, without T1 signal abnormality, and increased STIR signal appears to extend outside the bone. No definite signal abnormality is seen within the olecranon, the remainder of the visualized ulna, or the radius. Impression: No signal abnormality to correspond to the suspected abnormality described on recent abdominal radiograph and therefore no evidence of osteomyelitis within the olecranon. That finding probably reflects degenerative changes. Very questionable signal abnormality of the lateral humeral condyle and epicondyle. Suspect artifactual but could represent early osteomyelitis changes. 2.3 x 1.8 cm somewhat irregular collection anterior to the distal ulna. Probably represents focal effusion within the anterior joint, but the shape is somewhat unusual and extra synovial collection or abscess is also possible Extensive signal abnormality of the subcutaneous fat and musculature, most likely representing cellulitis/myositis given stated clinical history (7) Cellulitis of arm Antwan Duncan November 23, 2019 18:19
--- NOTE | 2019-11-23 19:40 | NUR ---
HAND-OFF: Report given to [place] WILDE, rounds made. Patient stable.
[2019-11-23 20:00] VITALS: BP 98/55
--- NOTE | 2019-11-23 20:00 | NUR ---
NURSE NOTES: RECEIVED PATIENT LYING IN BED, AWAKE, ALERT/ORIENTED TO PERSON/PLACE, DENIES PAIN. S/P ORIF, DRESSING DRY AND INTACT, HIP PRECAUTIONS OBSERVED. NO SIGNS AND SYMPTOMS OF ACUTE CARDIO RESPIRATORY DISTRESS/SHORTNESS OF BREATH, NOTED WITH PITTED EDEMA TO RIGHT LOWER EXTREMITY, ELEVATED ON PILLOW LENGTHWISE WITH HEEL FLOATING, TOLERATING WELL. ABDOMEN SOFT/NON DISTENDED, AUDIBLE BOWEL SOUNDS, NO REPORT OF N/V/D. PM CARE PROVIDED. SIDE RAILS UP X3/BED IN LOWEST POSITION FOR SAFETY, FREQUENT ROUNDING FOR SAFETY/NEEDS. CONTINUE WITH CURRENT PLAN OF CARE. NAD.
[2019-11-23] MEDS ORDERED: NS 500ML ONE (21:28)
--- NOTE | 2019-11-23 22:40 | Psych Consult Progress Note ---
Psychiatry Progress Note Psychiatry Progress Note Medications Current Medications Medications (Trade) Dose Ordered Sig/Juan Route PRN Reason Start Time Stop Time Status Last Admin Dose Admin Acetaminophen (Tylenol) 650 mg Q4H PRN ORAL Mild Pain (Pain Scale 1-3) 11/14/19 19:15 12/14/19 19:14 11/22/19 21:37 Acetaminophen (Tylenol) 650 mg Q4H PRN ORAL Temp >100.5 11/18/19 15:00 12/18/19 14:59 11/22/19 04:17 Acetaminophen/ Hydrocodone Bitart ([place] 7.5/325) 1 tab Q4H PRN ORAL severe pain 11/19/19 15:15 11/26/19 15:14 Aspirin (ASA) 81 mg Q12HR ORAL 11/18/19 21:00 01/02/20 20:59 11/23/19 21:29 Ceftriaxone Sodium 2 gm/ Dextrose 55 ml @ 110 mls/hr Q24H IVPB 11/23/19 06:00 11/30/19 05:59 11/23/19 05:14 Docusate Sodium (Colace) 100 mg THREE TIMES A DAY ORAL 11/19/19 18:00 12/19/19 17:59 11/23/19 18:41 Epoetin Shaun (Procrit (for non ESRD use)) 10,000 units MON-MON-MON SUBQ 11/25/19 21:00 02/23/20 20:59 Iron Sucrose 100 mg/Sodium Chloride 55 ml @ 200 mls/hr BEDTIME IV 11/23/19 21:00 11/27/19 21:17 11/23/19 20:43 Metoclopramide HCl (Reglan) 10 mg Q6H PRN IVP Nausea & Vomiting 11/18/19 18:30 12/18/19 18:29 Midodrine (Pro-Amatine) 2.5 mg THREE TIMES A DAY ORAL 11/23/19 13:00 02/21/20 12:59 11/23/19 18:42 Pantoprazole (Protonix) 40 mg BID ORAL 11/23/19 18:00 12/23/19 08:59 11/23/19 18:42 Polyethylene Glycol (Miralax) 17 gm DAILY PRN ORAL Constipation 11/22/19 11:00 12/22/19 10:59 Tamsulosin HCl (Flomax) 0.4 mg BID ORAL 11/16/19 18:00 12/15/19 20:59 11/23/19 18:41 Temazepam (RestoriL) 7.5 mg HSPRN PRN ORAL Insomnia 11/18/19 21:00 11/25/19 20:59 Vancomycin HCl (Vanco rx to dose) 1 ea DAILY PRN MISC Per rx protocol 11/19/19 18:15 12/19/19 18:14 Neurological/Psychiatric: Reports: anxiety, depressed, emotional problems Allergies: Coded Allergies: No Known Allergies (Unverified , 10/15/15) Objective Data Height (Feet): 6 Height (Inches): 4.00 Weight (Pounds): 180 General Appearance: WD/WN, no apparent distress, alert Additional Comments: alert and oriented to times, self. Mood is neutral. Affect is flat. Thought process is concrete. Thought content, no suicidal or homicidal ideation. Cognition is impaired. Insight and judgment, impaired. ASSESSMENT: 1. Acute encephalopathy. 2. Dementia. PLAN: 1. Continue to monitor the patient's condition. 2. Provide the patient with reality orientation and supportive Assessment/Plan Status: progressing Assessment/Plan: PLAN: 1. Continue the lorazepam p.r.n. provided alexsandra/Sukhwinder Avila MD November 23, 2019 22:40
[2019-11-24] VITALS: BP 105/61
--- NOTE | 2019-11-24 | NUR ---
NURSE NOTES: RESTING WELL, REPOSITIONED FOR COMFORT/PRESSURE RELIEF, TOLERATED WELL. NAD.
--- NOTE | 2019-11-24 02:00 | NUR ---
NURSE NOTES: WOUND CARE TO RIGHT THIGH, SACRAL AND THORACIC SPINE, TOLERATED WELL.
[2019-11-24 04:00] VITALS: BP 99/57
[2019-11-24] MEDS: cefTRIAXone 2 GM in D5W 55 ML IVPB SCH (05:14)
--- NOTE | 2019-11-24 06:06 | NUR ---
NURSE NOTES: RESTED WELL, NO SIGNIFICANT CHANGE OF CONDITION NOTED THROUGHOUT THE NIGHT. SAFETY MAINTAINED. NAD.
[2019-11-24 06:45] LABS: BASOPHILS % (AUTO) 1.3 % (0.0-2.0); EOSINOPHILS % (AUTO) 3.9 % (0.0-3.0); HEMATOCRIT 23.5 % (42.0-52.0); HEMOGLOBIN 8.1 G/DL (14.2-18.0); MEAN CORPUSCULAR VOLUME 89 FL (80-99); MONOCYTES % (AUTO) 4.7 % (1.0-10.0); NEUTROPHILS % (AUTO) 65.1 % (45.0-75.0); PLATELET COUNT 314 K/UL (150-450); RED BLOOD COUNT 2.65 M/UL (4.70-6.10); RED CELL DISTRIBUTION WIDTH 13.5 % (11.6-14.8); WHITE BLOOD COUNT 5.5 K/UL (4.8-10.8)
[2019-11-24 06:50] LABS: ALANINE AMINOTRANSFERASE 7 U/L (12-78); ALBUMIN 1.2 G/DL (3.4-5.0); ALBUMIN/GLOBULIN RATIO 0.3 (1.0-2.7); ALKALINE PHOSPHATASE 73 U/L (46-116); ANION GAP 10 mmol/L (5-15); ASPARTATE AMINO TRANSFERASE 27 U/L (15-37); BILIRUBIN,TOTAL 0.2 MG/DL (0.2-1.0); BLOOD UREA NITROGEN 62 mg/dL (7-18); CALCIUM 8.2 MG/DL (8.5-10.1); CARBON DIOXIDE 22 MMOL/L (21-32); CHLORIDE 110 MMOL/L (98-107); CREATININE 2.4 MG/DL (0.55-1.30); POTASSIUM 3.2 MMOL/L (3.5-5.1); SODIUM 142 MMOL/L (136-145)
[2019-11-24 07:00] LABS: PHOSPHORUS 3.9 MG/DL (2.5-4.9)
--- NOTE | 2019-11-24 07:08 | NUR ---
NURSE NOTES: Report received from [facility], rounds made. Patient resting in semi-fowlers position, in bed. AOx4, calm. No distress on RA. Respirations even, unlabored. P200 mattress on. Right thigh/hip dressing CDI (2x2 with tegederm) CMS to RLE, wiggles toes, skin warm, pulses palpable, denies NT. LH IV heplock intact, wrapped with kerlix. Call light in reach, bed in lowest position, will continue to monitor.
[2019-11-24 08:00] VITALS: BP 133/76
--- NOTE | 2019-11-24 08:44 | Diagnostic Imaging Report ---
EXAM: XR Abdomen, 2 Views CLINICAL HISTORY: ABD PAIN TECHNIQUE: Frontal supine views of the abdomen/pelvis. COMPARISON: Abdominal ultrasound dated 11/23/19. FINDINGS: Intraperitoneal space: No free air. Gastrointestinal tract: Diffuse colonic fecal retention, suggesting constipation. Nonspecific diffuse gaseous distention of stomach and moderate gaseous distention of small bowel loops. Small bowel diameter remains within normal limits. Organs: The renal shadows are obscured by overlying bowel gas. No evidence of organomegaly. No suspicious calcifications identified in the abdomen or pelvis. Bones/joints: Status post bilateral hip replacement. Expected alignment. Degenerative changes in the lumbosacral junction. IMPRESSION: 1. Diffuse colonic fecal retention, suggesting constipation. 2. Nonspecific diffuse gaseous distention of stomach and moderate gaseous distention of small bowel loops. Small bowel diameter remains within normal limits.
--- NOTE | 2019-11-24 09:40 | Nephrology Progress Note ---
Assessment/Plan Problem List: (1) JAIDA (acute kidney injury) Assessment: Serum creatinine lower (2) Anemia (3) Dehydration (4) Hip fracture, right (5) Fall Assessment Acute renal failure Possibly underlying chronic kidney failure Dehydration Status post fall and fracture of the right hip History of hypertension History of diabetes mellitus History of psych disease Anemia Plan Normal saline and albumin bolus as needed Check serum cortisol level noted Trial of IV iron and subcu Epogen for anemia Continue to monitor renal parameters Continue per consultants Kidney ultrasound results noted ROBERTO: 1. No hydronephrosis or stone. 2. Increased echogenicity of the kidneys is suggestive of medical renal disease. Left renal cysts. 3. Bladder is distended with questionable mild prominence of the bladder wall. Further evaluation could be performed with urinalysis if there is concern for cystitis. Previously: Patient underwent hip surgery November 17 today's labs reviewed, serum creatinine down to 2.5 Since serum creatinine is declining will continue hydration DC [place] November 19 On soft diet now Adjust blood pressure medications IV fluids Anemia work-up Protonix, Colace Pain medication Monitor renal parameters Urine studies Per consultants Subjective ROS Limited/Unobtainable: No Constitutional: Reports: malaise Objective Objective Last 24 Hour Vital Signs Date Time Temp Pulse Resp B/P (MAP) Pulse Ox O2 Delivery O2 Flow Rate FiO2 11/24/19 08:00 97.6 89 21 133/76 (95) 99 11/24/19 04:00 97.5 64 18 99/57 (71) 99 11/24/19 00:00 97.5 70 18 105/61 (76) 97 11/23/19 20:09 Room Air 11/23/19 20:00 96.9 61 20 98/55 (69) 98 11/23/19 16:00 97.8 63 18 99/56 (70) 99 11/23/19 12:00 97.8 70 19 102/60 (74) 97 70 Intake and Output 11/23/19 11/24/19 19:00 07:00 Intake Total 420 ml 410 ml Balance 420 ml 410 ml Intake Oral 420 ml 300 ml IV Total 110 ml # Voids 3 6 # Bowel Movements 2 Laboratory Tests 11/24/19 05:30: White Blood Count 5.5, Red Blood Count 2.65L, Hemoglobin 8.1L, Hematocrit 23.5L , Mean Corpuscular Volume 89, Mean Corpuscular Hemoglobin 30.5, Mean Corpuscular Hemoglobin Concent 34.4, Red Cell Distribution Width 13.5, Platelet Count 314, Mean Platelet Volume 4.7L, Neutrophils (%) (Auto) 65.1, Lymphocytes ( %) (Auto) 25.0, Monocytes (%) (Auto) 4.7, Eosinophils (%) (Auto) 3.9H, Basophils (%) (Auto) 1.3, Sodium Level 142, Potassium Level 3.2L, Chloride Level 110H, Carbon Dioxide Level 22, Anion Gap 10, Blood Urea Nitrogen 62H, Creatinine 2.4H, Estimat Glomerular Filtration Rate 27.4, Glucose Level 89, Uric Acid 9.6H, Calcium Level 8.2L, Phosphorus Level 3.9, Magnesium Level 1.9, Total Bilirubin 0.2, Aspartate Amino Transf (AST/SGOT) 27, Alanine Aminotransferase (ALT/SGPT) 7L, Alkaline Phosphatase 73, Total Protein 5.4L, Albumin 1.2L, Globulin 4.2, Albumin/Globulin Ratio 0.3L, Random Vancomycin Level 16.5 Height (Feet): 6 Height (Inches): 4.00 Weight (Pounds): 180 General Appearance: no apparent distress Cardiovascular: normal rate Abdomen: soft Objective No change Armen Levine MD November 24, 2019 09:40
[2019-11-24] MEDS: Docusate 100mg cap ORAL SCH ×3 (09:43→18:52)
[2019-11-24] MEDS: Tamsulosin 0.4mg cap ORAL SCH ×2 (09:43→18:53)
[2019-11-24 11:52] VITALS: BP 106/61
--- NOTE | 2019-11-24 12:10 | GI Progress Note ---
Assessment/Plan Problems: (1) Coffee ground emesis ICD Codes: K92.0 - Hematemesis SNOMED: 13623055 (2) Anemia ICD Codes: D64.9 - Anemia, unspecified SNOMED: 420681457 (3) Dehydration ICD Codes: E86.0 - Dehydration SNOMED: 02466091 Status: stable Status Narrative Discussed with Dr. Bains. Assessment/Plan #anemia r/o GI bleed. Patient had one episode of coffee ground emesis with no recurrent. S/P 2 units of pRBCs. First OB stool was negative. - Patient refused endoscopy at this time. - anemia work up reviewed; no noted iron or folate/thiamine deficiency - will increase PPI to BID. - monitor H&H, prn transfusions. - send for additional OB stool to evaluate for any GI bleed #constipation. KUB reviewed. - continue colace TID, add miralax qhs. The patient was seen and examined at bedside and all new and available data was reviewed in the patients chart. I agree with the above findings, impression and plan. (Patient seen earlier today. Signature stamp does not reflect patient encounter time.). - Paul Bains MD Subjective Gastrointestinal/Abdominal: Denies: no symptoms, abdomen distended, abdominal pain, black stools, tarry stools, blood in stool, constipated, diarrhea, difficulty swallowing, nausea, poor appetite, poor fluid intake, rectal bleeding , vomiting, other Subjective had episode of coffee grounds Objective Last 24 Hour Vital Signs Date Time Temp Pulse Resp B/P (MAP) Pulse Ox O2 Delivery O2 Flow Rate FiO2 11/24/19 11:52 97.1 62 20 106/61 (76) 98 11/24/19 08:00 97.6 89 21 133/76 (95) 99 11/24/19 04:00 97.5 64 18 99/57 (71) 99 11/24/19 00:00 97.5 70 18 105/61 (76) 97 11/23/19 20:09 Room Air 11/23/19 20:00 96.9 61 20 98/55 (69) 98 11/23/19 16:00 97.8 63 18 99/56 (70) 99 Intake and Output 11/23/19 11/24/19 19:00 07:00 Intake Total 420 ml 410 ml Balance 420 ml 410 ml Intake Oral 420 ml 300 ml IV Total 110 ml # Voids 3 6 # Bowel Movements 2 Laboratory Tests Test 11/24/19 05:30 White Blood Count 5.5 K/UL (4.8-10.8) Red Blood Count 2.65 M/UL (4.70-6.10) L Hemoglobin 8.1 G/DL (14.2-18.0) L Hematocrit 23.5 % (42.0-52.0) L Mean Corpuscular Volume 89 FL (80-99) Mean Corpuscular Hemoglobin 30.5 PG (27.0-31.0) Mean Corpuscular Hemoglobin Concent 34.4 G/DL (32.0-36.0) Red Cell Distribution Width 13.5 % (11.6-14.8) Platelet Count 314 K/UL (150-450) Mean Platelet Volume 4.7 FL (6.5-10.1) L Neutrophils (%) (Auto) 65.1 % (45.0-75.0) Lymphocytes (%) (Auto) 25.0 % (20.0-45.0) Monocytes (%) (Auto) 4.7 % (1.0-10.0) Eosinophils (%) (Auto) 3.9 % (0.0-3.0) H Basophils (%) (Auto) 1.3 % (0.0-2.0) Sodium Level 142 MMOL/L (136-145) Potassium Level 3.2 MMOL/L (3.5-5.1) L Chloride Level 110 MMOL/L (98-107) H Carbon Dioxide Level 22 MMOL/L (21-32) Anion Gap 10 mmol/L (5-15) Blood Urea Nitrogen 62 mg/dL (7-18) H Creatinine 2.4 MG/DL (0.55-1.30) H Estimat Glomerular Filtration Rate 27.4 mL/min (>60) Glucose Level 89 MG/DL (74-106) Uric Acid 9.6 MG/DL (2.6-7.2) H Calcium Level 8.2 MG/DL (8.5-10.1) L Phosphorus Level 3.9 MG/DL (2.5-4.9) Magnesium Level 1.9 MG/DL (1.8-2.4) Total Bilirubin 0.2 MG/DL (0.2-1.0) Aspartate Amino Transf (AST/SGOT) 27 U/L (15-37) Alanine Aminotransferase (ALT/SGPT) 7 U/L (12-78) L Alkaline Phosphatase 73 U/L (46-116) Total Protein 5.4 G/DL (6.4-8.2) L Albumin 1.2 G/DL (3.4-5.0) L Globulin 4.2 g/dL Albumin/Globulin Ratio 0.3 (1.0-2.7) L Random Vancomycin Level 16.5 ug/mL Height (Feet): 6 Height (Inches): 4.00 Weight (Pounds): 180 General Appearance: WD/WN, no apparent distress, alert Cardiovascular: normal rate Respiratory/Chest: normal breath sounds, no respiratory distress Abdominal Exam: normal bowel sounds, non tender, soft Extremities: normal range of motion, non-tender Emir Wyman NP November 24, 2019 12:10
--- NOTE | 2019-11-24 12:31 | Hematology/Onc Progress Note ---
Assessment/Plan Assessment/Plan Assessment and Recs # Anemia of chronic disease due to underlying chronic medical issues, multifactorial v Gi bleed --> Anemia workup has been reviewed --> No evidence of hemolysis is noted, peripheral smear has been reviewed. --> Hgb goal >7. Transfuse prn. --> Epogen or iron have been started --> Medications have been reviewed --> low threshold for gi evaluation in case has occult + --> hgb trend 9.9-->9.3 -->9.5-->8.3->8.1 # Hip fracture, right --> Fracture of unspecified part of neck of right femur, initial encounter for closed fracture --> s/p orif # Fall may require surger per ortho --> neuro and ortho # JAIDA on CKD --> per Dr. Levine # Psych disorder --> per Dr. Dickens # Dvt ppx scds The timing of this note does not necessarily reflect the time of the patient was seen. Greatly appreciate consultation. Subjective Allergies: Coded Allergies: No Known Allergies (Unverified , 10/15/15) All Systems: reviewed and negative except above Subjective 11/16 confused, pending right hip hemiarthroplasty, bilat restraints 11/17 confused, hgb 9.5, no bleeding, reviewed renal recs 11/18 still requiring clearance by psych, cards for clearance to surgery 11/19 awake and alert, dressing dry and intact, on room air 11/20 still confused no bleeding, meds noted, no night sweats, dw rn 11/21 asa discontinued, with black emesis, gi care norco prn 11/23 has been refusing endoscopy, is on ppi, no beeding, hgb 10 Objective Objective Current Medications Medications (Trade) Dose Ordered Sig/Juan Route PRN Reason Start Time Stop Time Status Last Admin Dose Admin Acetaminophen (Tylenol) 650 mg Q4H PRN ORAL Mild Pain (Pain Scale 1-3) 11/14/19 19:15 12/14/19 19:14 11/22/19 21:37 Acetaminophen (Tylenol) 650 mg Q4H PRN ORAL Temp >100.5 11/18/19 15:00 12/18/19 14:59 11/22/19 04:17 Acetaminophen/ Hydrocodone Bitart ([place] 7.5/325) 1 tab Q4H PRN ORAL severe pain 11/19/19 15:15 11/26/19 15:14 Ceftriaxone Sodium 2 gm/ Dextrose 55 ml @ 110 mls/hr Q24H IVPB 11/23/19 06:00 11/30/19 05:59 11/24/19 05:14 Docusate Sodium (Colace) 100 mg THREE TIMES A DAY ORAL 11/19/19 18:00 12/19/19 17:59 11/24/19 09:43 Epoetin Shaun (Procrit (for non ESRD use)) 10,000 units MON-MON-MON SUBQ 11/25/19 21:00 02/23/20 20:59 Iron Sucrose 100 mg/Sodium Chloride 55 ml @ 200 mls/hr BEDTIME IV 11/23/19 21:00 11/27/19 21:17 11/23/19 20:43 Metoclopramide HCl (Reglan) 10 mg Q6H PRN IVP Nausea & Vomiting 11/18/19 18:30 12/18/19 18:29 Midodrine (Pro-Amatine) 5 mg THREE TIMES A DAY ORAL 11/24/19 13:00 02/21/20 12:59 Pantoprazole (Protonix) 40 mg BID ORAL 11/23/19 18:00 12/23/19 08:59 11/24/19 09:43 Polyethylene Glycol (Miralax) 17 gm BEDTIME ORAL 11/24/19 21:00 12/24/19 20:59 Polyethylene Glycol (Miralax) 17 gm DAILY PRN ORAL Constipation 11/22/19 11:00 12/22/19 10:59 Tamsulosin HCl (Flomax) 0.4 mg BID ORAL 11/16/19 18:00 12/15/19 20:59 11/24/19 09:43 Temazepam (RestoriL) 7.5 mg HSPRN PRN ORAL Insomnia 11/18/19 21:00 11/25/19 20:59 Vancomycin HCl (Vanco rx to dose) 1 ea DAILY PRN MISC Per rx protocol 11/19/19 18:15 12/19/19 18:14 Vancomycin HCl 1 gm/Dextrose 275 ml @ 183.708 mls/hr ONCE IVPB 11/24/19 20:00 11/24/19 22:00 Last 24 Hour Vital Signs Date Time Temp Pulse Resp B/P (MAP) Pulse Ox O2 Delivery O2 Flow Rate FiO2 11/24/19 11:52 97.1 62 20 106/61 (76) 98 11/24/19 08:00 97.6 89 21 133/76 (95) 99 11/24/19 04:00 97.5 64 18 99/57 (71) 99 11/24/19 00:00 97.5 70 18 105/61 (76) 97 11/23/19 20:09 Room Air 11/23/19 20:00 96.9 61 20 98/55 (69) 98 11/23/19 16:00 97.8 63 18 99/56 (70) 99 11/23/19 12:00 97.8 70 19 102/60 (74) 97 70 11/23/19 09:36 97.9 66 18 97/52 (67) 97 11/23/19 09:00 Room Air 11/23/19 08:00 97.7 66 18 95/50 (65) 99 11/23/19 04:00 97.6 65 21 94/53 (67) 96 11/22/19 23:54 98.0 90 21 100/52 (68) 95 11/22/19 21:00 Room Air 11/22/19 20:00 98.2 93 21 102/54 (70) 97 Intake and Output 11/23/19 11/24/19 19:00 07:00 Intake Total 420 ml 410 ml Balance 420 ml 410 ml Intake Oral 420 ml 300 ml IV Total 110 ml # Voids 3 6 # Bowel Movements 2 Labs Test 11/22/19 02:00 11/22/19 09:30 11/22/19 09:35 11/22/19 11:50 Urine Color Yellow Urine Appearance Clear Urine pH 5 (4.5-8.0) Urine Specific [place] 1.010 (1.005-1.035) Urine Protein 2+ (NEGATIVE) Urine Glucose (UA) Negative (NEGATIVE) Urine Ketones Negative (NEGATIVE) Urine Blood Negative (NEGATIVE) Urine Nitrite Negative (NEGATIVE) Urine Bilirubin Negative (NEGATIVE) Urine Urobilinogen Normal MG/DL (0.0-1.0) Urine Leukocyte Esterase 1+ (NEGATIVE) Urine RBC 0 /HPF (0 - 0) Urine WBC 0-2 /HPF (0 - 0) Urine Squamous Epithelial Cells Few /LPF (NONE/OCC) Urine Bacteria None /HPF (NONE) Random Vancomycin Level 17.4 ug/mL White Blood Count 8.6 K/UL (4.8-10.8) Red Blood Count 2.35 M/UL (4.70-6.10) Hemoglobin 7.1 G/DL (14.2-18.0) Hematocrit 21.4 % (42.0-52.0) Mean Corpuscular Volume 91 FL (80-99) Mean Corpuscular Hemoglobin 30.1 PG (27.0-31.0) Mean Corpuscular Hemoglobin Concent 33.1 G/DL (32.0-36.0) Red Cell Distribution Width 14.0 % (11.6-14.8) Platelet Count 325 K/UL (150-450) Mean Platelet Volume 4.0 FL (6.5-10.1) Neutrophils (%) (Auto) % (45.0-75.0) Lymphocytes (%) (Auto) % (20.0-45.0) Monocytes (%) (Auto) % (1.0-10.0) Eosinophils (%) (Auto) % (0.0-3.0) Basophils (%) (Auto) % (0.0-2.0) Differential Total Cells Counted 100 Neutrophils % (Manual) 65 % (45-75) Lymphocytes % (Manual) 18 % (20-45) Monocytes % (Manual) 12 % (1-10) Eosinophils % (Manual) 0 % (0-3) Basophils % (Manual) 0 % (0-2) Band Neutrophils 5 % (0-8) Platelet Estimate Adequate Platelet Morphology Normal Hypochromasia 3+ Anisocytosis 1+ Stool Occult Blood Negative (NEGATIVE) Test 11/23/19 06:05 11/24/19 05:30 White Blood Count 7.2 K/UL (4.8-10.8) 5.5 K/UL (4.8-10.8) Red Blood Count 2.45 M/UL (4.70-6.10) 2.65 M/UL (4.70-6.10) Hemoglobin 7.6 G/DL (14.2-18.0) 8.1 G/DL (14.2-18.0) Hematocrit 21.6 % (42.0-52.0) 23.5 % (42.0-52.0) Mean Corpuscular Volume 88 FL (80-99) 89 FL (80-99) Mean Corpuscular Hemoglobin 30.8 PG (27.0-31.0) 30.5 PG (27.0-31.0) Mean Corpuscular Hemoglobin Concent 35.0 G/DL (32.0-36.0) 34.4 G/DL (32.0-36.0) Red Cell Distribution Width 13.1 % (11.6-14.8) 13.5 % (11.6-14.8) Platelet Count 276 K/UL (150-450) 314 K/UL (150-450) Mean Platelet Volume 4.5 FL (6.5-10.1) 4.7 FL (6.5-10.1) Neutrophils (%) (Auto) % (45.0-75.0) 65.1 % (45.0-75.0) Lymphocytes (%) (Auto) % (20.0-45.0) 25.0 % (20.0-45.0) Monocytes (%) (Auto) % (1.0-10.0) 4.7 % (1.0-10.0) Eosinophils (%) (Auto) % (0.0-3.0) 3.9 % (0.0-3.0) Basophils (%) (Auto) % (0.0-2.0) 1.3 % (0.0-2.0) Differential Total Cells Counted 100 Neutrophils % (Manual) 66 % (45-75) Lymphocytes % (Manual) 24 % (20-45) Monocytes % (Manual) 7 % (1-10) Eosinophils % (Manual) 2 % (0-3) Basophils % (Manual) 1 % (0-2) Band Neutrophils 0 % (0-8) Platelet Estimate Adequate Platelet Morphology Normal Hypochromasia 3+ Anisocytosis 1+ Spherocytes 2+ Sodium Level 136 MMOL/L (136-145) 142 MMOL/L (136-145) Potassium Level 3.6 MMOL/L (3.5-5.1) 3.2 MMOL/L (3.5-5.1) Chloride Level 106 MMOL/L (98-107) 110 MMOL/L (98-107) Carbon Dioxide Level 19 MMOL/L (21-32) 22 MMOL/L (21-32) Anion Gap 11 mmol/L (5-15) 10 mmol/L (5-15) Blood Urea Nitrogen 67 mg/dL (7-18) 62 mg/dL (7-18) Creatinine 2.7 MG/DL (0.55-1.30) 2.4 MG/DL (0.55-1.30) Estimat Glomerular Filtration Rate 23.9 mL/min (>60) 27.4 mL/min (>60) Glucose Level 88 MG/DL (74-106) 89 MG/DL (74-106) Uric Acid 9.0 MG/DL (2.6-7.2) 9.6 MG/DL (2.6-7.2) Calcium Level 7.9 MG/DL (8.5-10.1) 8.2 MG/DL (8.5-10.1) Phosphorus Level 4.2 MG/DL (2.5-4.9) 3.9 MG/DL (2.5-4.9) Magnesium Level 1.9 MG/DL (1.8-2.4) 1.9 MG/DL (1.8-2.4) Iron Level 44 ug/dL (50-175) Total Iron Binding Capacity 93 ug/dL (250-450) Percent Iron Saturation 47 % (15-50) Unsaturated Iron Binding 49 ug/dL (112-346) Total Bilirubin 0.3 MG/DL (0.2-1.0) 0.2 MG/DL (0.2-1.0) Aspartate Amino Transf (AST/SGOT) 37 U/L (15-37) 27 U/L (15-37) Alanine Aminotransferase (ALT/SGPT) 8 U/L (12-78) 7 U/L (12-78) Alkaline Phosphatase 65 U/L (46-116) 73 U/L (46-116) Total Protein 5.1 G/DL (6.4-8.2) 5.4 G/DL (6.4-8.2) Albumin 1.0 G/DL (3.4-5.0) 1.2 G/DL (3.4-5.0) Globulin 4.1 g/dL 4.2 g/dL Albumin/Globulin Ratio 0.2 (1.0-2.7) 0.3 (1.0-2.7) Amylase Level 69 U/L (25-115) Lipase 446 U/L (73-393) Vitamin B12 Level 314 PG/ML (193-986) Folate 7.4 NG/ML (8.6-58.9) Cortisol AM Sample 10.1 UG/DL Random Vancomycin Level 16.5 ug/mL Height (Feet): 6 Height (Inches): 4.00 Weight (Pounds): 180 Objective PE: Vitals: reviewed, stable General Appearance: NAD HEENT: normocephalic, atraumatic Neck: non-tender, normal alignment Respiratory/Chest: normal breath sounds bilaterally Cardiovascular/Chest: normal peripheral pulses, normal rate Abdomen: normal bowel sounds, soft, nontender Extremities: normal range of motion Neuro: altered, encephalopathic : bonita+ Juan Luis Monique MD November 24, 2019 12:31
--- NOTE | 2019-11-24 13:55 | General Progress Note ---
Assessment/Plan Assessment/Plan: (1) Right hip pain (2) Right hip fracture (3) S/P Right hip hemiarthroplasty (4) Right UE pain (5) Right UE osteomyelitis Patient to be continued on Fossil as needed. D/w Dr. Sanders and he concurred. Subjective Date patient seen: November 24, 2019 Time patient seen: 01:30 - pm Allergies: Coded Allergies: No Known Allergies (Unverified , 10/15/15) Subjective Constitutional: Reports: weakness HEENT: Reports: no symptoms Cardiovascular: Reports: no symptoms Respiratory: Reports: no symptoms Gastrointestinal/Abdominal: Reports: no symptoms Genitourinary: Reports: no symptoms Neurologic/Psychiatric: Reports: weakness Endocrine: Reports: no symptoms Hematologic/Lymphatic: Reports: no symptoms Subjective Patient is in bed no signs of pain or distress. Denies rasmussen at this time. Objective Last 24 Hour Vital Signs Date Time Temp Pulse Resp B/P (MAP) Pulse Ox O2 Delivery O2 Flow Rate FiO2 11/24/19 11:52 97.1 62 20 106/61 (76) 98 11/24/19 08:00 97.6 89 21 133/76 (95) 99 11/24/19 04:00 97.5 64 18 99/57 (71) 99 11/24/19 00:00 97.5 70 18 105/61 (76) 97 11/23/19 20:09 Room Air 11/23/19 20:00 96.9 61 20 98/55 (69) 98 11/23/19 16:00 97.8 63 18 99/56 (70) 99 Intake and Output 11/23/19 11/24/19 19:00 07:00 Intake Total 420 ml 410 ml Balance 420 ml 410 ml Intake Oral 420 ml 300 ml IV Total 110 ml # Voids 3 6 # Bowel Movements 2 Laboratory Tests 11/24/19 05:30: White Blood Count 5.5, Red Blood Count 2.65L, Hemoglobin 8.1L, Hematocrit 23.5L , Mean Corpuscular Volume 89, Mean Corpuscular Hemoglobin 30.5, Mean Corpuscular Hemoglobin Concent 34.4, Red Cell Distribution Width 13.5, Platelet Count 314, Mean Platelet Volume 4.7L, Neutrophils (%) (Auto) 65.1, Lymphocytes ( %) (Auto) 25.0, Monocytes (%) (Auto) 4.7, Eosinophils (%) (Auto) 3.9H, Basophils (%) (Auto) 1.3, Sodium Level 142, Potassium Level 3.2L, Chloride Level 110H, Carbon Dioxide Level 22, Anion Gap 10, Blood Urea Nitrogen 62H, Creatinine 2.4H, Estimat Glomerular Filtration Rate 27.4, Glucose Level 89, Uric Acid 9.6H, Calcium Level 8.2L, Phosphorus Level 3.9, Magnesium Level 1.9, Total Bilirubin 0.2, Aspartate Amino Transf (AST/SGOT) 27, Alanine Aminotransferase (ALT/SGPT) 7L, Alkaline Phosphatase 73, Total Protein 5.4L, Albumin 1.2L, Globulin 4.2, Albumin/Globulin Ratio 0.3L, Random Vancomycin Level 16.5 Height (Feet): 6 Height (Inches): 4.00 Weight (Pounds): 180 Objective General Appearance: no apparent distress, alert EENT: PERRL/EOMI, normal ENT inspection Neck: non-tender, normal alignment Cardiovascular: normal rate, regular rhythm Respiratory/Chest: decreased breath sounds Abdomen: non tender, soft Extremities: other - tenderness to palpation of right UE and LE Neurologic: alert, responsive Skin: normal pigmentation David Hi November 24, 2019 13:55
[2019-11-24] MEDS ORDERED: Albumin Human 5% 500ml IV SCH (14:30)
--- NOTE | 2019-11-24 14:41 | Infectious Diseases Prog Note ---
Assessment/Plan Assessment/Plan IMPRESSION: Post operative fever Cellulitis of R arm Right hip fracture, s/p ORIF schizophrenia, BPH, Acute renal failure, Anemia, Fecal impaction. RECOMMENDATION: discontinue IV Vancomycin & Rocephin PO Doxycyclin X 2 days Negative COVID-19 test. Subjective ROS Limited/Unobtainable: Yes Allergies: Coded Allergies: No Known Allergies (Unverified , 10/15/15) Objective Vital Signs Last 24 Hour Vital Signs Date Time Temp Pulse Resp B/P (MAP) Pulse Ox O2 Delivery O2 Flow Rate FiO2 11/24/19 11:52 97.1 62 20 106/61 (76) 98 11/24/19 08:00 97.6 89 21 133/76 (95) 99 11/24/19 04:00 97.5 64 18 99/57 (71) 99 11/24/19 00:00 97.5 70 18 105/61 (76) 97 11/23/19 20:09 Room Air 11/23/19 20:00 96.9 61 20 98/55 (69) 98 11/23/19 16:00 97.8 63 18 99/56 (70) 99 Height (Feet): 6 Height (Inches): 4.00 Weight (Pounds): 180 General Appearance: no acute distress HEENT: mucous membranes moist Respiratory/Chest: lungs clear Cardiovascular: normal rate Abdomen: soft, non tender Extremities: other - reolved edema of right arm Neurologic/Psychiatric: alert, responsive Microbiology Date/Time Source Procedure Growth Status 11/21/19 22:55 Blood Blood Culture - Preliminary NO GROWTH AFTER 48 HOURS Resulted 11/21/19 22:40 Blood Blood Culture - Preliminary NO GROWTH AFTER 48 HOURS Resulted Laboratory Tests Test 11/24/19 05:30 White Blood Count 5.5 K/UL (4.8-10.8) Red Blood Count 2.65 M/UL (4.70-6.10) L Hemoglobin 8.1 G/DL (14.2-18.0) L Hematocrit 23.5 % (42.0-52.0) L Mean Corpuscular Volume 89 FL (80-99) Mean Corpuscular Hemoglobin 30.5 PG (27.0-31.0) Mean Corpuscular Hemoglobin Concent 34.4 G/DL (32.0-36.0) Red Cell Distribution Width 13.5 % (11.6-14.8) Platelet Count 314 K/UL (150-450) Mean Platelet Volume 4.7 FL (6.5-10.1) L Neutrophils (%) (Auto) 65.1 % (45.0-75.0) Lymphocytes (%) (Auto) 25.0 % (20.0-45.0) Monocytes (%) (Auto) 4.7 % (1.0-10.0) Eosinophils (%) (Auto) 3.9 % (0.0-3.0) H Basophils (%) (Auto) 1.3 % (0.0-2.0) Sodium Level 142 MMOL/L (136-145) Potassium Level 3.2 MMOL/L (3.5-5.1) L Chloride Level 110 MMOL/L (98-107) H Carbon Dioxide Level 22 MMOL/L (21-32) Anion Gap 10 mmol/L (5-15) Blood Urea Nitrogen 62 mg/dL (7-18) H Creatinine 2.4 MG/DL (0.55-1.30) H Estimat Glomerular Filtration Rate 27.4 mL/min (>60) Glucose Level 89 MG/DL (74-106) Uric Acid 9.6 MG/DL (2.6-7.2) H Calcium Level 8.2 MG/DL (8.5-10.1) L Phosphorus Level 3.9 MG/DL (2.5-4.9) Magnesium Level 1.9 MG/DL (1.8-2.4) Total Bilirubin 0.2 MG/DL (0.2-1.0) Aspartate Amino Transf (AST/SGOT) 27 U/L (15-37) Alanine Aminotransferase (ALT/SGPT) 7 U/L (12-78) L Alkaline Phosphatase 73 U/L (46-116) Total Protein 5.4 G/DL (6.4-8.2) L Albumin 1.2 G/DL (3.4-5.0) L Globulin 4.2 g/dL Albumin/Globulin Ratio 0.3 (1.0-2.7) L Random Vancomycin Level 16.5 ug/mL Current Medications Medications (Trade) Dose Ordered Sig/Juan Route PRN Reason Start Time Stop Time Status Last Admin Dose Admin Acetaminophen (Tylenol) 650 mg Q4H PRN ORAL Mild Pain (Pain Scale 1-3) 11/14/19 19:15 12/14/19 19:14 11/22/19 21:37 Acetaminophen (Tylenol) 650 mg Q4H PRN ORAL Temp >100.5 11/18/19 15:00 12/18/19 14:59 11/22/19 04:17 Acetaminophen/ Hydrocodone Bitart ([place] 7.5/325) 1 tab Q4H PRN ORAL severe pain 11/19/19 15:15 11/26/19 15:14 Albumin Human (Albuminar-5) 500 ml ONCE IV 11/24/19 14:30 11/24/19 18:00 11/24/19 14:08 Ceftriaxone Sodium 2 gm/ Dextrose 55 ml @ 110 mls/hr Q24H IVPB 11/23/19 06:00 11/30/19 05:59 11/24/19 05:14 Docusate Sodium (Colace) 100 mg THREE TIMES A DAY ORAL 11/19/19 18:00 12/19/19 17:59 11/24/19 13:18 Epoetin Shaun (Procrit (for non ESRD use)) 10,000 units MON-MON-MON SUBQ 11/25/19 21:00 02/23/20 20:59 Iron Sucrose 100 mg/Sodium Chloride 55 ml @ 200 mls/hr BEDTIME IV 11/23/19 21:00 11/27/19 21:17 11/23/19 20:43 Metoclopramide HCl (Reglan) 10 mg Q6H PRN IVP Nausea & Vomiting 11/18/19 18:30 12/18/19 18:29 Midodrine (Pro-Amatine) 5 mg THREE TIMES A DAY ORAL 11/24/19 13:00 02/21/20 12:59 Pantoprazole (Protonix) 40 mg BID ORAL 11/23/19 18:00 12/23/19 08:59 11/24/19 09:43 Polyethylene Glycol (Miralax) 17 gm BEDTIME ORAL 11/24/19 21:00 12/24/19 20:59 Polyethylene Glycol (Miralax) 17 gm DAILY PRN ORAL Constipation 11/22/19 11:00 12/22/19 10:59 Tamsulosin HCl (Flomax) 0.4 mg BID ORAL 11/16/19 18:00 12/15/19 20:59 11/24/19 09:43 Temazepam (RestoriL) 7.5 mg HSPRN PRN ORAL Insomnia 11/18/19 21:00 11/25/19 20:59 Vancomycin HCl (Vanco rx to dose) 1 ea DAILY PRN MISC Per rx protocol 11/19/19 18:15 12/19/19 18:14 Vancomycin HCl 1 gm/Dextrose 275 ml @ 183.708 mls/hr ONCE IVPB 11/24/19 20:00 11/24/19 22:00 Todd Paz MD November 24, 2019 14:41
[2019-11-24] MEDS ORDERED: NS 275ml ONE (14:57)
[2019-11-24] MEDS ORDERED: Tubing IV Secondary IV ONE (14:57)
[2019-11-24 16:00] VITALS: BP 112/50
[2019-11-24] MEDS: Doxycycline Monohydrate 100mg ORAL SCH ×2 (16:16→21:13)
--- NOTE | 2019-11-24 16:39 | Surgery Progress Note ---
Surgery Progress Note Subjective Additional Comments no acute events non compliant with care plan no n/v labs stable Objective Last 24 Hour Vital Signs Date Time Temp Pulse Resp B/P (MAP) Pulse Ox O2 Delivery O2 Flow Rate FiO2 11/24/19 11:52 97.1 62 20 106/61 (76) 98 11/24/19 08:00 97.6 89 21 133/76 (95) 99 11/24/19 04:00 97.5 64 18 99/57 (71) 99 11/24/19 00:00 97.5 70 18 105/61 (76) 97 11/23/19 20:09 Room Air 11/23/19 20:00 96.9 61 20 98/55 (69) 98 I&O Intake and Output 11/23/19 11/24/19 19:00 07:00 Intake Total 420 ml 410 ml Balance 420 ml 410 ml Intake Oral 420 ml 300 ml IV Total 110 ml # Voids 3 6 # Bowel Movements 2 Dressing: dry Wound: clean Cardiovascular: RSR Respiratory: clear Abdomen: soft, non-tender, present bowel sounds Extremities: edema, no tenderness, no cyanosis, pulses, other Laboratory Tests Test 11/24/19 05:30 White Blood Count 5.5 K/UL (4.8-10.8) Red Blood Count 2.65 M/UL (4.70-6.10) L Hemoglobin 8.1 G/DL (14.2-18.0) L Hematocrit 23.5 % (42.0-52.0) L Mean Corpuscular Volume 89 FL (80-99) Mean Corpuscular Hemoglobin 30.5 PG (27.0-31.0) Mean Corpuscular Hemoglobin Concent 34.4 G/DL (32.0-36.0) Red Cell Distribution Width 13.5 % (11.6-14.8) Platelet Count 314 K/UL (150-450) Mean Platelet Volume 4.7 FL (6.5-10.1) L Neutrophils (%) (Auto) 65.1 % (45.0-75.0) Lymphocytes (%) (Auto) 25.0 % (20.0-45.0) Monocytes (%) (Auto) 4.7 % (1.0-10.0) Eosinophils (%) (Auto) 3.9 % (0.0-3.0) H Basophils (%) (Auto) 1.3 % (0.0-2.0) Sodium Level 142 MMOL/L (136-145) Potassium Level 3.2 MMOL/L (3.5-5.1) L Chloride Level 110 MMOL/L (98-107) H Carbon Dioxide Level 22 MMOL/L (21-32) Anion Gap 10 mmol/L (5-15) Blood Urea Nitrogen 62 mg/dL (7-18) H Creatinine 2.4 MG/DL (0.55-1.30) H Estimat Glomerular Filtration Rate 27.4 mL/min (>60) Glucose Level 89 MG/DL (74-106) Uric Acid 9.6 MG/DL (2.6-7.2) H Calcium Level 8.2 MG/DL (8.5-10.1) L Phosphorus Level 3.9 MG/DL (2.5-4.9) Magnesium Level 1.9 MG/DL (1.8-2.4) Total Bilirubin 0.2 MG/DL (0.2-1.0) Aspartate Amino Transf (AST/SGOT) 27 U/L (15-37) Alanine Aminotransferase (ALT/SGPT) 7 U/L (12-78) L Alkaline Phosphatase 73 U/L (46-116) Total Protein 5.4 G/DL (6.4-8.2) L Albumin 1.2 G/DL (3.4-5.0) L Globulin 4.2 g/dL Albumin/Globulin Ratio 0.3 (1.0-2.7) L Random Vancomycin Level 16.5 ug/mL Plan Problems: (1) Dehydration (2) Anemia (3) JAIDA (acute kidney injury) (4) Fall (5) Hip fracture, right Assessment & Plan: Pt presented on admission with Full Thickness pressure injury thoracic Spine. Base of wound has 50% slough ,50% beefy red(L)1cm x (W) 1cm x (D)0.2cm. Small amt seropurulent exudate noted. No odor noted.Periwound erythematous and indurated.Non-viable tissue removed with gentle friction,25% slough remains at base of wound. Non-blanching erythema with an area at sacrococcygeal area that is maroon in colour. Pt denied tenderness when palpated. Drsg to R hip surgical site clean,dry and intact Large partial thickness wound posterior/upper R thigh(L)11cm x (W)3.9cm. Base of wound is moist and viable. Edges are macerated. Marginal erythema periwound. R and L heels are firm and easily blanchable.Multiple dry scabbed abrasions noted to dorsal aspects of L 1st -5th metatarsals. Pt R elbow noted to be swollen with several dry scabbed abrasions.Pt expressed pain when R arm minimally touched or moved.Primary nurse and and Charge Nurse made aware. Tx.Plan: Cleanse wound Thoracic Spine with Saline. Apply Therahoney. Appy Cavilon SKin Barrier Periwound. Cover with Optifoam drsg. Change every 3 days and prn. Cleanse wound Posterior R thigh with Saline. Apply Therahoney. Apply Cavilon Skin Barrier periwound. Cover with Optifoam drsg. Change every 3 days and prn. Apply Moisture Barrier Paste to Sacrum. Cover with Optifoam drsg. Change every 3 days and prn. Apply Cavilon Skin Barrier to both heels. Cover each heel with Optifoam drsg. Change every 7 days and prn. Reposition at least every 2 hours or as tolerated. Off-load heels with Pillow. APM/MADELIN Mattress overlay. (6) Fluid collection (edema) in the arms, legs, hands and feet Assessment & Plan: There is some image degradation due to motion artifact. There is extensive edema of the subcutaneous fat. There is also some edema of the forearm musculature and the bicipital musculature. There is an irregular collection immediately anterior to the distal ulna. Uncertain as to whether this is within the joint or immediately superficial to it. Suspect that this is within the joint. This collection measures 2.3 x 1.8. Only a normal amount of joint fluid is seen elsewhere within the joint, however. No other discrete fluid collections to suggest abscess are evident. On the axial images, there is some increased STIR and decreased T1 signal in the lateral condyle and epicondyle. This is seen only on the axial images. On the coronal images, the increased STIR signal is visualized, without T1 signal abnormality, and increased STIR signal appears to extend outside the bone. No definite signal abnormality is seen within the olecranon, the remainder of the visualized ulna, or the radius. Impression: No signal abnormality to correspond to the suspected abnormality described on recent abdominal radiograph and therefore no evidence of osteomyelitis within the olecranon. That finding probably reflects degenerative changes. Very questionable signal abnormality of the lateral humeral condyle and epicondyle. Suspect artifactual but could represent early osteomyelitis changes. 2.3 x 1.8 cm somewhat irregular collection anterior to the distal ulna. Probably represents focal effusion within the anterior joint, but the shape is somewhat unusual and extra synovial collection or abscess is also possible Extensive signal abnormality of the subcutaneous fat and musculature, most likely representing cellulitis/myositis given stated clinical history (7) Cellulitis of arm Antwan Duncan November 24, 2019 16:39
--- NOTE | 2019-11-24 17:00 | NUR ---
NURSE NOTES: Patient had Abdominal Portable XR done this AM, results constipation/fecal retention. Patient had soft BM 11/22 on Colace. Administered Miralax at this time, tolerated well. Albumin IV x1 administered as ordered.
--- NOTE | 2019-11-24 19:45 | NUR ---
HAND-OFF: Report given to Malinda RN, rounds made. Patient stable.
--- NOTE | 2019-11-24 19:46 | NUR ---
NURSE NOTES: Received report & pt from ANDRY Hoffman. Pt lying in bed, a&ox2-3, confused, in room air. No s/s of acute distress & no c/o pain. IV site intact & S/L'd. Bed in lowest position, call light within reach. Will continue to monitor.
[2019-11-24 20:00] VITALS: BP 102/58
[2019-11-24] MEDS ORDERED: Vancomycin 1gm in D5W 275ml IVPB SCH (20:00)
--- NOTE | 2019-11-24 20:16 | NUR ---
HAND-OFF: Report given to ANDRY REILLY. Addendum: 11/24/19 at 9564 by TENISHA GURROLA LVN CHARTED IN ERROR
--- NOTE | 2019-11-24 20:28 | General Progress Note ---
Assessment/Plan Problem List: (1) Hip fracture, right ICD Codes: S72.001A - Fracture of unspecified part of neck of right femur, initial encounter for closed fracture SNOMED: 752910899 Qualifiers: Qualified Codes: S72.001A - Fracture of unspecified part of neck of right femur, initial encounter for closed fracture (2) Fall ICD Codes: W19.XXXA - Unspecified fall, initial encounter SNOMED: 7549323, 174950240 Qualifiers: Qualified Codes: W19.XXXA - Unspecified fall, initial encounter (3) Dehydration ICD Codes: E86.0 - Dehydration SNOMED: 68968889 (4) Anemia ICD Codes: D64.9 - Anemia, unspecified SNOMED: 460946729 (5) JAIDA (acute kidney injury) ICD Codes: N17.9 - Acute kidney failure, unspecified SNOMED: 4785013, 96076655 Status: stable Assessment/Plan: no abscess per dr dsouza anemia azotemia obs weak malnutrtion afebrile Subjective ROS Limited/Unobtainable: Yes Allergies: Coded Allergies: No Known Allergies (Unverified , 10/15/15) Objective Last 24 Hour Vital Signs Date Time Temp Pulse Resp B/P (MAP) Pulse Ox O2 Delivery O2 Flow Rate FiO2 11/24/19 11:52 97.1 62 20 106/61 (76) 98 11/24/19 08:00 97.6 89 21 133/76 (95) 99 11/24/19 04:00 97.5 64 18 99/57 (71) 99 11/24/19 00:00 97.5 70 18 105/61 (76) 97 Intake and Output 11/23/19 11/24/19 19:00 07:00 Intake Total 420 ml 410 ml Balance 420 ml 410 ml Intake Oral 420 ml 300 ml IV Total 110 ml # Voids 3 6 # Bowel Movements 2 Laboratory Tests 11/24/19 05:30: White Blood Count 5.5, Red Blood Count 2.65L, Hemoglobin 8.1L, Hematocrit 23.5L , Mean Corpuscular Volume 89, Mean Corpuscular Hemoglobin 30.5, Mean Corpuscular Hemoglobin Concent 34.4, Red Cell Distribution Width 13.5, Platelet Count 314, Mean Platelet Volume 4.7L, Neutrophils (%) (Auto) 65.1, Lymphocytes ( %) (Auto) 25.0, Monocytes (%) (Auto) 4.7, Eosinophils (%) (Auto) 3.9H, Basophils (%) (Auto) 1.3, Sodium Level 142, Potassium Level 3.2L, Chloride Level 110H, Carbon Dioxide Level 22, Anion Gap 10, Blood Urea Nitrogen 62H, Creatinine 2.4H, Estimat Glomerular Filtration Rate 27.4, Glucose Level 89, Uric Acid 9.6H, Calcium Level 8.2L, Phosphorus Level 3.9, Magnesium Level 1.9, Total Bilirubin 0.2, Aspartate Amino Transf (AST/SGOT) 27, Alanine Aminotransferase (ALT/SGPT) 7L, Alkaline Phosphatase 73, Total Protein 5.4L, Albumin 1.2L, Globulin 4.2, Albumin/Globulin Ratio 0.3L, Random Vancomycin Level 16.5 Height (Feet): 6 Height (Inches): 4.00 Weight (Pounds): 180 Lisa Coronel MD November 24, 2019 20:28
[2019-11-24] MEDS: Miralax 17gm pkt ORAL SCH (21:13)
--- NOTE | 2019-11-24 23:07 | Cardiac Electrophysiology PN ---
Assessment/Plan Assessment/Plan 1. Hypertension. On Norvasc 2.5 daily and prn Clonidine 2. Status post fall and right hip fracture and ORIF. EKG showed NSR with LBBB and echo Nl EF. 3. COVID-19 is negative 4. Agitation and psychosis. Further evaluation by Psychiatry. 5. Diabetes. 6.CHD with a creatinine of 3.2 improved to 2.4 7. Hypernatremia, Resolved DW RN Subjective Subjective Transferred to [facility]. Echo Nl EF. ECG SR with LBBB. No events Objective Last 24 Hour Vital Signs Date Time Temp Pulse Resp B/P (MAP) Pulse Ox O2 Delivery O2 Flow Rate FiO2 11/24/19 21:00 Room Air 11/24/19 20:00 97.5 62 19 102/58 (73) 99 11/24/19 16:00 97.8 65 18 112/50 (70) 98 11/24/19 11:52 97.1 62 20 106/61 (76) 98 11/24/19 09:00 Room Air 11/24/19 08:00 97.6 89 21 133/76 (95) 99 11/24/19 04:00 97.5 64 18 99/57 (71) 99 11/24/19 00:00 97.5 70 18 105/61 (76) 97 Intake and Output 11/23/19 11/24/19 19:00 07:00 Intake Total 420 ml 410 ml Balance 420 ml 410 ml Intake Oral 420 ml 300 ml IV Total 110 ml # Voids 3 6 # Bowel Movements 2 Laboratory Tests Test 11/24/19 05:30 White Blood Count 5.5 K/UL (4.8-10.8) Red Blood Count 2.65 M/UL (4.70-6.10) L Hemoglobin 8.1 G/DL (14.2-18.0) L Hematocrit 23.5 % (42.0-52.0) L Mean Corpuscular Volume 89 FL (80-99) Mean Corpuscular Hemoglobin 30.5 PG (27.0-31.0) Mean Corpuscular Hemoglobin Concent 34.4 G/DL (32.0-36.0) Red Cell Distribution Width 13.5 % (11.6-14.8) Platelet Count 314 K/UL (150-450) Mean Platelet Volume 4.7 FL (6.5-10.1) L Neutrophils (%) (Auto) 65.1 % (45.0-75.0) Lymphocytes (%) (Auto) 25.0 % (20.0-45.0) Monocytes (%) (Auto) 4.7 % (1.0-10.0) Eosinophils (%) (Auto) 3.9 % (0.0-3.0) H Basophils (%) (Auto) 1.3 % (0.0-2.0) Sodium Level 142 MMOL/L (136-145) Potassium Level 3.2 MMOL/L (3.5-5.1) L Chloride Level 110 MMOL/L (98-107) H Carbon Dioxide Level 22 MMOL/L (21-32) Anion Gap 10 mmol/L (5-15) Blood Urea Nitrogen 62 mg/dL (7-18) H Creatinine 2.4 MG/DL (0.55-1.30) H Estimat Glomerular Filtration Rate 27.4 mL/min (>60) Glucose Level 89 MG/DL (74-106) Uric Acid 9.6 MG/DL (2.6-7.2) H Calcium Level 8.2 MG/DL (8.5-10.1) L Phosphorus Level 3.9 MG/DL (2.5-4.9) Magnesium Level 1.9 MG/DL (1.8-2.4) Total Bilirubin 0.2 MG/DL (0.2-1.0) Aspartate Amino Transf (AST/SGOT) 27 U/L (15-37) Alanine Aminotransferase (ALT/SGPT) 7 U/L (12-78) L Alkaline Phosphatase 73 U/L (46-116) Total Protein 5.4 G/DL (6.4-8.2) L Albumin 1.2 G/DL (3.4-5.0) L Globulin 4.2 g/dL Albumin/Globulin Ratio 0.3 (1.0-2.7) L Random Vancomycin Level 16.5 ug/mL Objective HEAD AND NECK: No JVD. LUNGS: Clear. CARDIOVASCULAR: Regular S1 and S2 with no gallop. ABDOMEN: Soft. EXTREMITIES: S/P right hip ORIF Neno Ennis MD November 24, 2019 23:07
--- NOTE | 2019-11-24 23:14 | NUR ---
HAND-OFF: Report given to ANDRY REILLY.
--- NOTE | 2019-11-24 23:29 | Psych Consult Progress Note ---
Psychiatry Progress Note Psychiatry Progress Note Medications Current Medications Medications (Trade) Dose Ordered Sig/Juan Route PRN Reason Start Time Stop Time Status Last Admin Dose Admin Acetaminophen (Tylenol) 650 mg Q4H PRN ORAL Mild Pain (Pain Scale 1-3) 11/14/19 19:15 12/14/19 19:14 11/22/19 21:37 Acetaminophen (Tylenol) 650 mg Q4H PRN ORAL Temp >100.5 11/18/19 15:00 12/18/19 14:59 11/22/19 04:17 Acetaminophen/ Hydrocodone Bitart ([place] 7.5/325) 1 tab Q4H PRN ORAL severe pain 11/19/19 15:15 11/26/19 15:14 Docusate Sodium (Colace) 100 mg THREE TIMES A DAY ORAL 11/19/19 18:00 12/19/19 17:59 11/24/19 18:52 Doxycycline Monohydrate (Doxycycline Monohydrate) 100 mg EVERY 12 HOURS ORAL 11/24/19 14:45 12/01/19 14:44 11/24/19 21:13 Epoetin Shaun (Procrit (for non ESRD use)) 10,000 units MON-MON-MON SUBQ 11/25/19 21:00 02/23/20 20:59 Iron Sucrose 100 mg/Sodium Chloride 55 ml @ 200 mls/hr BEDTIME IV 11/23/19 21:00 11/27/19 21:17 11/24/19 21:13 Metoclopramide HCl (Reglan) 10 mg Q6H PRN IVP Nausea & Vomiting 11/18/19 18:30 12/18/19 18:29 Midodrine (Pro-Amatine) 5 mg THREE TIMES A DAY ORAL 11/24/19 13:00 02/21/20 12:59 Pantoprazole (Protonix) 40 mg BID ORAL 11/23/19 18:00 12/23/19 08:59 11/24/19 18:53 Polyethylene Glycol (Miralax) 17 gm BEDTIME ORAL 11/24/19 21:00 12/24/19 20:59 11/24/19 21:13 Polyethylene Glycol (Miralax) 17 gm DAILY PRN ORAL Constipation 11/22/19 11:00 12/22/19 10:59 11/24/19 16:56 Tamsulosin HCl (Flomax) 0.4 mg BID ORAL 11/16/19 18:00 12/15/19 20:59 11/24/19 18:53 Temazepam (RestoriL) 7.5 mg HSPRN PRN ORAL Insomnia 11/18/19 21:00 11/25/19 20:59 Neurological/Psychiatric: Reports: anxiety, depressed, emotional problems Allergies: Coded Allergies: No Known Allergies (Unverified , 10/15/15) Objective Data Height (Feet): 6 Height (Inches): 4.00 Weight (Pounds): 180 General Appearance: alert Appearance: disheveled Behavior Mannerisms: good eye contact Mental Status Exam - Affect: blunted Additional Comments: oriented times self, place, disoriented to date and situation. Mood is neutral to irritable. Affect is flat. Thought process, there is a paucity of thought content. Thought content, no suicidal or homicidal ideation. Cognition is impaired. Insight and judgment is impaired. ASSESSMENT: Acute encephalopathy. PLAN: 1. Continue to monitor symptoms. 2. Discussed with the nurse. Assessment/Plan Status: stable Assessment/Plan: PLAN: 1. Continue the lorazepam p.r.n. provided alexsandra/Sukhwinder Avila MD November 24, 2019 23:29
[2019-11-25] VITALS: BP 98/51
[2019-11-25 04:00] VITALS: BP 108/51
[2019-11-25 07:03] LABS: BASOPHILS % (AUTO) 1.1 % (0.0-2.0); EOSINOPHILS % (AUTO) 3.6 % (0.0-3.0); HEMATOCRIT 23.7 % (42.0-52.0); HEMOGLOBIN 8.1 G/DL (14.2-18.0); LYMPHOCYTES % (AUTO) 30.9 % (20.0-45.0); MEAN CORPUSCULAR VOLUME 89 FL (80-99); MONOCYTES % (AUTO) 5.1 % (1.0-10.0); NEUTROPHILS % (AUTO) 59.2 % (45.0-75.0); PLATELET COUNT 359 K/UL (150-450); RED BLOOD COUNT 2.67 M/UL (4.70-6.10); RED CELL DISTRIBUTION WIDTH 13.2 % (11.6-14.8); WHITE BLOOD COUNT 5.4 K/UL (4.8-10.8)
[2019-11-25 07:30] LABS: ALANINE AMINOTRANSFERASE 10 U/L (12-78); ALBUMIN 1.6 G/DL (3.4-5.0); ALBUMIN/GLOBULIN RATIO 0.4 (1.0-2.7); ALKALINE PHOSPHATASE 74 U/L (46-116); ANION GAP 11 mmol/L (5-15); ASPARTATE AMINO TRANSFERASE 25 U/L (15-37); BILIRUBIN,TOTAL 0.2 MG/DL (0.2-1.0); BLOOD UREA NITROGEN 53 mg/dL (7-18); CALCIUM 8.2 MG/DL (8.5-10.1); CARBON DIOXIDE 21 MMOL/L (21-32); CHLORIDE 113 MMOL/L (98-107); CREATININE 2.1 MG/DL (0.55-1.30); PHOSPHORUS 3.7 MG/DL (2.5-4.9); POTASSIUM 4.2 MMOL/L (3.5-5.1); SODIUM 145 MMOL/L (136-145)
--- NOTE | 2019-11-25 07:30 | NUR ---
HAND-OFF: Report given to ANDRY Jenkins. Pt in stable condition. Addendum: 11/25/19 at 0743 by Malinda Mason RN CORRECTION: Report given to RN. Ruben Pt in stable condition.
--- NOTE | 2019-11-25 07:35 | NUR ---
NURSE NOTES: Patient lying in bed awake. No complain of pain or distress at this time. Surgical dressing intact and dry. On low air loss mattress. IV dressing intact and dry. Bed lowest position. Call light within reach. Will continue to monitor.
[2019-11-25 08:00] VITALS: BP 121/66
--- NOTE | 2019-11-25 08:00 | NUR ---
NURSE NOTES: Received report from Ruben WILDE, patient a/a/o laying in bed with no signs of distress or other issues at this time. IV on the left CELESTIN heplock. per report wound dressing were changed yesterday. Call light within reach, bed in lowest position, side rales up x2. I will f/u as needed.
[2019-11-25] MEDS: Doxycycline Monohydrate 100mg ORAL SCH ×2 (09:17→20:41)
[2019-11-25] MEDS: Tamsulosin 0.4mg cap ORAL SCH ×2 (09:17→18:15)
[2019-11-25] MEDS: Docusate 100mg cap ORAL SCH ×3 (09:17→18:15)
--- NOTE | 2019-11-25 09:43 | General Progress Note ---
Assessment/Plan Assessment/Plan: (1) Right hip pain (2) Right hip fracture (3) S/P Right hip hemiarthroplasty (4) Right UE pain (5) Right UE osteomyelitis Patient to be continued on [place] as needed. D/w Dr. Sanders and he concurred. Subjective Date patient seen: November 25, 2019 Time patient seen: 09:15 - am Allergies: Coded Allergies: No Known Allergies (Unverified , 10/15/15) Subjective Constitutional: Reports: weakness HEENT: Reports: no symptoms Cardiovascular: Reports: no symptoms Respiratory: Reports: no symptoms Gastrointestinal/Abdominal: Reports: no symptoms Genitourinary: Reports: no symptoms Neurologic/Psychiatric: Reports: weakness Endocrine: Reports: no symptoms Hematologic/Lymphatic: Reports: no symptoms Subjective Patient is in bed no signs of pain or distress. Objective Last 24 Hour Vital Signs Date Time Temp Pulse Resp B/P (MAP) Pulse Ox O2 Delivery O2 Flow Rate FiO2 11/25/19 08:00 97.2 54 19 121/66 (84) 98 11/25/19 04:00 97.3 51 16 108/51 (70) 99 11/25/19 00:00 97.8 54 17 98/51 (67) 98 11/24/19 21:00 Room Air 11/24/19 20:00 97.5 62 19 102/58 (73) 99 11/24/19 16:00 97.8 65 18 112/50 (70) 98 11/24/19 11:52 97.1 62 20 106/61 (76) 98 Intake and Output 11/24/19 11/25/19 19:00 07:00 Intake Total 1180 ml 360 ml Balance 1180 ml 360 ml Intake Oral 1180 ml 360 ml # Voids 3 3 # Bowel Movements 1 Laboratory Tests 11/25/19 05:30: White Blood Count 5.4, Red Blood Count 2.67L, Hemoglobin 8.1L, Hematocrit 23.7L , Mean Corpuscular Volume 89, Mean Corpuscular Hemoglobin 30.5, Mean Corpuscular Hemoglobin Concent 34.4, Red Cell Distribution Width 13.2, Platelet Count 359, Mean Platelet Volume 4.3L, Neutrophils (%) (Auto) 59.2, Lymphocytes ( %) (Auto) 30.9, Monocytes (%) (Auto) 5.1, Eosinophils (%) (Auto) 3.6H, Basophils (%) (Auto) 1.1, Sodium Level 145, Potassium Level 4.2, Chloride Level 113H, Carbon Dioxide Level 21, Anion Gap 11, Blood Urea Nitrogen 53H, Creatinine 2.1H, Estimat Glomerular Filtration Rate 32.0, Glucose Level 80, Uric Acid 9.6H, Calcium Level 8.2L, Phosphorus Level 3.7, Magnesium Level 1.9, Total Bilirubin 0.2, Aspartate Amino Transf (AST/SGOT) 25, Alanine Aminotransferase (ALT/SGPT) 10L, Alkaline Phosphatase 74, C-Reactive Protein, Quantitative 5.8H, Pro-B-Type Natriuretic Peptide 6206H, Total Protein 5.8L, Albumin 1.6L, Globulin 4.2, Albumin/Globulin Ratio 0.4L Height (Feet): 6 Height (Inches): 4.00 Weight (Pounds): 180 Objective General Appearance: no apparent distress, alert EENT: PERRL/EOMI, normal ENT inspection Neck: non-tender, normal alignment Cardiovascular: normal rate, regular rhythm Respiratory/Chest: decreased breath sounds Abdomen: non tender, soft Extremities: other - tenderness to palpation of right UE and LE Neurologic: alert, responsive Skin: normal pigmentation David Hi November 25, 2019 09:43
--- NOTE | 2019-11-25 10:14 | General Progress Note ---
Assessment/Plan Assessment/Plan: (1) Coffee ground emesis ICD Codes: K92.0 - Hematemesis SNOMED: 15480300 (2) Anemia ICD Codes: D64.9 - Anemia, unspecified SNOMED: 168598921 (3) Dehydration ICD Codes: E86.0 - Dehydration SNOMED: 66407495 Status: stable Assessment/Plan #anemia r/o GI bleed. Patient had one episode of coffee ground emesis with no recurrent. S/P 2 units of pRBCs. First OB stool was negative. - Patient refused endoscopy at this time. - anemia work up reviewed; no noted iron or folate/thiamine deficiency - PPI to BID. - monitor H&H, prn transfusions. - send for additional OB stool to evaluate for any GI bleed #constipation. KUB reviewed. - continue colace TID, add miralax qhs. Subjective ROS Limited/Unobtainable: No Allergies: Coded Allergies: No Known Allergies (Unverified , 10/15/15) Objective Last 24 Hour Vital Signs Date Time Temp Pulse Resp B/P (MAP) Pulse Ox O2 Delivery O2 Flow Rate FiO2 11/25/19 09:00 Room Air 11/25/19 08:00 97.2 54 19 121/66 (84) 98 11/25/19 04:00 97.3 51 16 108/51 (70) 99 11/25/19 00:00 97.8 54 17 98/51 (67) 98 11/24/19 21:00 Room Air 11/24/19 20:00 97.5 62 19 102/58 (73) 99 11/24/19 16:00 97.8 65 18 112/50 (70) 98 11/24/19 11:52 97.1 62 20 106/61 (76) 98 Intake and Output 11/24/19 11/25/19 19:00 07:00 Intake Total 1180 ml 360 ml Balance 1180 ml 360 ml Intake Oral 1180 ml 360 ml # Voids 3 3 # Bowel Movements 1 Laboratory Tests 11/25/19 05:30: White Blood Count 5.4, Red Blood Count 2.67L, Hemoglobin 8.1L, Hematocrit 23.7L , Mean Corpuscular Volume 89, Mean Corpuscular Hemoglobin 30.5, Mean Corpuscular Hemoglobin Concent 34.4, Red Cell Distribution Width 13.2, Platelet Count 359, Mean Platelet Volume 4.3L, Neutrophils (%) (Auto) 59.2, Lymphocytes ( %) (Auto) 30.9, Monocytes (%) (Auto) 5.1, Eosinophils (%) (Auto) 3.6H, Basophils (%) (Auto) 1.1, Sodium Level 145, Potassium Level 4.2, Chloride Level 113H, Carbon Dioxide Level 21, Anion Gap 11, Blood Urea Nitrogen 53H, Creatinine 2.1H, Estimat Glomerular Filtration Rate 32.0, Glucose Level 80, Uric Acid 9.6H, Calcium Level 8.2L, Phosphorus Level 3.7, Magnesium Level 1.9, Total Bilirubin 0.2, Aspartate Amino Transf (AST/SGOT) 25, Alanine Aminotransferase (ALT/SGPT) 10L, Alkaline Phosphatase 74, C-Reactive Protein, Quantitative 5.8H, Pro-B-Type Natriuretic Peptide 6206H, Total Protein 5.8L, Albumin 1.6L, Globulin 4.2, Albumin/Globulin Ratio 0.4L Height (Feet): 6 Height (Inches): 4.00 Weight (Pounds): 180 General Appearance: no apparent distress EENT: normal ENT inspection Neck: supple Cardiovascular: normal rate Respiratory/Chest: decreased breath sounds Abdomen: normal bowel sounds, non tender, soft Extremities: non-tender Paul Bains MD November 25, 2019 10:14
--- NOTE | 2019-11-25 10:33 | Infectious Diseases Prog Note ---
Assessment/Plan Assessment/Plan IMPRESSION: Post operative fever Cellulitis of R arm Right hip fracture, s/p ORIF schizophrenia, BPH, Acute renal failure, Anemia, Fecal impaction. RECOMMENDATION: continue PO Doxycycline X 1 day Negative COVID-19 test. Subjective ROS Limited/Unobtainable: Yes Constitutional: Denies: fever Allergies: Coded Allergies: No Known Allergies (Unverified , 10/15/15) Objective Vital Signs Last 24 Hour Vital Signs Date Time Temp Pulse Resp B/P (MAP) Pulse Ox O2 Delivery O2 Flow Rate FiO2 11/25/19 09:00 Room Air 11/25/19 08:00 97.2 54 19 121/66 (84) 98 11/25/19 04:00 97.3 51 16 108/51 (70) 99 11/25/19 00:00 97.8 54 17 98/51 (67) 98 11/24/19 21:00 Room Air 11/24/19 20:00 97.5 62 19 102/58 (73) 99 11/24/19 16:00 97.8 65 18 112/50 (70) 98 11/24/19 11:52 97.1 62 20 106/61 (76) 98 Height (Feet): 6 Height (Inches): 4.00 Weight (Pounds): 180 General Appearance: no acute distress HEENT: mucous membranes moist Respiratory/Chest: lungs clear Cardiovascular: normal rate Abdomen: soft, non tender Extremities: no edema, other Neurologic/Psychiatric: alert, responsive Laboratory Tests Test 11/25/19 05:30 White Blood Count 5.4 K/UL (4.8-10.8) Red Blood Count 2.67 M/UL (4.70-6.10) L Hemoglobin 8.1 G/DL (14.2-18.0) L Hematocrit 23.7 % (42.0-52.0) L Mean Corpuscular Volume 89 FL (80-99) Mean Corpuscular Hemoglobin 30.5 PG (27.0-31.0) Mean Corpuscular Hemoglobin Concent 34.4 G/DL (32.0-36.0) Red Cell Distribution Width 13.2 % (11.6-14.8) Platelet Count 359 K/UL (150-450) Mean Platelet Volume 4.3 FL (6.5-10.1) L Neutrophils (%) (Auto) 59.2 % (45.0-75.0) Lymphocytes (%) (Auto) 30.9 % (20.0-45.0) Monocytes (%) (Auto) 5.1 % (1.0-10.0) Eosinophils (%) (Auto) 3.6 % (0.0-3.0) H Basophils (%) (Auto) 1.1 % (0.0-2.0) Sodium Level 145 MMOL/L (136-145) Potassium Level 4.2 MMOL/L (3.5-5.1) Chloride Level 113 MMOL/L (98-107) H Carbon Dioxide Level 21 MMOL/L (21-32) Anion Gap 11 mmol/L (5-15) Blood Urea Nitrogen 53 mg/dL (7-18) H Creatinine 2.1 MG/DL (0.55-1.30) H Estimat Glomerular Filtration Rate 32.0 mL/min (>60) Glucose Level 80 MG/DL (74-106) Uric Acid 9.6 MG/DL (2.6-7.2) H Calcium Level 8.2 MG/DL (8.5-10.1) L Phosphorus Level 3.7 MG/DL (2.5-4.9) Magnesium Level 1.9 MG/DL (1.8-2.4) Total Bilirubin 0.2 MG/DL (0.2-1.0) Aspartate Amino Transf (AST/SGOT) 25 U/L (15-37) Alanine Aminotransferase (ALT/SGPT) 10 U/L (12-78) L Alkaline Phosphatase 74 U/L (46-116) C-Reactive Protein, Quantitative 5.8 mg/dL (0.00-0.90) H Pro-B-Type Natriuretic Peptide 6206 pg/mL (0-125) H Total Protein 5.8 G/DL (6.4-8.2) L Albumin 1.6 G/DL (3.4-5.0) L Globulin 4.2 g/dL Albumin/Globulin Ratio 0.4 (1.0-2.7) L Current Medications Medications (Trade) Dose Ordered Sig/Juan Route PRN Reason Start Time Stop Time Status Last Admin Dose Admin Acetaminophen (Tylenol) 650 mg Q4H PRN ORAL Mild Pain (Pain Scale 1-3) 11/14/19 19:15 5/30/20 19:14 11/22/19 21:37 Acetaminophen (Tylenol) 650 mg Q4H PRN ORAL Temp >100.5 11/18/19 15:00 12/18/19 14:59 11/22/19 04:17 Acetaminophen/ Hydrocodone Bitart ([place] 7.5/325) 1 tab Q4H PRN ORAL severe pain 11/19/19 15:15 11/26/19 15:14 Docusate Sodium (Colace) 100 mg THREE TIMES A DAY ORAL 11/19/19 18:00 12/19/19 17:59 11/25/19 09:17 Doxycycline Monohydrate (Doxycycline Monohydrate) 100 mg EVERY 12 HOURS ORAL 11/24/19 14:45 12/01/19 14:44 11/25/19 09:17 Epoetin Shaun (Procrit (for non ESRD use)) 10,000 units MON-MON-MON SUBQ 11/25/19 21:00 02/23/20 20:59 Iron Sucrose 100 mg/Sodium Chloride 55 ml @ 200 mls/hr BEDTIME IV 11/23/19 21:00 11/27/19 21:17 11/24/19 21:13 Metoclopramide HCl (Reglan) 10 mg Q6H PRN IVP Nausea & Vomiting 11/18/19 18:30 12/18/19 18:29 Midodrine (Pro-Amatine) 5 mg THREE TIMES A DAY ORAL 11/24/19 13:00 02/21/20 12:59 Pantoprazole (Protonix) 40 mg BID ORAL 11/23/19 18:00 12/23/19 08:59 11/25/19 09:17 Polyethylene Glycol (Miralax) 17 gm BEDTIME ORAL 11/24/19 21:00 12/24/19 20:59 11/24/19 21:13 Polyethylene Glycol (Miralax) 17 gm DAILY PRN ORAL Constipation 11/22/19 11:00 12/22/19 10:59 11/24/19 16:56 Tamsulosin HCl (Flomax) 0.4 mg BID ORAL 11/16/19 18:00 12/15/19 20:59 11/25/19 09:17 Temazepam (RestoriL) 7.5 mg HSPRN PRN ORAL Insomnia 11/18/19 21:00 11/25/19 20:59 Todd Paz MD November 25, 2019 10:33
--- NOTE | 2019-11-25 10:51 | NUR ---
RD ASSESSMENT & RECOMMENDATIONS SEE CARE ACTIVITY FOR COMPLETE ASSESSMENT DAILY ESTIMATED NEEDS: Needs based on Surgical 81.8kg 25-35 kcals/kg 3423-2627 total kcals 1-2 g protein/kg 82-164 g total protein 25-30 mL/kg 2734-9239 total fluid mLs NUTRITION DIAGNOSIS: Altered nutrition related lab values r/t clinical status, h/o CKD as evidenced by elev BUN (37-> 53), elev Creat (2.1). CURRENT DIET: ms chopped PO DIET RECOMMENDATIONS: As able, Low Na diet/ texture as tolerated ADDITIONAL RECOMMENDATIONS: 1) Obtain an updated calibrated bed scale wt as able 2) REINIER BID for surgical wound healing 3) Monitor BG, need for ssi-> good glycemic control 4) Monitor lytes w/ renal function, need for diet change
--- NOTE | 2019-11-25 11:25 | Hematology/Onc Progress Note ---
Assessment/Plan Assessment/Plan Assessment and Recs # Anemia of chronic disease due to underlying chronic medical issues, multifactorial v Gi bleed --> Anemia workup has been reviewed --> No evidence of hemolysis is noted, peripheral smear has been reviewed. --> Hgb goal >7. Transfuse prn. --> Epogen or iron have been started --> Medications have been reviewed --> low threshold for gi evaluation in case has occult + --> hgb trend 9.9-->9.3 -->9.5-->8.3->8.1 # Hip fracture, right --> Fracture of unspecified part of neck of right femur, initial encounter for closed fracture --> s/p orif # Fall may require surger per ortho --> neuro and ortho # JAIDA on CKD --> per Dr. Levine # Psych disorder --> per Dr. Dickens # Dvt ppx scds The timing of this note does not necessarily reflect the time of the patient was seen. Greatly appreciate consultation. Subjective Constitutional: Denies: no symptoms, chills, fever, malaise, weakness, other HEENT: Denies: no symptoms, eye pain, blurred vision, tearing, double vision, ear pain, ear discharge, nose pain, nose congestion, throat pain, throat swelling, mouth pain, mouth swelling, other Cardiovascular: Denies: no symptoms, chest pain, edema, irregular heart rate, lightheadedness, palpitations, syncope, other Genitourinary: Denies: no symptoms, burning, discharge, frequency, flank pain, hematuria, incontinence, pain, urgency, other Neurologic/Psychiatric: Denies: no symptoms, anxiety, depressed, emotional problems, headache, numbness, paresthesia, pre-existing deficit, seizure, tingling, tremors, weakness, other Endocrine: Denies: no symptoms, excessive sweating, flushing, intolerance to cold, intolerance to heat, increased hunger, increased thirst, increased urine, unexplained weight gain, unexplained weight loss, other Allergies: Coded Allergies: No Known Allergies (Unverified , 10/15/15) Subjective 5/3 confused, pending right hip hemiarthroplasty, bilat restraints 5/4 confused, hgb 9.5, no bleeding, reviewed renal recs 11/18 still requiring clearance by psych, cards for clearance to surgery 5/6 awake and alert, dressing dry and intact, on room air 11/20 still confused no bleeding, meds noted, no night sweats, dw rn 11/21 asa discontinued, with black emesis, gi care norco prn 11/23 has been refusing endoscopy, is on ppi, no beeding, hgb 10 11/24 labs are noted, on ppi, hgb 8.1, no night sweats Objective Objective Current Medications Medications (Trade) Dose Ordered Sig/Juan Route PRN Reason Start Time Stop Time Status Last Admin Dose Admin Acetaminophen (Tylenol) 650 mg Q4H PRN ORAL Mild Pain (Pain Scale 1-3) 11/14/19 19:15 12/14/19 19:14 11/22/19 21:37 Acetaminophen (Tylenol) 650 mg Q4H PRN ORAL Temp >100.5 11/18/19 15:00 12/18/19 14:59 11/22/19 04:17 Acetaminophen/ Hydrocodone Bitart ([place] 7.5/325) 1 tab Q4H PRN ORAL severe pain 11/19/19 15:15 11/26/19 15:14 Docusate Sodium (Colace) 100 mg THREE TIMES A DAY ORAL 11/19/19 18:00 12/19/19 17:59 11/25/19 09:17 Doxycycline Monohydrate (Doxycycline Monohydrate) 100 mg EVERY 12 HOURS ORAL 11/24/19 14:45 12/01/19 14:44 11/25/19 09:17 Epoetin Shaun (Procrit (for non ESRD use)) 10,000 units MON-MON-MON SUBQ 11/25/19 21:00 02/23/20 20:59 Iron Sucrose 100 mg/Sodium Chloride 55 ml @ 200 mls/hr BEDTIME IV 11/23/19 21:00 11/27/19 21:17 11/24/19 21:13 Metoclopramide HCl (Reglan) 10 mg Q6H PRN IVP Nausea & Vomiting 11/18/19 18:30 12/18/19 18:29 Midodrine (Pro-Amatine) 5 mg THREE TIMES A DAY ORAL 11/24/19 13:00 02/21/20 12:59 Pantoprazole (Protonix) 40 mg BID ORAL 5/9/20 18:00 12/23/19 08:59 11/25/19 09:17 Polyethylene Glycol (Miralax) 17 gm BEDTIME ORAL 11/24/19 21:00 12/24/19 20:59 11/24/19 21:13 Polyethylene Glycol (Miralax) 17 gm DAILY PRN ORAL Constipation 11/22/19 11:00 12/22/19 10:59 11/24/19 16:56 Tamsulosin HCl (Flomax) 0.4 mg BID ORAL 11/16/19 18:00 12/15/19 20:59 11/25/19 09:17 Temazepam (RestoriL) 7.5 mg HSPRN PRN ORAL Insomnia 11/18/19 21:00 11/25/19 20:59 Last 24 Hour Vital Signs Date Time Temp Pulse Resp B/P (MAP) Pulse Ox O2 Delivery O2 Flow Rate FiO2 11/25/19 09:00 Room Air 11/25/19 08:00 97.2 54 19 121/66 (84) 98 11/25/19 04:00 97.3 51 16 108/51 (70) 99 11/25/19 00:00 97.8 54 17 98/51 (67) 98 11/24/19 21:00 Room Air 11/24/19 20:00 97.5 62 19 102/58 (73) 99 11/24/19 16:00 97.8 65 18 112/50 (70) 98 11/24/19 11:52 97.1 62 20 106/61 (76) 98 11/24/19 09:00 Room Air 11/24/19 08:00 97.6 89 21 133/76 (95) 99 11/24/19 04:00 97.5 64 18 99/57 (71) 99 11/24/19 00:00 97.5 70 18 105/61 (76) 97 11/23/19 20:09 Room Air 11/23/19 20:00 96.9 61 20 98/55 (69) 98 11/23/19 16:00 97.8 63 18 99/56 (70) 99 11/23/19 12:00 97.8 70 19 102/60 (74) 97 70 Intake and Output 11/24/19 11/25/19 19:00 07:00 Intake Total 1180 ml 360 ml Balance 1180 ml 360 ml Intake Oral 1180 ml 360 ml # Voids 3 3 # Bowel Movements 1 Labs Test 11/22/19 11:50 11/23/19 06:05 11/24/19 05:30 11/25/19 05:30 Stool Occult Blood Negative (NEGATIVE) White Blood Count 7.2 K/UL (4.8-10.8) 5.5 K/UL (4.8-10.8) 5.4 K/UL (4.8-10.8) Red Blood Count 2.45 M/UL (4.70-6.10) 2.65 M/UL (4.70-6.10) 2.67 M/UL (4.70-6.10) Hemoglobin 7.6 G/DL (14.2-18.0) 8.1 G/DL (14.2-18.0) 8.1 G/DL (14.2-18.0) Hematocrit 21.6 % (42.0-52.0) 23.5 % (42.0-52.0) 23.7 % (42.0-52.0) Mean Corpuscular Volume 88 FL (80-99) 89 FL (80-99) 89 FL (80-99) Mean Corpuscular Hemoglobin 30.8 PG (27.0-31.0) 30.5 PG (27.0-31.0) 30.5 PG (27.0-31.0) Mean Corpuscular Hemoglobin Concent 35.0 G/DL (32.0-36.0) 34.4 G/DL (32.0-36.0) 34.4 G/DL (32.0-36.0) Red Cell Distribution Width 13.1 % (11.6-14.8) 13.5 % (11.6-14.8) 13.2 % (11.6-14.8) Platelet Count 276 K/UL (150-450) 314 K/UL (150-450) 359 K/UL (150-450) Mean Platelet Volume 4.5 FL (6.5-10.1) 4.7 FL (6.5-10.1) 4.3 FL (6.5-10.1) Neutrophils (%) (Auto) % (45.0-75.0) 65.1 % (45.0-75.0) 59.2 % (45.0-75.0) Lymphocytes (%) (Auto) % (20.0-45.0) 25.0 % (20.0-45.0) 30.9 % (20.0-45.0) Monocytes (%) (Auto) % (1.0-10.0) 4.7 % (1.0-10.0) 5.1 % (1.0-10.0) Eosinophils (%) (Auto) % (0.0-3.0) 3.9 % (0.0-3.0) 3.6 % (0.0-3.0) Basophils (%) (Auto) % (0.0-2.0) 1.3 % (0.0-2.0) 1.1 % (0.0-2.0) Differential Total Cells Counted 100 Neutrophils % (Manual) 66 % (45-75) Lymphocytes % (Manual) 24 % (20-45) Monocytes % (Manual) 7 % (1-10) Eosinophils % (Manual) 2 % (0-3) Basophils % (Manual) 1 % (0-2) Band Neutrophils 0 % (0-8) Platelet Estimate Adequate Platelet Morphology Normal Hypochromasia 3+ Anisocytosis 1+ Spherocytes 2+ Sodium Level 136 MMOL/L (136-145) 142 MMOL/L (136-145) 145 MMOL/L (136-145) Potassium Level 3.6 MMOL/L (3.5-5.1) 3.2 MMOL/L (3.5-5.1) 4.2 MMOL/L (3.5-5.1) Chloride Level 106 MMOL/L (98-107) 110 MMOL/L (98-107) 113 MMOL/L (98-107) Carbon Dioxide Level 19 MMOL/L (21-32) 22 MMOL/L (21-32) 21 MMOL/L (21-32) Anion Gap 11 mmol/L (5-15) 10 mmol/L (5-15) 11 mmol/L (5-15) Blood Urea Nitrogen 67 mg/dL (7-18) 62 mg/dL (7-18) 53 mg/dL (7-18) Creatinine 2.7 MG/DL (0.55-1.30) 2.4 MG/DL (0.55-1.30) 2.1 MG/DL (0.55-1.30) Estimat Glomerular Filtration Rate 23.9 mL/min (>60) 27.4 mL/min (>60) 32.0 mL/min (>60) Glucose Level 88 MG/DL (74-106) 89 MG/DL (74-106) 80 MG/DL (74-106) Uric Acid 9.0 MG/DL (2.6-7.2) 9.6 MG/DL (2.6-7.2) 9.6 MG/DL (2.6-7.2) Calcium Level 7.9 MG/DL (8.5-10.1) 8.2 MG/DL (8.5-10.1) 8.2 MG/DL (8.5-10.1) Phosphorus Level 4.2 MG/DL (2.5-4.9) 3.9 MG/DL (2.5-4.9) 3.7 MG/DL (2.5-4.9) Magnesium Level 1.9 MG/DL (1.8-2.4) 1.9 MG/DL (1.8-2.4) 1.9 MG/DL (1.8-2.4) Iron Level 44 ug/dL (50-175) Total Iron Binding Capacity 93 ug/dL (250-450) Percent Iron Saturation 47 % (15-50) Unsaturated Iron Binding 49 ug/dL (112-346) Total Bilirubin 0.3 MG/DL (0.2-1.0) 0.2 MG/DL (0.2-1.0) 0.2 MG/DL (0.2-1.0) Aspartate Amino Transf (AST/SGOT) 37 U/L (15-37) 27 U/L (15-37) 25 U/L (15-37) Alanine Aminotransferase (ALT/SGPT) 8 U/L (12-78) 7 U/L (12-78) 10 U/L (12-78) Alkaline Phosphatase 65 U/L (46-116) 73 U/L (46-116) 74 U/L (46-116) Total Protein 5.1 G/DL (6.4-8.2) 5.4 G/DL (6.4-8.2) 5.8 G/DL (6.4-8.2) Albumin 1.0 G/DL (3.4-5.0) 1.2 G/DL (3.4-5.0) 1.6 G/DL (3.4-5.0) Globulin 4.1 g/dL 4.2 g/dL 4.2 g/dL Albumin/Globulin Ratio 0.2 (1.0-2.7) 0.3 (1.0-2.7) 0.4 (1.0-2.7) Amylase Level 69 U/L (25-115) Lipase 446 U/L (73-393) Vitamin B12 Level 314 PG/ML (193-986) Folate 7.4 NG/ML (8.6-58.9) Cortisol AM Sample 10.1 UG/DL Random Vancomycin Level 16.5 ug/mL C-Reactive Protein, Quantitative 5.8 mg/dL (0.00-0.90) Pro-B-Type Natriuretic Peptide 6206 pg/mL (0-125) Height (Feet): 6 Height (Inches): 4.00 Weight (Pounds): 180 Objective PE: Vitals: reviewed, stable General Appearance: NAD HEENT: normocephalic, atraumatic Neck: non-tender, normal alignment Respiratory/Chest: normal breath sounds bilaterally Cardiovascular/Chest: normal peripheral pulses, normal rate Abdomen: normal bowel sounds, soft, nontender Extremities: normal range of motion Neuro: altered, encephalopathic : bonita+ Juan Luis Monique MD November 25, 2019 11:25
--- NOTE | 2019-11-25 11:38 | Nephrology Progress Note ---
Assessment/Plan Problem List: (1) JAIDA (acute kidney injury) Assessment: Serum creatinine lower (2) Anemia (3) Dehydration (4) Hip fracture, right (5) Fall Assessment Acute renal failure Possibly underlying chronic kidney failure Dehydration Status post fall and fracture of the right hip History of hypertension History of diabetes mellitus History of psych disease Anemia Plan Serum creatinine now at its lowest Normal saline and albumin bolus as needed Check serum cortisol level noted Trial of IV iron and subcu Epogen for anemia Continue to monitor renal parameters Continue per consultants Kidney ultrasound results noted ROBERTO: 1. No hydronephrosis or stone. 2. Increased echogenicity of the kidneys is suggestive of medical renal disease. Left renal cysts. 3. Bladder is distended with questionable mild prominence of the bladder wall. Further evaluation could be performed with urinalysis if there is concern for cystitis. Previously: Patient underwent hip surgery November 17 today's labs reviewed, serum creatinine down to 2.5 Since serum creatinine is declining will continue hydration DC [place] November 19 On soft diet now Adjust blood pressure medications IV fluids Anemia work-up Protonix, Colace Pain medication Monitor renal parameters Urine studies Per consultants Subjective ROS Limited/Unobtainable: No Constitutional: Reports: malaise Objective Objective Last 24 Hour Vital Signs Date Time Temp Pulse Resp B/P (MAP) Pulse Ox O2 Delivery O2 Flow Rate FiO2 11/25/19 09:00 Room Air 11/25/19 08:00 97.2 54 19 121/66 (84) 98 11/25/19 04:00 97.3 51 16 108/51 (70) 99 11/25/19 00:00 97.8 54 17 98/51 (67) 98 11/24/19 21:00 Room Air 11/24/19 20:00 97.5 62 19 102/58 (73) 99 11/24/19 16:00 97.8 65 18 112/50 (70) 98 11/24/19 11:52 97.1 62 20 106/61 (76) 98 Intake and Output 11/24/19 11/25/19 19:00 07:00 Intake Total 1180 ml 360 ml Balance 1180 ml 360 ml Intake Oral 1180 ml 360 ml # Voids 3 3 # Bowel Movements 1 Laboratory Tests 11/25/19 05:30: White Blood Count 5.4, Red Blood Count 2.67L, Hemoglobin 8.1L, Hematocrit 23.7L , Mean Corpuscular Volume 89, Mean Corpuscular Hemoglobin 30.5, Mean Corpuscular Hemoglobin Concent 34.4, Red Cell Distribution Width 13.2, Platelet Count 359, Mean Platelet Volume 4.3L, Neutrophils (%) (Auto) 59.2, Lymphocytes ( %) (Auto) 30.9, Monocytes (%) (Auto) 5.1, Eosinophils (%) (Auto) 3.6H, Basophils (%) (Auto) 1.1, Sodium Level 145, Potassium Level 4.2, Chloride Level 113H, Carbon Dioxide Level 21, Anion Gap 11, Blood Urea Nitrogen 53H, Creatinine 2.1H, Estimat Glomerular Filtration Rate 32.0, Glucose Level 80, Uric Acid 9.6H, Calcium Level 8.2L, Phosphorus Level 3.7, Magnesium Level 1.9, Total Bilirubin 0.2, Aspartate Amino Transf (AST/SGOT) 25, Alanine Aminotransferase (ALT/SGPT) 10L, Alkaline Phosphatase 74, C-Reactive Protein, Quantitative 5.8H, Pro-B-Type Natriuretic Peptide 6206H, Total Protein 5.8L, Albumin 1.6L, Globulin 4.2, Albumin/Globulin Ratio 0.4L Height (Feet): 6 Height (Inches): 4.00 Weight (Pounds): 180 General Appearance: no apparent distress Cardiovascular: tachycardia Respiratory/Chest: decreased breath sounds Abdomen: distended Objective No change Aremn Levine MD November 25, 2019 11:38
[2019-11-25 12:00] VITALS: BP 135/57
--- NOTE | 2019-11-25 12:23 | NUR ---
CASE MANAGEMENT:REVIEW 11/25/19 SI:RIGHT HIP FRACTURE ~ORIF POD# 3 97.2 54 19 121/66 98% ON RA H/H 8.1/23.7 CL-113 BUN/CREAT 53/2.1 URIC ACID 9.6 CA+8.2 BNP 6206 C-REC PROT. 5.8 ALB 1.6 IS:DOXYCYCLINE PO BID PROTONIX PO BID IV VENOFER [id number] FLOMAX PO BID \:[id number] MED SURG STATUS DCP: [facility] PLAN: REHAB WHEN STABLE
--- NOTE | 2019-11-25 13:02 | Surgery Progress Note ---
Surgery Progress Note Subjective Additional Comments Patient seen and examined bedside. No acute events. States he is feeling well. Initially upon entering the room patient had blanket covered over his head but with gentle reassurance of being in the room he remove the coverings and was pleasant throughout the examination pain okay. no n/v/f/c Objective Last 24 Hour Vital Signs Date Time Temp Pulse Resp B/P (MAP) Pulse Ox O2 Delivery O2 Flow Rate FiO2 11/25/19 09:00 Room Air 11/25/19 08:00 97.2 54 19 121/66 (84) 98 11/25/19 04:00 97.3 51 16 108/51 (70) 99 11/25/19 00:00 97.8 54 17 98/51 (67) 98 11/24/19 21:00 Room Air 11/24/19 20:00 97.5 62 19 102/58 (73) 99 11/24/19 16:00 97.8 65 18 112/50 (70) 98 I&O Intake and Output 11/24/19 11/25/19 19:00 07:00 Intake Total 1180 ml 360 ml Balance 1180 ml 360 ml Intake Oral 1180 ml 360 ml # Voids 3 3 # Bowel Movements 1 Dressing: dry Wound: clean Cardiovascular: RSR Respiratory: clear Abdomen: soft, non-tender, present bowel sounds Extremities: edema, no tenderness, no cyanosis Laboratory Tests Test 11/25/19 05:30 White Blood Count 5.4 K/UL (4.8-10.8) Red Blood Count 2.67 M/UL (4.70-6.10) L Hemoglobin 8.1 G/DL (14.2-18.0) L Hematocrit 23.7 % (42.0-52.0) L Mean Corpuscular Volume 89 FL (80-99) Mean Corpuscular Hemoglobin 30.5 PG (27.0-31.0) Mean Corpuscular Hemoglobin Concent 34.4 G/DL (32.0-36.0) Red Cell Distribution Width 13.2 % (11.6-14.8) Platelet Count 359 K/UL (150-450) Mean Platelet Volume 4.3 FL (6.5-10.1) L Neutrophils (%) (Auto) 59.2 % (45.0-75.0) Lymphocytes (%) (Auto) 30.9 % (20.0-45.0) Monocytes (%) (Auto) 5.1 % (1.0-10.0) Eosinophils (%) (Auto) 3.6 % (0.0-3.0) H Basophils (%) (Auto) 1.1 % (0.0-2.0) Sodium Level 145 MMOL/L (136-145) Potassium Level 4.2 MMOL/L (3.5-5.1) Chloride Level 113 MMOL/L (98-107) H Carbon Dioxide Level 21 MMOL/L (21-32) Anion Gap 11 mmol/L (5-15) Blood Urea Nitrogen 53 mg/dL (7-18) H Creatinine 2.1 MG/DL (0.55-1.30) H Estimat Glomerular Filtration Rate 32.0 mL/min (>60) Glucose Level 80 MG/DL (74-106) Uric Acid 9.6 MG/DL (2.6-7.2) H Calcium Level 8.2 MG/DL (8.5-10.1) L Phosphorus Level 3.7 MG/DL (2.5-4.9) Magnesium Level 1.9 MG/DL (1.8-2.4) Total Bilirubin 0.2 MG/DL (0.2-1.0) Aspartate Amino Transf (AST/SGOT) 25 U/L (15-37) Alanine Aminotransferase (ALT/SGPT) 10 U/L (12-78) L Alkaline Phosphatase 74 U/L (46-116) C-Reactive Protein, Quantitative 5.8 mg/dL (0.00-0.90) H Pro-B-Type Natriuretic Peptide 6206 pg/mL (0-125) H Total Protein 5.8 G/DL (6.4-8.2) L Albumin 1.6 G/DL (3.4-5.0) L Globulin 4.2 g/dL Albumin/Globulin Ratio 0.4 (1.0-2.7) L Plan Problems: (1) Dehydration (2) Anemia (3) JAIDA (acute kidney injury) (4) Fall (5) Hip fracture, right Assessment & Plan: Pt presented on admission with Full Thickness pressure injury thoracic Spine. Base of wound has 50% slough ,50% beefy red(L)1cm x (W) 1cm x (D)0.2cm. Small amt seropurulent exudate noted. No odor noted.Periwound erythematous and indurated.Non-viable tissue removed with gentle friction,25% slough remains at base of wound. Non-blanching erythema with an area at sacrococcygeal area that is maroon in colour. Pt denied tenderness when palpated. Drsg to R hip surgical site clean,dry and intact Large partial thickness wound posterior/upper R thigh(L)11cm x (W)3.9cm. Base of wound is moist and viable. Edges are macerated. Marginal erythema periwound. R and L heels are firm and easily blanchable.Multiple dry scabbed abrasions noted to dorsal aspects of L 1st -5th metatarsals. Pt R elbow noted to be swollen with several dry scabbed abrasions.Pt expressed pain when R arm minimally touched or moved.Primary nurse and and Charge Nurse made aware. Tx.Plan: Cleanse wound Thoracic Spine with Saline. Apply Therahoney. Appy Cavilon SKin Barrier Periwound. Cover with Optifoam drsg. Change every 3 days and prn. Cleanse wound Posterior R thigh with Saline. Apply Therahoney. Apply Cavilon Skin Barrier periwound. Cover with Optifoam drsg. Change every 3 days and prn. Apply Moisture Barrier Paste to Sacrum. Cover with Optifoam drsg. Change every 3 days and prn. Apply Cavilon Skin Barrier to both heels. Cover each heel with Optifoam drsg. Change every 7 days and prn. Reposition at least every 2 hours or as tolerated. Off-load heels with Pillow. APM/MADELIN Mattress overlay. (6) Fluid collection (edema) in the arms, legs, hands and feet Assessment & Plan: There is some image degradation due to motion artifact. There is extensive edema of the subcutaneous fat. There is also some edema of the forearm musculature and the bicipital musculature. There is an irregular collection immediately anterior to the distal ulna. Uncertain as to whether this is within the joint or immediately superficial to it. Suspect that this is within the joint. This collection measures 2.3 x 1.8. Only a normal amount of joint fluid is seen elsewhere within the joint, however. No other discrete fluid collections to suggest abscess are evident. On the axial images, there is some increased STIR and decreased T1 signal in the lateral condyle and epicondyle. This is seen only on the axial images. On the coronal images, the increased STIR signal is visualized, without T1 signal abnormality, and increased STIR signal appears to extend outside the bone. No definite signal abnormality is seen within the olecranon, the remainder of the visualized ulna, or the radius. Impression: No signal abnormality to correspond to the suspected abnormality described on recent abdominal radiograph and therefore no evidence of osteomyelitis within the olecranon. That finding probably reflects degenerative changes. Very questionable signal abnormality of the lateral humeral condyle and epicondyle. Suspect artifactual but could represent early osteomyelitis changes. 2.3 x 1.8 cm somewhat irregular collection anterior to the distal ulna. Probably represents focal effusion within the anterior joint, but the shape is somewhat unusual and extra synovial collection or abscess is also possible Extensive signal abnormality of the subcutaneous fat and musculature, most likely representing cellulitis/myositis given stated clinical history (7) Cellulitis of arm Assessment & Plan: improving abx as per ID will cont to monitor for possible abscess formation Antwan Duncan November 25, 2019 13:02
--- NOTE | 2019-11-25 13:30 | Cardiac Electrophysiology PN ---
Assessment/Plan Assessment/Plan 1. Hypertension. On Norvasc 2.5 daily and prn Clonidine 2. Status post fall and right hip fracture and ORIF. EKG showed NSR with LBBB and echo Nl EF. 3. COVID-19 is negative 4. Agitation and psychosis. Further evaluation by Psychiatry. 5. Diabetes. 6. CKD with a creatinine of 3.2 improved to 2.1 7. Hypernatremia, Resolved DW RN Subjective Subjective Echo Nl EF. ECG SR with LBBB. No events off tele. Objective Last 24 Hour Vital Signs Date Time Temp Pulse Resp B/P (MAP) Pulse Ox O2 Delivery O2 Flow Rate FiO2 11/25/19 09:00 Room Air 11/25/19 08:00 97.2 54 19 121/66 (84) 98 11/25/19 04:00 97.3 51 16 108/51 (70) 99 11/25/19 00:00 97.8 54 17 98/51 (67) 98 11/24/19 21:00 Room Air 11/24/19 20:00 97.5 62 19 102/58 (73) 99 11/24/19 16:00 97.8 65 18 112/50 (70) 98 Intake and Output 11/24/19 11/25/19 19:00 07:00 Intake Total 1180 ml 360 ml Balance 1180 ml 360 ml Intake Oral 1180 ml 360 ml # Voids 3 3 # Bowel Movements 1 Laboratory Tests Test 11/25/19 05:30 White Blood Count 5.4 K/UL (4.8-10.8) Red Blood Count 2.67 M/UL (4.70-6.10) L Hemoglobin 8.1 G/DL (14.2-18.0) L Hematocrit 23.7 % (42.0-52.0) L Mean Corpuscular Volume 89 FL (80-99) Mean Corpuscular Hemoglobin 30.5 PG (27.0-31.0) Mean Corpuscular Hemoglobin Concent 34.4 G/DL (32.0-36.0) Red Cell Distribution Width 13.2 % (11.6-14.8) Platelet Count 359 K/UL (150-450) Mean Platelet Volume 4.3 FL (6.5-10.1) L Neutrophils (%) (Auto) 59.2 % (45.0-75.0) Lymphocytes (%) (Auto) 30.9 % (20.0-45.0) Monocytes (%) (Auto) 5.1 % (1.0-10.0) Eosinophils (%) (Auto) 3.6 % (0.0-3.0) H Basophils (%) (Auto) 1.1 % (0.0-2.0) Sodium Level 145 MMOL/L (136-145) Potassium Level 4.2 MMOL/L (3.5-5.1) Chloride Level 113 MMOL/L (98-107) H Carbon Dioxide Level 21 MMOL/L (21-32) Anion Gap 11 mmol/L (5-15) Blood Urea Nitrogen 53 mg/dL (7-18) H Creatinine 2.1 MG/DL (0.55-1.30) H Estimat Glomerular Filtration Rate 32.0 mL/min (>60) Glucose Level 80 MG/DL (74-106) Uric Acid 9.6 MG/DL (2.6-7.2) H Calcium Level 8.2 MG/DL (8.5-10.1) L Phosphorus Level 3.7 MG/DL (2.5-4.9) Magnesium Level 1.9 MG/DL (1.8-2.4) Total Bilirubin 0.2 MG/DL (0.2-1.0) Aspartate Amino Transf (AST/SGOT) 25 U/L (15-37) Alanine Aminotransferase (ALT/SGPT) 10 U/L (12-78) L Alkaline Phosphatase 74 U/L (46-116) C-Reactive Protein, Quantitative 5.8 mg/dL (0.00-0.90) H Pro-B-Type Natriuretic Peptide 6206 pg/mL (0-125) H Total Protein 5.8 G/DL (6.4-8.2) L Albumin 1.6 G/DL (3.4-5.0) L Globulin 4.2 g/dL Albumin/Globulin Ratio 0.4 (1.0-2.7) L Objective HEAD AND NECK: No JVD. LUNGS: Clear. CARDIOVASCULAR: Regular S1 and S2 with no gallop. ABDOMEN: Soft. EXTREMITIES: S/P right hip ORIF Neno Ennis MD November 25, 2019 13:30
[2019-11-25] MEDS ORDERED: Tubing IV Secondary IV ONE (14:06)
[2019-11-25 16:00] VITALS: BP 110/66
--- NOTE | 2019-11-25 17:13 | NUR ---
DC PLANNING: ASKED MD FOR FACILITIES TO REFER TO NO RESPONSE CM WILL F/U IN AM Addendum: 11/26/19 at 1638 by YASMINE LENNON LVN PATIENT LIKELY TO RETURN TO FACILITY; NO REHAB NEEDED
--- NOTE | 2019-11-25 19:30 | NUR ---
NURSE NOTES: Received reports from Alice WILDE. Rounding is done. Patient is asleep in bed. No any distress noted at this time. Surgical dressing is i/d/c. On low air loss mattress. IV site is intact and patent with S/L. Bed is on alarm, locked, and lowest position. Call light within reach. Will continue to monitor.
--- NOTE | 2019-11-25 19:52 | NUR ---
HAND-OFF: Report given to Demond WILDE, pt in stable condition .
[2019-11-25 20:00] VITALS: BP 120/70
[2019-11-25] MEDS: Miralax 17gm pkt ORAL SCH (20:41)
--- NOTE | 2019-11-25 20:59 | NUR ---
NURSE NOTES: Patient refused epoetin Shaun medication SubQ. Explained medication and offered x3, But patient still refused medication and stated "I don't want shot." with yelling.
[2019-11-25] MEDS ORDERED: Epoetin Alfa-EPBX (NON ESRD)10,000 unit/ml vial SUBQ SCH (21:00)
--- NOTE | 2019-11-25 21:33 | General Progress Note ---
Assessment/Plan Problem List: (1) Hip fracture, right ICD Codes: S72.001A - Fracture of unspecified part of neck of right femur, initial encounter for closed fracture SNOMED: 462657916 Qualifiers: Qualified Codes: S72.001A - Fracture of unspecified part of neck of right femur, initial encounter for closed fracture (2) Fall ICD Codes: W19.XXXA - Unspecified fall, initial encounter SNOMED: 8331416, 005366396 Qualifiers: Qualified Codes: W19.XXXA - Unspecified fall, initial encounter (3) Dehydration ICD Codes: E86.0 - Dehydration SNOMED: 40889742 (4) Anemia ICD Codes: D64.9 - Anemia, unspecified SNOMED: 355994907 (5) JAIDA (acute kidney injury) ICD Codes: N17.9 - Acute kidney failure, unspecified SNOMED: 7747356, 92610965 Assessment/Plan: no abscess per dr dsouza anemia azotemia s/p orif of hip bradycardia obs reviewed chart and labs Subjective ROS Limited/Unobtainable: Yes Allergies: Coded Allergies: No Known Allergies (Unverified , 10/15/15) Objective Last 24 Hour Vital Signs Date Time Temp Pulse Resp B/P (MAP) Pulse Ox O2 Delivery O2 Flow Rate FiO2 11/25/19 16:00 97.1 59 19 110/66 (81) 98 11/25/19 12:00 97.2 58 19 135/57 (83) 98 11/25/19 09:00 Room Air 11/25/19 08:00 97.2 54 19 121/66 (84) 98 11/25/19 04:00 97.3 51 16 108/51 (70) 99 11/25/19 00:00 97.8 54 17 98/51 (67) 98 Intake and Output 11/24/19 11/25/19 19:00 07:00 Intake Total 1180 ml 360 ml Balance 1180 ml 360 ml Intake Oral 1180 ml 360 ml # Voids 3 3 # Bowel Movements 1 Laboratory Tests 11/25/19 05:30: White Blood Count 5.4, Red Blood Count 2.67L, Hemoglobin 8.1L, Hematocrit 23.7L , Mean Corpuscular Volume 89, Mean Corpuscular Hemoglobin 30.5, Mean Corpuscular Hemoglobin Concent 34.4, Red Cell Distribution Width 13.2, Platelet Count 359, Mean Platelet Volume 4.3L, Neutrophils (%) (Auto) 59.2, Lymphocytes ( %) (Auto) 30.9, Monocytes (%) (Auto) 5.1, Eosinophils (%) (Auto) 3.6H, Basophils (%) (Auto) 1.1, Sodium Level 145, Potassium Level 4.2, Chloride Level 113H, Carbon Dioxide Level 21, Anion Gap 11, Blood Urea Nitrogen 53H, Creatinine 2.1H, Estimat Glomerular Filtration Rate 32.0, Glucose Level 80, Uric Acid 9.6H, Calcium Level 8.2L, Phosphorus Level 3.7, Magnesium Level 1.9, Total Bilirubin 0.2, Aspartate Amino Transf (AST/SGOT) 25, Alanine Aminotransferase (ALT/SGPT) 10L, Alkaline Phosphatase 74, C-Reactive Protein, Quantitative 5.8H, Pro-B-Type Natriuretic Peptide 6206H, Total Protein 5.8L, Albumin 1.6L, Globulin 4.2, Albumin/Globulin Ratio 0.4L Height (Feet): 6 Height (Inches): 4.00 Weight (Pounds): 180 Lisa Coronel MD November 25, 2019 21:33
--- NOTE | 2019-11-25 23:44 | Psych Consult Progress Note ---
Psychiatry Progress Note Psychiatry Progress Note Medications Current Medications Medications (Trade) Dose Ordered Sig/Juan Route PRN Reason Start Time Stop Time Status Last Admin Dose Admin Acetaminophen (Tylenol) 650 mg Q4H PRN ORAL Mild Pain (Pain Scale 1-3) 11/14/19 19:15 12/14/19 19:14 11/22/19 21:37 Acetaminophen (Tylenol) 650 mg Q4H PRN ORAL Temp >100.5 11/18/19 15:00 12/18/19 14:59 11/22/19 04:17 Acetaminophen/ Hydrocodone Bitart ([place] 7.5/325) 1 tab Q4H PRN ORAL severe pain 11/19/19 15:15 11/26/19 15:14 Docusate Sodium (Colace) 100 mg THREE TIMES A DAY ORAL 11/19/19 18:00 12/19/19 17:59 11/25/19 18:15 Doxycycline Monohydrate (Doxycycline Monohydrate) 100 mg EVERY 12 HOURS ORAL 11/24/19 14:45 12/01/19 14:44 11/25/19 20:41 Epoetin Shaun (Epoetin Shaun-EPBX(NON ESRD)) 10,000 unit MON-MON-MON SUBQ 11/25/19 21:00 02/23/20 20:59 Iron Sucrose 100 mg/Sodium Chloride 55 ml @ 200 mls/hr BEDTIME IV 11/23/19 21:00 11/27/19 21:17 11/25/19 20:41 Metoclopramide HCl (Reglan) 10 mg Q6H PRN IVP Nausea & Vomiting 11/18/19 18:30 12/18/19 18:29 Midodrine (Pro-Amatine) 5 mg THREE TIMES A DAY ORAL 11/24/19 13:00 02/21/20 12:59 11/25/19 18:15 Pantoprazole (Protonix) 40 mg BID ORAL 11/23/19 18:00 12/23/19 08:59 11/25/19 18:15 Polyethylene Glycol (Miralax) 17 gm BEDTIME ORAL 11/24/19 21:00 12/24/19 20:59 11/25/19 20:41 Polyethylene Glycol (Miralax) 17 gm DAILY PRN ORAL Constipation 11/22/19 11:00 12/22/19 10:59 11/24/19 16:56 Tamsulosin HCl (Flomax) 0.4 mg BID ORAL 11/16/19 18:00 12/15/19 20:59 11/25/19 18:15 Allergies: Coded Allergies: No Known Allergies (Unverified , 10/15/15) Objective Data Height (Feet): 6 Height (Inches): 4.00 Weight (Pounds): 180 Assessment/Plan Assessment/Plan: PLAN: 1. Continue the lorazepam p.r.n. provided ro/Sukhwinder Avila MD November 25, 2019 23:44
[2019-11-26] VITALS: BP 132/68
[2019-11-26 04:00] VITALS: BP 126/74
[2019-11-26 05:43] LABS: BASOPHILS % (AUTO) 0.8 % (0.0-2.0); EOSINOPHILS % (AUTO) 2.2 % (0.0-3.0); HEMOGLOBIN 8.6 G/DL (14.2-18.0); LYMPHOCYTES % (AUTO) 44.9 % (20.0-45.0); MEAN CORPUSCULAR VOLUME 89 FL (80-99); MONOCYTES % (AUTO) 2.8 % (1.0-10.0); NEUTROPHILS % (AUTO) 49.3 % (45.0-75.0); PLATELET COUNT 421 K/UL (150-450); RED BLOOD COUNT 2.82 M/UL (4.70-6.10); RED CELL DISTRIBUTION WIDTH 13.6 % (11.6-14.8)
[2019-11-26 05:53] LABS: ANION GAP 8 mmol/L (5-15); BLOOD UREA NITROGEN 46 mg/dL (7-18); CALCIUM 8.4 MG/DL (8.5-10.1); CARBON DIOXIDE 22 MMOL/L (21-32); CHLORIDE 115 MMOL/L (98-107); POTASSIUM 4.2 MMOL/L (3.5-5.1); SODIUM 145 MMOL/L (136-145)
--- NOTE | 2019-11-26 06:53 | General Progress Note ---
Assessment/Plan Assessment/Plan: (1) Coffee ground emesis ICD Codes: K92.0 - Hematemesis SNOMED: 99502012 (2) Anemia ICD Codes: D64.9 - Anemia, unspecified SNOMED: 034031843 (3) Dehydration ICD Codes: E86.0 - Dehydration SNOMED: 63519342 Status: stable Assessment/Plan #anemia r/o GI bleed. Patient had one episode of coffee ground emesis with no recurrent. S/P 2 units of pRBCs. First OB stool was negative. - Patient refused endoscopy at this time. - anemia work up reviewed; no noted iron or folate/thiamine deficiency - PPI to BID. - monitor H&H, prn transfusions. - send for additional OB stool to evaluate for any GI bleed #constipation. KUB reviewed. - continue colace TID, and miralax qhs. Subjective Allergies: Coded Allergies: No Known Allergies (Unverified , 10/15/15) Objective Last 24 Hour Vital Signs Date Time Temp Pulse Resp B/P (MAP) Pulse Ox O2 Delivery O2 Flow Rate FiO2 11/26/19 04:00 98.1 60 18 126/74 (91) 97 11/26/19 00:00 97.4 58 18 132/68 (89) 99 11/25/19 21:00 Room Air 11/25/19 20:00 97.5 56 18 120/70 (87) 99 11/25/19 16:00 97.1 59 19 110/66 (81) 98 11/25/19 12:00 97.2 58 19 135/57 (83) 98 11/25/19 09:00 Room Air 11/25/19 08:00 97.2 54 19 121/66 (84) 98 Intake and Output 11/25/19 11/26/19 19:00 07:00 Intake Total 480 ml 255 ml Output Total 1300 ml 900 ml Balance -820 ml -645 ml Intake Oral 480 ml 200 ml IV Total 55 ml Output Urine Total 1300 ml 900 ml # Voids 2 Laboratory Tests 11/26/19 04:50: White Blood Count 5.0, Red Blood Count 2.82L, Hemoglobin 8.6L, Hematocrit 25.0L , Mean Corpuscular Volume 89, Mean Corpuscular Hemoglobin 30.5, Mean Corpuscular Hemoglobin Concent 34.4, Red Cell Distribution Width 13.6, Platelet Count 421, Mean Platelet Volume 4.3L, Neutrophils (%) (Auto) 49.3, Lymphocytes ( %) (Auto) 44.9, Monocytes (%) (Auto) 2.8, Eosinophils (%) (Auto) 2.2, Basophils (%) (Auto) 0.8, Sodium Level 145, Potassium Level 4.2, Chloride Level 115H, Carbon Dioxide Level 22, Anion Gap 8, Blood Urea Nitrogen 46H, Creatinine 2.0H, Estimat Glomerular Filtration Rate 33.8, Glucose Level 83, Calcium Level 8.4L Height (Feet): 6 Height (Inches): 4.00 Weight (Pounds): 180 General Appearance: no apparent distress EENT: normal ENT inspection Neck: supple Cardiovascular: normal rate Respiratory/Chest: decreased breath sounds Abdomen: normal bowel sounds, non tender, soft Extremities: non-tender Paul Bains MD November 26, 2019 06:53
--- NOTE | 2019-11-26 07:22 | NUR ---
HAND-OFF: Report given to Olga WILDE. Patient in stable condition.
[2019-11-26 08:00] VITALS: BP 121/77
--- NOTE | 2019-11-26 08:00 | NUR ---
NURSE NOTES: Received report from Demond. Pt is asleep. No distress. IV site on left hand 22G s/l. Fall precaution. Bed is on low lock position. Call light within reach
[2019-11-26] MEDS: Doxycycline Monohydrate 100mg ORAL SCH (08:56)
[2019-11-26] MEDS: Docusate 100mg cap ORAL SCH ×3 (08:56→17:37)
[2019-11-26] MEDS: Tamsulosin 0.4mg cap ORAL SCH ×2 (08:56→17:38)
--- NOTE | 2019-11-26 09:25 | Hematology/Onc Progress Note ---
Assessment/Plan Assessment/Plan Assessment and Recs # Anemia of chronic disease due to underlying chronic medical issues, multifactorial v Gi bleed --> Anemia workup has been reviewed --> No evidence of hemolysis is noted, peripheral smear has been reviewed. --> Hgb goal >7. Transfuse prn. --> Epogen or iron have been started --> Medications have been reviewed --> low threshold for gi evaluation in case has occult + --> hgb trend 9.9-->9.3 -->9.5-->8.3->8.1-->8.6 # Hip fracture, right --> Fracture of unspecified part of neck of right femur, initial encounter for closed fracture --> s/p orif # Fall may require surger per ortho --> neuro and ortho # JAIDA on CKD --> per Dr. Levine # Psych disorder --> per Dr. Dickens # Dvt ppx scds The timing of this note does not necessarily reflect the time of the patient was seen. Greatly appreciate consultation. Subjective Allergies: Coded Allergies: No Known Allergies (Unverified , 10/15/15) Subjective 11/16 confused, pending right hip hemiarthroplasty, bilat restraints 11/17 confused, hgb 9.5, no bleeding, reviewed renal recs 11/18 still requiring clearance by psych, cards for clearance to surgery 11/19 awake and alert, dressing dry and intact, on room air 11/20 still confused no bleeding, meds noted, no night sweats, dw rn 11/21 asa discontinued, with black emesis, gi care norco prn 11/23 has been refusing endoscopy, is on ppi, no beeding, hgb 10 11/24 labs are noted, on ppi, hgb 8.1, no night sweats 11/25 no acute events, h/h stable, on iv iron Objective Objective Current Medications Medications (Trade) Dose Ordered Sig/Juan Route PRN Reason Start Time Stop Time Status Last Admin Dose Admin Acetaminophen (Tylenol) 650 mg Q4H PRN ORAL Mild Pain (Pain Scale 1-3) 11/14/19 19:15 12/14/19 19:14 11/22/19 21:37 Acetaminophen (Tylenol) 650 mg Q4H PRN ORAL Temp >100.5 11/18/19 15:00 12/18/19 14:59 11/22/19 04:17 Acetaminophen/ Hydrocodone Bitart ([place] 7.5/325) 1 tab Q4H PRN ORAL severe pain 11/19/19 15:15 11/26/19 15:14 Docusate Sodium (Colace) 100 mg THREE TIMES A DAY ORAL 11/19/19 18:00 12/19/19 17:59 11/26/19 08:56 Doxycycline Monohydrate (Doxycycline Monohydrate) 100 mg EVERY 12 HOURS ORAL 11/24/19 14:45 12/01/19 14:44 11/26/19 08:56 Epoetin Shaun (Epoetin Shaun-EPBX(NON ESRD)) 10,000 unit MON- SUBQ 11/25/19 21:00 02/23/20 20:59 Iron Sucrose 100 mg/Sodium Chloride 55 ml @ 200 mls/hr BEDTIME IV 11/23/19 21:00 11/27/19 21:17 11/25/19 20:41 Metoclopramide HCl (Reglan) 10 mg Q6H PRN IVP Nausea & Vomiting 11/18/19 18:30 12/18/19 18:29 Midodrine (Pro-Amatine) 5 mg THREE TIMES A DAY ORAL 11/24/19 13:00 02/21/20 12:59 11/25/19 18:15 Pantoprazole (Protonix) 40 mg BID ORAL 11/23/19 18:00 12/23/19 08:59 11/26/19 08:56 Polyethylene Glycol (Miralax) 17 gm BEDTIME ORAL 11/24/19 21:00 12/24/19 20:59 11/25/19 20:41 Polyethylene Glycol (Miralax) 17 gm DAILY PRN ORAL Constipation 11/22/19 11:00 12/22/19 10:59 11/24/19 16:56 Tamsulosin HCl (Flomax) 0.4 mg BID ORAL 11/16/19 18:00 12/15/19 20:59 11/26/19 08:56 Last 24 Hour Vital Signs Date Time Temp Pulse Resp B/P (MAP) Pulse Ox O2 Delivery O2 Flow Rate FiO2 11/26/19 08:00 97.6 80 18 121/77 (92) 99 11/26/19 04:00 98.1 60 18 126/74 (91) 97 11/26/19 00:00 97.4 58 18 132/68 (89) 99 11/25/19 21:00 Room Air 11/25/19 20:00 97.5 56 18 120/70 (87) 99 11/25/19 16:00 97.1 59 19 110/66 (81) 98 11/25/19 12:00 97.2 58 19 135/57 (83) 98 11/25/19 09:00 Room Air 11/25/19 08:00 97.2 54 19 121/66 (84) 98 11/25/19 04:00 97.3 51 16 108/51 (70) 99 11/25/19 00:00 97.8 54 17 98/51 (67) 98 11/24/19 21:00 Room Air 11/24/19 20:00 97.5 62 19 102/58 (73) 99 11/24/19 16:00 97.8 65 18 112/50 (70) 98 11/24/19 11:52 97.1 62 20 106/61 (76) 98 Intake and Output 11/25/19 11/26/19 19:00 07:00 Intake Total 480 ml 255 ml Output Total 1300 ml 900 ml Balance -820 ml -645 ml Intake Oral 480 ml 200 ml IV Total 55 ml Output Urine Total 1300 ml 900 ml # Voids 2 Labs Test 11/24/19 05:30 11/25/19 05:30 11/26/19 04:50 White Blood Count 5.5 K/UL (4.8-10.8) 5.4 K/UL (4.8-10.8) 5.0 K/UL (4.8-10.8) Red Blood Count 2.65 M/UL (4.70-6.10) 2.67 M/UL (4.70-6.10) 2.82 M/UL (4.70-6.10) Hemoglobin 8.1 G/DL (14.2-18.0) 8.1 G/DL (14.2-18.0) 8.6 G/DL (14.2-18.0) Hematocrit 23.5 % (42.0-52.0) 23.7 % (42.0-52.0) 25.0 % (42.0-52.0) Mean Corpuscular Volume 89 FL (80-99) 89 FL (80-99) 89 FL (80-99) Mean Corpuscular Hemoglobin 30.5 PG (27.0-31.0) 30.5 PG (27.0-31.0) 30.5 PG (27.0-31.0) Mean Corpuscular Hemoglobin Concent 34.4 G/DL (32.0-36.0) 34.4 G/DL (32.0-36.0) 34.4 G/DL (32.0-36.0) Red Cell Distribution Width 13.5 % (11.6-14.8) 13.2 % (11.6-14.8) 13.6 % (11.6-14.8) Platelet Count 314 K/UL (150-450) 359 K/UL (150-450) 421 K/UL (150-450) Mean Platelet Volume 4.7 FL (6.5-10.1) 4.3 FL (6.5-10.1) 4.3 FL (6.5-10.1) Neutrophils (%) (Auto) 65.1 % (45.0-75.0) 59.2 % (45.0-75.0) 49.3 % (45.0-75.0) Lymphocytes (%) (Auto) 25.0 % (20.0-45.0) 30.9 % (20.0-45.0) 44.9 % (20.0-45.0) Monocytes (%) (Auto) 4.7 % (1.0-10.0) 5.1 % (1.0-10.0) 2.8 % (1.0-10.0) Eosinophils (%) (Auto) 3.9 % (0.0-3.0) 3.6 % (0.0-3.0) 2.2 % (0.0-3.0) Basophils (%) (Auto) 1.3 % (0.0-2.0) 1.1 % (0.0-2.0) 0.8 % (0.0-2.0) Sodium Level 142 MMOL/L (136-145) 145 MMOL/L (136-145) 145 MMOL/L (136-145) Potassium Level 3.2 MMOL/L (3.5-5.1) 4.2 MMOL/L (3.5-5.1) 4.2 MMOL/L (3.5-5.1) Chloride Level 110 MMOL/L (98-107) 113 MMOL/L (98-107) 115 MMOL/L (98-107) Carbon Dioxide Level 22 MMOL/L (21-32) 21 MMOL/L (21-32) 22 MMOL/L (21-32) Anion Gap 10 mmol/L (5-15) 11 mmol/L (5-15) 8 mmol/L (5-15) Blood Urea Nitrogen 62 mg/dL (7-18) 53 mg/dL (7-18) 46 mg/dL (7-18) Creatinine 2.4 MG/DL (0.55-1.30) 2.1 MG/DL (0.55-1.30) 2.0 MG/DL (0.55-1.30) Estimat Glomerular Filtration Rate 27.4 mL/min (>60) 32.0 mL/min (>60) 33.8 mL/min (>60) Glucose Level 89 MG/DL (74-106) 80 MG/DL (74-106) 83 MG/DL (74-106) Uric Acid 9.6 MG/DL (2.6-7.2) 9.6 MG/DL (2.6-7.2) Calcium Level 8.2 MG/DL (8.5-10.1) 8.2 MG/DL (8.5-10.1) 8.4 MG/DL (8.5-10.1) Phosphorus Level 3.9 MG/DL (2.5-4.9) 3.7 MG/DL (2.5-4.9) Magnesium Level 1.9 MG/DL (1.8-2.4) 1.9 MG/DL (1.8-2.4) Total Bilirubin 0.2 MG/DL (0.2-1.0) 0.2 MG/DL (0.2-1.0) Aspartate Amino Transf (AST/SGOT) 27 U/L (15-37) 25 U/L (15-37) Alanine Aminotransferase (ALT/SGPT) 7 U/L (12-78) 10 U/L (12-78) Alkaline Phosphatase 73 U/L (46-116) 74 U/L (46-116) Total Protein 5.4 G/DL (6.4-8.2) 5.8 G/DL (6.4-8.2) Albumin 1.2 G/DL (3.4-5.0) 1.6 G/DL (3.4-5.0) Globulin 4.2 g/dL 4.2 g/dL Albumin/Globulin Ratio 0.3 (1.0-2.7) 0.4 (1.0-2.7) Random Vancomycin Level 16.5 ug/mL C-Reactive Protein, Quantitative 5.8 mg/dL (0.00-0.90) Pro-B-Type Natriuretic Peptide 6206 pg/mL (0-125) Height (Feet): 6 Height (Inches): 4.00 Weight (Pounds): 180 Objective PE: Vitals: reviewed, stable General Appearance: NAD HEENT: normocephalic, atraumatic Neck: non-tender, normal alignment Respiratory/Chest: normal breath sounds bilaterally Cardiovascular/Chest: normal peripheral pulses, normal rate Abdomen: normal bowel sounds, soft, nontender Extremities: normal range of motion Neuro: altered, encephalopathic : bonita+ Juan Luis Monique MD November 26, 2019 09:25
--- NOTE | 2019-11-26 09:54 | General Progress Note ---
Assessment/Plan Assessment/Plan: (1) Right hip pain (2) Right hip fracture (3) S/P Right hip hemiarthroplasty (4) Right UE pain (5) Right UE osteomyelitis Patient to be continued on [place] as needed. D/w Dr. Sanders and he concurred. Subjective Date patient seen: November 26, 2019 Time patient seen: 09:30 - am Allergies: Coded Allergies: No Known Allergies (Unverified , 10/15/15) Subjective Constitutional: Reports: weakness HEENT: Reports: no symptoms Cardiovascular: Reports: no symptoms Respiratory: Reports: no symptoms Gastrointestinal/Abdominal: Reports: no symptoms Genitourinary: Reports: no symptoms Neurologic/Psychiatric: Reports: weakness Endocrine: Reports: no symptoms Hematologic/Lymphatic: Reports: no symptoms Subjective Patient is in bed No changes and denies pain at this time. Objective Last 24 Hour Vital Signs Date Time Temp Pulse Resp B/P (MAP) Pulse Ox O2 Delivery O2 Flow Rate FiO2 11/26/19 09:00 Room Air 11/26/19 08:00 97.6 80 18 121/77 (92) 99 11/26/19 04:00 98.1 60 18 126/74 (91) 97 11/26/19 00:00 97.4 58 18 132/68 (89) 99 11/25/19 21:00 Room Air 11/25/19 20:00 97.5 56 18 120/70 (87) 99 11/25/19 16:00 97.1 59 19 110/66 (81) 98 11/25/19 12:00 97.2 58 19 135/57 (83) 98 Intake and Output 11/25/19 11/26/19 19:00 07:00 Intake Total 480 ml 255 ml Output Total 1300 ml 900 ml Balance -820 ml -645 ml Intake Oral 480 ml 200 ml IV Total 55 ml Output Urine Total 1300 ml 900 ml # Voids 2 Laboratory Tests 11/26/19 04:50: White Blood Count 5.0, Red Blood Count 2.82L, Hemoglobin 8.6L, Hematocrit 25.0L , Mean Corpuscular Volume 89, Mean Corpuscular Hemoglobin 30.5, Mean Corpuscular Hemoglobin Concent 34.4, Red Cell Distribution Width 13.6, Platelet Count 421, Mean Platelet Volume 4.3L, Neutrophils (%) (Auto) 49.3, Lymphocytes ( %) (Auto) 44.9, Monocytes (%) (Auto) 2.8, Eosinophils (%) (Auto) 2.2, Basophils (%) (Auto) 0.8, Sodium Level 145, Potassium Level 4.2, Chloride Level 115H, Carbon Dioxide Level 22, Anion Gap 8, Blood Urea Nitrogen 46H, Creatinine 2.0H, Estimat Glomerular Filtration Rate 33.8, Glucose Level 83, Calcium Level 8.4L Height (Feet): 6 Height (Inches): 4.00 Weight (Pounds): 180 Objective General Appearance: no apparent distress, alert EENT: PERRL/EOMI, normal ENT inspection Neck: non-tender, normal alignment Cardiovascular: normal rate, regular rhythm Respiratory/Chest: decreased breath sounds Abdomen: non tender, soft Extremities: other - tenderness to palpation of right UE and LE Neurologic: alert, responsive Skin: normal pigmentation David Hi November 26, 2019 09:54
--- NOTE | 2019-11-26 11:13 | Nephrology Progress Note ---
Assessment/Plan Problem List: (1) JAIDA (acute kidney injury) Assessment: Serum creatinine lower (2) Anemia (3) Dehydration (4) Hip fracture, right (5) Fall Assessment Acute renal failure Possibly underlying chronic kidney failure Dehydration Status post fall and fracture of the right hip History of hypertension History of diabetes mellitus History of psych disease Anemia Plan Serum creatinine now at its lowest, creatinine 2 which is down from 3.5 on admission Normal saline and albumin bolus as needed Check serum cortisol level noted Trial of IV iron and subcu Epogen for anemia Continue to monitor renal parameters Continue per consultants Kidney ultrasound results noted ROBERTO: 1. No hydronephrosis or stone. 2. Increased echogenicity of the kidneys is suggestive of medical renal disease. Left renal cysts. 3. Bladder is distended with questionable mild prominence of the bladder wall. Further evaluation could be performed with urinalysis if there is concern for cystitis. Previously: Patient underwent hip surgery November 17 today's labs reviewed, serum creatinine down to 2.5 Since serum creatinine is declining will continue hydration DC [place] November 19 On soft diet now Adjust blood pressure medications IV fluids Anemia work-up Protonix, Colace Pain medication Monitor renal parameters Urine studies Per consultants Subjective ROS Limited/Unobtainable: No Constitutional: Reports: malaise Objective Objective Last 24 Hour Vital Signs Date Time Temp Pulse Resp B/P (MAP) Pulse Ox O2 Delivery O2 Flow Rate FiO2 11/26/19 09:00 Room Air 11/26/19 08:00 97.6 80 18 121/77 (92) 99 11/26/19 04:00 98.1 60 18 126/74 (91) 97 11/26/19 00:00 97.4 58 18 132/68 (89) 99 11/25/19 21:00 Room Air 11/25/19 20:00 97.5 56 18 120/70 (87) 99 11/25/19 16:00 97.1 59 19 110/66 (81) 98 11/25/19 12:00 97.2 58 19 135/57 (83) 98 Intake and Output 11/25/19 11/26/19 19:00 07:00 Intake Total 480 ml 255 ml Output Total 1300 ml 900 ml Balance -820 ml -645 ml Intake Oral 480 ml 200 ml IV Total 55 ml Output Urine Total 1300 ml 900 ml # Voids 2 Current Medications Medications (Trade) Dose Ordered Sig/Juan Route PRN Reason Start Time Stop Time Status Last Admin Dose Admin Acetaminophen (Tylenol) 650 mg Q4H PRN ORAL Mild Pain (Pain Scale 1-3) 11/14/19 19:15 12/14/19 19:14 11/22/19 21:37 Acetaminophen (Tylenol) 650 mg Q4H PRN ORAL Temp >100.5 11/18/19 15:00 12/18/19 14:59 11/22/19 04:17 Acetaminophen/ Hydrocodone Bitart ([place] 7.5/325) 1 tab Q4H PRN ORAL severe pain 11/19/19 15:15 11/26/19 15:14 11/26/19 09:56 Docusate Sodium (Colace) 100 mg THREE TIMES A DAY ORAL 11/19/19 18:00 12/19/19 17:59 11/26/19 08:56 Doxycycline Monohydrate (Doxycycline Monohydrate) 100 mg EVERY 12 HOURS ORAL 11/24/19 14:45 12/01/19 14:44 11/26/19 08:56 Epoetin Shaun (Epoetin Shaun-EPBX(NON ESRD)) 10,000 unit MON-MON-MON SUBQ 11/25/19 21:00 02/23/20 20:59 Iron Sucrose 100 mg/Sodium Chloride 55 ml @ 200 mls/hr BEDTIME IV 11/23/19 21:00 11/27/19 21:17 11/25/19 20:41 Metoclopramide HCl (Reglan) 10 mg Q6H PRN IVP Nausea & Vomiting 11/18/19 18:30 12/18/19 18:29 Midodrine (Pro-Amatine) 5 mg THREE TIMES A DAY ORAL 11/24/19 13:00 02/21/20 12:59 11/25/19 18:15 Pantoprazole (Protonix) 40 mg BID ORAL 11/23/19 18:00 12/23/19 08:59 11/26/19 08:56 Polyethylene Glycol (Miralax) 17 gm BEDTIME ORAL 11/24/19 21:00 12/24/19 20:59 11/25/19 20:41 Polyethylene Glycol (Miralax) 17 gm DAILY PRN ORAL Constipation 11/22/19 11:00 12/22/19 10:59 11/24/19 16:56 Tamsulosin HCl (Flomax) 0.4 mg BID ORAL 11/16/19 18:00 12/15/19 20:59 11/26/19 08:56 Laboratory Tests 11/26/19 04:50: White Blood Count 5.0, Red Blood Count 2.82L, Hemoglobin 8.6L, Hematocrit 25.0L , Mean Corpuscular Volume 89, Mean Corpuscular Hemoglobin 30.5, Mean Corpuscular Hemoglobin Concent 34.4, Red Cell Distribution Width 13.6, Platelet Count 421, Mean Platelet Volume 4.3L, Neutrophils (%) (Auto) 49.3, Lymphocytes ( %) (Auto) 44.9, Monocytes (%) (Auto) 2.8, Eosinophils (%) (Auto) 2.2, Basophils (%) (Auto) 0.8, Sodium Level 145, Potassium Level 4.2, Chloride Level 115H, Carbon Dioxide Level 22, Anion Gap 8, Blood Urea Nitrogen 46H, Creatinine 2.0H, Estimat Glomerular Filtration Rate 33.8, Glucose Level 83, Calcium Level 8.4L Height (Feet): 6 Height (Inches): 4.00 Weight (Pounds): 180 General Appearance: no apparent distress Cardiovascular: normal rate Abdomen: soft Objective No change Armen Levine MD November 26, 2019 11:13
[2019-11-26 11:49] VITALS: BP 117/82
--- NOTE | 2019-11-26 11:55 | Surgery Progress Note ---
Surgery Progress Note Subjective Additional Comments comfortable stable labs stable no active bleeding edema unchanged Objective Last 24 Hour Vital Signs Date Time Temp Pulse Resp B/P (MAP) Pulse Ox O2 Delivery O2 Flow Rate FiO2 11/26/19 11:49 97.2 66 21 117/82 (94) 97 11/26/19 09:00 Room Air 11/26/19 08:00 97.6 80 18 121/77 (92) 99 11/26/19 04:00 98.1 60 18 126/74 (91) 97 11/26/19 00:00 97.4 58 18 132/68 (89) 99 11/25/19 21:00 Room Air 11/25/19 20:00 97.5 56 18 120/70 (87) 99 11/25/19 16:00 97.1 59 19 110/66 (81) 98 11/25/19 12:00 97.2 58 19 135/57 (83) 98 I&O Intake and Output 11/25/19 11/26/19 19:00 07:00 Intake Total 480 ml 255 ml Output Total 1300 ml 900 ml Balance -820 ml -645 ml Intake Oral 480 ml 200 ml IV Total 55 ml Output Urine Total 1300 ml 900 ml # Voids 2 Dressing: dry Wound: clean Cardiovascular: RSR Respiratory: clear Abdomen: soft, non-tender, present bowel sounds, non-distended Extremities: edema, tenderness, no cyanosis, other Laboratory Tests Test 11/26/19 04:50 White Blood Count 5.0 K/UL (4.8-10.8) Red Blood Count 2.82 M/UL (4.70-6.10) L Hemoglobin 8.6 G/DL (14.2-18.0) L Hematocrit 25.0 % (42.0-52.0) L Mean Corpuscular Volume 89 FL (80-99) Mean Corpuscular Hemoglobin 30.5 PG (27.0-31.0) Mean Corpuscular Hemoglobin Concent 34.4 G/DL (32.0-36.0) Red Cell Distribution Width 13.6 % (11.6-14.8) Platelet Count 421 K/UL (150-450) Mean Platelet Volume 4.3 FL (6.5-10.1) L Neutrophils (%) (Auto) 49.3 % (45.0-75.0) Lymphocytes (%) (Auto) 44.9 % (20.0-45.0) Monocytes (%) (Auto) 2.8 % (1.0-10.0) Eosinophils (%) (Auto) 2.2 % (0.0-3.0) Basophils (%) (Auto) 0.8 % (0.0-2.0) Sodium Level 145 MMOL/L (136-145) Potassium Level 4.2 MMOL/L (3.5-5.1) Chloride Level 115 MMOL/L (98-107) H Carbon Dioxide Level 22 MMOL/L (21-32) Anion Gap 8 mmol/L (5-15) Blood Urea Nitrogen 46 mg/dL (7-18) H Creatinine 2.0 MG/DL (0.55-1.30) H Estimat Glomerular Filtration Rate 33.8 mL/min (>60) Glucose Level 83 MG/DL (74-106) Calcium Level 8.4 MG/DL (8.5-10.1) L Plan Problems: (1) Dehydration (2) Anemia (3) JAIDA (acute kidney injury) (4) Fall (5) Hip fracture, right Assessment & Plan: Pt presented on admission with Full Thickness pressure injury thoracic Spine. Base of wound has 50% slough ,50% beefy red(L)1cm x (W) 1cm x (D)0.2cm. Small amt seropurulent exudate noted. No odor noted.Periwound erythematous and indurated.Non-viable tissue removed with gentle friction,25% slough remains at base of wound. Non-blanching erythema with an area at sacrococcygeal area that is maroon in colour. Pt denied tenderness when palpated. Drsg to R hip surgical site clean,dry and intact Large partial thickness wound posterior/upper R thigh(L)11cm x (W)3.9cm. Base of wound is moist and viable. Edges are macerated. Marginal erythema periwound. R and L heels are firm and easily blanchable.Multiple dry scabbed abrasions noted to dorsal aspects of L 1st -5th metatarsals. Pt R elbow noted to be swollen with several dry scabbed abrasions.Pt expressed pain when R arm minimally touched or moved.Primary nurse and and Charge Nurse made aware. Tx.Plan: Cleanse wound Thoracic Spine with Saline. Apply Therahoney. Appy Cavilon SKin Barrier Periwound. Cover with Optifoam drsg. Change every 3 days and prn. Cleanse wound Posterior R thigh with Saline. Apply Therahoney. Apply Cavilon Skin Barrier periwound. Cover with Optifoam drsg. Change every 3 days and prn. Apply Moisture Barrier Paste to Sacrum. Cover with Optifoam drsg. Change every 3 days and prn. Apply Cavilon Skin Barrier to both heels. Cover each heel with Optifoam drsg. Change every 7 days and prn. Reposition at least every 2 hours or as tolerated. Off-load heels with Pillow. APM/MADELIN Mattress overlay. (6) Fluid collection (edema) in the arms, legs, hands and feet Assessment & Plan: There is some image degradation due to motion artifact. There is extensive edema of the subcutaneous fat. There is also some edema of the forearm musculature and the bicipital musculature. There is an irregular collection immediately anterior to the distal ulna. Uncertain as to whether this is within the joint or immediately superficial to it. Suspect that this is within the joint. This collection measures 2.3 x 1.8. Only a normal amount of joint fluid is seen elsewhere within the joint, however. No other discrete fluid collections to suggest abscess are evident. On the axial images, there is some increased STIR and decreased T1 signal in the lateral condyle and epicondyle. This is seen only on the axial images. On the coronal images, the increased STIR signal is visualized, without T1 signal abnormality, and increased STIR signal appears to extend outside the bone. No definite signal abnormality is seen within the olecranon, the remainder of the visualized ulna, or the radius. Impression: No signal abnormality to correspond to the suspected abnormality described on recent abdominal radiograph and therefore no evidence of osteomyelitis within the olecranon. That finding probably reflects degenerative changes. Very questionable signal abnormality of the lateral humeral condyle and epicondyle. Suspect artifactual but could represent early osteomyelitis changes. 2.3 x 1.8 cm somewhat irregular collection anterior to the distal ulna. Probably represents focal effusion within the anterior joint, but the shape is somewhat unusual and extra synovial collection or abscess is also possible Extensive signal abnormality of the subcutaneous fat and musculature, most likely representing cellulitis/myositis given stated clinical history (7) Cellulitis of arm Assessment & Plan: improving abx as per ID will cont to monitor for possible abscess formation Antwan Duncan November 26, 2019 11:55
--- NOTE | 2019-11-26 12:11 | Cardiac Electrophysiology PN ---
Assessment/Plan Assessment/Plan 1. Hypertension. Stable off meds now 2. Status post fall and right hip fracture and ORIF. EKG showed NSR with LBBB and echo Nl EF. 3. COVID-19 is negative 4. Agitation and psychosis. 5. Diabetes. 6. CKD with a creatinine of 3.2 improved to 2.0 7. Hypernatremia, Resolved DW RN Subjective Subjective Echo Nl EF. ECG SR with LBBB. Being hydrated. Objective Last 24 Hour Vital Signs Date Time Temp Pulse Resp B/P (MAP) Pulse Ox O2 Delivery O2 Flow Rate FiO2 11/26/19 11:49 97.2 66 21 117/82 (94) 97 11/26/19 09:00 Room Air 11/26/19 08:00 97.6 80 18 121/77 (92) 99 11/26/19 04:00 98.1 60 18 126/74 (91) 97 11/26/19 00:00 97.4 58 18 132/68 (89) 99 11/25/19 21:00 Room Air 11/25/19 20:00 97.5 56 18 120/70 (87) 99 11/25/19 16:00 97.1 59 19 110/66 (81) 98 Intake and Output 11/25/19 11/26/19 19:00 07:00 Intake Total 480 ml 255 ml Output Total 1300 ml 900 ml Balance -820 ml -645 ml Intake Oral 480 ml 200 ml IV Total 55 ml Output Urine Total 1300 ml 900 ml # Voids 2 Laboratory Tests Test 11/26/19 04:50 White Blood Count 5.0 K/UL (4.8-10.8) Red Blood Count 2.82 M/UL (4.70-6.10) L Hemoglobin 8.6 G/DL (14.2-18.0) L Hematocrit 25.0 % (42.0-52.0) L Mean Corpuscular Volume 89 FL (80-99) Mean Corpuscular Hemoglobin 30.5 PG (27.0-31.0) Mean Corpuscular Hemoglobin Concent 34.4 G/DL (32.0-36.0) Red Cell Distribution Width 13.6 % (11.6-14.8) Platelet Count 421 K/UL (150-450) Mean Platelet Volume 4.3 FL (6.5-10.1) L Neutrophils (%) (Auto) 49.3 % (45.0-75.0) Lymphocytes (%) (Auto) 44.9 % (20.0-45.0) Monocytes (%) (Auto) 2.8 % (1.0-10.0) Eosinophils (%) (Auto) 2.2 % (0.0-3.0) Basophils (%) (Auto) 0.8 % (0.0-2.0) Sodium Level 145 MMOL/L (136-145) Potassium Level 4.2 MMOL/L (3.5-5.1) Chloride Level 115 MMOL/L (98-107) H Carbon Dioxide Level 22 MMOL/L (21-32) Anion Gap 8 mmol/L (5-15) Blood Urea Nitrogen 46 mg/dL (7-18) H Creatinine 2.0 MG/DL (0.55-1.30) H Estimat Glomerular Filtration Rate 33.8 mL/min (>60) Glucose Level 83 MG/DL (74-106) Calcium Level 8.4 MG/DL (8.5-10.1) L Objective HEAD AND NECK: No JVD. LUNGS: Clear. CARDIOVASCULAR: Regular S1 and S2 with no gallop. ABDOMEN: Soft. EXTREMITIES: S/P right hip ORIF Neno Ennis MD November 26, 2019 12:11
--- NOTE | 2019-11-26 13:48 | Infectious Diseases Prog Note ---
Assessment/Plan Assessment/Plan IMPRESSION: Post operative fever Cellulitis of R arm Right hip fracture, s/p ORIF schizophrenia, BPH, Acute renal failure, Anemia, Fecal impaction. RECOMMENDATION: Discontinue PO Doxycycline Observe off antibiotic Negative COVID-19 test. Subjective ROS Limited/Unobtainable: Yes Allergies: Coded Allergies: No Known Allergies (Unverified , 10/15/15) Objective Vital Signs Last 24 Hour Vital Signs Date Time Temp Pulse Resp B/P (MAP) Pulse Ox O2 Delivery O2 Flow Rate FiO2 11/26/19 11:49 97.2 66 21 117/82 (94) 97 11/26/19 09:00 Room Air 11/26/19 09:00 Room Air 11/26/19 08:00 97.6 80 18 121/77 (92) 99 11/26/19 04:00 98.1 60 18 126/74 (91) 97 11/26/19 00:00 97.4 58 18 132/68 (89) 99 11/25/19 21:00 Room Air 11/25/19 20:00 97.5 56 18 120/70 (87) 99 11/25/19 16:00 97.1 59 19 110/66 (81) 98 Height (Feet): 6 Height (Inches): 4.00 Weight (Pounds): 180 General Appearance: no acute distress HEENT: mucous membranes moist Respiratory/Chest: lungs clear Cardiovascular: normal rate Abdomen: soft, non tender Extremities: no edema Neurologic/Psychiatric: other - sleeping Laboratory Tests Test 11/26/19 04:50 White Blood Count 5.0 K/UL (4.8-10.8) Red Blood Count 2.82 M/UL (4.70-6.10) L Hemoglobin 8.6 G/DL (14.2-18.0) L Hematocrit 25.0 % (42.0-52.0) L Mean Corpuscular Volume 89 FL (80-99) Mean Corpuscular Hemoglobin 30.5 PG (27.0-31.0) Mean Corpuscular Hemoglobin Concent 34.4 G/DL (32.0-36.0) Red Cell Distribution Width 13.6 % (11.6-14.8) Platelet Count 421 K/UL (150-450) Mean Platelet Volume 4.3 FL (6.5-10.1) L Neutrophils (%) (Auto) 49.3 % (45.0-75.0) Lymphocytes (%) (Auto) 44.9 % (20.0-45.0) Monocytes (%) (Auto) 2.8 % (1.0-10.0) Eosinophils (%) (Auto) 2.2 % (0.0-3.0) Basophils (%) (Auto) 0.8 % (0.0-2.0) Sodium Level 145 MMOL/L (136-145) Potassium Level 4.2 MMOL/L (3.5-5.1) Chloride Level 115 MMOL/L (98-107) H Carbon Dioxide Level 22 MMOL/L (21-32) Anion Gap 8 mmol/L (5-15) Blood Urea Nitrogen 46 mg/dL (7-18) H Creatinine 2.0 MG/DL (0.55-1.30) H Estimat Glomerular Filtration Rate 33.8 mL/min (>60) Glucose Level 83 MG/DL (74-106) Calcium Level 8.4 MG/DL (8.5-10.1) L Current Medications Medications (Trade) Dose Ordered Sig/Juan Route PRN Reason Start Time Stop Time Status Last Admin Dose Admin Acetaminophen (Tylenol) 650 mg Q4H PRN ORAL Mild Pain (Pain Scale 1-3) 11/14/19 19:15 12/14/19 19:14 11/22/19 21:37 Acetaminophen (Tylenol) 650 mg Q4H PRN ORAL Temp >100.5 11/18/19 15:00 12/18/19 14:59 11/22/19 04:17 Acetaminophen/ Hydrocodone Bitart ([place] 7.5/325) 1 tab Q4H PRN ORAL severe pain 11/26/19 14:00 12/03/19 13:59 Docusate Sodium (Colace) 100 mg THREE TIMES A DAY ORAL 11/19/19 18:00 12/19/19 17:59 11/26/19 12:30 Doxycycline Monohydrate (Doxycycline Monohydrate) 100 mg EVERY 12 HOURS ORAL 11/24/19 14:45 12/01/19 14:44 11/26/19 08:56 Epoetin Shaun (Epoetin Shaun-EPBX(NON ESRD)) 10,000 unit MON-MON-FRI SUBQ 11/25/19 21:00 02/23/20 20:59 Iron Sucrose 100 mg/Sodium Chloride 55 ml @ 200 mls/hr BEDTIME IV 11/23/19 21:00 11/27/19 21:17 11/25/19 20:41 Metoclopramide HCl (Reglan) 10 mg Q6H PRN IVP Nausea & Vomiting 11/18/19 18:30 12/18/19 18:29 Midodrine (Pro-Amatine) 5 mg THREE TIMES A DAY ORAL 11/24/19 13:00 02/21/20 12:59 11/25/19 18:15 Pantoprazole (Protonix) 40 mg BID ORAL 11/23/19 18:00 12/23/19 08:59 11/26/19 08:56 Polyethylene Glycol (Miralax) 17 gm BEDTIME ORAL 11/24/19 21:00 12/24/19 20:59 11/25/19 20:41 Polyethylene Glycol (Miralax) 17 gm DAILY PRN ORAL Constipation 11/22/19 11:00 12/22/19 10:59 11/24/19 16:56 Tamsulosin HCl (Flomax) 0.4 mg BID ORAL 11/16/19 18:00 12/15/19 20:59 11/26/19 08:56 Todd Paz MD November 26, 2019 13:48
[2019-11-26] MEDS ORDERED: HYDROcodone/Acetamin 7.5/325 tab ORAL PRN (14:00)
[2019-11-26 16:00] VITALS: BP 114/67
--- NOTE | 2019-11-26 16:01 | NUR ---
P.T Note: Pt refused to participate in functional mobilities despite encouragement and medication for pain was given prior to P.T attempt. Multiple attempts were made to avail.
--- NOTE | 2019-11-26 19:18 | NUR ---
HAND-OFF: Report given to Leigh Ann WILDE.
--- NOTE | 2019-11-26 19:30 | NUR ---
NURSE NOTES: report received from ANDRY Espinoza. Patient in stable condition.
[2019-11-26 20:00] VITALS: BP 119/67
--- NOTE | 2019-11-26 21:19 | General Progress Note ---
Assessment/Plan Problem List: (1) Hip fracture, right ICD Codes: S72.001A - Fracture of unspecified part of neck of right femur, initial encounter for closed fracture SNOMED: 580705496 Qualifiers: Qualified Codes: S72.001A - Fracture of unspecified part of neck of right femur, initial encounter for closed fracture (2) Fall ICD Codes: W19.XXXA - Unspecified fall, initial encounter SNOMED: 4669068, 145962105 Qualifiers: Qualified Codes: W19.XXXA - Unspecified fall, initial encounter (3) Dehydration ICD Codes: E86.0 - Dehydration SNOMED: 90731401 (4) Anemia ICD Codes: D64.9 - Anemia, unspecified SNOMED: 638638917 (5) JAIDA (acute kidney injury) ICD Codes: N17.9 - Acute kidney failure, unspecified SNOMED: 1234370, 45908628 Assessment/Plan: no abscess per dr dsouza anemia cri afebrile no fever s/p orif of hip bradycardia obs reviewed chart and labs Subjective ROS Limited/Unobtainable: Yes Allergies: Coded Allergies: No Known Allergies (Unverified , 10/15/15) Objective Last 24 Hour Vital Signs Date Time Temp Pulse Resp B/P (MAP) Pulse Ox O2 Delivery O2 Flow Rate FiO2 11/26/19 20:00 96.1 18 119/67 (84) 95 11/26/19 16:00 98.6 59 18 114/67 (83) 98 11/26/19 11:49 97.2 66 21 117/82 (94) 97 11/26/19 09:00 Room Air 11/26/19 09:00 Room Air 11/26/19 08:00 97.6 80 18 121/77 (92) 99 11/26/19 04:00 98.1 60 18 126/74 (91) 97 11/26/19 00:00 97.4 58 18 132/68 (89) 99 Intake and Output 11/25/19 11/26/19 19:00 07:00 Intake Total 480 ml 255 ml Output Total 1300 ml 900 ml Balance -820 ml -645 ml Intake Oral 480 ml 200 ml IV Total 55 ml Output Urine Total 1300 ml 900 ml # Voids 2 Laboratory Tests 11/26/19 04:50: White Blood Count 5.0, Red Blood Count 2.82L, Hemoglobin 8.6L, Hematocrit 25.0L , Mean Corpuscular Volume 89, Mean Corpuscular Hemoglobin 30.5, Mean Corpuscular Hemoglobin Concent 34.4, Red Cell Distribution Width 13.6, Platelet Count 421, Mean Platelet Volume 4.3L, Neutrophils (%) (Auto) 49.3, Lymphocytes ( %) (Auto) 44.9, Monocytes (%) (Auto) 2.8, Eosinophils (%) (Auto) 2.2, Basophils (%) (Auto) 0.8, Sodium Level 145, Potassium Level 4.2, Chloride Level 115H, Carbon Dioxide Level 22, Anion Gap 8, Blood Urea Nitrogen 46H, Creatinine 2.0H, Estimat Glomerular Filtration Rate 33.8, Glucose Level 83, Calcium Level 8.4L Height (Feet): 6 Height (Inches): 4.00 Weight (Pounds): 180 Lisa Coronel MD November 26, 2019 21:19
[2019-11-26] MEDS: Miralax 17gm pkt ORAL SCH (21:24)
--- NOTE | 2019-11-26 22:30 | Psych Consult Progress Note ---
Psychiatry Progress Note Psychiatry Progress Note Subjective no changes since previous condition refused pt Medications Current Medications Medications (Trade) Dose Ordered Sig/Juan Route PRN Reason Start Time Stop Time Status Last Admin Dose Admin Acetaminophen (Tylenol) 650 mg Q4H PRN ORAL Mild Pain (Pain Scale 1-3) 11/14/19 19:15 12/14/19 19:14 11/22/19 21:37 Acetaminophen (Tylenol) 650 mg Q4H PRN ORAL Temp >100.5 11/18/19 15:00 12/18/19 14:59 11/22/19 04:17 Acetaminophen/ Hydrocodone Bitart ([place] 7.5/325) 1 tab Q4H PRN ORAL severe pain 11/26/19 14:00 12/03/19 13:59 Docusate Sodium (Colace) 100 mg THREE TIMES A DAY ORAL 11/19/19 18:00 12/19/19 17:59 11/26/19 17:37 Epoetin Shaun (Epoetin Shaun-EPBX(NON ESRD)) 10,000 unit MON-MON-MON SUBQ 11/25/19 21:00 02/23/20 20:59 Iron Sucrose 100 mg/Sodium Chloride 55 ml @ 200 mls/hr BEDTIME IV 11/23/19 21:00 11/27/19 21:17 11/26/19 20:25 Metoclopramide HCl (Reglan) 10 mg Q6H PRN IVP Nausea & Vomiting 11/18/19 18:30 12/18/19 18:29 Midodrine (Pro-Amatine) 5 mg THREE TIMES A DAY ORAL 11/24/19 13:00 02/21/20 12:59 11/25/19 18:15 Pantoprazole (Protonix) 40 mg BID ORAL 11/23/19 18:00 12/23/19 08:59 11/26/19 17:38 Polyethylene Glycol (Miralax) 17 gm BEDTIME ORAL 11/24/19 21:00 12/24/19 20:59 11/26/19 21:24 Polyethylene Glycol (Miralax) 17 gm DAILY PRN ORAL Constipation 11/22/19 11:00 12/22/19 10:59 11/24/19 16:56 Tamsulosin HCl (Flomax) 0.4 mg BID ORAL 11/16/19 18:00 12/15/19 20:59 11/26/19 17:38 Neurological/Psychiatric: Reports: anxiety, depressed, emotional problems Allergies: Coded Allergies: No Known Allergies (Unverified , 10/15/15) Objective Data Height (Feet): 6 Height (Inches): 4.00 Weight (Pounds): 180 General Appearance: WD/WN, no apparent distress, alert Behavior Mannerisms: poor eye contact Mental Status Exam - Mood: depressed, irritable Mental Status Exam - Thought P: illogical Additional Comments: alert and oriented to times, self, and place. Mood is neutral. Affect is flat. Thought process is concrete. Thought content, no suicidal or homicidal ideation. Cognition is impaired. Insight and judgment, impaired. Assessment/Plan [place]: 1. Acute encephalopathy. 2. Dementia. Status: stable Assessment/Plan: 1. Continue to monitor symptoms. 2. Discussed with the nurse. Sukhwinder Dickens MD November 26, 2019 22:30
[2019-11-27 07:17] LABS: BASOPHILS % (AUTO) 1.3 % (0.0-2.0); EOSINOPHILS % (AUTO) 3.1 % (0.0-3.0); HEMATOCRIT 24.5 % (42.0-52.0); HEMOGLOBIN 8.4 G/DL (14.2-18.0); LYMPHOCYTES % (AUTO) 45.3 % (20.0-45.0); MEAN CORPUSCULAR VOLUME 89 FL (80-99); MONOCYTES % (AUTO) 4.9 % (1.0-10.0); NEUTROPHILS % (AUTO) 45.3 % (45.0-75.0); PLATELET COUNT 429 K/UL (150-450); RED BLOOD COUNT 2.75 M/UL (4.70-6.10); WHITE BLOOD COUNT 5.5 K/UL (4.8-10.8)
--- NOTE | 2019-11-27 07:27 | NUR ---
HAND-OFF: Report given to ANDRY Knowles. Patient in stable condition. Seen eating and sitting at bed.
[2019-11-27 07:37] VITALS: BP 99/59
--- NOTE | 2019-11-27 07:37 | NUR ---
NURSE NOTES: Received handoff from Kurt WILDE. Patient is asleep, no signs of distress noted. Patient has condom catheter that is patent and draining, IV is asymptomatic. Right hip dressing is dry and intact. Bed is low and locked, side rails up x2, call light is within reach.
--- NOTE | 2019-11-27 08:43 | NUR ---
P.T Note: Pt refused to participate in P.T stated that he cant's do it. Explained the benefits and therapy and possible complications of prolonged bedrest however pt continued to refused. RN notified. Will reattempt.
--- NOTE | 2019-11-27 09:05 | General Progress Note ---
Assessment/Plan Assessment/Plan: (1) Right hip pain (2) Right hip fracture (3) S/P Right hip hemiarthroplasty (4) Right UE pain (5) Right UE osteomyelitis Patient to be continued on [place] as needed. D/w Dr. Sanders and he concurred. Subjective Date patient seen: November 27, 2019 Time patient seen: 08:30 - am Allergies: Coded Allergies: No Known Allergies (Unverified , 10/15/15) Subjective Constitutional: Reports: weakness HEENT: Reports: no symptoms Cardiovascular: Reports: no symptoms Respiratory: Reports: no symptoms Gastrointestinal/Abdominal: Reports: no symptoms Genitourinary: Reports: no symptoms Neurologic/Psychiatric: Reports: weakness Endocrine: Reports: no symptoms Hematologic/Lymphatic: Reports: no symptoms Subjective Patient has no new complaints at this time. No signs of pain or distress. Objective Last 24 Hour Vital Signs Date Time Temp Pulse Resp B/P (MAP) Pulse Ox O2 Delivery O2 Flow Rate FiO2 11/27/19 07:37 98.3 54 16 99/59 (72) 98 11/26/19 21:00 Room Air 11/26/19 20:00 96.1 18 119/67 (84) 95 11/26/19 16:00 98.6 59 18 114/67 (83) 98 11/26/19 11:49 97.2 66 21 117/82 (94) 97 Intake and Output 11/26/19 11/27/19 19:00 07:00 Intake Total 838 ml 720 ml Output Total 1200 ml 1220 ml Balance -362 ml -500 ml Intake Oral 838 ml 720 ml Output Urine Total 1200 ml 1220 ml Laboratory Tests 11/27/19 05:15: White Blood Count 5.5, Red Blood Count 2.75L, Hemoglobin 8.4L, Hematocrit 24.5L , Mean Corpuscular Volume 89, Mean Corpuscular Hemoglobin 30.7, Mean Corpuscular Hemoglobin Concent 34.5, Red Cell Distribution Width 14.0, Platelet Count 429, Mean Platelet Volume 4.3L, Neutrophils (%) (Auto) 45.3, Lymphocytes ( %) (Auto) 45.3H, Monocytes (%) (Auto) 4.9, Eosinophils (%) (Auto) 3.1H, Basophils (%) (Auto) 1.3 Height (Feet): 6 Height (Inches): 4.00 Weight (Pounds): 179 Objective General Appearance: no apparent distress, alert EENT: PERRL/EOMI, normal ENT inspection Neck: non-tender, normal alignment Cardiovascular: normal rate, regular rhythm Respiratory/Chest: decreased breath sounds Abdomen: non tender, soft Extremities: other - tenderness to palpation of right UE and LE Neurologic: alert, responsive Skin: normal pigmentation David Hi November 27, 2019 09:05
--- NOTE | 2019-11-27 09:11 | General Progress Note ---
Assessment/Plan Status: stable Assessment/Plan: (1) Coffee ground emesis ICD Codes: K92.0 - Hematemesis SNOMED: 50436149 (2) Anemia ICD Codes: D64.9 - Anemia, unspecified SNOMED: 421306622 (3) Dehydration ICD Codes: E86.0 - Dehydration SNOMED: 90239158 Status: stable Assessment/Plan #anemia r/o GI bleed. Patient had one episode of coffee ground emesis with no recurrent. S/P 2 units of pRBCs. First OB stool was negative. - Patient refused endoscopy at this time. - anemia work up reviewed; no noted iron or folate/thiamine deficiency - PPI to BID. - monitor H&H, prn transfusions. - send for additional OB stool to evaluate for any GI bleed #constipation. KUB reviewed. - continue colace TID, and miralax qhs. Subjective Allergies: Coded Allergies: No Known Allergies (Unverified , 10/15/15) Objective Last 24 Hour Vital Signs Date Time Temp Pulse Resp B/P (MAP) Pulse Ox O2 Delivery O2 Flow Rate FiO2 11/27/19 07:37 98.3 54 16 99/59 (72) 98 11/26/19 21:00 Room Air 11/26/19 20:00 96.1 18 119/67 (84) 95 11/26/19 16:00 98.6 59 18 114/67 (83) 98 11/26/19 11:49 97.2 66 21 117/82 (94) 97 Intake and Output 11/26/19 11/27/19 19:00 07:00 Intake Total 838 ml 720 ml Output Total 1200 ml 1220 ml Balance -362 ml -500 ml Intake Oral 838 ml 720 ml Output Urine Total 1200 ml 1220 ml Laboratory Tests 11/27/19 05:15: White Blood Count 5.5, Red Blood Count 2.75L, Hemoglobin 8.4L, Hematocrit 24.5L , Mean Corpuscular Volume 89, Mean Corpuscular Hemoglobin 30.7, Mean Corpuscular Hemoglobin Concent 34.5, Red Cell Distribution Width 14.0, Platelet Count 429, Mean Platelet Volume 4.3L, Neutrophils (%) (Auto) 45.3, Lymphocytes ( %) (Auto) 45.3H, Monocytes (%) (Auto) 4.9, Eosinophils (%) (Auto) 3.1H, Basophils (%) (Auto) 1.3 Height (Feet): 6 Height (Inches): 4.00 Weight (Pounds): 179 General Appearance: no apparent distress EENT: normal ENT inspection Neck: supple Cardiovascular: normal rate Respiratory/Chest: decreased breath sounds Abdomen: normal bowel sounds, non tender, soft Extremities: non-tender Paul Bains MD November 27, 2019 09:11
--- NOTE | 2019-11-27 09:53 | NUR ---
CASE MANAGEMENT:REVIEW 11/27/19 SI:S/P ORIF POD# 3 . RIGHT HIP FRACTURE 98.3 54 16 99/59 98% ON RA H/H 8.4/24.5 IS:PROTONIX PO BID IV VENOFER X5BAGS FLOMAX PO BID TYLENOL PO Q4HR/PRN \:3E MED SURG STATUS DCP: [facility] PLAN: PATIENT DECLINED ENDOSCOPY OB STOOL -NEGATIVE COVID-19 - NEGATIVE
[2019-11-27] MEDS: Docusate 100mg cap ORAL SCH ×2 (10:20→13:53)
[2019-11-27] MEDS: Tamsulosin 0.4mg cap ORAL SCH (10:21)
--- NOTE | 2019-11-27 11:04 | Infectious Diseases Prog Note ---
Assessment/Plan Assessment/Plan IMPRESSION: Post operative fever resolved Cellulitis of R arm treated Right hip fracture, s/p ORIF schizophrenia, BPH, Acute renal failure, Anemia, Fecal impaction. RECOMMENDATION: Agree with discharge Observe off antibiotic Negative COVID-19 test. Subjective ROS Limited/Unobtainable: Yes Constitutional: Denies: fever Allergies: Coded Allergies: No Known Allergies (Unverified , 10/15/15) Objective Vital Signs Last 24 Hour Vital Signs Date Time Temp Pulse Resp B/P (MAP) Pulse Ox O2 Delivery O2 Flow Rate FiO2 11/27/19 07:37 98.3 54 16 99/59 (72) 98 11/26/19 21:00 Room Air 11/26/19 20:00 96.1 18 119/67 (84) 95 11/26/19 16:00 98.6 59 18 114/67 (83) 98 11/26/19 11:49 97.2 66 21 117/82 (94) 97 Height (Feet): 6 Height (Inches): 4.00 Weight (Pounds): 179 General Appearance: no acute distress Respiratory/Chest: lungs clear Cardiovascular: normal rate Abdomen: soft, non tender Extremities: no edema Neurologic/Psychiatric: other - sleeping Laboratory Tests Test 11/27/19 05:15 White Blood Count 5.5 K/UL (4.8-10.8) Red Blood Count 2.75 M/UL (4.70-6.10) L Hemoglobin 8.4 G/DL (14.2-18.0) L Hematocrit 24.5 % (42.0-52.0) L Mean Corpuscular Volume 89 FL (80-99) Mean Corpuscular Hemoglobin 30.7 PG (27.0-31.0) Mean Corpuscular Hemoglobin Concent 34.5 G/DL (32.0-36.0) Red Cell Distribution Width 14.0 % (11.6-14.8) Platelet Count 429 K/UL (150-450) Mean Platelet Volume 4.3 FL (6.5-10.1) L Neutrophils (%) (Auto) 45.3 % (45.0-75.0) Lymphocytes (%) (Auto) 45.3 % (20.0-45.0) H Monocytes (%) (Auto) 4.9 % (1.0-10.0) Eosinophils (%) (Auto) 3.1 % (0.0-3.0) H Basophils (%) (Auto) 1.3 % (0.0-2.0) Current Medications Medications (Trade) Dose Ordered Sig/Juan Route PRN Reason Start Time Stop Time Status Last Admin Dose Admin Acetaminophen (Tylenol) 650 mg Q4H PRN ORAL Mild Pain (Pain Scale 1-3) 11/14/19 19:15 12/14/19 19:14 11/22/19 21:37 Acetaminophen (Tylenol) 650 mg Q4H PRN ORAL Temp >100.5 11/18/19 15:00 12/18/19 14:59 11/22/19 04:17 Acetaminophen/ Hydrocodone Bitart ([place] 7.5/325) 1 tab Q4H PRN ORAL severe pain 11/26/19 14:00 12/03/19 13:59 Docusate Sodium (Colace) 100 mg THREE TIMES A DAY ORAL 11/19/19 18:00 12/19/19 17:59 11/27/19 10:20 Epoetin Shaun (Epoetin Shaun-EPBX(NON ESRD)) 10,000 unit MON-MON-MON SUBQ 11/25/19 21:00 02/23/20 20:59 Iron Sucrose 100 mg/Sodium Chloride 55 ml @ 200 mls/hr BEDTIME IV 11/23/19 21:00 11/27/19 21:17 11/26/19 20:25 Metoclopramide HCl (Reglan) 10 mg Q6H PRN IVP Nausea & Vomiting 11/18/19 18:30 12/18/19 18:29 Midodrine (Pro-Amatine) 5 mg THREE TIMES A DAY ORAL 11/24/19 13:00 02/21/20 12:59 11/27/19 10:20 Pantoprazole (Protonix) 40 mg BID ORAL 11/23/19 18:00 12/23/19 08:59 11/27/19 10:21 Polyethylene Glycol (Miralax) 17 gm BEDTIME ORAL 11/24/19 21:00 12/24/19 20:59 11/26/19 21:24 Polyethylene Glycol (Miralax) 17 gm DAILY PRN ORAL Constipation 11/22/19 11:00 12/22/19 10:59 11/24/19 16:56 Tamsulosin HCl (Flomax) 0.4 mg BID ORAL 11/16/19 18:00 12/15/19 20:59 11/27/19 10:21 Todd Paz MD November 27, 2019 11:04
--- NOTE | 2019-11-27 11:14 | Hematology/Onc Progress Note ---
Assessment/Plan Assessment/Plan Assessment and Recs # Anemia of chronic disease due to underlying chronic medical issues, multifactorial v Gi bleed --> Anemia workup has been reviewed --> No evidence of hemolysis is noted, peripheral smear has been reviewed. --> Hgb goal >7. Transfuse prn. --> Epogen or iron have been started --> Medications have been reviewed --> low threshold for gi evaluation in case has occult + --> hgb trend 9.9-->9.3 -->9.5-->8.3->8.1-->8.6-->8.4 # Hip fracture, right --> Fracture of unspecified part of neck of right femur, initial encounter for closed fracture --> s/p orif # Fall may require surger per ortho --> neuro and ortho # JAIDA on CKD --> per Dr. Levine # Psych disorder --> per Dr. Dickens # Dvt ppx scds The timing of this note does not necessarily reflect the time of the patient was seen. Greatly appreciate consultation. Subjective Allergies: Coded Allergies: No Known Allergies (Unverified , 10/15/15) Subjective / confused, pending right hip hemiarthroplasty, bilat restraints 11/17 confused, hgb 9.5, no bleeding, reviewed renal recs 11/18 still requiring clearance by psych, cards for clearance to surgery 11/19 awake and alert, dressing dry and intact, on room air 11/20 still confused no bleeding, meds noted, no night sweats, dw rn 11/21 asa discontinued, with black emesis, gi care norco prn 11/23 has been refusing endoscopy, is on ppi, no beeding, hgb 10 11/24 labs are noted, on ppi, hgb 8.1, no night sweats 11/25 no acute events, h/h stable, on iv iron 11/26 off abx, labs reviewed, room air, il planning Objective Objective Current Medications Medications (Trade) Dose Ordered Sig/Juan Route PRN Reason Start Time Stop Time Status Last Admin Dose Admin Acetaminophen (Tylenol) 650 mg Q4H PRN ORAL Mild Pain (Pain Scale 1-3) 11/14/19 19:15 12/14/19 19:14 11/22/19 21:37 Acetaminophen (Tylenol) 650 mg Q4H PRN ORAL Temp >100.5 11/18/19 15:00 12/18/19 14:59 11/22/19 04:17 Acetaminophen/ Hydrocodone Bitart ([place] 7.5/325) 1 tab Q4H PRN ORAL severe pain 11/26/19 14:00 12/03/19 13:59 Docusate Sodium (Colace) 100 mg THREE TIMES A DAY ORAL 11/19/19 18:00 12/19/19 17:59 11/27/19 10:20 Epoetin Shaun (Epoetin Shaun-EPBX(NON ESRD)) 10,000 unit MON-MON-MON SUBQ 11/25/19 21:00 02/23/20 20:59 Iron Sucrose 100 mg/Sodium Chloride 55 ml @ 200 mls/hr BEDTIME IV 11/23/19 21:00 11/27/19 21:17 11/26/19 20:25 Metoclopramide HCl (Reglan) 10 mg Q6H PRN IVP Nausea & Vomiting 11/18/19 18:30 12/18/19 18:29 Midodrine (Pro-Amatine) 5 mg THREE TIMES A DAY ORAL 11/24/19 13:00 02/21/20 12:59 11/27/19 10:20 Pantoprazole (Protonix) 40 mg BID ORAL 11/23/19 18:00 12/23/19 08:59 11/27/19 10:21 Polyethylene Glycol (Miralax) 17 gm BEDTIME ORAL 11/24/19 21:00 12/24/19 20:59 11/26/19 21:24 Polyethylene Glycol (Miralax) 17 gm DAILY PRN ORAL Constipation 11/22/19 11:00 12/22/19 10:59 11/24/19 16:56 Tamsulosin HCl (Flomax) 0.4 mg BID ORAL 11/16/19 18:00 12/15/19 20:59 11/27/19 10:21 Last 24 Hour Vital Signs Date Time Temp Pulse Resp B/P (MAP) Pulse Ox O2 Delivery O2 Flow Rate FiO2 11/27/19 07:37 98.3 54 16 99/59 (72) 98 11/26/19 21:00 Room Air 11/26/19 20:00 96.1 18 119/67 (84) 95 11/26/19 16:00 98.6 59 18 114/67 (83) 98 11/26/19 11:49 97.2 66 21 117/82 (94) 97 11/26/19 09:00 Room Air 11/26/19 09:00 Room Air 11/26/19 08:00 97.6 80 18 121/77 (92) 99 11/26/19 04:00 98.1 60 18 126/74 (91) 97 11/26/19 00:00 97.4 58 18 132/68 (89) 99 11/25/19 21:00 Room Air 11/25/19 20:00 97.5 56 18 120/70 (87) 99 11/25/19 16:00 97.1 59 19 110/66 (81) 98 11/25/19 12:00 97.2 58 19 135/57 (83) 98 Intake and Output 11/26/19 11/27/19 19:00 07:00 Intake Total 838 ml 720 ml Output Total 1200 ml 1220 ml Balance -362 ml -500 ml Intake Oral 838 ml 720 ml Output Urine Total 1200 ml 1220 ml Labs Test 11/25/19 05:30 11/26/19 04:50 11/27/19 05:15 White Blood Count 5.4 K/UL (4.8-10.8) 5.0 K/UL (4.8-10.8) 5.5 K/UL (4.8-10.8) Red Blood Count 2.67 M/UL (4.70-6.10) 2.82 M/UL (4.70-6.10) 2.75 M/UL (4.70-6.10) Hemoglobin 8.1 G/DL (14.2-18.0) 8.6 G/DL (14.2-18.0) 8.4 G/DL (14.2-18.0) Hematocrit 23.7 % (42.0-52.0) 25.0 % (42.0-52.0) 24.5 % (42.0-52.0) Mean Corpuscular Volume 89 FL (80-99) 89 FL (80-99) 89 FL (80-99) Mean Corpuscular Hemoglobin 30.5 PG (27.0-31.0) 30.5 PG (27.0-31.0) 30.7 PG (27.0-31.0) Mean Corpuscular Hemoglobin Concent 34.4 G/DL (32.0-36.0) 34.4 G/DL (32.0-36.0) 34.5 G/DL (32.0-36.0) Red Cell Distribution Width 13.2 % (11.6-14.8) 13.6 % (11.6-14.8) 14.0 % (11.6-14.8) Platelet Count 359 K/UL (150-450) 421 K/UL (150-450) 429 K/UL (150-450) Mean Platelet Volume 4.3 FL (6.5-10.1) 4.3 FL (6.5-10.1) 4.3 FL (6.5-10.1) Neutrophils (%) (Auto) 59.2 % (45.0-75.0) 49.3 % (45.0-75.0) 45.3 % (45.0-75.0) Lymphocytes (%) (Auto) 30.9 % (20.0-45.0) 44.9 % (20.0-45.0) 45.3 % (20.0-45.0) Monocytes (%) (Auto) 5.1 % (1.0-10.0) 2.8 % (1.0-10.0) 4.9 % (1.0-10.0) Eosinophils (%) (Auto) 3.6 % (0.0-3.0) 2.2 % (0.0-3.0) 3.1 % (0.0-3.0) Basophils (%) (Auto) 1.1 % (0.0-2.0) 0.8 % (0.0-2.0) 1.3 % (0.0-2.0) Sodium Level 145 MMOL/L (136-145) 145 MMOL/L (136-145) Potassium Level 4.2 MMOL/L (3.5-5.1) 4.2 MMOL/L (3.5-5.1) Chloride Level 113 MMOL/L (98-107) 115 MMOL/L (98-107) Carbon Dioxide Level 21 MMOL/L (21-32) 22 MMOL/L (21-32) Anion Gap 11 mmol/L (5-15) 8 mmol/L (5-15) Blood Urea Nitrogen 53 mg/dL (7-18) 46 mg/dL (7-18) Creatinine 2.1 MG/DL (0.55-1.30) 2.0 MG/DL (0.55-1.30) Estimat Glomerular Filtration Rate 32.0 mL/min (>60) 33.8 mL/min (>60) Glucose Level 80 MG/DL (74-106) 83 MG/DL (74-106) Uric Acid 9.6 MG/DL (2.6-7.2) Calcium Level 8.2 MG/DL (8.5-10.1) 8.4 MG/DL (8.5-10.1) Phosphorus Level 3.7 MG/DL (2.5-4.9) Magnesium Level 1.9 MG/DL (1.8-2.4) Total Bilirubin 0.2 MG/DL (0.2-1.0) Aspartate Amino Transf (AST/SGOT) 25 U/L (15-37) Alanine Aminotransferase (ALT/SGPT) 10 U/L (12-78) Alkaline Phosphatase 74 U/L (46-116) C-Reactive Protein, Quantitative 5.8 mg/dL (0.00-0.90) Pro-B-Type Natriuretic Peptide 6206 pg/mL (0-125) Total Protein 5.8 G/DL (6.4-8.2) Albumin 1.6 G/DL (3.4-5.0) Globulin 4.2 g/dL Albumin/Globulin Ratio 0.4 (1.0-2.7) Height (Feet): 6 Height (Inches): 4.00 Weight (Pounds): 179 Objective PE: Vitals: reviewed, stable General Appearance: NAD HEENT: normocephalic, atraumatic Neck: non-tender, normal alignment Respiratory/Chest: normal breath sounds bilaterally Cardiovascular/Chest: normal peripheral pulses, normal rate Abdomen: normal bowel sounds, soft, nontender Extremities: normal range of motion Neuro: altered, encephalopathic : bonita+ Juan Luis Monique MD November 27, 2019 11:14
--- NOTE | 2019-11-27 11:23 | NUR ---
DISCHARGE PLANNING: PATIENT ACCEPTED BACK TO [facility] T:[phone]~~ FOR NURSE TO NURSE REPORT ROOM# 101 [facility] PATIENT NEEDING AMBULANCE RIDE HOME D/T NON AMBULATORY -NURSE TO OBTAIN ORDER NO DC ORDER AT THIS TIME -OBTAINING NOW CM TO SET UP TRANSPORTATION
--- NOTE | 2019-11-27 11:26 | Nephrology Progress Note ---
Assessment/Plan Problem List: (1) JAIDA (acute kidney injury) Assessment: Serum creatinine lower (2) Anemia (3) Dehydration (4) Hip fracture, right (5) Fall Assessment Acute renal failure Possibly underlying chronic kidney failure Dehydration Status post fall and fracture of the right hip History of hypertension History of diabetes mellitus History of psych disease Anemia Plan Serum creatinine now at its lowest, creatinine 2 which is down from 3.5 on admission Normal saline and albumin bolus as needed Check serum cortisol level noted Trial of IV iron and subcu Epogen for anemia Continue to monitor renal parameters Continue per consultants Kidney ultrasound results noted ROBERTO: 1. No hydronephrosis or stone. 2. Increased echogenicity of the kidneys is suggestive of medical renal disease. Left renal cysts. 3. Bladder is distended with questionable mild prominence of the bladder wall. Further evaluation could be performed with urinalysis if there is concern for cystitis. Previously: Patient underwent hip surgery November 17 today's labs reviewed, serum creatinine down to 2.5 Since serum creatinine is declining will continue hydration DC [place] November 19 On soft diet now Adjust blood pressure medications IV fluids Anemia work-up Protonix, Colace Pain medication Monitor renal parameters Urine studies Per consultants Subjective ROS Limited/Unobtainable: No Objective Objective Last 24 Hour Vital Signs Date Time Temp Pulse Resp B/P (MAP) Pulse Ox O2 Delivery O2 Flow Rate FiO2 11/27/19 07:37 98.3 54 16 99/59 (72) 98 11/26/19 21:00 Room Air 11/26/19 20:00 96.1 18 119/67 (84) 95 11/26/19 16:00 98.6 59 18 114/67 (83) 98 11/26/19 11:49 97.2 66 21 117/82 (94) 97 Intake and Output 11/26/19 11/27/19 19:00 07:00 Intake Total 838 ml 720 ml Output Total 1200 ml 1220 ml Balance -362 ml -500 ml Intake Oral 838 ml 720 ml Output Urine Total 1200 ml 1220 ml Current Medications Medications (Trade) Dose Ordered Sig/Juan Route PRN Reason Start Time Stop Time Status Last Admin Dose Admin Acetaminophen (Tylenol) 650 mg Q4H PRN ORAL Mild Pain (Pain Scale 1-3) 11/14/19 19:15 12/14/19 19:14 11/22/19 21:37 Acetaminophen (Tylenol) 650 mg Q4H PRN ORAL Temp >100.5 11/18/19 15:00 12/18/19 14:59 11/22/19 04:17 Acetaminophen/ Hydrocodone Bitart ([place] 7.5/325) 1 tab Q4H PRN ORAL severe pain 11/26/19 14:00 12/03/19 13:59 Docusate Sodium (Colace) 100 mg THREE TIMES A DAY ORAL 11/19/19 18:00 12/19/19 17:59 11/27/19 10:20 Epoetin Shaun (Epoetin Shaun-EPBX(NON ESRD)) 10,000 unit MON-MON-MON SUBQ 11/25/19 21:00 02/23/20 20:59 Iron Sucrose 100 mg/Sodium Chloride 55 ml @ 200 mls/hr BEDTIME IV 11/23/19 21:00 11/27/19 21:17 11/26/19 20:25 Metoclopramide HCl (Reglan) 10 mg Q6H PRN IVP Nausea & Vomiting 11/18/19 18:30 12/18/19 18:29 Midodrine (Pro-Amatine) 5 mg THREE TIMES A DAY ORAL 11/24/19 13:00 02/21/20 12:59 11/27/19 10:20 Pantoprazole (Protonix) 40 mg BID ORAL 11/23/19 18:00 12/23/19 08:59 11/27/19 10:21 Polyethylene Glycol (Miralax) 17 gm BEDTIME ORAL 11/24/19 21:00 12/24/19 20:59 11/26/19 21:24 Polyethylene Glycol (Miralax) 17 gm DAILY PRN ORAL Constipation 11/22/19 11:00 12/22/19 10:59 11/24/19 16:56 Tamsulosin HCl (Flomax) 0.4 mg BID ORAL 11/16/19 18:00 12/15/19 20:59 11/27/19 10:21 No can panel today laboratory Tests 11/27/19 05:15: White Blood Count 5.5, Red Blood Count 2.75L, Hemoglobin 8.4L, Hematocrit 24.5L , Mean Corpuscular Volume 89, Mean Corpuscular Hemoglobin 30.7, Mean Corpuscular Hemoglobin Concent 34.5, Red Cell Distribution Width 14.0, Platelet Count 429, Mean Platelet Volume 4.3L, Neutrophils (%) (Auto) 45.3, Lymphocytes ( %) (Auto) 45.3H, Monocytes (%) (Auto) 4.9, Eosinophils (%) (Auto) 3.1H, Basophils (%) (Auto) 1.3 Height (Feet): 6 Height (Inches): 4.00 Weight (Pounds): 179 General Appearance: no apparent distress Objective No change Armen Levine MD November 27, 2019 11:26
--- NOTE | 2019-11-27 11:32 | Surgery Progress Note ---
Surgery Progress Note Subjective Symptoms: improved, tolerating diet, voiding well, passing flatus, BM Objective Last 24 Hour Vital Signs Date Time Temp Pulse Resp B/P (MAP) Pulse Ox O2 Delivery O2 Flow Rate FiO2 11/27/19 07:37 98.3 54 16 99/59 (72) 98 11/26/19 21:00 Room Air 11/26/19 20:00 96.1 18 119/67 (84) 95 11/26/19 16:00 98.6 59 18 114/67 (83) 98 11/26/19 11:49 97.2 66 21 117/82 (94) 97 I&O Intake and Output 11/26/19 11/27/19 19:00 07:00 Intake Total 838 ml 720 ml Output Total 1200 ml 1220 ml Balance -362 ml -500 ml Intake Oral 838 ml 720 ml Output Urine Total 1200 ml 1220 ml Dressing: dry Wound: clean Cardiovascular: RSR Respiratory: clear Abdomen: flat, non-tender, present bowel sounds, non-distended Extremities: no edema, no tenderness, no cyanosis Laboratory Tests Test 11/27/19 05:15 White Blood Count 5.5 K/UL (4.8-10.8) Red Blood Count 2.75 M/UL (4.70-6.10) L Hemoglobin 8.4 G/DL (14.2-18.0) L Hematocrit 24.5 % (42.0-52.0) L Mean Corpuscular Volume 89 FL (80-99) Mean Corpuscular Hemoglobin 30.7 PG (27.0-31.0) Mean Corpuscular Hemoglobin Concent 34.5 G/DL (32.0-36.0) Red Cell Distribution Width 14.0 % (11.6-14.8) Platelet Count 429 K/UL (150-450) Mean Platelet Volume 4.3 FL (6.5-10.1) L Neutrophils (%) (Auto) 45.3 % (45.0-75.0) Lymphocytes (%) (Auto) 45.3 % (20.0-45.0) H Monocytes (%) (Auto) 4.9 % (1.0-10.0) Eosinophils (%) (Auto) 3.1 % (0.0-3.0) H Basophils (%) (Auto) 1.3 % (0.0-2.0) Plan Problems: (1) Dehydration (2) Anemia (3) JAIDA (acute kidney injury) (4) Fall (5) Hip fracture, right Assessment & Plan: Pt presented on admission with Full Thickness pressure injury thoracic Spine. Base of wound has 50% slough ,50% beefy red(L)1cm x (W) 1cm x (D)0.2cm. Small amt seropurulent exudate noted. No odor noted.Periwound erythematous and indurated.Non-viable tissue removed with gentle friction,25% slough remains at base of wound. Non-blanching erythema with an area at sacrococcygeal area that is maroon in colour. Pt denied tenderness when palpated. Drsg to R hip surgical site clean,dry and intact Large partial thickness wound posterior/upper R thigh(L)11cm x (W)3.9cm. Base of wound is moist and viable. Edges are macerated. Marginal erythema periwound. R and L heels are firm and easily blanchable.Multiple dry scabbed abrasions noted to dorsal aspects of L 1st -5th metatarsals. Pt R elbow noted to be swollen with several dry scabbed abrasions.Pt expressed pain when R arm minimally touched or moved.Primary nurse and and Charge Nurse made aware. Tx.Plan: Cleanse wound Thoracic Spine with Saline. Apply Therahoney. Appy Cavilon SKin Barrier Periwound. Cover with Optifoam drsg. Change every 3 days and prn. Cleanse wound Posterior R thigh with Saline. Apply Therahoney. Apply Cavilon Skin Barrier periwound. Cover with Optifoam drsg. Change every 3 days and prn. Apply Moisture Barrier Paste to Sacrum. Cover with Optifoam drsg. Change every 3 days and prn. Apply Cavilon Skin Barrier to both heels. Cover each heel with Optifoam drsg. Change every 7 days and prn. Reposition at least every 2 hours or as tolerated. Off-load heels with Pillow. APM/MADELIN Mattress overlay. (6) Fluid collection (edema) in the arms, legs, hands and feet Assessment & Plan: There is some image degradation due to motion artifact. There is extensive edema of the subcutaneous fat. There is also some edema of the forearm musculature and the bicipital musculature. There is an irregular collection immediately anterior to the distal ulna. Uncertain as to whether this is within the joint or immediately superficial to it. Suspect that this is within the joint. This collection measures 2.3 x 1.8. Only a normal amount of joint fluid is seen elsewhere within the joint, however. No other discrete fluid collections to suggest abscess are evident. On the axial images, there is some increased STIR and decreased T1 signal in the lateral condyle and epicondyle. This is seen only on the axial images. On the coronal images, the increased STIR signal is visualized, without T1 signal abnormality, and increased STIR signal appears to extend outside the bone. No definite signal abnormality is seen within the olecranon, the remainder of the visualized ulna, or the radius. Impression: No signal abnormality to correspond to the suspected abnormality described on recent abdominal radiograph and therefore no evidence of osteomyelitis within the olecranon. That finding probably reflects degenerative changes. Very questionable signal abnormality of the lateral humeral condyle and epicondyle. Suspect artifactual but could represent early osteomyelitis changes. 2.3 x 1.8 cm somewhat irregular collection anterior to the distal ulna. Probably represents focal effusion within the anterior joint, but the shape is somewhat unusual and extra synovial collection or abscess is also possible Extensive signal abnormality of the subcutaneous fat and musculature, most likely representing cellulitis/myositis given stated clinical history (7) Cellulitis of arm Assessment & Plan: improving abx as per ID will cont to monitor for possible abscess formation Additional Comments d/c planning Antwan Duncan November 27, 2019 11:32
[2019-11-27 12:00] VITALS: BP 87/55
--- NOTE | 2019-11-27 13:37 | Cardiac Electrophysiology PN ---
Assessment/Plan Assessment/Plan 1. Hypertension. Stable off meds now 2. Status post fall and right hip fracture and ORIF. EKG showed NSR with LBBB and Echo Nl EF. 3. COVID-19 is negative 4. Agitation and psychosis. 5. Diabetes. 6. CKD with a creatinine of 3.2 improved to 2.0 7. Hypernatremia, Resolved DW RN Subjective Subjective Echo Nl EF. ECG SR with LBBB. Being hydrated. Placement pending Objective Last 24 Hour Vital Signs Date Time Temp Pulse Resp B/P (MAP) Pulse Ox O2 Delivery O2 Flow Rate FiO2 11/27/19 07:37 98.3 54 16 99/59 (72) 98 11/26/19 21:00 Room Air 11/26/19 20:00 96.1 18 119/67 (84) 95 11/26/19 16:00 98.6 59 18 114/67 (83) 98 Intake and Output 11/26/19 11/27/19 19:00 07:00 Intake Total 838 ml 720 ml Output Total 1200 ml 1220 ml Balance -362 ml -500 ml Intake Oral 838 ml 720 ml Output Urine Total 1200 ml 1220 ml Laboratory Tests Test 11/27/19 05:15 White Blood Count 5.5 K/UL (4.8-10.8) Red Blood Count 2.75 M/UL (4.70-6.10) L Hemoglobin 8.4 G/DL (14.2-18.0) L Hematocrit 24.5 % (42.0-52.0) L Mean Corpuscular Volume 89 FL (80-99) Mean Corpuscular Hemoglobin 30.7 PG (27.0-31.0) Mean Corpuscular Hemoglobin Concent 34.5 G/DL (32.0-36.0) Red Cell Distribution Width 14.0 % (11.6-14.8) Platelet Count 429 K/UL (150-450) Mean Platelet Volume 4.3 FL (6.5-10.1) L Neutrophils (%) (Auto) 45.3 % (45.0-75.0) Lymphocytes (%) (Auto) 45.3 % (20.0-45.0) H Monocytes (%) (Auto) 4.9 % (1.0-10.0) Eosinophils (%) (Auto) 3.1 % (0.0-3.0) H Basophils (%) (Auto) 1.3 % (0.0-2.0) Objective HEAD AND NECK: No JVD. LUNGS: Clear. CARDIOVASCULAR: Regular S1 and S2 with no gallop. ABDOMEN: Soft. EXTREMITIES: S/P right hip ORIF Neno Ennis MD November 27, 2019 13:37
--- NOTE | 2019-11-27 15:48 | NUR ---
NURSE NOTES: RN called [facility] to give report and talked to Chi, a caregiver at the facility. She said that it was not necessary to give report and that she only needed a print out of the patient's negative COVID result.
[2019-11-27 16:00] VITALS: BP 102/57
--- NOTE | 2019-11-27 16:33 | NUR ---
NURSE NOTES: Patient was safely discharged in stable condition at 1625 to [facility]. Belongings were verified with patient, home medications were continued per Dr. Coronel's order. Left hand IV was removed, no bleeding occurred. Patient left via gurney by [facility] personnel, to be transported by EMS BLS. Patient was given home medication list.
--- NOTE | 2019-11-28 13:00 | Discharge Summary ---
Discharge Summary Discharge Summary _ DATE OF ADMISSION: 11/14/2019 DATE OF DISCHARGE: 11/27/2019 DISCHARGED BY: Dr. Coronel REASON FOR ADMISSION: 64 years old male with past medical history of hypertension, diabetes mellitus, chronic kidney disease, presented with right hip pain, sharp in nature, aggravated with movement and alleviated with rest Patient reported mechanical fall on the prior day. He denied headache, no chest pain or shortness of breath ; he denied hitting his head. No cough ,no congestion . Upon evaluation laboratory work-up revealed no leukocytosis, hemoglobin 10.6, hematocrit 32.6, platelet count 241. BUN 73, creatinine 3.5. Glucose 102. Stable LFT. Lipase 181. Troponin negative. Albumin 1.9. CT of the head revealed no evidence of acute intracranial bleeding or mass- effect. Age-related volume loss and minimal mastoid disease noted. Chest x-ray demonstrated no acute cardiopulmonary pathology. X-ray of the right hip revealed right hip fracture of the distal femoral neck. CT scan of the pelvis showed right distal femoral neck fracture. Rectal fecal impaction. Left hip hemiarthroplasty prosthesis noted. In emergency department patient received analgesic and admitted for surgical intervention for further management. CONSULTANTS: vendor manager Dr. Ortiz ID specialist Dr. Todd Paz GI specialist Dr. Bains cerner analyst Dr. Levine vacuum spindle sander/oncologist Dr. Monique surgery Dr. Duncan orthopedic surgeon Dr. Hyde pain specialist Dr. Sanders psychiatrist [facility]SE: Patient admitted to medical surgical floor. Orthopedic surgeon seen and evaluated patient. Cardiology consult was requested for cardiac clearance prior to surgery. Pain management was addressed. Echocardiogram demonstrated left ventricular ejection fraction estimated to be grossly normal. EKG revealed normal sinus rhythm with left bundle branch block . No prior history of myocardial infarction or congestive heart failure. No further cardiac testing was necessarily. Patient was cleared for surgery. Patient subsequently undergone right hip hemiarthroplasty on 11/17. Postoperatively patient was working with physical therapist. Fall precaution maintained. Postoperative hip precautions were maintained. Pain management was addressed as per pain specialist recommendations. SARS-CoV-2 by PCR from 11/13 came back non-detected. Blood cultures were negative. Isolation discontinued. Patient had edema bilateral upper extremities, right more . Venous duplex bilateral lower extremity revealed no evidence of bilateral upper extremity DVT. X-ray of the right elbow revealed no acute bony trauma. X-ray of the right wrist reveal no definite acute bony trauma. CT scan of the right elbow revealed no acute bony trauma. MRI of the right elbow no evidence of osteomyelitis within the olecranon. Some joint degenerative changes. Some irregular collection 2.3 x 1.8 cm anterior to the distal ulna , probably representing focal effusion , possible extrasynovial collection versus abscess. Extensive signal abnormality of the subcutaneous fat and musculature , most likely represented cellulitis/myositis given his clinical status history. Patient undergone treatment for cellulitis right elbow and completed antibiotic while in the hospital. Blood pressure was closely monitored and remained stable without any antihypertensive medication. Renal parameters and electrolytes were closely monitored ,electrolytes corrected as needed , nephrotoxins were avoided. Renal ultrasound revealed no evidence of hydronephrosis. No stones. Increased echogenicity of the kidneys suggestive of medical renal disease. Creatinine from 3.5 down to 2.0 , BUN from 73 down to 46. Hemoglobin and hematocrit were closely monitored with goal to keep hemoglobin above 7. Stool for occult blood was negative. Anemia work-up revealed evidence of anemia of chronic disease. Patient received 2 units of packed red blood cells . Patient started on Epogen and iron. Prior to discharge hemoglobin 8.4 , hematocrit 24.5. GI prophylaxis with PPI provided. Bowel regimen instituted. Patient had one episode of coffee-ground emesis without recurrence. Patient received 2 units of packed red blood cells as mentioned above. Stool for occult blood was negative. Patient refused endoscopy. PPI was increased to twice daily. Closely monitor hemoglobin and hematocrit in the facility and consider GI procedure as outpatient. Patient clinically stabilized and was ready for transfer back to the alf facility for continuation of care. FINAL DIAGNOSES: Status post mechanical fall Right femoral neck fracture Status post R hip hemiarthroplasty Hypertension Diabetes mellitus Right arm cellulitis Acute kidney injury on chronic kidney disease Dehydration Acute encephalopathy Dementia Anemia Episode of coffee-ground emesis Schizophrenia BPH Fecal impaction DISCHARGE MEDICATIONS: See Medication Reconciliation list. DISCHARGE INSTRUCTIONS: Patient was discharged back to assisted living. Follow-up with a primary care provider in 1 week. Follow-up with orthopedic surgeon as advised. I have been assigned to dictate discharge summary for this account. I was not involved in the patient's management. Nasima Moreno NP November 28, 2019 13:00
== END 2019-11-27 16:25 | disposition home or self-care (01) | DRG 470 ==
LOC: EDBD 15:50 → EDUNIT# 15:50 → EMR 16:05 → 4E 16:35 → EDBEDREQ 17:04 → 3E 11-23 08:44
PROC: 0SRR0JZ Replacement of Right Hip Joint, Femoral Surface with Synthetic Substitute, Open Approach (ICD-10-PCS; principal; 2019-11-18 14:30)
PROC: 30233N1 Transfusion of Nonautologous Red Blood Cells into Peripheral Vein, Percutaneous Approach (ICD-10-PCS; 2019-11-22)
DX: S72.001A Fracture of unspecified part of neck of right femur, initial encounter for closed fracture (principal); N17.9 Acute kidney failure, unspecified; E87.0 Hyperosmolality and hypernatremia; M86.8X8 Other osteomyelitis, other site; L03.113 Cellulitis of right upper limb; G93.40 Encephalopathy, unspecified; F03.91 Unspecified dementia, unspecified severity, with behavioral disturbance; W19.XXXA Unspecified fall, initial encounter; Y92.129 Unspecified place in nursing home as the place of occurrence of the external cause; E86.0 Dehydration; F03.90 Unspecified dementia, unspecified severity, without behavioral disturbance, psychotic disturbance, mood disturbance, and anxiety; I12.9 Hypertensive chronic kidney disease with stage 1 through stage 4 chronic kidney disease, or unspecified chronic kidney disease; E11.22 Type 2 diabetes mellitus with diabetic chronic kidney disease; N18.9 Chronic kidney disease, unspecified; I44.7 Left bundle-branch block, unspecified; D63.8 Anemia in other chronic diseases classified elsewhere; F20.9 Schizophrenia, unspecified; K56.41 Fecal impaction
CPT/HCPCS: 36415; 70450; 71045; 72170; 72192; 74018; 76770; 80048; 80053; 80061; 80202; 81003; 82150; 82270; 82533; 82550; 82607; 82728; 82746; 82962; 83036; 83540; 83550; 83690; 83735; 83880; 84100; 84484; 84550; 85007; 85025; 85610; 85730; 86140; 86850; 86900; 86901; 86920; 87040; 87635; 93005; 93306; 93970; 94003; 94150; 96361; 96374; 96375; 99285; J2405; J2795; J7030; J8499